=== PATIENT | female | born 1950 | race Caucasian/White ===

== ENCOUNTER → 2016-04-13 | Outpatient (CLI) | payer OTHER ==
[~2016-04-13] MED LIST: ASPI-232 PO; CRAN1TAB4 PO; GLC500 PO; GLIM2TAB2 PO; LISI40TA PO; LISI5TAB3 PO; METF-384 PO; MULT1TAB79 PO; OMEG10007 PO; SIMV20TA2 PO
[2016-04-13 12:54] LABS: ALT/SGPT 33 U/L (12-78); BLOOD UREA NITROGEN 21 mg/dl (7-18); BUN/CREATININE RATIO 36.9 (10-20); CALCIUM 9.9 mg/dl (8.5-10.1); CARBON DIOXIDE 24 mmol/L (21-32); CHLORIDE 105 mmol/L (98-107); CHOLESTEROL 146 mg/dl (0-200); CREATININE 0.58 mg/dl (0.60-1.20); GLUCOSE 189 mg/dl (70-99); POTASSIUM 4.7 mmol/L (3.5-5.1); SODIUM 140 mmol/L (136-145); TRIGLYCERIDES 227 mg/dl (0-150); VERY LOW DENSITY LIPOPROT CALC 45 mg/dl
[2016-04-13 12:57] LABS: ALB/GLOB RATIO 0.8 (0.9-2); ALKALINE PHOSPHATASE 75 U/L (45-117); AST/SGOT 27 U/L (15-37); CHOLESTEROL/HDL RATIO 5.2; HDL CHOLESTEROL 28 mg/dl; LDL CHOLESTEROL CALCULATED 73 mg/dl
[2016-04-13 13:13] LABS: ESTIMATED AVERAGE GLUCOSE 174 mg/dl; HA1C FLAG Normal (Normal)
== END | disposition home or self-care (01) ==
LOC: C.LABPVFM 10:47
PROVIDERS: ATTEND Family Medicine
DX: E78.5 Hyperlipidemia, unspecified (principal); I10 Essential (primary) hypertension; E11.49 Type 2 diabetes mellitus with other diabetic neurological complication; R21 Rash and other nonspecific skin eruption

== ENCOUNTER → 2016-08-22 | Outpatient (CLI) | payer OTHER ==
--- NOTE | 2016-08-28 10:06 | MAMMOGRAPHY REPORT ---
UNILATERAL RIGHT DIGITAL DIAGNOSTIC MAMMOGRAM TOMOSYNTHESIS WITH CAD AND TARGETED RIGHT ULTRASOUND: CLINICAL HISTORY: Follow-up diagnostic evaluation of the right breast for a benign appearing circumsc ribed 4 mm mass in the medial, posterior aspect of the breast, a loose grouping of 4 microcalcificati ons in the lateral breast, and a asymmetry in the superior breast on the MLO view. TECHNIQUE: Right breast tomosynthesis in addition to standard 2D mammography was performed. Current neto billy was also evaluated with a Computer Aided Detection (CAD) system. COMPARISON: Comparison is made to exams dated: 02/22/2016 mammogram, 02/22/2016 ultrasound, 6 ultrasound, 11/22/2015 mammogram, 11/16/2014 mammogram, and 10/29/2014 mammogram - [facility]. BREAST COMPOSITION: There are scattered areas of fibroglandular density in the right breast. FINDINGS: The exam is slightly suboptimal in terms of visualization of posterior tissue and position ing due to being wheelchair-bound. There are 4 loosely grouped smooth microcalcifications in the yariel roximate 9:00 middle one third of the right breast, that are unchanged dating back to at least 2015 and slightly coarsened comparing to 10/29/2014. There are benign rim calcifications anteriorly in the right breast. There is a rounded circumscribed 4 mm mass in the medial, far posterior right b reast on the CC view. This is not clearly seen on the MLO views. This circumscribed mass is stable in size dating back to 11/22/2015. No associated architectural distortion or microcalcification. An asymmetry is again seen in the superior middle one third of the right breast on the MLO view, that d oes not definitely persist as a mass on the corresponding tomosynthesis images. Nevertheless, furthe r evaluation with ultrasound was performed. Targeted ultrasound was performed throughout the medial right breast and also the superior right darci st. In the 11:00 axis, 8 cm from the nipple, an anechoic benign simple cyst is again identified, chris suring 3.1 x 1.4 x 4.1 mm. This has decreased in size compared to the prior ultrasound at which time it measured 7.7 x 2.7 x 5.1 mm. The interval decrease in size confers benignity. No discrete solid or cystic masses seen throughout the medial right breast. Tortuous ectatic blood vessels are seen, concordant with the mammographic appearance of prominent vasculature. IMPRESSION: ACR-BI-RADS CATEGORY 3: PROBABLY BENIGN, TARGETED ULTRASOUND ACR-BI-RADS CATEGORY 3: PRO BABLY BENIGN 1. A 4.3 mm circumscribed round mass in the medial, far posterior right breast, only seen on the CC view is unchanged in size dating back to 11/22/2015, therefore likely benign. However, no sonographi c correlate was identified to confirm a benign cyst. Therefore, another close follow-up is recommend ed in 4-5 months. 2. Persistent asymmetry in the superior right breast on the MLO view, with no definite persistent ma ss on the tomosynthesis images, and no suspicious sonographic correlate. A benign cyst is again seen in the 11:00 right breast on ultrasound, which may be contributing to the asymmetry. Overall, no kerr spicious solid mass is seen on ultrasound. 3. A loose grouping of 4 smooth microcalcifications in the upper outer middle one third of the right breast is unchanged in number and appearance dating back to October 2015, and unchanged in number gulshan ing back to 2014. Another follow-up diagnostic mammogram is recommended to ensure longer stability. 4. At the time of follow-up in the right breast, annual left mammography will be due. These results and recommendations were discussed with the patient at the time of the exam. She tenta tively schedule the follow-up appointment prior to leaving our department. Approximately 10% of breast cancers are not detected with mammography. A negative mammographic report should not delay biopsy if a clinically suggestive mass is present. Talia Crabtree M.D. ay/:08/22/2016 14:36:53 Attending Technologist: Jolie Hsu RT(R)(M), [facility] [address] [facility] Dog Raiser: Philly Dodd RT(R)(M), [facility] [address] letter sent: Follow Up Recommended 3 BI-RADS Code: ACR-BI-RADS Category 3: Probably Benign Ultrasound BI-RADS: ACR-BI-RADS Category 3: Pr obably Benign
== END | disposition home or self-care (01) ==
LOC: C.MAMM 13:32
PROVIDERS: ATTEND Family Medicine
DX: N64.89 Other specified disorders of breast (principal); R92.0 Mammographic microcalcification found on diagnostic imaging of breast; N63 Unspecified lump in breast

== ENCOUNTER → 2016-10-31 | Outpatient (CLI) | payer OTHER ==
[2016-10-31 17:48] LABS: ALT/SGPT 36 U/L (12-78); AST/SGOT 36 U/L (15-37); BLOOD UREA NITROGEN 21 mg/dl (7-18); BUN/CREATININE RATIO 32.6 (10-20); CALCIUM 9.9 mg/dl (8.5-10.1); CARBON DIOXIDE 26 mmol/L (21-32); CHLORIDE 103 mmol/L (98-107); CHOLESTEROL 136 mg/dl (0-200); CREATININE 0.65 mg/dl (0.60-1.20); GLUCOSE 247 mg/dl (70-99); POTASSIUM 4.6 mmol/L (3.5-5.1); SODIUM 137 mmol/L (136-145); TRIGLYCERIDES 221 mg/dl (0-150); VERY LOW DENSITY LIPOPROT CALC 44 mg/dl
[2016-10-31 17:51] LABS: ALB/GLOB RATIO 0.6 (0.9-2); ALKALINE PHOSPHATASE 83 U/L (45-117); CHOLESTEROL/HDL RATIO 4.7; HDL CHOLESTEROL 29 mg/dl; LDL CHOLESTEROL CALCULATED 63 mg/dl
[2016-11-01 07:54] LABS: ESTIMATED AVERAGE GLUCOSE 232 mg/dl; HA1C FLAG Normal (Normal)
== END | disposition home or self-care (01) ==
LOC: C.LABPVFM 12:43
PROVIDERS: ATTEND Family Medicine
DX: Z11.59 Encounter for screening for other viral diseases (principal); E78.5 Hyperlipidemia, unspecified; I10 Essential (primary) hypertension; R77.1 Abnormality of globulin; E11.49 Type 2 diabetes mellitus with other diabetic neurological complication

== ENCOUNTER 2016-11-01 17:25 | Emergency (ER) | payer OTHER ==
[~2016-11-01] VITALS: Ht 162.6 cm; Wt 100.0 kg
[~2016-11-01 17:25] MED LIST changes: -LISI40TA PO; -METF-384 PO
[2016-11-01 17:30] VITALS: TEMP 36.5; Ht 162.6 cm; Wt 100.0 kg
[2016-11-01] MEDS ORDERED: LISI40TA PO (17:48)
[2016-11-01] MEDS ORDERED: METF-384 PO (17:48)
--- NOTE | 2016-11-01 18:09 | DIAGNOSTIC IMAGING REPORT ---
RIGHT ANKLE MIN 3 VIEWS ROUTINE HISTORY: 66 years-old Female acute right-sided ankle injury status post trauma. COMPARISON: None available TECHNIQUE: 3 views of the right ankle FINDINGS: There is a comminuted fracture of the distal tibial metaphysis with fracture lines extending into the distal tibiofibular syndesmosis. A true lateral view was not obtained which limits evaluation of the fracture. There is only minimal displacement of approximately one cortex width medially of the distal fracture fragment. No significant angulation. Additionally, there is an acute oblique fracture of the distal fibular metaphysis with minimal apex lateral angulation of 8 degrees. No significant displacement. There is extensive soft tissue swelling about the ankle. Note is made of an peroneum. Bones are moderately demineralized. There is moderate degenerative change of the first MTP joint. There is spurring of the calcaneus. IMPRESSION: 1. Acute comminuted fracture of the distal tibial metaphysis extends into the distal tibiofibular syndesmosis. Evaluation is limited without a true lateral radiograph. 2. Acute mildly angulated oblique fracture of the distal fibular metaphysis. The above report was generated using voice recognition software. It may contain grammatical, syntax or spelling errors. Electronically signed by: Gene Davis M.D. 11/01/2016 6:08 PM Dictated Date/Time: 11/01/2016 6:05 PM
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
[2016-11-01 18:45] VITALS: BP 131/83; PULSE 77; O2SAT 97
== END 2016-11-01 18:51 | disposition home or self-care (01) ==
LOC: C.EDB 17:27 → C.EDD 18:51
DX: S82.301A Unspecified fracture of lower end of right tibia, initial encounter for closed fracture (principal); S82.891A Other fracture of right lower leg, initial encounter for closed fracture; S90.811A Abrasion, right foot, initial encounter; G35 Multiple sclerosis; Z99.3 Dependence on wheelchair; W22.8XXA Striking against or struck by other objects, initial encounter; Y92.008 Other place in unspecified non-institutional (private) residence as the place of occurrence of the external cause; Y93.H2 Activity, gardening and landscaping; E11.9 Type 2 diabetes mellitus without complications; I10 Essential (primary) hypertension; E66.9 Obesity, unspecified; M81.0 Age-related osteoporosis without current pathological fracture; Z79.4 Long term (current) use of insulin; Z79.899 Other long term (current) drug therapy

== ENCOUNTER → 2016-11-02 | Outpatient (CLI) | payer OTHER ==
[~2016-11-02] MED LIST changes: -CRAN1TAB4 PO; -GLC500 PO; +LISI40TA PO; -LISI5TAB3 PO; +METF-384 PO; -OMEG10007 PO
[2016-11-02 18:29] LABS: RATIO 220.7 mcg/mg (0-30.0)
== END | disposition home or self-care (01) ==
LOC: C.LABPVFM 10:49
PROVIDERS: ATTEND Family Medicine
DX: E78.5 Hyperlipidemia, unspecified (principal); I10 Essential (primary) hypertension; R77.1 Abnormality of globulin; E11.49 Type 2 diabetes mellitus with other diabetic neurological complication

== ENCOUNTER → 2016-12-19 | Outpatient (CLI) | payer OTHER ==
--- NOTE | 2016-12-19 14:42 | MAMMOGRAPHY REPORT ---
BILATERAL DIGITAL DIAGNOSTIC MAMMOGRAM TOMOSYNTHESIS WITH CAD AND TARGETED RIGHT ULTRASOUND: 7 CLINICAL HISTORY: 66-year-old woman presents for annual bilateral mammography and also to follow-up g rouped microcalcifications in the lateral right breast, and a small, 4.6 mm mass in the medial railroad firer ior right breast. TECHNIQUE: Bilateral CC and MLO 2-D and tomosynthesis images were obtained. The images are suboptima l given the patient is wheelchair-bound and there is significant posterior tissue excluded on the MLO views given those limitations. Current study was also evaluated with a Computer Aided Detection (CA D) system. COMPARISON: Comparison is made to exams dated: 08/22/2016 ultrasound, 08/22/2016 mammogram, 02/22/2016 mammogram, 02/22/2016 ultrasound, 11/22/2015 ultrasound, and 11/22/2015 mammogram - [facility]. BREAST COMPOSITION: There are scattered areas of fibroglandular density in both breasts. FINDINGS: Within the limitations of the exam, there is a stable lobulated mass with associated coars e calcification measuring 17 mm, in the upper outer anterior left breast, that is unchanged in size a nd appearance dating back to at least 08/08/2011. There is a second stable lobulated and circumscrib ed 5 mm mass in the anterior retroareolar left breast, and a stable asymmetry in the medial posterior left breast on the CC view. All of these findings are stable for at least 5 years and considered be nign. There are a few benign-appearing calcifications in the left breast, without evidence of new kerr spicious mass, asymmetry, focal area distortion or suspicious macrocalcification. There is a partially circumscribed 4.6 mm mass in the medial posterior right breast on the CC view th at is identified in the superior breast base on the MLO view. Further evaluation with ultrasound was performed, although this mass does not appear significantly changed in size dating back to 6. A grouping of approximately 4 microcalcifications in the 9:00 middle one third of the right breas t has coarsened comparing to the 10/29/2014 mammograms, suggesting benignity. Spot magnification vie ws were unable to be obtained given limitations of the patient in her wheelchair. Targeted ultrasound was performed in the upper inner quadrant and medial right breast to assess for t he 4.6 mm mammographic mass. In the 1:00 axis, 11-12 cm from the nipple, a small hypoechoic mass is identified, measuring 3.0 x 3.3 x 4.5 mm. This correlates well in size, shape and location as the ma mmographic mass and is indeterminate given the interval development and solid nature. Definitive lito racterization with an ultrasound-guided core needle biopsy is recommended. IMPRESSION: ACR BI-RADS CATEGORY 4: SUSPICIOUS, TARGETED ULTRASOUND ACR BI-RADS CATEGORY 4: SUSPICIO US 1. Ultrasound guided core biopsy is recommended for an indeterminate 4.5 mm solid mass in the 1:00 r ight breast, 11 cm from the nipple, which is thought to correlate with the mammographic mass that was new on the 2016 mammograms, but had not been previously located with ultrasound. 2. The 4 microcalcifications in the 9:00 right breast have coarsened since the 2015 mammograms, sugg esting benignity. 3. Stable mammographic appearance of the left breast including stable benign-appearing masses and as ymmetries. No definite mammographic evidence of malignancy. Advise follow-up in 1 year. These results and recommendations were discussed with the patient at the time of the exam. She tenta tively scheduled the right breast biopsy prior to leaving our department. Approximately 10% of breast cancers are not detected with mammography. A negative mammographic report should not delay biopsy if a clinically suggestive mass is present. Talia Crabtree M.D. ay/:12/19/2016 12:37:18 Singing Teacher: Philly Acosta, [facility] letter sent: Abnormal 4/5 BI-RADS Code: ACR BI-RADS Category 4: Suspicious Ultrasound BI-RADS: ACR BI-RADS Category 4: Suspici ous
== END | disposition home or self-care (01) ==
LOC: C.MAMM 10:30
PROVIDERS: ATTEND Family Medicine
DX: N63 Unspecified lump in breast (principal); R92.0 Mammographic microcalcification found on diagnostic imaging of breast

== ENCOUNTER → 2016-12-25 | Outpatient (CLI) | payer OTHER ==
--- NOTE | 2016-12-25 11:49 | Discharge Instructions ---
Discharge Instructions Procedure Procedure Date: Dec 25, 2016. Reason for visit: Right Mass. Discharge Discharge Date: Dec 25, 2016. Discharge Diagnosis: post right breast ultrasound guided core biopsy Instructions Activity Recommendations: Additional Limitations (see below) Return to School/Work: no limitations Recommended Home Diet: No Limitations Provider Instructions: ACTIVITY RECOMMENDATIONS: * No lifting, pushing, pulling or exercising the affected side for three days. RETURN TO SCHOOL/WORK: * You may return to work/school after the procedure, but do not perform any strenuous activities for 24 to 48 hours. MEDICATIONS: * Tylenol (two 325 mg) every four to six hours if needed for mild pain (if not allergic to Tylenol). DIET: * Resume previous diet. SPECIAL CARE INSTRUCTIONS: * Keep biopsy site dry for 24 hours. May shower after 24 hours, but do not soak (bathe) incision. * May remove Tegaderm (plastic patch) tomorrow AFTER showering. * Leave the steri-strips on for one week. Allow the steri-strips to fall off by themselves. If not off after one week, you may remove them. You may place a Bandaid crosswise over the strips, if desired. * Apply ice 10 minutes on and 10 minutes off as needed. * Wear a bra at bedtime to sleep more comfortably for 2-3 days. * Your referring physician should have the results after approximately 5 to 7 business days. * Call for unusual bleeding, fever, drainage, etc or if you have any questions call [phone] during normal business hours or after hours call Dr Crabtree, . FOLLOW UP VISIT: Follow-up with Referring Physician as scheduled. Allergies Coded Allergies: No Known Allergies (Verified , 03/19/15) Aldo Constantino Recommendations: Call your doctor if: * Temperature above 101 degrees * Pain not relieved by pain medicine ordered * There is increased drainage or redness from any incision * You have any unanswered questions or concerns. Your Doctors Instructions noted above were prepared by provider Talia Crabtree. Patient Signature Section: Patient Instructions Signature Page Judie Calderon Patient (or Guardian) Signature/Date: I have read and understand the instructions given to me by my caregivers. Caregiver/RN/Doctor Signature/Date: The above-named patient and/or guardian has received patient instructions on this date. + Original Patient Signature Page (only) stays with chart. Please make copy for patient.
--- NOTE | 2016-12-25 12:34 | MAMMOGRAPHY REPORT ---
ULTRASOUND GUIDED BIOPSY RIGHT BREAST: 12/25/2016 CLINICAL HISTORY: Indeterminate 3 x 4 mm round hypoechoic solid-appearing mass in the 1:[address] Patient presents for ultrasound-guided core biopsy. COMPARISON: Comparison is made to exams dated: 12/19/2016 mammogram, 12/19/2016 ultrasound, 08/22/2016 ultrasound, 08/22/2016 mammogram, 02/22/2016 mammogram, and 11/22/2015 mammogram - [facility]. PATIENT CONSENT: The procedure, risks and benefits were discussed with the patient and informed conse nt was obtained both verbally and in writing. Specific risks to this procedure include: bleeding, in fection, puncture of adjacent structure, nontarget biopsy, sampling error, pain, metal allergy and me dication reaction. PROCEDURE DESCRIPTION: A time out was performed and the right breast was agreed as the site of biopsy . The skin was prepped and draped in the usual sterile fashion. The 3 x 4 mm round hypoechoic solid m ass in the 1:00 right breast was chosen as the target for biopsy. Subcutaneous and intraparenchymal 1 % buffered lidocaine, without epinephrine, was administered as local anesthesia. A skin incision was made. Through the incision, 4 samples were taken with a 14 gauge Achieve biopsy device. A ribbon sha ped metallic marker was placed at the biopsy site. Hemostasis was achieved after manual compression. The patient tolerated the procedure well and there was no immediate complication. The samples were s ent to the pathology department in an appropriately labeled container. A post procedure right CC 2-D and tomosynthesis image was obtained. A new ribbon-shaped metallic bio psy marker clip is located within the mammographic mass in question, confirming mammographicsonograp hic correlation. No significant post biopsy hematoma. IMPRESSION: ULTRASOUND GUIDED BIOPSY Status post ultrasound-guided core biopsy of an indeterminate solid appearing mass in the 1:00 crystal slicer ior right breast, with biopsy marker placed at the site. The patient will receive notification of the biopsy results from her referring physician. Talia Crabtree M.D. ay/:12/25/2016 12:04:57 Breakdown Worker: Elissa LUGO(Pete)(Sarah), [facility]
--- NOTE | 2016-12-25 12:36 | MAMMOGRAPHY REPORT ---
UNILATERAL RIGHT DIGITAL DIAGNOSTIC MAMMOGRAM TOMOSYNTHESIS WITH CAD: 12/25/2016 CLINICAL HISTORY: Status post ultrasound guided core biopsy of an indeterminate solid appearing mass in the 1:00 right breast. Please refer to the report from right breast ultrasound guided core biopsy performed at the same time for full detail. IMPRESSION: POST PROCEDURE IMAGING FOR MARKER PLACEMENT Please refer to the report from right breast ultrasound guided core biopsy performed at the same time for full detail. Approximately 10% of breast cancers are not detected with mammography. A negative mammographic report should not delay biopsy if a clinically suggestive mass is present. Talia Crabtree M.D. ay/:12/25/2016 11:50:44 Asbestos Pipe Supervisor: Elissa CHAPARRO)(M), [facility] BI-RADS Code: Post Procedure Imaging For Marker Placement
== END | disposition home or self-care (01) ==
LOC: C.MAMM 10:55
PROVIDERS: ATTEND Family Medicine
DX: D24.1 Benign neoplasm of right breast (principal)

== ENCOUNTER → 2017-02-01 | Outpatient (CLI) | payer OTHER ==
[2017-02-01 17:43] LABS: BLOOD UREA NITROGEN 20 mg/dl (7-18); BUN/CREATININE RATIO 37.4 (10-20); CALCIUM 10.8 mg/dl (8.5-10.1); CARBON DIOXIDE 28 mmol/L (21-32); CHLORIDE 104 mmol/L (98-107); CREATININE 0.54 mg/dl (0.60-1.20); GLUCOSE 187 mg/dl (70-99); POTASSIUM 4.5 mmol/L (3.5-5.1); SODIUM 137 mmol/L (136-145)
[2017-02-02 05:44] LABS: ESTIMATED AVERAGE GLUCOSE 163 mg/dl; HA1C FLAG Normal (Normal)
== END | disposition home or self-care (01) ==
LOC: C.LABPVFM 14:07
PROVIDERS: ATTEND Family Medicine
DX: E11.49 Type 2 diabetes mellitus with other diabetic neurological complication (principal)

== ENCOUNTER → 2017-02-06 | Outpatient (CLI) | payer OTHER ==
[2017-02-06 17:42] LABS: CREATININE RANDOM URINE 20.3 mg/dl
[2017-02-06 17:54] LABS: RATIO 193.6 mcg/mg (0-30.0)
== END | disposition home or self-care (01) ==
LOC: C.LABPVFM 13:12
PROVIDERS: ATTEND Family Medicine
DX: E11.21 Type 2 diabetes mellitus with diabetic nephropathy (principal)

== ENCOUNTER → 2017-06-04 | Outpatient (CLI) | payer OTHER ==
[2017-06-04 12:39] LABS: HEMOGLOBIN A1C 9.1 % (4.5-5.6)
[2017-06-04 13:06] LABS: ALBUMIN 3.3 gm/dl (3.4-5.0); ALT/SGPT 31 U/L (12-78); BLOOD UREA NITROGEN 23 mg/dl (7-18); CALCIUM 10.4 mg/dl (8.5-10.1); CARBON DIOXIDE 26 mmol/L (21-32); CHOLESTEROL 128 mg/dl (0-200); CREATININE 0.58 mg/dl (0.60-1.20); GLUCOSE 185 mg/dl (70-99); POTASSIUM 4.8 mmol/L (3.5-5.1); SODIUM 136 mmol/L (136-145)
[2017-06-04 13:09] LABS: ALKALINE PHOSPHATASE 79 U/L (45-117); AST/SGOT 22 U/L (15-37); LDL CHOLESTEROL CALCULATED 58 mg/dl; TOTAL PROTEIN 8.2 gm/dl (6.4-8.2)
== END | disposition home or self-care (01) ==
LOC: C.LABPVFM 11:00
PROVIDERS: ATTEND Family Medicine
DX: Z00.00 Encounter for general adult medical examination without abnormal findings (principal); E78.5 Hyperlipidemia, unspecified; I10 Essential (primary) hypertension; E11.49 Type 2 diabetes mellitus with other diabetic neurological complication

== ENCOUNTER → 2017-06-06 | Outpatient (CLI) | payer OTHER ==
[2017-06-06 18:12] LABS: CREATININE RANDOM URINE 26.3 mg/dl
== END | disposition home or self-care (01) ==
LOC: C.LABPVFM 18:19
PROVIDERS: ATTEND Family Medicine
DX: Z00.00 Encounter for general adult medical examination without abnormal findings (principal); E78.5 Hyperlipidemia, unspecified; I10 Essential (primary) hypertension; E11.49 Type 2 diabetes mellitus with other diabetic neurological complication

== ENCOUNTER → 2017-10-04 | Outpatient (CLI) | payer OTHER ==
--- NOTE | 2017-11-09 08:31 | CODING QUERY MEDICAL NECESSITY ---
SUPPORTING DIAGNOSIS NEEDED A supporting diagnosis is required for the test/procedure performed on this patient in order for us to be reimbursed by the patient's insurance. Please provide a supporting diagnosis for the following test/procedure listed below next to the test name along with your signature. *If there is no additional diagnosis for this patient that would support the following test/procedure please document that below next to the test/procedure. Test(s)/Procedure(s) that require a supporting diagnosis: DOS: 10/04/17 * REFERENCE QUEST TEST DIAGNOSIS: Provider Signature: Date: Thank you Joslyn [place] [employer] Once completed, please kindly fax back to [phone] For questions please call [phone]
== END | disposition home or self-care (01) ==
LOC: C.LABPVFM 13:30
PROVIDERS: ATTEND Family Medicine
DX: N76.0 Acute vaginitis (principal)

== ENCOUNTER 2018-07-08 22:59 | Inpatient (IN) ==
[2018-07-08] MEDS ORDERED: LISINOPRIL 40 MG TAB PO STA (23:31)
[2018-07-08] MEDS ORDERED: NITROGLYCERIN SL 0.4 MG/TAB TAB SL PRN (23:31)
[2018-07-09 00:21] LABS: Basophils # (auto) 0.03 K/uL (0-0.2); Basophils % (auto) 0.4 %; Eosinophils # (auto) 0.16 K/uL (0-0.5); Eosinophils % (auto) 1.9 %; Hematocrit (blood only) 37.3 % (37-47); Hemoglobin 11.7 g/dL (12.0-16.0); Immature Granulocytes # (auto) 0.04 K/uL (0.00-0.02); Immature Granulocytes % (auto) 0.5 %; Lymphocytes # (auto) 2.45 K/uL (1.2-3.4); Lymphocytes % (auto) 29.1 %; Mean Corpuscular Hgb Conc 31.4 g/dL (32-36); Mean Corpuscular Volume 80.4 fL (80-100); Mean Platelet Volume 11.9 fL (7.4-10.4); Monocytes # (auto) 0.51 K/uL (0.11-0.59); Monocytes % (auto) 6.1 %; Neutrophils # (auto) 5.23 K/uL (1.4-6.5); Platelet Count 201 K/uL (130-400); RDW Coefficient of Variation 15.3 % (11.5-14.5); RDW Standard Deviation 44.7 fL (36.4-46.3); Red Blood Count 4.64 M/uL (4.2-5.4); White Blood Count 8.42 K/uL (4.8-10.8)
[2018-07-09 00:42] LABS: Albumin Level 3.7 gm/dl (3.4-5.0); BUN Creatinine Ratio 29.5 (10-20); Calcium 10.4 mg/dl (8.5-10.1); Creatinine Clr Calc Pharmacy 80.5 ml/min; Est GFR (African American) 89.8; Est GFR (Non-African American) 77.5; Potassium 4.1 mmol/L (3.5-5.1)
[2018-07-09 00:53] LABS: Albumin Globulin Ratio 0.7 (0.9-2); Bilirubin,Total 0.3 mg/dl (0.2-1); Globulin 5.6 gm/dl (2.5-4.0); Total Protein 9.3 gm/dl (6.4-8.2); Troponin I 0.046 ng/ml (0-0.045)
[2018-07-09 03:18] LABS: Appearance Urine Clear (Clear); Bacteria Urine Automated 1+ (Negative); Bilirubin Urine Negative (Negative); Blood Urine Negative (Negative); Cast Urine Automated 0 /lpf (0-5); Color Urine Yellow; Epithelial Cell Urine Auto 0-5 /lpf (0-5); Glucose Urine UA Negative (Negative); Ketones Urine Trace (Negative); Leukocyte Esterase Urine 2+ (Negative); Nitrite Urine Negative (Negative); Protein Urine 1+ (Negative); RBC Urine Automated 0-4 /hpf (0-4); Specific Gravity Urine 1.015 (1.000-1.030); Urobilinogen Urine Negative (Negative); WBC Urine Automated >30 /hpf (0-5)
--- NOTE | 2018-07-09 03:54 | History & Physical Report ---
Date of Service July 09, 2018 Assessment & Plan (1) Substernal chest pain: Chest pain rule out, elevated troponin The patient has a number of risk factors, but her presentation was atypical. The pain was relieved by nitro. EKG showed normal sinus rhythm, but the patient had a left bundle branch block The troponin was 0.046, will continue to trend Keep the patient n.p.o. EKG with chest pain, nitro for chest pain Continue aspirin UTI, uncomplicated We will start the patient on a course of Bactrim Muscular dystrophy Wheelchair bound, pain may be MSK in etiology Ordered PT/OT Diabetes Continue home medications; metformin, Januvia, glimepiride Most recent A1c was 7.2 Hyperlipidemia Continue simvastatin CODE STATUS Full, without intubation FEN N.p.o. DVT prophylaxis Lovenox (2) Neck pain: (3) UTI (urinary tract infection): (4) Hyperlipidemia: (5) HTN (hypertension): (6) Type 2 diabetes mellitus: History of Present Illness Primary Care Provider: Renee Schmitt MD 68-year-old female with a history of type II diabetes, hypertension and muscular dystrophy presents with neck and chest pain since the morning of 07/08/2018. The patient states that the pain began shortly after she woke up which initially began in her neck. She thought that she had pulled a muscle in her neck. Shortly after though, she began to feel shooting pains into her left shoulder blade and a dull pain in her chest. The patient is wheelchair bound and denies worsening of the pain with any movements. She said that the pain was constant throughout the entire day and then in the evening she decided that she should go to the hospital. In route to the hospital the patient was given a nitro tablet which relieved the pain. Associated symptoms include shortness of breath. Patient denies acute swelling in her legs or syncope. She denies smoking, but reports a family history significant for cardiovascular disease, including a MS in her father. Allergies Allergy/AdvReac Type Severity Reaction Status Date / Time No Known Allergies Allergy Unknown Verified 07/08/18 23:59 Home Medications Home Medications Medication Instructions Recorded Confirmed Type Januvia 50 mg PO DAILY 07/08/18 07/08/18 History Ocuvite Eye Health 2 tab PO DAILY 07/08/18 07/08/18 History Women's Daily Formula 1 tab PO DAILY 07/08/18 07/08/18 History aspirin 81 mg PO DAILY 07/08/18 07/08/18 History calcium carbonate [Calcium 500] 500 mg PO Q OTHER DAY 07/08/18 07/08/18 History cholecalciferol (vitamin D3) 1,000 unit PO DAILY 07/08/18 07/08/18 History [Vitamin D3] cranberry 900 mg PO DAILY 07/08/18 07/08/18 History glimepiride 4 mg PO BID 07/08/18 07/08/18 History metformin 1,000 mg PO BID 07/08/18 07/08/18 History atorvastatin 40 mg PO QAM 30 Days #30 tab 07/11/18 Rx carvedilol 6.25 mg PO BID 30 Days #60 tab 07/11/18 Rx sacubitril-valsartan [Entresto] 1 tab PO BID 30 Days #60 tab 07/11/18 Rx Past Med/Surg History Medical History Femur fracture, right (Resolved) Pneumonia (Resolved) Productive cough (Resolved) Right otitis media (Resolved) Hypertension Muscular dystrophy Uterine cancer Family History Other Family history non-contributory Social History Preferred Language: Estonian Communication Ability: Effective 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 Beliefs That Will Affect Care: None marital status: Current Living Situation: Spouse Feels Safe at Home: Yes Safety Concerns: Feels Safe At This Time Smoking Status: Never smoker Hx Alcohol Use: No Hx Substance Use: No Review of Systems Review of Systems: All systems reviewed & are unremarkable except as noted in HPI & below Physical Exam Vital Signs (Past 24 Hours): Last Vital Signs Temp 36.6 C 07/08/18 23:11 Pulse 95 H 07/09/18 02:29 Resp 18 07/09/18 02:29 BP 124/86 07/09/18 02:29 Pulse Ox 96 07/09/18 02:29 Constitutional: WD/WN, vitals as above Eyes: PERRL, conjunctivae normal, anicteric sclerae ENMT: external ear and nose normal, oropharynx normal Neck: trachea midline, no thyromegaly Respiratory: normal respiratory effort, lungs clear to auscultation Cardiovascular: Rate/Rhythm: regular rate and regular rhythm Heart Sounds: + murmur (2 out of 6 systolic murmur) Gastrointestinal (Abdomen): normal bowel sounds, soft, nontender, no hepatosplenomegaly Musculoskeletal: Head/Neck/Chest: normocephalic, head atraumatic and neck supple Skin: no rashes, warm and dry Neurologic: PERRL, EOMI, accommodation nl, no face palsy, no dysarthria Psychiatric: A+Ox3, euthymic affect Results & Data Laboratory Results Laboratory Last Values WBC 8.42 K/uL (4.8-10.8) 07/09/18 00:00 RBC 4.64 M/uL (4.2-5.4) 07/09/18 00:00 Hgb 11.7 g/dL (12.0-16.0) L 07/09/18 00:00 Hct 37.3 % (37-47) 07/09/18 00:00 MCV 80.4 fL (80-100) 07/09/18 00:00 MCH 25.2 pg (25-34) 07/09/18 00:00 MCHC 31.4 g/dL (32-36) L 07/09/18 00:00 RDW Std Deviation 44.7 fL (36.4-46.3) 07/09/18 00:00 RDW Coeff of Arely 15.3 % (11.5-14.5) H 07/09/18 00:00 Plt Count 201 K/uL (130-400) 07/09/18 00:00 MPV 11.9 fL (7.4-10.4) H 07/09/18 00:00 Immature Gran % (Auto) 0.5 % 07/09/18 00:00 Neut % (Auto) 62.0 % 07/09/18 00:00 Lymph % (Auto) 29.1 % 07/09/18 00:00 Daniels % (Auto) 6.1 % 07/09/18 00:00 Eos % (Auto) 1.9 % 07/09/18 00:00 Baso % (Auto) 0.4 % 07/09/18 00:00 Immature Gran # (Auto) 0.04 K/uL (0.00-0.02) H 07/09/18 00:00 Neut # (Auto) 5.23 K/uL (1.4-6.5) 07/09/18 00:00 Lymph # (Auto) 2.45 K/uL (1.2-3.4) 07/09/18 00:00 Daniels # (Auto) 0.51 K/uL (0.11-0.59) 07/09/18 00:00 Eos # (Auto) 0.16 K/uL (0-0.5) 07/09/18 00:00 Baso # (Auto) 0.03 K/uL (0-0.2) 07/09/18 00:00 Sodium 138 mmol/L (136-145) 07/09/18 00:00 Potassium 4.1 mmol/L (3.5-5.1) 07/09/18 00:00 Chloride 104 mmol/L (98-107) 07/09/18 00:00 Carbon Dioxide 25 mmol/L (21-32) 07/09/18 00:00 Anion Gap 9.0 (3-11) 07/09/18 00:00 BUN 23 mg/dl (7-18) H 07/09/18 00:00 Creatinine 0.79 mg/dl (0.6-1.2) 07/09/18 00:00 Est Cr Clr Drug Dosing 80.5 ml/min 07/09/18 00:00 Est GFR ( Amer) 89.8 07/09/18 00:00 Est GFR (Non-Af Amer) 77.5 07/09/18 00:00 BUN/Creatinine Ratio 29.5 (10-20) H 07/09/18 00:00 Glucose 132 mg/dl (70-99) H 07/09/18 00:00 Calcium 10.4 mg/dl (8.5-10.1) H 07/09/18 00:00 Total Bilirubin 0.3 mg/dl (0.2-1) 07/09/18 00:00 AST 30 U/L (15-37) 07/09/18 00:00 ALT 38 U/L (12-78) 07/09/18 00:00 Alkaline Phosphatase 89 U/L (45-117) 07/09/18 00:00 Troponin I 0.046 ng/ml (0-0.045) H* 07/09/18 00:00 Total Protein 9.3 gm/dl (6.4-8.2) H 07/09/18 00:00 Albumin 3.7 gm/dl (3.4-5.0) 07/09/18 00:00 Globulin 5.6 gm/dl (2.5-4.0) H 07/09/18 00:00 Albumin/Globulin Ratio 0.7 (0.9-2) L 07/09/18 00:00 Lipase 609 U/L (73-393) H 07/09/18 00:00 Urine Color Yellow 07/09/18 01:35 Urine Appearance Clear (Clear) 07/09/18 01:35 Urine pH 5.0 (4.5-7.5) 07/09/18 01:35 Ur Specific [place] 1.015 (1.000-1.030) 07/09/18 01:35 Urine Protein 1+ (Negative) H 07/09/18 01:35 Urine Glucose (UA) Negative (Negative) 07/09/18 01:35 Urine Ketones Trace (Negative) H 07/09/18 01:35 Urine Blood Negative (Negative) 07/09/18 01:35 Urine Nitrite Negative (Negative) 07/09/18 01:35 Urine Bilirubin Negative (Negative) 07/09/18 01:35 Urine Urobilinogen Negative (Negative) 07/09/18 01:35 Ur Leukocyte Esterase 2+ (Negative) H 07/09/18 01:35 Urine WBC (Auto) >30 /hpf (0-5) H 07/09/18 01:35 Urine RBC (Auto) 0-4 /hpf (0-4) 07/09/18 01:35 U Hyaline Cast (Auto) 0 /lpf (0-5) 07/09/18 01:35 U Epithel Cells (Auto) 0-5 /lpf (0-5) 07/09/18 01:35 Urine Bacteria (Auto) 1+ (Negative) H 07/09/18 01:35 Supervising Physician Co-Signing Physician Notes Attending addendum: I have physically seen this patient, have supervised the medical residents activities, and agree with the H&P unless as otherwise noted. Assessment and Plan: Substernal chest pain/left bundle branch block/mildly elevated troponin 0 0.046- The patient will be admitted to telemetry for serial cardiac enzymes, serial EKG's, cardiac rhythm monitoring and a 2-D echocardiogram with Dopplers. Physical demands are not high with muscular dystrophy. Continue aspirin 81 mg daily chewable, carvedilol 6.25 mg p.o. twice daily and Entresto 1 p.o. twice daily Diabetes mellitus- Hold oral medications metformin, Januvia and, glimepiride Place on Accu-Cheks before meals and at bedtime with NovoLog coverage per scale. Check a hemoglobin A1c. Hyperlipidemia- Continue atorvastatin 40 mg daily. Check a fasting lipid panel. Remainder of orders and notations as noted.
--- NOTE | 2018-07-09 05:03 | Emergency Department Note ---
Entered by Kimberly Bueno acting as a scribe for History of Present Illness General Chief complaint: Neck Injury/Pain Stated complaint: NECK/BACK PAIN, HEADACHE Source: patient Mode of arrival: ambulatory Limitations: physical limitation (muscular dystrophy) History of Present Illness Onset (ago): hour(s) (this morning ) Location: neck Radiation: other (pain radiates across her shoulders) Pain Consistency: + other (worsening) Maximum Pain Intensity: 8 Quality: + other (pain) Associated symptoms: + chest pain, + cough and + other ("fluttering in her chest," tiredness); no fever/chills Treatments prior to arrival: other (Aspirin) The patient is a 68 year old female who presents to the Emergency Room with complaints of worsening neck pain that began this morning. She reports that the pain is constant, stating that the pain feels slightly better now. She notes that the pain radiates across her shoulders. The patient complains of SOB that began at 2130 this evening. She complains of intermittent chest pain that began on her way to the ER. The patient reports that she feels a "fluttering" in her chest. She complains of a cough. The patient notes that she feels tired. She den ies any fever. The patient states that she takes Lisinopril daily, reporting that she did not take it tonight. 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 The patient complains of a history of hypertension, muscular dystrophy, and uterine cancer. Home Medications Home Medications Medication Instructions Recorded Confirmed Type aspirin 81 mg PO DAILY 07/08/18 07/08/18 History calcium carbonate [Calcium 500] 500 mg PO Q OTHER DAY 07/08/18 07/08/18 History cholecalciferol (vitamin D3) 1,000 unit PO DAILY 07/08/18 07/08/18 History [Vitamin D3] cranberry 900 mg PO DAILY 07/08/18 07/08/18 History glimepiride 4 mg PO BID 07/08/18 07/08/18 History lisinopril 40 mg PO DAILY 07/08/18 07/08/18 History metformin 1,000 mg PO BID 07/08/18 07/08/18 History gq-gy-[id number] carb-vit K 1 tab PO DAILY 07/08/18 07/08/18 History [Women's Daily Formula] simvastatin 20 mg PO QPM 07/08/18 07/08/18 History sitagliptin [Januvia] 50 mg PO DAILY 07/08/18 07/08/18 History vit C-E-zinc mxh-jlvedn-ihpiqq 2 tab PO DAILY 07/08/18 07/08/18 History [[facility]] Allergies Allergy/AdvReac Type Severity Reaction Status Date / Time No Known Allergies Allergy Unknown Verified 07/08/18 23:59 Past Med/Surg History Medical History Femur fracture, right (Resolved) Pneumonia (Resolved) Productive cough (Resolved) Right otitis media (Resolved) Hypertension Muscular dystrophy Uterine cancer Family History Other Family history non-contributory Social History Preferred Language: Czech Communication Ability: Effective Bursar Required: No Beliefs That Will Affect Care: None Current Living Situation: Spouse Feels Safe at Home: Yes Safety Concerns: Feels Safe At This Time Smoking Status: Never smoker Hx Alcohol Use: No Hx Substance Use: No Review of Systems See HPI for pertinent positives & negatives. and A total of 10 systems reviewed and were otherwise negative Physical Exam Vital Signs Vital Signs - 24 hr 07/09/18 08:00 07/09/18 11:32 07/09/18 14:52 Temperature 36.6 C 36.6 C Temperature Source Oral Oral Pulse Rate 92 H Pulse Rate [Right Finger] 93 H 94 H Pulse Rhythm [Right Finger] Pulse Strength [Right Finger] Respiratory Rate 18 20 Respiratory Effort / Characteristics Respiratory Depth Respiratory Pattern Blood Pressure [Left Arm] 140/93 131/85 Blood Pressure [Right Arm] Blood Pressure Mean [Left Arm] 108 100 Blood Pressure Mean [Right Arm] Blood Pressure Position [Left Arm] Lying Lying Blood Pressure Position [Right Arm] Pulse Oximetry 97 95 Oxygen Delivery Method Room Air Room Air 07/09/18 16:00 07/09/18 19:45 07/09/18 23:30 Temperature 36.5 C 36.9 C Temperature Source Oral Oral Pulse Rate 97 H Pulse Rate [Right Finger] 98 H 96 H Pulse Rhythm [Right Finger] Pulse Strength [Right Finger] Respiratory Rate 20 18 Respiratory Effort / Characteristics Respiratory Depth Respiratory Pattern Blood Pressure [Left Arm] 127/84 Blood Pressure [Right Arm] 110/74 Blood Pressure Mean [Left Arm] 98 Blood Pressure Mean [Right Arm] 86 Blood Pressure Position [Left Arm] Blood Pressure Position [Right Arm] Lying Pulse Oximetry 94 94 Oxygen Delivery Method Room Air 07/10/18 01:26 07/10/18 04:57 07/10/18 07:04 Temperature 36.5 C 36.7 C Temperature Source Oral Oral Pulse Rate 89 Pulse Rate [Right Finger] 85 72 Pulse Rhythm [Right Finger] Regular Pulse Strength [Right Finger] Normal Respiratory Rate 20 18 Respiratory Effort / Characteristics Non-Labored Respiratory Depth Normal Respiratory Pattern Regular Blood Pressure [Left Arm] Blood Pressure [Right Arm] 106/70 111/72 Blood Pressure Mean [Left Arm] Blood Pressure Mean [Right Arm] 82 85 Blood Pressure Position [Left Arm] Blood Pressure Position [Right Arm] Lying Lying Pulse Oximetry 95 96 Oxygen Delivery Method Room Air Room Air 07/10/18 07:12 07/10/18 07:24 Temperature 36.4 C L Temperature Source Oral Pulse Rate 82 Pulse Rate [Right Finger] 94 H Pulse Rhythm [Right Finger] Pulse Strength [Right Finger] Respiratory Rate 20 Respiratory Effort / Characteristics Respiratory Depth Respiratory Pattern Blood Pressure [Left Arm] 165/98 H Blood Pressure [Right Arm] Blood Pressure Mean [Left Arm] 120 Blood Pressure Mean [Right Arm] Blood Pressure Position [Left Arm] Blood Pressure Position [Right Arm] Pulse Oximetry 92 Oxygen Delivery Method Room Air Vital signs reviewed. General: Chronically ill-appearing female, debilitated, obese, in no significant distress. HEENT: No scleral icterus, PERRLA, neck supple. Atraumatic. Cardiovascular: Regular rate and rhythm, no extra sounds. Pulmonary: Clear to auscultation bilaterally, normal work of breathing. Abdomen: Soft, nontender, nondistended, positive bowel sounds. Musculoskeletal: Atraumatic, no peripheral edema. Atrophy of the extremities. Neurologic: Awake, alert and answering questions appropriately. Generalized weakness, with limited ability to move the extremities. Skin: Warm, dry, no rash Course 2329: Past medical records reviewed. The patient was evaluated in room B09, and a complete history and physical examination were performed. 0015: The patient states that her pain went from a 6/10 to a 5/10 in severity. 0132: I spoke to Dr. Naidu, [facility] hospitalist, about the patient's case. He will evaluate the patient further. Consultations Consultation #1: I spoke to Dr. Naidu, [facility] hospitalist, about the patient's case. He will evaluate the patient further. Time: 01:32 Administered Medications Aspirin (Ecotrin Ectab) 81 mg PO DAILY LYNNE Stop: 08/08/18 08:59 Last Admin: 07/10/18 07:20 Dose: 81 mg Documented by: [id number] Admin: 07/09/18 08:11 Dose: 81 mg Documented by: [id number] Enoxaparin Sodium (Lovenox) 40 mg SQ Q24H LYNNE Stop: 08/08/18 07:59 Last Admin: 07/09/18 10:54 Dose: 40 mg Documented by: [id number] Glimepiride (Amaryl) 4 mg PO BID LYNNE Stop: 08/08/18 08:59 Last Admin: 07/09/18 20:46 Dose: 4 mg Documented by: [id number] Admin: 07/09/18 08:11 Dose: 4 mg Documented by: [id number] Insulin Aspart (Novolog Flexpen) 0 units SC ACHS LYNNE Stop: 08/08/18 07:29 Last Admin: 07/09/18 21:21 Dose: Not Given Documented by: [id number] Cosigned by: [id number] Admin: 07/09/18 17:17 Dose: Not Given Documented by: [id number] Cosigned by: [id number] Admin: 07/09/18 11:56 Dose: Not Given Documented by: [id number] Cosigned by: [id number] Admin: 07/09/18 08:12 Dose: Not Given Documented by: [id number] Cosigned by: [id number] Lisinopril (Zestril) 40 mg PO DAILY LYNNE Stop: 08/08/18 08:59 Last Admin: 07/09/18 08:11 Dose: 40 mg Documented by: [id number] Metformin HCl (Glucophage) 1,000 mg PO BIDM LYNNE Stop: 08/08/18 07:59 Last Admin: 07/09/18 17:12 Dose: 1,000 mg Documented by: [id number] Admin: 07/09/18 08:11 Dose: 1,000 mg Documented by: [id number] Simvastatin (Zocor) 20 mg PO QPM LYNNE Stop: 08/08/18 20:59 Last Admin: 07/09/18 21:19 Dose: 20 mg Documented by: [id number] Sitagliptin Phosphate (Januvia) 50 mg PO DAILY LYNNE Stop: 08/08/18 08:59 Last Admin: 07/09/18 08:11 Dose: 50 mg Documented by: [id number] Trimethoprim/Sulfamethoxazole (Septra Ds 800/160mg Tab) 1 tab PO Q12 LYNNE Stop: 07/14/18 08:59 Last Admin: 07/09/18 20:46 Dose: 1 tab Documented by: [id number] Admin: 07/09/18 08:11 Dose: 1 tab Documented by: [id number] Discontinued Medications Lisinopril (Zestril) 40 mg PO NOW STA Stop: 07/08/18 23:32 Last Admin: 07/09/18 00:10 Dose: 40 mg Documented by: [id number] Nitroglycerin (Nitrostat) 0.4 mg SL UD PRN PRN Reason: Chest Pain Stop: 08/07/18 23:30 Last Admin: 07/08/18 23:55 Dose: 0.4 mg Documented by: [id number] Perflutren Lipid Microsphere (Definity) 2 ml IV ONCE ONE Stop: 07/09/18 14:30 Last Admin: 07/09/18 10:35 Dose: 2 ml Documented by: [id number] Medical Decision Making Differential Diagnosis The differential diagnosis includes: Acute coronary syndrome, pulmonary embolus, aortic dissection, musculoskeletal pain, pneumonia, pleural effusion, pneumothorax, GERD, peptic ulcer disease, cholecystitis, and gastritis. Medical Records Attestation: I reviewed the patient's medical records. Home Medications Current Medication List: was personally reviewed by me Laboratory Data Attestation: I reviewed the patient's lab results. Result diagrams: 07/10/18 06:16 07/10/18 06:16 Lab Results 07/09/18 07/09/18 07/09/18 Range/Units 00:00 00:00 01:35 WBC 8.42 (4.8-10.8) K/uL RBC 4.64 (4.2-5.4) M/uL Hgb 11.7 L (12.0-16.0) g/dL Hct 37.3 (37-47) % MCV 80.4 (80-100) fL MCH 25.2 (25-34) pg MCHC 31.4 L (32-36) g/dL RDW Std Deviation 44.7 (36.4-46.3) fL RDW Coeff of Arely 15.3 H (11.5-14.5) % Plt Count 201 (130-400) K/uL MPV 11.9 H (7.4-10.4) fL Immature Gran % (Auto) 0.5 % Neut % (Auto) 62.0 % Lymph % (Auto) 29.1 % Mccormick % (Auto) 6.1 % Eos % (Auto) 1.9 % Baso % (Auto) 0.4 % Immature Gran # (Auto) 0.04 H (0.00-0.02) K/uL Neut # (Auto) 5.23 (1.4-6.5) K/uL Lymph # (Auto) 2.45 (1.2-3.4) K/uL Mccormick # (Auto) 0.51 (0.11-0.59) K/uL Eos # (Auto) 0.16 (0-0.5) K/uL Baso # (Auto) 0.03 (0-0.2) K/uL PT (9.0-12.0) Seconds INR (0.9-1.1) Sodium 138 (136-145) mmol/L Potassium 4.1 (3.5-5.1) mmol/L Chloride 104 (98-107) mmol/L Carbon Dioxide 25 (21-32) mmol/L Anion Gap 9.0 (3-11) BUN 23 H (7-18) mg/dl Creatinine 0.79 (0.6-1.2) mg/dl Est Cr Clr Drug Dosing 80.5 ml/min Est GFR ( Amer) 89.8 Est GFR (Non-Af Amer) 77.5 BUN/Creatinine Ratio 29.5 H (10-20) Glucose 132 H (70-99) mg/dl POC Glucose (70-99) Calcium 10.4 H (8.5-10.1) mg/dl Total Bilirubin 0.3 (0.2-1) mg/dl AST 30 (15-37) U/L ALT 38 (12-78) U/L Alkaline Phosphatase 89 (45-117) U/L Troponin I 0.046 H* (0-0.045) ng/ml Total Protein 9.3 H (6.4-8.2) gm/dl Albumin 3.7 (3.4-5.0) gm/dl Globulin 5.6 H (2.5-4.0) gm/dl Albumin/Globulin Ratio 0.7 L (0.9-2) Lipase 609 H (73-393) U/L Urine Color Yellow Urine Appearance Clear (Clear) Urine pH 5.0 (4.5-7.5) Ur Specific Brumley 1.015 (1.000-1.030) Urine Protein 1+ H (Negative) Urine Glucose (UA) Negative (Negative) Urine Ketones Trace H (Negative) Urine Blood Negative (Negative) Urine Nitrite Negative (Negative) Urine Bilirubin Negative (Negative) Urine Urobilinogen Negative (Negative) Ur Leukocyte Esterase 2+ H (Negative) Urine WBC (Auto) >30 H (0-5) /hpf Urine RBC (Auto) 0-4 (0-4) /hpf U Hyaline Cast (Auto) 0 (0-5) /lpf U Epithel Cells (Auto) 0-5 (0-5) /lpf Urine Bacteria (Auto) 1+ H (Negative) 07/09/18 07/09/18 07/09/18 Range/Units 07:00 07:00 07:40 WBC (4.8-10.8) K/uL RBC (4.2-5.4) M/uL Hgb (12.0-16.0) g/dL Hct (37-47) % MCV (80-100) fL MCH (25-34) pg MCHC (32-36) g/dL RDW Std Deviation (36.4-46.3) fL RDW Coeff of Arely (11.5-14.5) % Plt Count (130-400) K/uL MPV (7.4-10.4) fL Immature Gran % (Auto) % Neut % (Auto) % Lymph % (Auto) % Mccormick % (Auto) % Eos % (Auto) % Baso % (Auto) % Immature Gran # (Auto) (0.00-0.02) K/uL Neut # (Auto) (1.4-6.5) K/uL Lymph # (Auto) (1.2-3.4) K/uL Mccormick # (Auto) (0.11-0.59) K/uL Eos # (Auto) (0-0.5) K/uL Baso # (Auto) (0-0.2) K/uL PT 10.7 (9.0-12.0) Seconds INR 1.0 (0.9-1.1) Sodium (136-145) mmol/L Potassium (3.5-5.1) mmol/L Chloride (98-107) mmol/L Carbon Dioxide (21-32) mmol/L Anion Gap (3-11) BUN (7-18) mg/dl Creatinine (0.6-1.2) mg/dl Est Cr Clr Drug Dosing ml/min Est GFR ( Amer) Est GFR (Non-Af Amer) BUN/Creatinine Ratio (10-20) Glucose (70-99) mg/dl POC Glucose 163 H (70-99) Calcium (8.5-10.1) mg/dl Total Bilirubin (0.2-1) mg/dl AST (15-37) U/L ALT (12-78) U/L Alkaline Phosphatase (45-117) U/L Troponin I 0.546 H* (0-0.045) ng/ml Total Protein (6.4-8.2) gm/dl Albumin (3.4-5.0) gm/dl Globulin (2.5-4.0) gm/dl Albumin/Globulin Ratio (0.9-2) Lipase (73-393) U/L Urine Color Urine Appearance (Clear) Urine pH (4.5-7.5) Ur Specific Brumley (1.000-1.030) Urine Protein (Negative) Urine Glucose (UA) (Negative) Urine Ketones (Negative) Urine Blood (Negative) Urine Nitrite (Negative) Urine Bilirubin (Negative) Urine Urobilinogen (Negative) Ur Leukocyte Esterase (Negative) Urine WBC (Auto) (0-5) /hpf Urine RBC (Auto) (0-4) /hpf U Hyaline Cast (Auto) (0-5) /lpf U Epithel Cells (Auto) (0-5) /lpf Urine Bacteria (Auto) (Negative) 07/09/18 07/09/18 07/09/18 Range/Units 11:38 11:54 16:32 WBC (4.8-10.8) K/uL RBC (4.2-5.4) M/uL Hgb (12.0-16.0) g/dL Hct (37-47) % MCV (80-100) fL MCH (25-34) pg MCHC (32-36) g/dL RDW Std Deviation (36.4-46.3) fL RDW Coeff of Arely (11.5-14.5) % Plt Count (130-400) K/uL MPV (7.4-10.4) fL Immature Gran % (Auto) % Neut % (Auto) % Lymph % (Auto) % Mccormick % (Auto) % Eos % (Auto) % Baso % (Auto) % Immature Gran # (Auto) (0.00-0.02) K/uL Neut # (Auto) (1.4-6.5) K/uL Lymph # (Auto) (1.2-3.4) K/uL Mccormick # (Auto) (0.11-0.59) K/uL Eos # (Auto) (0-0.5) K/uL Baso # (Auto) (0-0.2) K/uL PT (9.0-12.0) Seconds INR (0.9-1.1) Sodium (136-145) mmol/L Potassium (3.5-5.1) mmol/L Chloride (98-107) mmol/L Carbon Dioxide (21-32) mmol/L Anion Gap (3-11) BUN (7-18) mg/dl Creatinine (0.6-1.2) mg/dl Est Cr Clr Drug Dosing ml/min Est GFR ( Amer) Est GFR (Non-Af Amer) BUN/Creatinine Ratio (10-20) Glucose (70-99) mg/dl POC Glucose 172 H 127 H (70-99) Calcium (8.5-10.1) mg/dl Total Bilirubin (0.2-1) mg/dl AST (15-37) U/L ALT (12-78) U/L Alkaline Phosphatase (45-117) U/L Troponin I 0.401 H* (0-0.045) ng/ml Total Protein (6.4-8.2) gm/dl Albumin (3.4-5.0) gm/dl Globulin (2.5-4.0) gm/dl Albumin/Globulin Ratio (0.9-2) Lipase (73-393) U/L Urine Color Urine Appearance (Clear) Urine pH (4.5-7.5) Ur Specific Brumley (1.000-1.030) Urine Protein (Negative) Urine Glucose (UA) (Negative) Urine Ketones (Negative) Urine Blood (Negative) Urine Nitrite (Negative) Urine Bilirubin (Negative) Urine Urobilinogen (Negative) Ur Leukocyte Esterase (Negative) Urine WBC (Auto) (0-5) /hpf Urine RBC (Auto) (0-4) /hpf U Hyaline Cast (Auto) (0-5) /lpf U Epithel Cells (Auto) (0-5) /lpf Urine Bacteria (Auto) (Negative) 07/09/18 07/10/18 07/10/18 Range/Units 20:04 06:16 06:16 WBC 8.00 (4.8-10.8) K/uL RBC 4.53 (4.2-5.4) M/uL Hgb 11.5 L (12.0-16.0) g/dL Hct 36.3 L (37-47) % MCV 80.1 (80-100) fL MCH 25.4 (25-34) pg MCHC 31.7 L (32-36) g/dL RDW Std Deviation 45.6 (36.4-46.3) fL RDW Coeff of Arely 15.6 H (11.5-14.5) % Plt Count 213 (130-400) K/uL MPV 11.7 H (7.4-10.4) fL Immature Gran % (Auto) 0.4 % Neut % (Auto) 63.2 % Lymph % (Auto) 27.1 % Mccormick % (Auto) 7.4 % Eos % (Auto) 1.4 % Baso % (Auto) 0.5 % Immature Gran # (Auto) 0.03 H (0.00-0.02) K/uL Neut # (Auto) 5.06 (1.4-6.5) K/uL Lymph # (Auto) 2.17 (1.2-3.4) K/uL Mccormick # (Auto) 0.59 (0.11-0.59) K/uL Eos # (Auto) 0.11 (0-0.5) K/uL Baso # (Auto) 0.04 (0-0.2) K/uL PT (9.0-12.0) Seconds INR (0.9-1.1) Sodium 140 (136-145) mmol/L Potassium 4.8 D (3.5-5.1) mmol/L Chloride 109 H (98-107) mmol/L Carbon Dioxide 24 (21-32) mmol/L Anion Gap 7.0 (3-11) BUN 26 H (7-18) mg/dl Creatinine 0.87 (0.6-1.2) mg/dl Est Cr Clr Drug Dosing 72.0 ml/min Est GFR ( Amer) 79.9 Est GFR (Non-Af Amer) 68.9 BUN/Creatinine Ratio 29.7 H (10-20) Glucose 158 H (70-99) mg/dl POC Glucose 120 H (70-99) Calcium 9.9 (8.5-10.1) mg/dl Total Bilirubin (0.2-1) mg/dl AST (15-37) U/L ALT (12-78) U/L Alkaline Phosphatase (45-117) U/L Troponin I (0-0.045) ng/ml Total Protein (6.4-8.2) gm/dl Albumin (3.4-5.0) gm/dl Globulin (2.5-4.0) gm/dl Albumin/Globulin Ratio (0.9-2) Lipase (73-393) U/L Urine Color Urine Appearance (Clear) Urine pH (4.5-7.5) Ur Specific Brumley (1.000-1.030) Urine Protein (Negative) Urine Glucose (UA) (Negative) Urine Ketones (Negative) Urine Blood (Negative) Urine Nitrite (Negative) Urine Bilirubin (Negative) Urine Urobilinogen (Negative) Ur Leukocyte Esterase (Negative) Urine WBC (Auto) (0-5) /hpf Urine RBC (Auto) (0-4) /hpf U Hyaline Cast (Auto) (0-5) /lpf U Epithel Cells (Auto) (0-5) /lpf Urine Bacteria (Auto) (Negative) Imaging Data Attestation: I personally reviewed and interpreted this imaging study as follows: My Impression: XR CHEST 1V: Widened mediastinum but unchanged from previous. Prominent interstitial markin gs. Positioning vs. congestive change. ECG Data Attestation: I personally reviewed and interpreted this ECG as follows: Indication: chest pain Rate (beats per minute): 94 Rhythm: normal sinus Findings: + other (T-wave flattening in the lateral leads) and + LBBB; no acute ischemic change and no ectopy Comparison ECG Date: from (03/31/2006) Change: the following changes noted (QRS is slightly prolonged as compared to previous EKG, LBBB is similar) Blood Pressure Blood Pressure Findings: Elevated blood pressure Blood Pressure Disposition: further management by hospitalist MDM Narrative This patient was evaluated and appeared to be in no significant distress. IV access was obtained and laboratory work was drawn. Patient was placed on a monitoring manager and found to be ureterolithiasis with lobe. Patient was given aspirin prior to arrival. EKG confirms a sinus rhythm with T wave flattening. Patient does have a left bundle branch block seems to be progressive from previous years ago. Chest x-ray was obtained and reveals a widened mediastinum, likely somewhat technique and position related however no significant change from previous. Patient does have a slightly elevated troponin at 0.046. Given the patient's multiple comorbidities and chest discomfort, she will be evaluated by the hospitalist service for further management. Patient and family are happy with this plan and agree. Impression & Plan Substernal chest pain Discharge Plan Visit Data *Final* Discharge Date/Time: 07/09/18 05:18 Chief Complaint: Neck Injury/Pain Stated Complaint: NECK/BACK PAIN, HEADACHE ED Provider: Kim Guidry Discharge Problem: Substernal chest pain Patient Disposition: Admitted As Inpatient Discharge Instructions Interventions: ED Discharge Assessment Last Done: 07/09/18 05:18 The scribe's documentation has been prepared under my direction and personally reviewed by me in its entirety. I confirm that the note above accurately reflects all work, treatment, procedures, and medical decision making performed by me.
[2018-07-09] MEDS ORDERED: POLYETHYLENE (MIRALAX) 17 GM PACK PO PRN (06:06)
[2018-07-09] MEDS ORDERED: NITROGLYCERIN SL 0.4 MG/TAB TAB SL PRN (06:06)
[2018-07-09] MEDS ORDERED: ACETAMINOPHEN 325 MG TAB PO PRN (06:06)
[2018-07-09] MEDS ORDERED: GLUCAGON FOR INJ 1 MG VIAL IM PRN (06:45)
[2018-07-09] MEDS ORDERED: GLUCOSE 40% GEL 15 GM TUBE PO PRN (06:45)
[2018-07-09] MEDS ORDERED: CARBOHYDRATES FOR HYPOGLYCEMIA PO PRN (06:45)
[2018-07-09] MEDS ORDERED: DEXTROSE 50% 50 ML SYRINGE IV PRN (06:45)
[2018-07-09] MEDS ORDERED: GLUCOSE 10 TABS/TUBE PO PRN (06:45)
--- NOTE | 2018-07-09 07:11 | XRay Report ---
XR chest 1V portable CLINICAL HISTORY: Chest Pain dyspnea COMPARISON STUDY: No previous studies for comparison. FINDINGS: Cardiomegaly. Prominent pulmonary vasculature. Diaphragms are smooth. IMPRESSION: Cardiomegaly with components of congestive failure. The above report was generated using voice recognition software. It may contain grammatical, syntax or spelling errors. Electronically signed by: Vern Andujar M.D. 07/09/2018 7:09 AM
[2018-07-09 07:25] LABS: Prothrombin Time 10.7 Seconds (9.0-12.0)
[2018-07-09] MEDS: SITAGLIPTIN PHOSPHATE 25 MG TAB PO SCH (08:11)
[2018-07-09] MEDS: LISINOPRIL 40 MG TAB PO SCH (08:11)
[2018-07-09] MEDS: ASPIRIN 81 MG ECTAB PO SCH (08:11)
[2018-07-09] MEDS: SULFAMETHOXAZOLE/TRIMETHOPRIM DS 800/160MG TAB PO SCH ×2 (08:11→20:46)
[2018-07-09] MEDS: METFORMIN HCL 500 MG TAB PO SCH ×2 (08:11→17:12)
[2018-07-09] MEDS: GLIMEPIRIDE 2 MG TAB PO SCH ×2 (08:11→20:46)
[2018-07-09] MEDS: INSULIN ASPART 100 UNITS/ML 3 ML PEN SC SCH ×4 (08:12→21:21)
[2018-07-09] MEDS ORDERED: METFORMIN HCL 500 MG TAB PO SCH (09:00)
[2018-07-09] MEDS ORDERED: GLIMEPIRIDE 2 MG TAB PO SCH (09:00)
[2018-07-09] MEDS ORDERED: SITAGLIPTIN PHOSPHATE 25 MG TAB PO SCH (09:00)
[2018-07-09] MEDS: ENOXAPARIN INJ 40 MG/0.4 ML SYR SQ SCH (10:54)
--- NOTE | 2018-07-09 11:06 | Cardiology Consultation ---
Date of Consultation July 09, 2018 Assessment & Plan (1) Substernal chest pain: Her discomfort is quite atypical and that it was neck and shoulder pain primarily, however in association with positive cardiac enzymes and an abnormal echocardiogram we need to exclude coronary artery disease. Her third troponin was slightly reduced so it does not appear to be ongoing damage and the overall levels were quite low, too low to explain her current ejection fraction. We should however perform cardiac catheterization and I have tentatively scheduled her for tomorrow morning. (2) Cardiomyopathy: Her left ventricular dysfunction appears to be out of proportion to her small enzyme leak. Since she has a left bundle branch block pattern I cannot determine whether she has a prior myocardial infarction. She may have an ischemic cardiomyopathy which we can identify catheterization, she could also have a nonischemic cardiomyopathy with wall motion abnormalities. This could even be due to her left bundle branch block. Once we have the results of the catheterization we can better determine how to proceed. (3) LBBB (left bundle branch block): She has a left bundle branch block pattern on electrocardiography but the duration is unknown. It occurred sometime in the last 12 years but we cannot narrow it down closer than that at this time. It could be secondary to underlying ischemic heart disease or may be primary conduction system disease. If her left ventricular function remains low on medical therapy (which will take some months to find out) then biventricular pacing may be an option to help restore synchrony and left ventricular function. History of Present Illness Reason for Consultation: Chest and shoulder discomfort, elevated troponin Attending Physician: Juan A Ulloa, History of Present Illness This is a very pleasant 68-year-old woman who has a history of diabetes, hypertension and muscular dystrophy for which she has minimal activity. She presented with left-sided neck pain which woke her up yesterday morning, the pain was in her left neck and she thought at first that she pulled a muscle, however began to progress to her left shoulder. It remained present throughout the evening and she therefore came into the emergency room. In the emergency room she received nitroglycerin which apparently helped with the discomfort (although she says she still has residual discomfort). Her initial troponin was slightly elevated at 0.046. The next measurement at 7 AM this morning had risen slightly to 0.546. Her electrocardiogram shows a left bundle branch block pattern, the last electrocardiogram that we have on record was 2006 and she did not have a left bundle branch block pattern at that time. The time of my evaluation this morning she was complaining of slight residual left shoulder discomfort, no chest discomfort, no shortness of breath and no palpitations. She really cannot perform much physical activity due to her muscular dystrophy therefore exertional symptoms cannot be evaluated. She does have a very strong family history of coronary artery disease. Allergies Allergy/AdvReac Type Severity Reaction Status Date / Time No Known Allergies Allergy Unknown Verified 07/08/18 23:59 Home Medications Home Medications Medication Instructions Recorded Confirmed Type aspirin 81 mg PO DAILY 07/08/18 07/08/18 History calcium carbonate [Calcium 500] 500 mg PO Q OTHER DAY 07/08/18 07/08/18 History cholecalciferol (vitamin D3) 1,000 unit PO DAILY 07/08/18 07/08/18 History [Vitamin D3] cranberry 900 mg PO DAILY 07/08/18 07/08/18 History glimepiride 4 mg PO BID 07/08/18 07/08/18 History lisinopril 40 mg PO DAILY 07/08/18 07/08/18 History metformin 1,000 mg PO BID 07/08/18 07/08/[address]-ak-sglo-FA-Ca carb-vit K 1 tab PO DAILY 07/08/18 07/08/18 History [Women's Daily Formula] simvastatin 20 mg PO QPM 07/08/18 07/08/18 History sitagliptin [Januvia] 50 mg PO DAILY 07/08/18 07/08/18 History vit C-E-zinc nhd-ojqnqo-xwgkvy 2 tab PO DAILY 07/08/18 07/08/18 History [[facility]] Patient History Medical History Femur fracture, right (Resolved) Pneumonia (Resolved) Productive cough (Resolved) Right otitis media (Resolved) Hypertension Muscular dystrophy Uterine cancer Family History Other Family history non-contributory Social History Preferred Language: Zambian Communication Ability: Effective Door To Door Selling Agent Required: No Beliefs That Will Affect Care: None Current Living Situation: Spouse Feels Safe at Home: Yes Safety Concerns: Feels Safe At This Time Smoking Status: Never smoker Hx Alcohol Use: No Hx Substance Use: No Review of Systems Negative for lightheadedness, dizziness, palpitations, presyncope or syncope. No exertional symptoms but she has minimal exertional ability, no dyspnea on exertion or exertional chest pain. Rest neck and shoulder discomfort as described. No orthopnea or PND or peripheral edema. No GI complaints, no bleeding. No neurologic complaints such as TIA or stroke symptoms. Other systems negative. Physical Exam Vital Signs (Past 24 Hours): Last Vital Signs Temp 36.5 C 07/09/18 07:19 Pulse 92 H 07/09/18 08:00 Resp 18 07/09/18 07:19 BP 111/75 07/09/18 07:19 Pulse Ox 96 07/09/18 07:19 Physical Exam: Constitutional: Alert, cooperative and in no distress. She is overweight HEENT: Unremarkable Neck: No jugular venous distention, carotid pulses are normal and equal bilaterally without bruits. Pulmonary: Clear to auscultation bilaterally. Cardiac: Regular rhythm with no murmur, gallop or rub. Abdomen: Soft, nontender with normal bowel sounds. Extremities: No edema. Distal pulses intact. Neurologic: No focal findings. Gait is steady. Skin: No rash, ecchymoses or petechiae. Results & Data Diagnostic Findings Her presenting electrocardiogram shows sinus rhythm at 94 bpm with a left bundle branch block pattern. This is new sometime in the last 12 years when her last electrocardiogram I have for comparison was done. Telemetry: Sinus rhythm and sinus tachycardia. Echocardiography: Her echocardiogram which was reviewed shortly after being done shows significant left ventricular dysfunction with wall motion abnormalities especially in the anterior wall and apex.
[2018-07-09] MEDS ORDERED: PERFLUTREN LIPID MICROSPHERE (DEFINITY) IV ONE (14:29)
--- NOTE | 2018-07-09 17:52 | Family Medicine Progress Note ---
Date of Service July 09, 2018 Assessment & Plan (1) Substernal chest pain: Ms. Calderon is a 68 year old with PMhx significant for muscular dystrophy, HTN, Diabetes and HLD who presented with neck pain radiating to her back and was found to have increased troponins and a LBBB. Pain was relieved with Nitro. Chest pain rule out, elevated troponin -Suspecting an atypical NC -Cardiac cath in AM. NPO after midnight. -Trops jumped from 0.046 to 0.546 -Continue Nitro prn for pain and aspirin -Cards consulted, appreciate recs. UTI, uncomplicated Completing Day 1 of Bactrim Rx. Muscular dystrophy Wheelchair bound PT/OT Diabetes Continue home medications; metformin, Januvia, glimepiride Most recent A1c was 7.2 Hyperlipidemia Continue simvastatin CODE STATUS:Full w/o intubation FEN: DVT prophylaxis: SQ Lovenox (2) Neck pain: (3) UTI (urinary tract infection): (4) Hyperlipidemia: (5) HTN (hypertension): (6) Type 2 diabetes mellitus: Supervising Physician Co-Signing Physician Notes I personally examined the patient and verified all parker points of history and exam, discussed case, and agree with decision making with Dr Calle. Feeling better now. For heart cath tomorrow. No current questions. HPI and review of systems otherwise as above. Vitals noted, in general she is awake and alert no distress. HEENT normal cephalic atraumatic mucous members are moist. Breathing is unlabored no acce ssory muscle use. Cardiac enzymes noted. Cardiology input noted and appreciated. Unstable/atypical anginafor heart cath tomorrow Cardiomyopathyfor heart cath tomorrow Otherwise as above Subjective Pt states neck pain progressively getting better. No associated N/V, diaphoresis, SOB. Denies headache, diarrhea, constipation. Review of Systems All systems reviewed & are unremarkable except as noted in HPI & below Physical Exam Vital Signs (Past 24 Hours): Last Vital Signs Temp 36.6 C 07/09/18 14:52 Pulse 94 H 07/09/18 14:52 Resp 20 07/09/18 14:52 BP 131/85 07/09/18 14:52 Pulse Ox 95 07/09/18 14:52 General: Alert, oriented. Laying with head of bed elevated. HEENT: NC/AT, PERRLA, EOMI, oropharynx moist. Neck: NONtender to palpation on both sides. No lymphadenopathy. Chest: Nontender to palpation. CV: RRR, Normal s1, s2. No murmurs appreciated Resp: Breath sounds clear bilaterally but decreased on the back, no increased effort of breathing. Abdomen: Protuberant, nontender No guarding. No organomegaly appreciated. Extremities: No edema in lower extremities. Results & Data Laboratory Results Laboratory Results - last 24 hr 07/09/18 07/09/18 07/09/18 00:00 00:00 01:35 WBC 8.42 RBC 4.64 Hgb 11.7 L Hct 37.3 MCV 80.4 MCH 25.2 MCHC 31.4 L RDW Std Deviation 44.7 RDW Coeff of Arely 15.3 H Plt Count 201 MPV 11.9 H Immature Gran % (Auto) 0.5 Neut % (Auto) 62.0 Lymph % (Auto) 29.1 Cottle % (Auto) 6.1 Eos % (Auto) 1.9 Baso % (Auto) 0.4 Immature Gran # (Auto) 0.04 H Neut # (Auto) 5.23 Lymph # (Auto) 2.45 Cottle # (Auto) 0.51 Eos # (Auto) 0.16 Baso # (Auto) 0.03 PT INR Sodium 138 Potassium 4.1 Chloride 104 Carbon Dioxide 25 Anion Gap 9.0 BUN 23 H Creatinine 0.79 Est Cr Clr Drug Dosing 80.5 Est GFR ( Amer) 89.8 Est GFR (Non-Af Amer) 77.5 BUN/Creatinine Ratio 29.5 H Glucose 132 H POC Glucose Calcium 10.4 H Total Bilirubin 0.3 AST 30 ALT 38 Alkaline Phosphatase 89 Troponin I 0.046 H* Total Protein 9.3 H Albumin 3.7 Globulin 5.6 H Albumin/Globulin Ratio 0.7 L Lipase 609 H Urine Color Yellow Urine Appearance Clear Urine pH 5.0 Ur Specific [place] 1.015 Urine Protein 1+ H Urine Glucose (UA) Negative Urine Ketones Trace H Urine Blood Negative Urine Nitrite Negative Urine Bilirubin Negative Urine Urobilinogen Negative Ur Leukocyte Esterase 2+ H Urine WBC (Auto) >30 H Urine RBC (Auto) 0-4 U Hyaline Cast (Auto) 0 U Epithel Cells (Auto) 0-5 Urine Bacteria (Auto) 1+ H 07/09/18 07/09/18 07/09/18 07:00 07:00 07:40 WBC RBC Hgb Hct MCV MCH MCHC RDW Std Deviation RDW Coeff of Arely Plt Count MPV Immature Gran % (Auto) Neut % (Auto) Lymph % (Auto) Cottle % (Auto) Eos % (Auto) Baso % (Auto) Immature Gran # (Auto) Neut # (Auto) Lymph # (Auto) Cottle # (Auto) Eos # (Auto) Baso # (Auto) PT 10.7 INR 1.0 Sodium Potassium Chloride Carbon Dioxide Anion Gap BUN Creatinine Est Cr Clr Drug Dosing Est GFR ( Amer) Est GFR (Non-Af Amer) BUN/Creatinine Ratio Glucose POC Glucose 163 H Calcium Total Bilirubin AST ALT Alkaline Phosphatase Troponin I 0.546 H* Total Protein Albumin Globulin Albumin/Globulin Ratio Lipase Urine Color Urine Appearance Urine pH Ur Specific [place] Urine Protein Urine Glucose (UA) Urine Ketones Urine Blood Urine Nitrite Urine Bilirubin Urine Urobilinogen Ur Leukocyte Esterase Urine WBC (Auto) Urine RBC (Auto) U Hyaline Cast (Auto) U Epithel Cells (Auto) Urine Bacteria (Auto) 07/09/18 07/09/18 07/09/18 11:38 11:54 16:32 WBC RBC Hgb Hct MCV MCH MCHC RDW Std Deviation RDW Coeff of Arely Plt Count MPV Immature Gran % (Auto) Neut % (Auto) Lymph % (Auto) Cottle % (Auto) Eos % (Auto) Baso % (Auto) Immature Gran # (Auto) Neut # (Auto) Lymph # (Auto) Cottle # (Auto) Eos # (Auto) Baso # (Auto) PT INR Sodium Potassium Chloride Carbon Dioxide Anion Gap BUN Creatinine Est Cr Clr Drug Dosing Est GFR ( Amer) Est GFR (Non-Af Amer) BUN/Creatinine Ratio Glucose POC Glucose 172 H 127 H Calcium Total Bilirubin AST ALT Alkaline Phosphatase Troponin I 0.401 H* Total Protein Albumin Globulin Albumin/Globulin Ratio Lipase Urine Color Urine Appearance Urine pH Ur Specific [place] Urine Protein Urine Glucose (UA) Urine Ketones Urine Blood Urine Nitrite Urine Bilirubin Urine Urobilinogen Ur Leukocyte Esterase Urine WBC (Auto) Urine RBC (Auto) U Hyaline Cast (Auto) U Epithel Cells (Auto) Urine Bacteria (Auto) Medications Administered Home Medications aspirin 81 mg PO DAILY 07/08/18 [History Confirmed 07/08/18] calcium carbonate [Calcium 500] 500 mg PO Q OTHER DAY 07/08/18 [History Confirmed 07/08/18] cholecalciferol (vitamin D3) [Vitamin D3] 1,000 unit PO DAILY 07/08/18 [History Confirmed 07/08/18] cranberry 900 mg PO DAILY 07/08/18 [History Confirmed 07/08/18] glimepiride 4 mg PO BID 07/08/18 [History Confirmed 07/08/18] lisinopril 40 mg PO DAILY 07/08/18 [History Confirmed 07/08/18] metformin 1,000 mg PO BID 07/08/18 [History Confirmed 07/08/18] oh-zr-ilvl-FA-Ca carb-vit K [Women's Daily Formula] 1 tab PO DAILY 07/08/18 [History Confirmed 07/08/18] simvastatin 20 mg PO QPM 07/08/18 [History Confirmed 07/08/18] sitagliptin [Januvia] 50 mg PO DAILY 07/08/18 [History Confirmed 07/08/18] vit C-E-zinc keu-ybruzu-ytlnxi [[facility]] 2 tab PO DAILY 07/08/18 [History Confirmed 07/08/18] Active Medications Acetaminophen (Tylenol) 650 mg PO Q4H PRN PRN Reason: Pain or Fever Stop: 08/08/18 06:05 Aspirin (Ecotrin Ectab) 81 mg PO DAILY [facility] Stop: 08/08/18 08:59 Last Admin: 07/09/18 08:11 Dose: 81 mg Documented by: Dextrose (Dextrose 50%) 25 - 50 ml IV UD PRN; Protocol PRN Reason: Hypoglycemia Protocol Stop: 08/08/18 06:44 Enoxaparin Sodium (Lovenox) 40 mg SQ Q24H [facility] Stop: 08/08/18 07:59 Last Admin: 07/09/18 10:54 Dose: 40 mg Documented by: Glimepiride (Amaryl) 4 mg PO BID [facility] Stop: 08/08/18 08:59 Last Admin: 07/09/18 08:11 Dose: 4 mg Documented by: Glucagon (Glucagen) 1 mg IM UD PRN; Protocol PRN Reason: Hypoglycemia Protocol Stop: 08/08/18 06:44 Glucose (Glucose 40%) 15 - 30 gm PO UD PRN; Protocol PRN Reason: Hypoglycemia Protocol Stop: 08/08/18 06:44 Glucose (Dex4 Glucose) 4 - 8 tabs PO UD PRN; Protocol PRN Reason: Hypoglycemia Protocol Stop: 08/08/18 06:44 Insulin Aspart (Novolog Flexpen) 0 units SC ACHS [facility] Stop: 08/08/18 07:29 Last Admin: 07/09/18 17:17 Dose: Not Given Documented by: Lisinopril (Zestril) 40 mg PO DAILY [facility] Stop: 08/08/18 08:59 Last Admin: 07/09/18 08:11 Dose: 40 mg Documented by: Metformin HCl (Glucophage) 1,000 mg PO BIDM [facility] Stop: 08/08/18 07:59 Last Admin: 07/09/18 17:12 Dose: 1,000 mg Documented by: Miscellaneous (Carbohydrates For Hypoglycemia) 15 - 30 gm PO UD PRN PRN Reason: Hypoglycemia Treatment Stop: 08/08/18 06:44 Nitroglycerin (Nitrostat) 0.4 mg SL UD PRN PRN Reason: Chest Pain Stop: 08/08/18 06:05 Polyethylene Glycol (Miralax Powder Packet) 17 gm PO DAILY PRN PRN Reason: Constipation Stop: 08/08/18 06:05 Simvastatin (Zocor) 20 mg PO QPM [facility] Stop: 08/08/18 20:59 Sitagliptin Phosphate (Januvia) 50 mg PO DAILY [facility] Stop: 08/08/18 08:59 Last Admin: 07/09/18 08:11 Dose: 50 mg Documented by: Trimethoprim/Sulfamethoxazole (Septra Ds 800/160mg Tab) 1 tab PO Q12 [facility] Stop: 07/14/18 08:59 Last Admin: 07/09/18 08:11 Dose: 1 tab Documented by:
[2018-07-09] MEDS ORDERED: SIMVASTATIN 20 MG TAB PO SCH (21:00)
[2018-07-10 06:47] LABS: Basophils # (auto) 0.04 K/uL (0-0.2); Basophils % (auto) 0.5 %; Eosinophils # (auto) 0.11 K/uL (0-0.5); Eosinophils % (auto) 1.4 %; Hematocrit (blood only) 36.3 % (37-47); Hemoglobin 11.5 g/dL (12.0-16.0); Immature Granulocytes # (auto) 0.03 K/uL (0.00-0.02); Immature Granulocytes % (auto) 0.4 %; Lymphocytes # (auto) 2.17 K/uL (1.2-3.4); Lymphocytes % (auto) 27.1 %; Mean Corpuscular Hgb Conc 31.7 g/dL (32-36); Mean Corpuscular Volume 80.1 fL (80-100); Mean Platelet Volume 11.7 fL (7.4-10.4); Monocytes # (auto) 0.59 K/uL (0.11-0.59); Monocytes % (auto) 7.4 %; Neutrophils # (auto) 5.06 K/uL (1.4-6.5); Neutrophils % (auto) 63.2 %; Platelet Count 213 K/uL (130-400); RDW Coefficient of Variation 15.6 % (11.5-14.5); RDW Standard Deviation 45.6 fL (36.4-46.3); Red Blood Count 4.53 M/uL (4.2-5.4)
[2018-07-10] MEDS ORDERED: MIDAZOLAM HCL 1 MG/ML 2ML VIAL ONE (07:04)
[2018-07-10] MEDS ORDERED: fentaNYL citrate 100 MCG/2 ML VIAL ONE (07:04)
[2018-07-10] MEDS ORDERED: NiCARDipine HCL INJ 2.5 MG/ML 10 ML AMP ONE (07:04)
[2018-07-10] MEDS ORDERED: HEPARIN (PORCINE) 1000 UNIT/ML 10 ML (CATH LAB USE ONLY) ONE (07:04)
[2018-07-10] MEDS ORDERED: NITROGLYCERIN/D5W 100MCG/ML 20ML SYR ONE (07:05)
[2018-07-10 07:14] LABS: BUN Creatinine Ratio 29.7 (10-20); Calcium 9.9 mg/dl (8.5-10.1); Est GFR (African American) 79.9; Est GFR (Non-African American) 68.9; Potassium 4.8 mmol/L (3.5-5.1)
[2018-07-10] MEDS: ASPIRIN 81 MG ECTAB PO SCH (07:20)
--- NOTE | 2018-07-10 07:47 | Pre Anesthesia Assessment ---
Date of Service July 10, 2018 Pre Sedation Assessment Vital Signs Temp Pulse Pulse Resp BP BP Pulse Ox 07/10/18 07:24 82 07/10/18 07:12 36.4 C L 94 H 20 165/98 H 92 07/10/18 07:04 36.7 C 72 18 111/72 96 07/10/18 04:57 36.5 C 85 20 106/70 95 07/10/18 01:26 89 07/09/18 23:30 36.9 C 96 H 18 110/74 94 07/09/18 19:45 36.5 C 98 H 20 127/84 94 07/09/18 16:00 97 H 07/09/18 14:52 36.6 C 94 H 20 131/85 95 07/09/18 11:32 36.6 C 93 H 18 140/93 97 07/09/18 08:00 92 H Cardiovascular RRR, no murmur, no edema Respiratory normal respiratory effort, lungs clear to auscultation Pre-Sedation Airway Assessment Smoking Status: Never smoker Hx Sleep Apnea: No Hx Difficult Intubation: No Short, Thick Neck: No Thyromental Distance: > or= 3.5 Finger Breadths Oral Cavity: + WNL Mallampati Class: III Procedure Planning Contraindications for Sedation: none Current Medications Reviewed: Yes Notes The planned sedation has been discussed with the patient. Informed Consent was obtained. I have identified the patient, determined the appropriateness of sedation and have assessed the patient immediately prior to the procedure. All medicine(s) and interventions are by my order.
--- NOTE | 2018-07-10 08:10 | Cardiology Progress Note ---
Date of Service July 10, 2018 Assessment & Plan (1) Cardiomyopathy: 2. Mild troponin elevation 3. Left bundle branch block 4. Atypical chest discomfort 5. Type 2 diabetes 6. UTI Patient presented with atypical chest symptoms and found to have mildly elevated troponin, new cardiomyopathy with regional wall motion abnormalities. We discussed cardiac catheterization including risk, benefits and she is willing to proceed. Plan to perform via right radial artery. Further recommendations pending findings Subjective Feeling well. No chest/neck pain overnight. Breathing stable. No other new complaints. Review of Systems All systems reviewed & are unremarkable except as noted in HPI & below Physical Exam Vital Signs (Past 24 Hours): Last Vital Signs Temp 36.4 C L 07/10/18 07:12 Pulse 82 07/10/18 07:24 Resp 20 07/10/18 07:12 BP 165/98 H 07/10/18 07:12 Pulse Ox 92 07/10/18 07:12 Physical Exam: General: Comfortable, no acute distress, obese Eyes: Sclerae anicteric, extraocular movements intact HENT: Oropharynx clear mucous membranes moist Lungs: Clear to auscultation bilaterally, no rhonchi or wheezes Cardiac: Regular rate and rhythm, no murmurs Vascular: 2+ radial on the right Abdomen: Soft, nontender, nondistended, positive bowel sounds. Extremities: Well perfused, no peripheral edema Skin: No rashes or lesions. Neuro: Nonfocal Psych: Alert orient x3, normal affect and mood
--- NOTE | 2018-07-10 08:12 | Post Anesthesia Assessment ---
Date of Service July 10, 2018 Post Sedation Assessment Vital Signs Temp Pulse Pulse Resp BP BP Pulse Ox 07/10/18 07:24 82 07/10/18 07:12 36.4 C L 94 H 20 165/98 H 92 07/10/18 07:04 36.7 C 72 18 111/72 96 07/10/18 04:57 36.5 C 85 20 106/70 95 07/10/18 01:26 89 07/09/18 23:30 36.9 C 96 H 18 110/74 94 07/09/18 19:45 36.5 C 98 H 20 127/84 94 07/09/18 16:00 97 H 07/09/18 14:52 36.6 C 94 H 20 131/85 95 07/09/18 11:32 36.6 C 93 H 18 140/93 97 Recovery Score Activity: Moves 4 extremities Respiration: Deep Breath/Cough Circulation: +/-20% PreAnes Value Consciousness: Fully Awake Oxygen Saturation: O2 needed for >90% Discharge Sedation Level of Care: Fast Track Phase II Post Sedation Plan On clinical assessment, the patient appears to have tolerated the sedation without complications. Patient is recovering as anticipated. Patient will continue to be monitored by nursing and may be discharged when sedation discharge criteria are met per below protocol. Upon Completions of procedure and additional 15 minutes continue every 5 minute vital signs and the P.A.R. score; then discharge to a Phase I or Fast Track to Phase II per the following guidelines: * Discharge Patient to appropriate Phase II area if PAR is 8 or greater or return to pre- procedure baseline. The post - procedure orders will be as directed. * If PAR score is less than 8 or not return to pre-procedure baseline then patient will follow Phase I monitoring till PAR is reached for Phase II. The Phase I may be done in procedure room or may call to secure a Phase I area. * If naloxone or flumazenil are used for reversal, hold in Phase I for continued monitoring from when last reversal dose was given for a minimum of 60 minutes or longer pending the nurse and/or physician discretion of patient condition before discharge to Phase II. Please call the Sedation Physician to re-evaluate and complete post-note for discharge to Phase II area. Do NOT discharge from procedure sedation or Phase 1 until post- sedation evaluation note is complete by procedure /sedation MD Sedation Discharge Instructions to be given to the patient at discharge to home.
--- NOTE | 2018-07-10 08:20 | Cardiac Catheterization ---
Cardiac Cath Procedure Full Procedure Date July 10, 2018 Pre-Procedure Diagnosis Pre-Procedure Diagnosis: Non STEMI AUC Score AUC Score: 7 Post-Procedure Diagnosis Post-Procedure Diagnosis: Mild CAD and Normal Intracardiac Pressures Procedure(s) Performed Procedure(s) Performed: Coronary Angiography, Left Heart Cath and Ultrasound Guided Vascular Access Wall Taper Helper Kwesi Plasencia MD Ophthalmic Photographer(s) Alonzo Estimated Blood Loss Estimated Blood Loss: 5 Medication(s) Medication(s): Fentanyl, Heparin, Nicardipine and Versed Summary of Findings Indication: New cardiomyopathy, non-STEMI Access: 6 Fr right radial artery under ultrasound guidance Catheters: [place] Findings: LM -luminal irregularities LAD -moderate caliber vessel, 30% proximal disease at takeoff of first septal/diagonal, distal luminal irregularities. Very small second diagonal with 50-60% ostial stenosis Circumflex -large caliber vessel, 20% mid segment disease, 30% proximal in large OM 2 RCA -dominant, moderate caliber, approximately and mid segment luminal irregularities, right PDA/PLB without significant disease LVEDP -12 Arterial Closure: TR band Summary: 1. Mild nonobstructive coronary artery disease -30% proximal LAD, 50-60% ostial very small first diagonal -30% proximal large OM 2 2. 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
[2018-07-10] MEDS ORDERED: SODIUM CHLORIDE 0.9% 1000ML 1,000 ML IV SCH (08:30)
[2018-07-10] MEDS: INSULIN ASPART 100 UNITS/ML 3 ML PEN SC SCH ×4 (09:01→21:13)
[2018-07-10] MEDS: ENOXAPARIN INJ 40 MG/0.4 ML SYR SQ SCH (09:02)
[2018-07-10] MEDS: GLIMEPIRIDE 2 MG TAB PO SCH ×2 (09:03→20:19)
[2018-07-10] MEDS: LISINOPRIL 40 MG TAB PO SCH (09:03)
[2018-07-10] MEDS: SITAGLIPTIN PHOSPHATE 25 MG TAB PO SCH (09:04)
[2018-07-10] MEDS: SULFAMETHOXAZOLE/TRIMETHOPRIM DS 800/160MG TAB PO SCH ×2 (09:04→20:19)
--- NOTE | 2018-07-10 09:06 | Family Medicine Progress Note ---
Date of Service July 10, 2018 Assessment & Plan (1) Substernal chest pain: Ms. Calderon is a 68 year old with PMhx significant for muscular dystrophy, HTN, Diabetes and HLD who presented with neck pain radiating to her back and was found to have increased troponins and a LBBB. Pain was relieved with Nitro. S/P cardiac cath 07/10/18. Chest pain rule out, elevated troponin -Cardiac cath 07/10- showed mild CAD -Stenosis 30% proximal LAD, 30% proximal large OM2 -Normal intracardiac filling pressure. -Recommendations: "Guideline directed medical therapy for nonischemic cardiomyopathy. Continued ASCVD risk factor modification" -Pt already on ELENA, started low dose metoprolol tartrate 12.5mg and switched statin to Atorvastatin 80mg daily. -Trops jumped from 0.046 to 0.546. Downtrended to 0.401 -Continue Nitro prn for pain -Cards consulted, appreciate recs. UTI, uncomplicated Completing Day 2 of Bactrim Rx. Muscular dystrophy Wheelchair bound PT/OT resumption brandt since procedure today. Diabetes Continue home medications; metformin, Januvia, glimepiride Most recent A1c was 7.2 Hyperlipidemia Switched from simvastatin to high intensity Atorvastatin 80mg. CODE STATUS:Full w/o intubation FEN: Heart healthy (after procedure) DVT prophylaxis: SQ Lovenox (2) Neck pain: (3) UTI (urinary tract infection): (4) Hyperlipidemia: (5) HTN (hypertension): (6) Type 2 diabetes mellitus: Supervising Physician Co-Signing Physician Notes I personally examined the patient and verified all parker points of history and exam, discussed case, and agree with decision making with Dr Calle. Feeling okay. Pleased about cath result. Discussed next steps. Cardiology input appreciated as well. Vitals noted, in general she is awake and alert pleasant no distress. HEENT normocephalic atraumatic mucous members moist. Breathing is unlabored no accessory muscle use. Skin shows no rashes no pallor or icterus. Dilated cardiomyopathy/systolic dysfunctionidiopathic. Appreciate cardiology input in regards to workup for possible causes. Coreg is been initiated, given her EF being fairly low we will give a trial of changing from her lisinopril to Entresto while she is still here in the hospital to see if she can tolerate it. Depending on further progress and tolerability of meds, possibly home tomorrow, with close and ongoing outpatient follow-up. Subjective Review of Systems All systems reviewed & are unremarkable except as noted in HPI & below Pt seen before cardiac cath and states that her neck pain was not present this morning. Also denied chest pain, SOB, palpitations, N/V, diarrhea, constipation. Will be undergoing cardiac cath this AM. Physical Exam Vital Signs (Past 24 Hours): Last Vital Signs Temp 36.7 C 07/10/18 08:35 Pulse 79 07/10/18 08:50 Resp 16 07/10/18 08:50 BP 108/68 07/10/18 08:50 Pulse Ox 93 07/10/18 08:50 General: Alert, oriented. Laying with head of bed elevated. HEENT: NC/AT Neck: NONtender to palpation on both sides. Chest: Nontender to palpation. CV: RRR, Normal s1, s2. No murmurs appreciated Resp: Breath sounds clear bilaterally on front, no increased effort of breathing. Abdomen: Protuberant, tender in LLQ. No guarding. Extremities: No edema in lower extremities. Results & Data Laboratory Results Laboratory Results - last 24 hr 07/09/18 07/09/18 07/10/18 16:32 20:04 06:16 WBC 8.00 RBC 4.53 Hgb 11.5 L Hct 36.3 L MCV 80.1 MCH 25.4 MCHC 31.7 L RDW Std Deviation 45.6 RDW Coeff of Arely 15.6 H Plt Count 213 MPV 11.7 H Immature Gran % (Auto) 0.4 Neut % (Auto) 63.2 Lymph % (Auto) 27.1 [place] % (Auto) 7.4 Eos % (Auto) 1.4 Baso % (Auto) 0.5 Immature Gran # (Auto) 0.03 H Neut # (Auto) 5.06 Lymph # (Auto) 2.17 [place] # (Auto) 0.59 Eos # (Auto) 0.11 Baso # (Auto) 0.04 Sodium Potassium Chloride Carbon Dioxide Anion Gap BUN Creatinine Est Cr Clr Drug Dosing Est GFR ( Amer) Est GFR (Non-Af Amer) BUN/Creatinine Ratio Glucose POC Glucose 127 H 120 H Calcium Iron TIBC Ferritin 07/10/18 07/10/18 07/10/18 06:16 11:19 11:30 WBC RBC Hgb Hct MCV MCH MCHC RDW Std Deviation RDW Coeff of Arely Plt Count MPV Immature Gran % (Auto) Neut % (Auto) Lymph % (Auto) [place] % (Auto) Eos % (Auto) Baso % (Auto) Immature Gran # (Auto) Neut # (Auto) Lymph # (Auto) [place] # (Auto) Eos # (Auto) Baso # (Auto) Sodium 140 Potassium 4.8 D Chloride 109 H Carbon Dioxide 24 Anion Gap 7.0 BUN 26 H Creatinine 0.87 Est Cr Clr Drug Dosing 72.0 Est GFR ( Amer) 79.9 Est GFR (Non-Af Amer) 68.9 BUN/Creatinine Ratio 29.7 H Glucose 158 H POC Glucose 128 H Calcium 9.9 Iron 49 TIBC 327 Ferritin 28.3 Medications Administered Home Medications aspirin 81 mg PO DAILY 07/08/18 [History Confirmed 07/08/18] calcium carbonate [Calcium 500] 500 mg PO Q OTHER DAY 07/08/18 [History Confirmed 07/08/18] cholecalciferol (vitamin D3) [Vitamin D3] 1,000 unit PO DAILY 07/08/18 [History Confirmed 07/08/18] cranberry 900 mg PO DAILY 07/08/18 [History Confirmed 07/08/18] glimepiride 4 mg PO BID 07/08/18 [History Confirmed 07/08/18] lisinopril 40 mg PO DAILY 07/08/18 [History Confirmed 07/08/18] metformin 1,000 mg PO BID 07/08/18 [History Confirmed 07/08/18] mq-br-ubea-FA-Ca carb-vit K [Women's Daily Formula] 1 tab PO DAILY 07/08/18 [History Confirmed 07/08/18] simvastatin 20 mg PO QPM 07/08/18 [History Confirmed 07/08/18] sitagliptin [Januvia] 50 mg PO DAILY 07/08/18 [History Confirmed 07/08/18] vit C-E-zinc ist-kdndbl-bksmut [[facility]] 2 tab PO DAILY 07/08/18 [History Confirmed 07/08/18] Active Medications Acetaminophen (Tylenol) 650 mg PO Q4H PRN PRN Reason: Pain or Fever Stop: 08/08/18 06:05 Aspirin (Ecotrin Ectab) 81 mg PO DAILY [facility] Stop: 08/08/18 08:59 Last Admin: 07/10/18 07:20 Dose: 81 mg Documented by: Atorvastatin Calcium (Lipitor) 80 mg PO QAM [facility] Stop: 08/09/18 10:59 Carvedilol (Coreg) 3.125 mg PO BID [facility] Stop: 08/09/18 11:29 Dextrose (Dextrose 50%) 25 - 50 ml IV UD PRN; Protocol PRN Reason: Hypoglycemia Protocol Stop: 08/08/18 06:44 Enoxaparin Sodium (Lovenox) 40 mg SQ Q24H [facility] Stop: 08/08/18 07:59 Last Admin: 07/10/18 09:02 Dose: 40 mg Documented by: Glimepiride (Amaryl) 4 mg PO BID [facility] Stop: 08/08/18 08:59 Last Admin: 07/10/18 09:03 Dose: 4 mg Documented by: Glucagon (Glucagen) 1 mg IM UD PRN; Protocol PRN Reason: Hypoglycemia Protocol Stop: 08/08/18 06:44 Glucose (Glucose 40%) 15 - 30 gm PO UD PRN; Protocol PRN Reason: Hypoglycemia Protocol Stop: 08/08/18 06:44 Glucose (Dex4 Glucose) 4 - 8 tabs PO UD PRN; Protocol PRN Reason: Hypoglycemia Protocol Stop: 08/08/18 06:44 Insulin Aspart (Novolog Flexpen) 0 units SC ACHS [facility] Stop: 08/08/18 07:29 Last Admin: 07/10/18 09:01 Dose: Not Given Documented by: Lisinopril (Zestril) 40 mg PO DAILY [facility] Stop: 08/08/18 08:59 Last Admin: 07/10/18 09:03 Dose: 40 mg Documented by: Metformin HCl (Glucophage) 1,000 mg PO BIDM [facility] Stop: 08/08/18 07:59 Last Admin: 07/09/18 17:12 Dose: 1,000 mg Documented by: Miscellaneous (Carbohydrates For Hypoglycemia) 15 - 30 gm PO UD PRN PRN Reason: Hypoglycemia Treatment Stop: 08/08/18 06:44 Nitroglycerin (Nitrostat) 0.4 mg SL UD PRN PRN Reason: Chest Pain Stop: 08/08/18 06:05 Polyethylene Glycol (Miralax Powder Packet) 17 gm PO DAILY PRN PRN Reason: Constipation Stop: 08/08/18 06:05 Sitagliptin Phosphate (Januvia) 50 mg PO DAILY [facility] Stop: 08/08/18 08:59 Last Admin: 07/10/18 09:04 Dose: 50 mg Documented by: Trimethoprim/Sulfamethoxazole (Septra Ds 800/160mg Tab) 1 tab PO Q12 [facility] Stop: 07/14/18 08:59 Last Admin: 07/10/18 09:04 Dose: 1 tab Documented by:
--- NOTE | 2018-07-10 10:02 | Cardiology Progress Note ---
Date of Service July 10, 2018 Assessment & Plan (1) Substernal chest pain: Her discomfort was quite atypical in that it was neck and shoulder pain primarily, however in association with positive cardiac enzymes and an abnormal echocardiogram we needed to exclude coronary artery disease. Based on her catheterization is unlikely her symptoms are due to coronary artery disease. It is conceivable it was spasm, but that was not observed during the catheterization and her pain has continued although to a lesser extent. I cannot really explain the small enzyme leak. (2) Cardiomyopathy: She has a nonischemic cardiomyopathy, at this point it is unexplained. Possibilities include that is due to left bundle branch block, there are also some other things we should investigate. I will order urine and blood for protein electrophoresis, as well as an ELENA level and iron studies. If these are negative we may assume that it is due to the left bundle branch block. (3) LBBB (left bundle branch block): She has a left bundle branch block pattern on electrocardiography but the duration is unknown. It occurred sometime in the last 12 years but we cannot narrow it down closer than that at this time. It could be secondary to underlying heart disease or may be primary conduction system disease. If her left ventricular function remains low on medical therapy (which will take some months to find out) then biventricular pacing may be an option to help restore synchrony and left ventricular function. Although it seems unlikely I am going to order a Lyme screen to exclude that as a cause of the left bundle. Subjective She is feeling well today post cath. She still has a little residual left shoulder discomfort, but it is not significant. It also seemed to be a little bit positional. Physical Exam Vital Signs (Past 24 Hours): Last Vital Signs Temp 36.7 C 07/10/18 08:35 Pulse 80 07/10/18 09:35 Resp 16 07/10/18 09:35 BP 99/66 L 07/10/18 09:35 Pulse Ox 94 07/10/18 09:35 Physical Exam: Constitutional: Alert, cooperative and in no distress. Pulmonary: Clear to auscultation bilaterally. Cardiac: Regular rhythm with no murmur, gallop or rub. Abdomen: Soft, nontender with normal bowel sounds. Extremities: No edema. Skin: No rash, ecchymoses or petechiae. Results & Data Diagnostic Findings Telemetry: Sinus rhythm, no significant arrhythmia
[2018-07-10] MEDS ORDERED: METOPROLOL TARTRATE 25 MG TAB PO SCH (11:00)
[2018-07-10] MEDS ORDERED: ATORVASTATIN 40 MG TAB PO SCH (11:00)
[2018-07-10 11:59] LABS: Ferritin 28.3 ng/ml (8-388)
[2018-07-10] MEDS: CARVEDILOL 3.125 MG TAB PO SCH ×2 (13:10→20:19)
[2018-07-10 15:26] LABS: Lyme Ab IgG w/WB Rflx Negative (Negative)
[2018-07-10 15:27] LABS: Lyme Ab IgM w/WB Rflx Negative (Negative)
[2018-07-10] MEDS: METFORMIN HCL 500 MG TAB PO SCH (19:07)
[2018-07-11 06:52] LABS: Basophils # (auto) 0.04 K/uL (0-0.2); Basophils % (auto) 0.5 %; Eosinophils # (auto) 0.18 K/uL (0-0.5); Eosinophils % (auto) 2.1 %; Hematocrit (blood only) 35.9 % (37-47); Hemoglobin 11.1 g/dL (12.0-16.0); Immature Granulocytes # (auto) 0.04 K/uL (0.00-0.02); Immature Granulocytes % (auto) 0.5 %; Lymphocytes # (auto) 2.26 K/uL (1.2-3.4); Lymphocytes % (auto) 26.5 %; Mean Corpuscular Hgb Conc 30.9 g/dL (32-36); Mean Corpuscular Volume 81.4 fL (80-100); Mean Platelet Volume 11.2 fL (7.4-10.4); Monocytes # (auto) 0.61 K/uL (0.11-0.59); Monocytes % (auto) 7.2 %; Neutrophils # (auto) 5.39 K/uL (1.4-6.5); Neutrophils % (auto) 63.2 %; Platelet Count 196 K/uL (130-400); RDW Coefficient of Variation 15.8 % (11.5-14.5); Red Blood Count 4.41 M/uL (4.2-5.4); White Blood Count 8.52 K/uL (4.8-10.8)
[2018-07-11 07:24] LABS: BUN Creatinine Ratio 34.3 (10-20); Calcium 9.3 mg/dl (8.5-10.1); Creatinine Clr Calc Pharmacy 60.5 ml/min; Est GFR (African American) 63.6; Est GFR (Non-African American) 54.9; Potassium 4.5 mmol/L (3.5-5.1)
[2018-07-11] MEDS: GLIMEPIRIDE 2 MG TAB PO SCH (07:52)
[2018-07-11] MEDS: ASPIRIN 81 MG ECTAB PO SCH (07:52)
[2018-07-11] MEDS: SULFAMETHOXAZOLE/TRIMETHOPRIM DS 800/160MG TAB PO SCH (07:52)
[2018-07-11] MEDS: ENOXAPARIN INJ 40 MG/0.4 ML SYR SQ SCH (07:53)
[2018-07-11] MEDS: CARVEDILOL 3.125 MG TAB PO SCH (07:55)
[2018-07-11] MEDS: SITAGLIPTIN PHOSPHATE 25 MG TAB PO SCH (07:56)
[2018-07-11] MEDS: INSULIN ASPART 100 UNITS/ML 3 ML PEN SC SCH ×2 (07:58→11:52)
[2018-07-11] MEDS ORDERED: ATORVASTATIN 40 MG TAB PO SCH (09:00)
--- NOTE | 2018-07-11 10:56 | Discharge Summary ---
Date of Service July 11, 2018 Admission HPI Per Admitting Provider 68-year-old female with a history of type II diabetes, hypertension and muscular dystrophy presents with neck and chest pain since the morning of 07/08/2018. The patient states that the pain began shortly after she woke up which initially began in her neck. She thought that she had pulled a muscle in her neck. Shortly after though, she began to feel shooting pains into her left shoulder blade and a dull pain in her chest. The patient is wheelchair bound and denies worsening of the pain with any movements. She said that the pain was constant throughout the entire day and then in the evening she decided that she should go to the hospital. In route to the hospital the patient was given a nitro tablet which relieved the pain. Associated symptoms include shortness of breath. Patient denies acute swelling in her legs or syncope. She denies smoking, but reports a family history significant for cardiovascular disease, including a AR in her father. Admission Exam Per Admitting Provider Constitutional: WD/WN, vitals as above Eyes: PERRL, conjunctivae normal, anicteric sclerae ENMT: external ear and nose normal, oropharynx normal Neck: trachea midline, no thyromegaly Respiratory: normal respiratory effort, lungs clear to auscultation Cardiovascular: Rate/Rhythm: regular rate and regular rhythm Heart Sounds: + murmur (2 out of 6 systolic murmur) Gastrointestinal (Abdomen): normal bowel sounds, soft, nontender, no hepatosplenomegaly Musculoskeletal: Head/Neck/Chest: normocephalic, head atraumatic and neck supple Skin: no rashes, warm and dry Neurologic: PERRL, EOMI, accommodation nl, no face palsy, no dysarthria Psychiatric: A+Ox3, euthymic affect Principal Diagnosis Mild Coronary Artery Disease Non-ischemic cardiomyopathy Discharge Exam General: Alert, oriented. Laying with head of bed elevated. HEENT: NC/AT Neck: Nontender to palpation on both sides. Chest: Nontender to palpation. CV: RRR, Normal s1, s2. Resp: Breath sounds clear bilaterally on front, no increased effort of breathing. Abdomen: Protuberant, nontender. No guarding. Extremities: No edema in lower extremities. Discharge Data Allergies Allergy/AdvReac Type Severity Reaction Status Date / Time No Known Allergies Allergy Unknown Verified 07/08/18 23:59 Consultations 07/09/18 01:24 ED Decision to Admit Stat 07/09/18 06:06 Consult Case Management - Discharge Planning Routine 07/09/18 08:04 Consult Cardiology Routine Procedures Performed Operation Date: 07/10/18 07:40 Actual Procedures p Cath, Left with Cors and Vent - Shukri Plasencia MD s Cineradiography w/Routine Exam - Shukri Plasencia MD Ordered Studies 07/10/18 06:51 CL Cath Imgs for PACS use only Routine Hospital Course (1) Substernal chest pain: Ms. Calderon is a 68 year old with PMHx significant for muscular dystrophy, HTN, Diabetes and HLD who presented with neck pain radiating to her back and was found to have mild coronary artery disease after cardiac catheterization on 07/10/18 and a nonischemic cardiomyopathy. She was admitted overnight on July 08 into July 09 and discharged on July 11 2018. Nonischemic cardiomyopathy -Cardiac cath 07/10- showed mild CAD -Stenosis 30% proximal LAD, 30% proximal large OM2 -Normal intracardiac filling pressure. -Recommendations: "Guideline directed medical therapy for nonischemic cardiomyopathy. Continued ASCVD risk factor modification" -Pt started on Entresto daily, Carvedilol 6.25mg BID and switched from Simvastatin to Atorvastatin 40mg. -Follwed by cardiology while hospitalized. Pt will followup for titration of above meds as needed upon discharge. -Trops jumped from 0.046 to 0.546. Downtrended to 0.401 -Of note, EKG shows LBBB which could be a potential cause of the nonischemic cardiomyopathy. -Lyme titers NEG so not potential cause of LBBB. -Additional workup of the nonischemic cardiomyopathy include pending protein electrophoresis and ELENA levels and normal iron levels. Mild CAD -Pt started on Atorvastatin 40mg. -Continue to monitor need for increase in dosage. UTI, uncomplicated Completed 3 days of Bactrim Rx. Muscular dystrophy Wheelchair bound Not much PT/OT as pt had cardiac procedure -Followup with PCP strongly recommended. Diabetes Continue home medications; metformin, Januvia, glimepiride Most recent A1c was 7.2 Hyperlipidemia Switched from simvastatin to Atorvastatin 40mg. 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 Schmitt on SundayJuly 17 at 10:00 am. *If you need to change this appointment, call the office at [phone].) Diet: Heart Healthy Addtl Provider Instructions: Mild Coronary Artery Disease -You were diagnosed with mild coronary artery disease after the cardiac catheterization procedure you underwent yesterday showed some blockage in your heart vessels. -However, we don't believe this was enough to cause the symptoms that you presented with. -To help with preventing your coronary artery disease from progressing, we are switching your statin to Atorvastatin 40mg from the simvastatin. -Please take the Atorvastatin as directed, 1 pill everyday. -Please STOP taking your home Simvastatin. -Please followup with your primary care provider and mobile crane operator within the next week after discharge. Nonischemic Cardiomyopathy -Your EKG shows a left bundle branch block or a blockage in your heart function. This could be a possible cause of your cardiomyopathy. -However, your mobile crane operator is working you up for additional causes and will contact you with the results. -To help with this, we have started you on 2 new medications: Entresto and Carvedilol. Please take as directed. -The drug Entresto is a combination drug that includes a drug like the Lisinopril you were previously on. Therefore, since you will be on the Entresto, we advise STOPPING your Lisinopril. -Please STOP taking your home medication Lisinopril. -Please followup with your primary care provider and mobile crane operator within the next week after discharge. Urinary Tract Infection -You were treated with a 3 day course of the antibiotic Bactrim while hospitalized. -You COMPLETED treatment while hospitalized. -Please followup with your primary care provider should you develop renewed symptoms of burning or pain while urinating or blood in your urine. Prescriptions: New atorvastatin 40 mg Tablet 40 mg PO QAM 30 Days Qty: 30 RF: 0 Entresto 24-26 mg Tablet 1 tab PO BID 30 Days Qty: 60 RF: 0 carvedilol 6.25 mg tablet 6.25 mg PO BID 30 Days Qty: 60 RF: 0 Continued aspirin 81 mg Tablet,Delayed Release (Dr/Ec) 81 mg PO DAILY RF: 0 calcium carbonate [Calcium 500] 500 mg calcium (1,250 mg) Tablet 500 mg PO Q OTHER DAY RF: 0 metformin 1,000 mg tablet 1,000 mg PO BID RF: 0 glimepiride 4 mg tablet 4 mg PO BID RF: 0 cholecalciferol (vitamin D3) [Vitamin D3] 1,000 unit Tablet 1,000 unit PO DAILY RF: 0 Januvia 50 mg tablet 50 mg PO DAILY RF: 0 cranberry 450 mg Tablet 900 mg PO DAILY RF: 0 Women's Daily Formula 18 mg iron-400 mcg-500 mg Tablet 1 tab PO DAILY RF: 0 Ocuvite [facility] Health 50 mg-15 unit- 4.5 mg-2.5 mg Tablet,Chewable 2 tab PO DAILY RF: 0 Discontinued simvastatin 20 mg tablet 20 mg PO QPM RF: 0 lisinopril 40 mg tablet 40 mg PO DAILY RF: 0 Stand-Alone Forms: [facility]/Other Patient Handouts: CAD, Bundle Branch Block Left Discharge Orders: Discharge Order (Routine); Ordered 07/11/18 Ordered By: Marilynn Calle Admission Data Admit Date/Time: 07/09/18 19:05 Attending Provider: Juan A Ulloa Admit Provider: Norman Rodriguez Primary Care Provider: Renee Schmitt Other Providers: Flo Naidu ; Steve Valerio Service: Telemetry Medical Other Interventions: Discharge Summary Assessment (RN) Last Done: 07/11/18 10:57 DC Date/Time DO NOT enter until pt leaves facility: 07/11/18 13:24 Supervising Physician Co-Signing Physician Notes I personally examined the patient and verified all parker points of history and exam, discussed case, and agree with decision making with Dr Calle. Feeling okay. d/w cardiology. tolerating meds well, would like to go home. explained med management and f/u plans she expresses understanding Vitals noted, in general she is awake and alert pleasant no distress. HEENT normocephalic atraumatic mucous members moist. Breathing is unlabored no accessory muscle use. Skin shows no rashes no pallor or icterus. Dilated cardiomyopathy/systolic dysfunctionidiopathic. Appreciate cardiology input in regards to workup for possible causes. coreg and entresto - continue to follow BMP and titrate meds as tolerated as outpt. close outpt f/u nonobstructive CAD - med management for secondary risk reduction (beta cong as above, but main change is switching simvastatin to atorvastatin for plaque stabilization), already on asa stable for discharge, close PCP and cardiology f/u
[2018-07-11] MEDS ORDERED: SULFAMETHOXAZOLE/TRIMETHOPRIM DS 800/160MG TAB PO ONE (11:45)
--- NOTE | 2018-07-11 11:51 | Cardiology Progress Note ---
Date of Service July 11, 2018 Assessment & Plan (1) Substernal chest pain: Her discomfort was quite atypical in that it was neck and shoulder pain primarily, however in association with positive cardiac enzymes and an abnormal echocardiogram we needed to exclude coronary artery disease. Based on her catheterization is unlikely her symptoms are due to coronary artery disease. It is conceivable it was spasm, but that was not observed during the catheterization and her pain has continued although to a lesser extent. I cannot really explain the small enzyme leak. (2) Cardiomyopathy: She has a nonischemic cardiomyopathy, at this point it is unexplained. Possibilities include that is due to left bundle branch block, there are also some other things we should investigate. I have ordered blood for protein electrophoresis, as well as an ELENA level., These are pending. Iron studies are negative. If these are negative we may assume that it is due to the left bundle branch block or idiopathic. I would like to have her on a higher dose of beta-blockade, I will give her an additional dose of carvedilol 3.125 mg this morning and if her blood pressure is good I would recommend discharging her on 6.25 mg twice a day along with the Entresto. We can titrate those medications as an outpatient. (3) LBBB (left bundle branch block): She has a left bundle branch block pattern on electrocardiography but the duration is unknown. It occurred sometime in the last 12 years but we cannot narrow it down closer than that at this time. It could be secondary to underlying heart disease or may be primary conduction system disease. If her left ventricular function remains low on medical therapy (which will take some months to find out) then biventricular pacing may be an option to help restore synchrony and left ventricular function. Her Lyme screen was negative. Subjective She is feeling well today, no further neck or shoulder discomfort. No shortness of breath. Physical Exam Physical Exam: Constitutional: Alert, cooperative and in no distress. HEENT: Unremarkable Neck: No jugular venous distention, carotid pulses are normal and equal bilaterally without bruits. Pulmonary: Clear to auscultation bilaterally. Cardiac: Regular rhythm with no murmur, gallop or rub. Abdomen: Soft, nontender with normal bowel sounds. Extremities: No edema. Distal pulses intact. Neurologic: No focal findings. Gait is steady. Skin: No rash, ecchymoses or petechiae. Results & Data Vital Signs (Past 12 Hours) Vital Signs Temp Pulse Resp BP BP Pulse Ox 07/11/18 10:57 36.8 C 74 20 102/62 111/72 94 07/11/18 07:13 36.8 C 74 20 102/62 94 07/11/18 04:35 36.6 C 73 16 112/72 93 07/11/18 00:01 36.7 C 71 18 112/80 95 Diagnostic Findings Telemetry: Sinus rhythm, no significant abnormality
[2018-07-11] MEDS ORDERED: CARVEDILOL 3.125 MG TAB PO ONE (12:15)
[2018-07-11] MEDS ORDERED: SACUBITRIL-VALSARTAN 24-26 MG TAB PO SCH (21:00)
[2018-07-12 17:27] LABS: Albumin 3.2 G/DL (3.8-4.8); Alpha 1 Globulin 0.2 G/DL (0.2-0.3); Alpha 2 Globulin 0.9 G/DL (0.5-0.9); Beta-1-Globulin 0.5 G/DL (0.4-0.6); Beta-2-Globulin 0.6 G/DL (0.2-0.5); Gamma Globulin 1.4 G/DL (0.8-1.7); Monoclonal Protein Band 1 DNR G/DL (NOT DETECTED); Monoclonal Protein Band 2 DNR G/DL (NOT DETECTED); Monoclonal Protein Band 3 DNR G/DL (NOT DETECTED); Total Protein 6.8 G/DL (6.2-8.3)
== END 2018-07-11 13:24 | disposition home or self-care (01) | DRG 287 ==
LOC: 2N 22:59 → ED 22:59 → SUATTDRO 07-09 03:30 → 2N 07-09 05:18 → 2S 07-10 08:26

== ENCOUNTER 2021-12-01 13:46 | Inpatient (IN) ==
[2021-12-01] MEDS ORDERED: ACETAMINOPHEN 500 MG TAB PO STA (14:06)
[2021-12-01] MEDS ORDERED: LIDOCAINE/EPINEPH/TETRACAINE 1 EA SYR EXT STA (14:06)
[2021-12-01] MEDS ORDERED: DIPHTHERIA/TETANUS/PERTUSSIS 0.5 ML SYR/VIAL IM ONE (14:14)
--- NOTE | 2021-12-01 14:14 | Emergency Department Note ---
Impression & Plan Head injury, Contusion of forehead, Laceration of scalp, Closed right hip fracture, Contusion of knee, right ED Provider Note NAME: JACLYN JOHNSON AGE: 71 SEX: F : 1950 ARRIVES VIA: Ambulance INFORMANT: Patient, ED PROVIDER(S): Raolu Gipson DO CHIEF COMPLAINT: Head injury HPI: The patient is a 71-year-old female who presented to the emergency department for an evaluation of a head injury. The patient was riding in her motorized wheelchair. She does have a history of muscular dystrophy. She states her chair malfunctioned and she fell forward striking her head and her right knee. She was unable to ambulate after the injury mostly because of her muscular dystrophy and required ambulance transport to the emergency department. She was placed in a cervical collar. She is unsure of her last tetanus shot. She does complain of a headache as well as right knee pain. She denies having any chest pain or difficulty breathing. She denies having any back pain or pelvic pain. She states the pain is moderate and especially worsens with her right knee when it is palpated. ROS: See above HPI for pertinent positives & negatives. A total of 10 systems reviewed and were otherwise negative. PAST MEDICAL HISTORY: See Below PAST SURGICAL HISTORY: See Below FAMILY HISTORY: See Below SOCIAL HISTORY: See Below HOME MEDICATIONS: See Below ALLERGIES: See Below VITALS: See Below PHYSICAL EXAMINATION: GENERAL: Patient is awake alert in no acute distress patient is resting comfortably and showing no signs of anxiety EYES: The conjunctivae are clear. The pupils are round and reactive. EARS, NOSE, MOUTH AND THROAT: The nose is without any evidence of any deformity. Mucous membranes are moist. There was forehead swelling and a small laceration. No active bleeding was noted. There is a hematoma noted on the right side of the forehead. NECK: The neck is nontender and supple. RESPIRATORY: Normal respiratory effort is noted there is no evidence of wheezing rhonchi or rales CARDIOVASCULAR: Regular rate and rhythm noted there no murmurs rubs or gallops normal S1 normal S2. GASTROINTESTINAL: The abdomen is soft. Abdomen is nontender. MUSCULOSKELETAL/EXTREMITIES: There is no evidence of gross deformity full range of motion is noted in the hips and shoulders. There is an abrasion on the right knee. There is swelling over the kneecap. SKIN: Pedal edema bilaterally. Skin is warm and dry. Trace pedal edema was noted bilaterally. NEUROLOGIC: Patient is awake alert and oriented x3. 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 MEDICAL DECISION MAKING: The patient is a 71-year-old female who presented to the emergency department for an evaluation of head injury. The patient has a history of muscular dystrophy. She normally has to get around in a motorized wheelchair. She had a malfunction of her chair and fell forward striking her head. She did present with right knee pain. She appeared to have good range of motion in the right h ip without pain but radiographic studies did show a fracture. She had laboratory and radiographic studies obtained. Nilda injury ppeared to be the head injury as well as the right hip and the right knee contusion. I discussed the patient's laboratory and radiographic studies with her. She was treated with pain medication in the emergency department. I also [facility] have agreed to evaluate the patient in the emergency department for further management and disposition. Triage Nursing notes reviewed. Prior medical records reviewed Vital Signs: reviewed and remarkable for elevated blood pressure. Differential diagnosis: Fracture, dislocation, contusion, intra-abdominal, pneumothorax, intrathoracic, intracranial, neurologic, compartment syndrome, rhabdomyolysis, as well as other pathologies. ER treatment provided: See below Diagnostics interpreted by me: ECG: EKG was obtained in the emergency department. My interpretation is sinus bradycardia at 50 bpm. There were no PVCs. Left bundle branch block pattern was noted. This was compared to a tracing from February 10, 2021. The left bundle branch block is still present on the previous EKG however the QRS complex is slightly widened compared to the previous. Cardiac Monitoring: An order was placed for continuous cardiac monitoring. The monitor shows a rate of 74 bpm with sinus rhythm. Laboratory studies: As stated above and show below. Imaging studies: See below Consultation(s): Ladi this case with Dr. Caballero who [facility] He is agreed to evaluate the patient in the emergency department. ED COURSE: Procedures: Location: Right forehead Total length: 1 cm Complexity: Low Verbal consent was obtained after the risks and benefits were explained, including but not limited to bleeding, scarring, infection, pain, and bone/joint/nerve damage. At this time, the risks of the procedure are less than the risks of NOT performing the procedure. A time out was taken and the correct patient and site identified. The skin was prepped with betadine. The target area was anesthetized with 5ml of let gel. Copious irrigation was performed using n ormal saline. The skin was re-prepped with normal saline and a sterile field set. The wound was explored for foreign bodies and none found. Examination revealed no injury to deep structures such as tendons, bone, or significant blood vessels. Debridement was not performed. The wound edges were approximated using Dermabond. Hemostasis and excellent approximation was achieved. Antibacterial ointment and a sterile dressing applied. Detailed wound care instructions and signs and symptoms of infection reviewed with the family. No complications and the patient tolerated the procedure well. Past Med/Surg History Medical History Cardiomyopathy Congestive heart failure HTN (hypertension) Hyperlipidemia LBBB (left bundle branch block) Muscular dystrophy Type 2 diabetes mellitus Urinary retention Uterine cancer Surgical History History of total abdominal hysterectomy Family History Sister Cancer Myocardial infarction Muscular dystrophy Father Colorectal cancer Myocardial infarction Brother Colorectal cancer Myocardial infarction Muscular dystrophy Other Family history non-contributory Denies family history of Ovarian cancer Prostate cancer Breast cancer Social History Smoking Status: Unknown if ever smoked Second Hand Exposure: Yes; Hx Alcohol Use: No Hx Substance Use: No Preferred Language: Cymro Communication Ability: Effective Reimbursement Analyst Required: No Beliefs That Will Affect Care: None marital status: Current Living Situation: Spouse current occupational status: disabled How many Children do You have: 5 Feels Safe at Home: Yes Childhood Exposure to Second-Hand Smoke: Yes caffeine: Yes Dental Care, Regularly: No Physical Activity Frequency: Daily Seatbelt Use: always Sunscreen Use: Yes Assistive Devices: Mechanical Lift Allergies Allergies Allergy/AdvReac Type Severity Reaction Status Date / Time No Known Allergies Allergy Unknown Verified 07/21/21 10:43 Home Meds Home Medications Medication Instructions Recorded Confirmed aspirin 81 mg tablet,delayed 81 mg PO DAILY 07/08/18 07/21/21 release vit C 50 mg-E 15 unit-zinc cit 4.5 2 tab PO DAILY 07/08/18 07/21/21 mg-lutein 2.5 mg-zeaxan chew tablet ([employer] [facility]) ettokuitbidh-Uu-wcgw-minerals 27 1 tab PO DAILY 10/07/18 07/21/21 mg-0.4 mg tablet (Women's Daily Formula) omega-3 fatty acids 1,000 mg 1,000 mg PO DAILY 10/07/18 07/21/21 capsule (Fish Oil Concentrate) cranberry 400 mg capsule 400 mg PO BID 12/12/19 07/21/21 Previous Rx's Medication Instructions Recorded Wheelchair (Powered) (Power #1 ea 09/19/19 Wheelchair) miscellaneous medical supply 1 ea miscellaneous DAILY DX: 05/31/21 G71.00, I50.9 #1 ea glimepiride 4 mg tablet 4 mg PO DAILY #90 tabs 07/08/21 sitagliptin 50 mg tablet (Januvia) 50 mg PO DAILY #30 tabs 07/08/21 sacubitril 49 mg-valsartan 51 mg 1 tab PO BID #180 tabs 07/11/21 tablet (Entresto) underpads #90 ea 07/11/21 doxycycline monohydrate 100 mg 100 mg PO BID #2 caps 07/21/21 capsule atorvastatin 40 mg tablet 40 mg PO HS #90 tabs 07/28/21 metformin 1,000 mg tablet See Rx Instructions .Route 07/28/21 .COMPLEX #180 tabs blood sugar diagnostic (OneTouch #100 ea 08/08/21 Ultra Test strips) lancets (OneTouch UltraSoft #100 ea 08/08/21 Lancets) carvedilol 12.5 mg tablet See Rx Instructions .Route 09/16/21 .COMPLEX #180 tabs Results & Data (ED) Vital Signs Vital Signs - 24 hr 12/01/21 14:04 Temperature 36.9 C Temperature Source Oral Pulse Rate 74 Pulse Rhythm Regular Respiratory Rate 14 Respiratory Effort / Characteristics Non-Labored Respiratory Depth Normal Respiratory Pattern Regular Blood Pressure 162/100 H Blood Pressure Mean 120 Pulse Oximetry 93 Oxygen Delivery Method Room Air Sepsis Recent Fever Within 48 Hours No Sepsis New/Unexplained Change in Mental Status N/A Sepsis Action Taken by Nursing No Action Required Home Medications Current Medication List: was personally reviewed by me Laboratory Data Result diagrams: 12/01/21 16:10 12/01/21 16:10 Lab Results 12/01/21 12/01/21 Range/Units 16:10 16:10 WBC 11.24 H (4.8-10.8) K/ul RBC 4.39 (3.93-5.22) M/uL Hgb 10.7 L (12.0-16.0) g/dl Hct 35.8 (34.1-44.9) % MCV 81.5 (80.0-100.0) fL MCH 24.4 L (25.0-34.0) pg MCHC 29.9 L (32.0-36.0) g/dL RDW Std Deviation 48.9 H (36.4-46.3) fL RDW Coeff of Arely 16.5 H (11.5-14.5) % Plt Count 170 (130-400) K/uL MPV 11.3 (9.4-12.3) fL Immature Gran % (Auto) 1.1 % Neut % (Auto) 87.3 % Lymph % (Auto) 6.8 % [place] % (Auto) 4.0 % Eos % (Auto) 0.5 % Baso % (Auto) 0.3 % Neut # (Auto) 9.82 H (1.4-6.5) K/uL Lymph # (Auto) 0.76 L (1.2-3.4) K/uL [place] # (Auto) 0.45 (0.24-0.82) K/uL Eos # (Auto) 0.06 (0-0.50) K/uL Baso # (Auto) 0.03 (0-0.2) K/uL Immature Gran # (Auto) 0.12 H (0.00-0.02) K/uL Sodium 138 (136-145) mmol/L Potassium 4.2 (3.5-5.1) mmol/L Chloride 105 (98-107) mmol/L Carbon Dioxide 23 (21-32) mmol/L Anion Gap 10 (3-11) BUN 18 (6-23) mg/dl Creatinine 0.41 L (0.6-1.2) mg/dl Est Cr Clr Drug Dosing Not Reportable Est GFR ( Amer) 121.3 ml/min Est GFR (Non-Af Amer) 104.7 ml/min BUN/Creatinine Ratio 43.9 H (10-20) Glucose 203 H (70-99(Fasting)) mg/dl Calcium 9.6 (8.5-10.1) mg/dl Total Bilirubin 0.4 (0.2-1.0) mg/dl AST 20 (13-39) U/L ALT 24 (7-52) U/L Alkaline Phosphatase 68 (34-104) U/L Troponin I High Sens 7.7 (0-14) pg/ml Total Protein 7.6 (6.0-8.3) gm/dl Albumin 3.9 (3.4-5.0) gm/dl Globulin 3.7 (2.5-4.0) gm/dl Albumin/Globulin Ratio 1.1 (0.9-2) Lipase 53 (11-82) U/L Administered Medications Discontinued Medications Acetaminophen (Acetaminophen 500 Mg Tab) 1,000 mg PO NOW STA Stop: 12/01/21 14:07 Last Admin: 12/01/21 15:16 Dose: Not Given Documented By: DOROTEO Diphtheria/Pertussis/Tetanus Vacc (Diphtheria/Tetanus/Pertussis 0.5 Ml Syr/Vial) 0.5 ml IM .ONCE ONE Stop: 12/01/21 14:15 Last Admin: 12/01/21 14:50 Dose: 0.5 ml Documented By: DOROTEO Lidocaine (Lidocaine/Epineph/Tetracaine 1 Ea Syr) 1 each EXT NOW STA Stop: 12/01/21 14:07 Last Admin: 12/01/21 14:50 Dose: 1 each Documented By: DOROTEO Morphine Sulfate (Morphine Sulfate 4 Mg/Ml 1 Ml Carp\Vial) 4 mg IM ONE ONE Stop: 12/01/21 15:01 Last Admin: 12/01/21 15:14 Dose: 4 mg Documented By: DOROTEO Morphine Sulfate (Morphine Sulfate 4 Mg/Ml 1 Ml Carp\Vial) 4 mg IV NOW STA Stop: 12/01/21 15:40 Last Admin: 12/01/21 16:30 Dose: 4 mg Documented By: DOROTEO Ondansetron HCl (Ondansetron Inj 2 Mg/Ml 2 Ml Vial) 4 mg IV NOW STA Stop: 12/01/21 15:40 Last Admin: 12/01/21 16:31 Dose: 4 mg Documented By: DOROTEO Imaging Data Radiologist's Impression: Cervical Spine CT 12/01/21 14:06 CT SCAN OF THE CERVICAL SPINE CLINICAL HISTORY: Trauma. Fall. COMPARISON STUDY: No priors. TECHNIQUE: CT scan of the cervical spine is performed from the skull base to the upper thoracic spine. Images are reviewed in the axial, sagittal, and coronal planes. IV contrast was not administered for this examination. A dose lowering technique was utilized adhering to the principles of ALARA. CT DOSE: 1177.40 mGy.cm FINDINGS: Skeletal structures: The skeletal structures are osteopenic. There is no evidence of fracture or subluxation involving the cervical spine. Vertebral body height and alignment are maintained. There is straightening of the cervical lordosis. Large anterior osteophytes are seen throughout. The odontoid process and lateral masses are intact. The atlantoaxial articulation is preserved note is productive degenerative change. The spinous processes appear intact. There is mild to moderate multilevel cervical spondylosis. Uncovertebral and facet arthropathy contribute to neural foraminal narrowing at several levels. Intervertebral discs: There is mild disc space narrowing at C7-T1. The cervical disc spaces appear maintained. Central canal: Grossly patent. Soft tissues: The prevertebral and paraspinous soft tissues are within normal limits. There is atherosclerotic calcification of the carotid bulbs. Calvarium: The visualized calvarium at the skull base appears intact. Brain parenchyma: Partially visualized brain parenchyma at the skull base is within normal limits. Sinuses and mastoids: There is mucosal thickening in the left sphenoid sinus. The mastoid air cells are well pneumatized. Lung apices: Clear as visualized. IMPRESSION: 1. There is no evidence of fracture or subluxation involving the cervical spine. 2. Osteopenia and spondylotic change as above. ACT 112: Negative or not required by law. Electronically signed by: Leonardo Marks M.D. 12/01/2021 3:58 PM Chest X-Ray 12/01/21 14:06 XR chest 1V portable CLINICAL HISTORY: fall TECHNIQUE: Single frontal radiograph of the chest was obtained. Comparison: Comparison is made to chest radiograph 02/10/2021 FINDINGS: No lines and tubes are seen. Cardiomegaly is noted. The lungs are clear. No evidence of pleural effusion or pneumothorax. IMPRESSION: No acute chest disease. ACT 112: Negative or not required by law. Electronically signed by: Rohan Ellis M.D. 12/01/2021 3:[address] 12/01/21 14:06 CT head/brain wo con CLINICAL HISTORY: 71 years-old Female with fall. Acute head trauma status post fall TECHNIQUE: Multiple axial CT images of the head were obtained without contrast. A dose lowering technique was utilized adhering to the principles of ALARA. COMPARISON: CT cervical spine of same day FINDINGS: No acute intracranial hemorrhage, midline shift, intracranial mass, hydrocephalus, territorial ischemia or abnormal extra-axial collection. Mild involutional changes. Mild nonspecific white matter hypodensities. The calvarium is intact. Hyperostosis frontalis interna. Large right frontal temporal scalp hematoma measures approximately 15 x 1.3 cm. Associated laceration without opaque foreign body. The paranasal sinuses, mastoid air cells, and middle ear cavities are clear. IMPRESSION: 1. No acute intracranial abnormality or calvarial fracture. 2. Large right frontal temporal scalp hematoma with laceration. ACT 112: Negative or not required by law. The above report was generated using voice recognition software. It may contain grammatical, syntax or spelling errors. Electronically signed by: Cristhian Davis M.D. 12/01/2021 3:59 PM Knee X-Ray 12/01/21 14:06 RIGHT KNEE 2 VIEWS CLINICAL HISTORY: Fall. FINDINGS: AP and lateral views of the right knee are compared to study dated 02/27/2010. The examination is degraded by suboptimal positioning. The skeletal structures are osteopenic. No acute fracture is clearly identified. There is chronic posttraumatic deformity of the distal femur with a buttress plate in place along the lateral cortex. Numerous cortical lag screws transfix the buttr ess plate. The hardware appears intact. There is chronic posttraumatic deformity of the proximal tibia. There is mild tricompartmental degenerative joint space narrowing. There are marginal osteophytes. No significant joint effusion is identified. There is prepatellar soft tissue swelling. IMPRESSION: 1. Soft tissue swelling with no acute fracture clearly identified. 2. Osteopenia with chronic posttraumatic deformity and postoperative changes as above. Electronically signed by: Leonardo Marks M.D. 12/01/2021 2:51 PM Pelvis X-Ray 12/01/21 14:06 XR pelvis 1-2V routine CLINICAL HISTORY: fall TECHNIQUE: A single frontal view of the pelvis was obtained. Comparison: Comparison is made to CT abdomen pelvis 06/29/2021 FINDINGS: There is an intertrochanteric fracture of the right hip with mild apex lateral angulation. No pelvic ring fractures are seen. Degenerative changes are seen in the bilateral hip joints and lumbar spine. No soft tissue abnormality is seen. IMPRESSION: Intertrochanteric fracture of the right hip. ACT 112: Negative or not required by law. Electronically signed by: Rohan Ellis M.D. 12/01/2021 2:48 PM Discharge Plan Visit Data Chief Complaint: Laceration/Cut (Suture/Dermabond) Stated Complaint: FALL, LAC TO HEAD, HEADACHE ED Provider: Raoul Gipson Discharge Problem: Head injury, Contusion of forehead, Laceration of scalp, Closed right hip fracture, Contusion of knee, right Forms Stand Alone Forms: [facility] [employer] Prescriptions Prescriptions: No Action (DME) Power Wheelchair Device See Rx Instructions .ROUTE .MEDSUPPLY Qty: 1 0RF Rx Instructions: As directed miscellaneous medical supply [facility] [place] 1 ea miscellaneous DAILY Qty: 1 0RF Rx Instructions: 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 DX: G71.00, I50.9 glimepiride 4 mg tablet 4 mg PO DAILY Qty: 90 3RF Januvia 50 mg tablet 50 mg PO DAILY Qty: 30 11RF (DME) underpads Pad See Rx Instructions .ROUTE .MEDSUPPLY Qty: 90 5RF Rx Instructions: Disposable Underpads, Pt. uses 3 per day, Dx: G72.9; R32 Entresto 49-51 mg tablet 1 tab PO BID Qty: 180 3RF atorvastatin 40 mg tablet 40 mg PO HS Qty: 90 3RF metformin 1,000 mg tablet See Rx Instructions .ROUTE .COMPLEX Qty: 180 3RF Dose Instruction: TAKE 1 TABLET BY MOUTH 2 TIMES DAILY. Rx Instructions: TAKE 1 TABLET BY MOUTH 2 TIMES DAILY. (DME) OneTouch Ultra Test Strip See Rx Instructions .Route Qty: 100 5RF Rx Instructions: TEST BSG DAILY; DX CODE- E11.9 (DME) lancets [OneTouch UltraSoft Lancets] [facility] [place] See Rx Instructions .Route Qty: 100 5RF Rx Instructions: TEST BSG DAILY; DX CODE- E11.9 carvedilol 12.5 mg tablet See Rx Instructions .ROUTE .COMPLEX Qty: 180 3RF Dose Instruction: TAKE 1 TABLET BY MOUTH TWICE DAILY. MUST ADMINISTER WITH A MEAL/FOOD. Rx Instructions: TAKE 1 TABLET BY MOUTH TWICE DAILY. MUST ADMINISTER WITH A MEAL/FOOD. omega-3 fatty acids [Fish Oil Concentrate] 1,000 mg capsule 1,000 mg PO DAILY Women's Daily Formula 27-0.4 mg tablet 1 tab PO DAILY cranberry 400 mg capsule 400 mg PO BID doxycycline monohydrate 100 mg capsule 100 mg PO BID Qty: 2 0RF aspirin 81 mg Tablet,Delayed Release (Dr/Ec) 81 mg PO DAILY [employer] 50 mg-15 unit- 4.5 mg-2.5 mg Tablet,Chewable 2 tab PO DAILY Referrals Referrals: Rochelle Robles CRNP [Primary Care Provider] - : Head injury Qualifiers: Encounter type: initial encounter Qualified Code(s): S09.90XA - Unspecified injury of head, initial encounter Contusion of forehead Qualifiers: Encounter type: initial encounter Qualified Code(s): S00.83XA - Contusion of other part of head, initial encounter Laceration of scalp Qualifiers: Encounter type: initial encounter Qualified Code(s): S01.01XA - Laceration without foreign body of scalp, initial encounter Closed right hip fracture Qualifiers: Encounter type: initial encounter Qualified Code(s): S72.001A - Fracture of unspecified part of neck of right femur, initial encounter for closed fracture Contusion of knee, right Qualifiers: Encounter type: initial encounter Qualified Code(s): S80.01XA - Contusion of right knee, initial encounter
--- NOTE | 2021-12-01 14:49 | XRay Report ---
XR pelvis 1-2V routine CLINICAL HISTORY: fall TECHNIQUE: A single frontal view of the pelvis was obtained. Comparison: Comparison is made to CT abdomen pelvis 06/29/2021 FINDINGS: There is an intertrochanteric fracture of the right hip with mild apex lateral angulation. No pelvic ring fractures are seen. Degenerative changes are seen in the bilateral hip joints and lumbar spine. No soft tissue abnormality is seen. IMPRESSION: Intertrochanteric fracture of the right hip. ACT 112: Negative or not required by law. Electronically signed by: Rohan Ellis M.D. 12/01/2021 2:48 PM
--- NOTE | 2021-12-01 14:52 | XRay Report ---
RIGHT KNEE 2 VIEWS CLINICAL HISTORY: Fall. FINDINGS: AP and lateral views of the right knee are compared to study dated 02/27/2010. The examinati on is degraded by suboptimal positioning. The skeletal structures are osteopenic. No acute fracture i s clearly identified. There is chronic posttraumatic deformity of the distal femur with a buttress pl ate in place along the lateral cortex. Numerous cortical lag screws transfix the buttress plate. The hardware appears intact. There is chronic posttraumatic deformity of the proximal tibia. There is mil d tricompartmental degenerative joint space narrowing. There are marginal osteophytes. No significant joint effusion is identified. There is prepatellar soft tissue swelling. IMPRESSION: 1. Soft tissue swelling with no acute fracture clearly identified. 2. Osteopenia with chronic posttraumatic deformity and postoperative changes as above. Electronically signed by: Leonardo Marks M.D. 12/01/2021 2:51 PM
[2021-12-01] MEDS ORDERED: MoRPHine SULFATE 4 MG/ML 1 ML CARP\\VIAL IM ONE (15:00)
--- NOTE | 2021-12-01 15:13 | XRay Report ---
XR chest 1V portable CLINICAL HISTORY: fall TECHNIQUE: Single frontal radiograph of the chest was obtained. Comparison: Comparison is made to chest radiograph 02/10/2021 FINDINGS: No lines and tubes are seen. Cardiomegaly is noted. The lungs are clear. No evidence of pleural effus ion or pneumothorax. IMPRESSION: No acute chest disease. ACT 112: Negative or not required by law. Electronically signed by: Rohan Ellis M.D. 12/01/2021 3:12 PM
[2021-12-01] MEDS ORDERED: MoRPHine SULFATE 4 MG/ML 1 ML CARP\\VIAL IV STA (15:39)
[2021-12-01] MEDS ORDERED: ONDANSETRON INJ 2 MG/ML 2 ML VIAL IV STA (15:39)
--- NOTE | 2021-12-01 15:59 | CT Scan Report ---
CT SCAN OF THE CERVICAL SPINE CLINICAL HISTORY: Trauma. Fall. COMPARISON STUDY: No priors. TECHNIQUE: CT scan of the cervical spine is performed from the skull base to the upper thoracic spine . Images are reviewed in the axial, sagittal, and coronal planes. IV contrast was not administered fo r this examination. A dose lowering technique was utilized adhering to the principles of ALARA. CT DOSE: 1177.40 mGy.cm FINDINGS: Skeletal structures: The skeletal structures are osteopenic. There is no evidence of fracture or subl uxation involving the cervical spine. Vertebral body height and alignment are maintained. There is st raightening of the cervical lordosis. Large anterior osteophytes are seen throughout. The odontoid pr ocess and lateral masses are intact. The atlantoaxial articulation is preserved note is productive de generative change. The spinous processes appear intact. There is mild to moderate multilevel cervical spondylosis. Uncovertebral and facet arthropathy contribute to neural foraminal narrowing at several levels. Intervertebral discs: There is mild disc space narrowing at C7-T1. The cervical disc spaces appear ma intained. Central canal: Grossly patent. Soft tissues: The prevertebral and paraspinous soft tissues are within normal limits. There is athero sclerotic calcification of the carotid bulbs. Calvarium: The visualized calvarium at the skull base appears intact. Brain parenchyma: Partially visualized brain parenchyma at the skull base is within normal limits. Sinuses and mastoids: There is mucosal thickening in the left sphenoid sinus. The mastoid air cells a re well pneumatized. Lung apices: Clear as visualized. IMPRESSION: 1. There is no evidence of fracture or subluxation involving the cervical spine. 2. Osteopenia and spondylotic change as above. ACT 112: Negative or not required by law. Electronically signed by: Leonardo Marks M.D. 12/01/2021 3:58 PM
--- NOTE | 2021-12-01 16:00 | CT Scan Report ---
CT head/brain wo con CLINICAL HISTORY: 71 years-old Female with fall. Acute head trauma status post fall TECHNIQUE: Multiple axial CT images of the head were obtained without contrast. A dose lowering tech nique was utilized adhering to the principles of ALARA. COMPARISON: CT cervical spine of same day FINDINGS: No acute intracranial hemorrhage, midline shift, intracranial mass, hydrocephalus, territorial ischem ia or abnormal extra-axial collection. Mild involutional changes. Mild nonspecific white matter hypod ensities. The calvarium is intact. Hyperostosis frontalis interna. Large right frontal temporal scalp hematoma measures approximately 15 x 1.3 cm. Associated laceration without opaque foreign body. The paranasal sinuses, mastoid air cells, and middle ear cavities are clear. IMPRESSION: 1. No acute intracranial abnormality or calvarial fracture. 2. Large right frontal temporal scalp hematoma with laceration. ACT 112: Negative or not required by law. The above report was generated using voice recognition software. It may contain grammatical, syntax o r spelling errors. Electronically signed by: Cristhian Davis M.D. 12/01/2021 3:59 PM
[2021-12-01 16:25] LABS: Basophils # (auto) 0.03 K/uL (0-0.2); Basophils % (auto) 0.3 %; Eosinophils # (auto) 0.06 K/uL (0-0.50); Eosinophils % (auto) 0.5 %; Hematocrit (blood only) 35.8 % (34.1-44.9); Hemoglobin 10.7 g/dl (12.0-16.0); Immature Granulocytes # (auto) 0.12 K/uL (0.00-0.02); Immature Granulocytes % (auto) 1.1 %; Lymphocytes # (auto) 0.76 K/uL (1.2-3.4); Lymphocytes % (auto) 6.8 %; Mean Corpuscular Hemoglobin 24.4 pg (25.0-34.0); Mean Corpuscular Hgb Conc 29.9 g/dL (32.0-36.0); Mean Corpuscular Volume 81.5 fL (80.0-100.0); Mean Platelet Volume 11.3 fL (9.4-12.3); Monocytes # (auto) 0.45 K/uL (0.24-0.82); Neutrophils # (auto) 9.82 K/uL (1.4-6.5); Neutrophils % (auto) 87.3 %; Platelet Count 170 K/uL (130-400); RDW Coefficient of Variation 16.5 % (11.5-14.5); RDW Standard Deviation 48.9 fL (36.4-46.3); Red Blood Count 4.39 M/uL (3.93-5.22); White Blood Count 11.24 K/ul (4.8-10.8)
[2021-12-01 16:52] LABS: Alanine Aminotransferase 24 U/L (7-52); Albumin Globulin Ratio 1.1 (0.9-2); Albumin Level 3.9 gm/dl (3.4-5.0); Alkaline Phosphatase 68 U/L (34-104); Anion Gap 10 (3-11); Aspartate Aminotransferase 20 U/L (13-39); BUN Creatinine Ratio 43.9 (10-20); Bilirubin,Total 0.4 mg/dl (0.2-1.0); Blood Urea Nitrogen 18 mg/dl (6-23); Calcium 9.6 mg/dl (8.5-10.1); Carbon Dioxide 23 mmol/L (21-32); Chloride 105 mmol/L (98-107); Est GFR (African American) 121.3 ml/min; Est GFR (Non-African American) 104.7 ml/min; Globulin 3.7 gm/dl (2.5-4.0); Glucose 203 mg/dl (70-99(Fasting)); Lipase 53 U/L (11-82); Potassium 4.2 mmol/L (3.5-5.1); Sodium 138 mmol/L (136-145); Total Protein 7.6 gm/dl (6.0-8.3)
[2021-12-01 16:53] LABS: Troponin I High Sensitivity 7.7 pg/ml (0-14)
--- NOTE | 2021-12-01 17:10 | History & Physical Report ---
Date of Service December 01, 2021 Assessment & Plan (1) Closed right hip fracture: Plan: Pelvic x-ray showed "intertrochanteric fracture of the right hip with mild apex lateral angulation." - Pain control wtih standing Tylenol and morphine PRN. She is presently comfortable. - Orthopedics consulted - NPO @ midnight (2) Muscular dystrophy: Plan: Per PCP note from 07/20/2020: "She is home bound, requires assistance with all ADLs, Brianna lift issues to get her in and out of bed and into the electric wheelchair.Her daughter is the aide that helps her." - Note made in orders that she requires assistance with feeding, rolling, toileting, etc. (3) Cardiomyopathy: Plan: Idiopathic. Has had recovered EF: 60-65%, Grade I diastolic dysfunction. - Continue home beta-cong - Hold Entresto in preparation for possible surgery (4) Type 2 diabetes mellitus: Plan: A1c was 6.7% in 2020. - Hold oral meds - Sliding scale insulin (5) HTN (hypertension): Plan: BP in the ER is 160/100. - Continue home beta-cong - Hold Entresto for now (6) Hyperlipidemia: Plan: - Continue statin (7) DVT prophylaxis: Plan: SCDs - Hold heparin for possible surgery FULL CODE in discussion with patient and family History of Present Illness Primary Care Provider: ZAKIYA Rubio 71yo F w/ hx of muscular dystrophy who presents after a mechanical fall. She reports that her computerized wheelchair malfunctioned and threw her forward onto the street. She reports that she hit her head, but did not loss consciousness. She had pain in the right hip. At baseline, cannot help with eating, toileting, or rolling in bed. X-ray in the ER showed intertrochanteric fracture of the right hip with mild apex lateral angulation. Allergies Allergy/AdvReac Type Severity Reaction Status Date / Time No Known Allergies Allergy Unknown Verified 07/21/21 10:43 Home Medications Medication Instructions Recorded Confirmed Type aspirin 81 mg tablet,delayed 81 mg PO DAILY 07/08/18 07/21/21 History release vit C 50 mg-E 15 unit-zinc cit 4.5 2 tab PO DAILY 07/08/18 07/21/21 History mg-lutein 2.5 mg-zeaxan chew tablet (O[facility]) ecbyoelkjsyz-Zv-cqsz-minerals 27 1 tab PO DAILY 10/07/18 07/21/21 History mg-0.4 mg tablet (Women's Daily Formula) omega-3 fatty acids 1,000 mg 1,000 mg PO DAILY 10/07/18 07/21/21 History capsule (Fish Oil Concentrate) Wheelchair (Powered) (Power #1 ea 09/19/19 07/21/21 Rx Wheelchair) cranberry 400 mg capsule 400 mg PO BID 12/12/19 07/21/21 History miscellaneous medical supply 1 ea miscellaneous DAILY DX: 05/31/21 07/21/21 Rx G71.00, I50.9 #1 ea glimepiride 4 mg tablet 4 mg PO DAILY #90 tabs 07/08/21 07/21/21 Rx sitagliptin 50 mg tablet (Januvia) 50 mg PO DAILY #30 tabs 07/08/21 07/21/21 Rx sacubitril 49 mg-valsartan 51 mg 1 tab PO BID #180 tabs 07/11/21 07/21/21 Rx tablet (Entresto) underpads #90 ea 07/11/21 07/21/21 Rx doxycycline monohydrate 100 mg 100 mg PO BID #2 caps 07/21/21 07/21/21 Rx capsule atorvastatin 40 mg tablet 40 mg PO HS #90 tabs 07/28/21 Rx metformin 1,000 mg tablet See Rx Instructions .Route 07/28/21 Rx .COMPLEX #180 tabs blood sugar diagnostic (OneTouch #100 ea 08/08/21 Rx Ultra Test strips) lancets (OneTouch UltraSoft #100 ea 08/08/21 Rx Lancets) carvedilol 12.5 mg tablet See Rx Instructions .Route 09/16/21 Rx .COMPLEX #180 tabs Past Med/Surg History Medical History Cardiomyopathy Congestive heart failure HTN (hypertension) Hyperlipidemia LBBB (left bundle branch block) Muscular dystrophy Type 2 diabetes mellitus Urinary retention Uterine cancer Surgical History History of total abdominal hysterectomy Family History Sister Cancer Myocardial infarction Muscular dystrophy Father Colorectal cancer Myocardial infarction Brother Colorectal cancer Myocardial infarction Muscular dystrophy Other Family history non-contributory Denies family history of Ovarian cancer Prostate cancer Breast cancer Social History Smoking Status: Unknown if ever smoked Second Hand Exposure: Yes; Hx Alcohol Use: No Hx Substance Use: No Preferred Language: Norwegian Communication Ability: Effective Dramatic Director Required: No Beliefs That Will Affect Care: None marital status: Current Living Situation: Spouse current occupational status: disabled How many Children do You have: 5 Feels Safe at Home: Yes Childhood Exposure to Second-Hand Smoke: Yes caffeine: Yes Dental Care, Regularly: No Physical Activity Frequency: Daily Seatbelt Use: always Sunscreen Use: Yes Assistive Devices: Mechanical Lift Review of Systems Review of Systems: All systems reviewed & are unremarkable except as noted in HPI & below Physical Exam Constitutional: + obese and healthy appearing Eyes: EOM intact bilaterally; no conjunctival abnormality ENMT: external ear and nose normal, oropharynx normal Neck: trachea midline, no thyromegaly normal visual inspection Respiratory: normal respiratory effort, lungs clear to auscultation no respiratory distress Cardiovascular: RRR, no murmur, no edema Gastrointestinal (Abdomen): Inspection/Auscultation: abdomen normal to inspection; abdomen not distended Skin: no rashes, warm and dry Neurologic: moves all extremities and awake Psychiatric: Orientation: alert, oriented to person and cooperative Results & Data Results & Data ([facility]) Vital Signs (Past 12 Hours) Vital Signs Temp Pulse Resp BP Pulse Ox O2 Del Method 12/01/21 14:04 36.9 C 74 14 162/100 H 93 Room Air Code Status & VTE Plan VTE Prophylaxis Plan VTE Prophylaxis will be ordered: Yes PG Care Time/CCT Total # of Minutes Spent Total Time Spent with Patient: Total time spent is greater than 50% in coordination of care (as documented) at patient's floor/unit and/or counseling patient: Coding Level of Care Code 69436 Initial Inpt Care Lvl 3 Diagnoses Closed right hip fracture S72.001A Encounter type: initial encounter Muscular dystrophy G71.00 Cardiomyopathy I42.0 Cardiomyopathy type: dilated Type 2 diabetes mellitus E11.9 Diabetes mellitus complication status: without complication Diabetes mellitus terminal worker insulin use: without terminal worker use HTN (hypertension) I10 Hypertension type: essential hypertension Hyperlipidemia E78.2 Hyperlipidemia type: mixed hyperlipidemia DVT prophylaxis Z29.9 (1) Type 2 diabetes mellitus Diabetes mellitus complication status: without complication Diabetes mellitus alf insulin use: without alf use Qualified Code(s): E11.9 - Type 2 diabetes mellitus without complications (2) Hyperlipidemia Hyperlipidemia type: mixed hyperlipidemia Qualified Code(s): E78.2 - Mixed hyperlipidemia (3) HTN (hypertension) Hypertension type: essential hypertension Qualified Code(s): I10 - Essential (primary) hypertension (4) Cardiomyopathy Cardiomyopathy type: dilated Qualified Code(s): I42.0 - Dilated cardiomyopathy (5) Closed right hip fracture Encounter type: initial encounter Qualified Code(s): S72.001A - Fracture of unspecified part of neck of right femur, initial encounter for closed fracture
[2021-12-01] MEDS ORDERED: GLUCOSE 40% GEL 15 GM TUBE PO PRN (21:15)
[2021-12-01] MEDS ORDERED: ONDANSETRON INJ 2 MG/ML 2 ML VIAL IV PRN (21:15)
[2021-12-01] MEDS ORDERED: DEXTROSE 50% 50 ML SYRINGE IV PRN (21:15)
[2021-12-01] MEDS ORDERED: GLUCAGON FOR INJ 1 MG VIAL SQ PRN (21:15)
[2021-12-01] MEDS ORDERED: GLUCOSE 10 TAB/TUBE PO PRN (21:15)
[2021-12-01] MEDS ORDERED: CARBOHYDRATES FOR HYPOGLYCEMIA PO PRN (21:15)
[2021-12-01] MEDS: ATORVASTATIN 40 MG TAB PO SCH (22:38)
[2021-12-01] MEDS: carvediloL 12.5 MG TAB PO SCH (22:38)
[2021-12-01] MEDS: ACETAMINOPHEN 500 MG TAB PO SCH (22:38)
[2021-12-01] MEDS: MoRPHine SULFATE 2 MG/ML CARP IV PRN (22:41)
[2021-12-01] MEDS: INSULIN ASPART PER UNIT SC SCH (22:42)
[2021-12-02] MEDS: MoRPHine SULFATE 2 MG/ML CARP IV PRN ×3 (06:00→15:40)
[2021-12-02 06:28] LABS: Hematocrit (blood only) 30.9 % (34.1-44.9); Hemoglobin 9.6 g/dl (12.0-16.0); Mean Corpuscular Hemoglobin 25.1 pg (25.0-34.0); Mean Corpuscular Hgb Conc 31.1 g/dL (32.0-36.0); Mean Corpuscular Volume 80.7 fL (80.0-100.0); Mean Platelet Volume 11.5 fL (9.4-12.3); Platelet Count 184 K/uL (130-400); RDW Coefficient of Variation 16.6 % (11.5-14.5); Red Blood Count 3.83 M/uL (3.93-5.22); White Blood Count 7.65 K/ul (4.8-10.8)
[2021-12-02 07:06] LABS: BUN Creatinine Ratio 44.7 (10-20); Calcium 8.8 mg/dl (8.5-10.1); Creatinine Clr Calc Pharmacy 132.9 ml/min; Est GFR (Non-African American) 100.1 ml/min; Magnesium 1.3 mg/dl (1.7-2.4); Potassium 4.5 mmol/L (3.5-5.1)
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
[2021-12-02 08:11] LABS: Estimated Average Glucose 131 mg/dl; Hemoglobin A1C 6.2 % (4.5-5.6)
[2021-12-02 08:38] LABS: Ferritin 18.2 ng/ml (8-388)
[2021-12-02] MEDS: MAGNESIUM SULFATE / D5W 1 GM/100 ML BAG IV SCH ×4 (08:59→15:40)
[2021-12-02] MEDS: INSULIN ASPART PER UNIT SC SCH ×4 (09:08→20:26)
[2021-12-02] MEDS: carvediloL 12.5 MG TAB PO SCH ×2 (09:09→20:29)
[2021-12-02] MEDS: ACETAMINOPHEN 500 MG TAB PO SCH ×3 (09:09→20:25)
--- NOTE | 2021-12-02 09:35 | Electrocardiogram Report ---
Test Reason : Blood Pressure : / mmHG Vent. Rate : 058 BPM Atrial Rate : 058 BPM P-R Int : 148 ms QRS Dur : 144 ms QT Int : 456 ms P-R-T Axes : 074 -18 103 degrees QTc Int : 447 ms Poor data quality, interpretation may be adversely affected Sinus bradycardia Left bundle branch block Abnormal ECG When compared with ECG of 10-FEB-2021 12:11, Left bundle branch block is now Present Confirmed by Steve Valerio ([id number]) on 12/02/2021 9:34:50 AM Referred By: REFERRED SELF Confirmed By:Steve Valerio
--- NOTE | 2021-12-02 09:50 | XRay Report ---
SINGLE VIEW CHEST CLINICAL HISTORY: Hypoxia. FINDINGS: An AP, portable, semierect chest radiograph is compared to study dated 12/01/2021. The examin ation is degraded by portable technique, apical lordotic positioning, and patient rotation. The hear t is enlarged. The pulmonary vasculature is noncongested. There is elevation of the right hemidiaphra gm with bibasilar atelectasis. The lungs and pleural spaces are otherwise clear. No pneumothorax is s een. The skeletal structures are osteopenic. The bony thorax is grossly intact. IMPRESSION: Cardiomegaly with no active disease in the chest. ACT 112: Negative or not required by law. Electronically signed by: Leonardo Marks M.D. 12/02/2021 9:48 AM
[2021-12-02] MEDS ORDERED: IRON SUCROSE 200 MG in 0.9 % SODIUM CHLORIDE 100 ML IV ONE (11:00)
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
--- NOTE | 2021-12-02 12:57 | CT Scan Report ---
CT SCAN OF THE ABDOMEN AND PELVIS WITHOUT IV CONTRAST; CT SCAN OF THE RIGHT HIP WITHOUT IV CONTRAST CLINICAL HISTORY: Generalized abdominal pain. Hematoma. Hip fracture. COMPARISON STUDY: Abdominal CT dated 07/19/2021. Pelvic radiograph dated 12/01/2021. TECHNIQUE: CT scan of the abdomen and pelvis is performed from the lung bases to the proximal femora. Additionally, CT scan of the right hip is performed from the bony pelvis to the femoral shaft. Image s for both examinations are reviewed in the axial, sagittal, and coronal planes. IV contrast was not administered for this examination. A dose lowering technique was utilized adhering to the principles of ALARA. The examinations are degraded by motion artifact, as well as by streak artifact from the ar ms which could not be elevated above the abdomen or pelvis. CT DOSE: 1799.73 mGy.cm FINDINGS: Lung bases: The heart is normal in size and without pericardial effusion. The coronary arteries are d ensely calcified. There are trace pleural effusions with bibasilar scarring/atelectasis. There is a t iny hiatal hernia. Liver: The unenhanced liver is throughout morphology and heterogeneous in attenuation. There is nodul arity of the hepatic surface contour. There is no intrahepatic biliary ductal dilatation. Gallbladder: There are numerous calcified gallstones without CT evidence of acute cholecystitis. Spleen: Normal in size and attenuation. Pancreas: The unenhanced pancreas is moderately atrophic and grossly unremarkable. 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 The left adrenal gland is nor mal in appearance. Kidneys: There is a horseshoe kidney, with a fibrous connection below the inferior mesenteric artery. The unenhanced renal moieties are atrophic and without hydronephrosis. There are at least 4 nonobstr ucting left renal calculi measuring up to 6 mm. No right renal calculi are identified and no ureteral stone is seen.. There is no evidence of contour deforming renal mass lesion. Regular scarring is see n in the upper pole on the right. Abdominal vasculature: The abdominal aorta is normal in course and caliber noting advanced atheroscle rotic calcification. Bowel: There are scattered colonic diverticula without CT evidence of acute diverticulitis. Mild/mode rate fecal retention is noted throughout the colon. There is no bowel obstruction. The appendix is w ell-visualized and normal. Peritoneum: There is no intraperitoneal free air or abdominal ascites. There is a large hernia in the right lower abdominal wall which contains protuberant bowel. Lymphadenopathy: None. Pelvic viscera: The bladder is decompressed and a Gallegos catheter and not well assessed. The uterus is surgically absent. A 2.9 cm soft tissue lesion in the left adnexa on image #348 is unchanged from . There is a fat-containing hernia in the right groin. There is marked atrophy of the pelvic a nd thigh musculature. Skeletal structures: The skeletal structures are osteopenic. The lumbosacral spine, bony pelvis, and left proximal femur appear intact. See below for discussion of the right proximal femur. There is mod erate lumbosacral spondylosis. No lytic or blastic lesions are seen. RIGHT HIP: There is an angulated a mildly displaced intertrochanteric fracture of the right proximal femur. The right hip remains within the acetabulum. There is no evidence of avascular necrosis of the right femoral head. There is no significant joint effusion. There is marked atrophy of the surroundi ng muscular tear. Hemorrhage is present on the fracture site. No hematoma is seen. IMPRESSION: 1. No acute infectious or inflammatory findings are identified in the abdomen or pelvis. 2. Trace pleural effusions. 3. Cirrhotic liver morphology. 4. Cholelithiasis without CT evidence of acute cholecystitis 5. Horseshoe kidney and left-sided nephrolithiasis. 6. There is an angulated and mildly displaced intertrochanteric fracture of the right proximal femur. 7. There is hemorrhage around the fracture site with no significant hematoma identified. 8. There is marked fatty atrophy of the pelvic and thigh musculature. 9. An indeterminant 2.8 cm soft tissue lesion in the left adnexa is unchanged, possibly representing an abnormal left ovary versus a pathologic lymph node. 10. Additional findings as above. ACT 112: Negative or not required by law. Electronically signed by: Leonardo Marks M.D. 12/02/2021 12:55 PM
--- NOTE | 2021-12-02 13:10 | XRay Report ---
XR femur RT 2V routine CLINICAL HISTORY: Fracture hip /h/o distal femur orif TECHNIQUE: 2 radiographic views of the right femur were obtained. Comparison: Comparison is made to femur radiograph 12/01/2021 FINDINGS: Limited evaluation of intratrochanteric fracture of the right proximal femur due to overlying soft ti ssue. Redemonstration of plate and screw fixation hardware along the lateral cortex of the femur. No pericardial hardware lucency or hardware fracture is seen. Chronic posttraumatic changes are seen. Th e visualized portion degenerative changes are noted in the knee joint. Of the hip and knee joints are unremarkable. The soft tissues are unremarkable. IMPRESSION: Please see CT hip performed same day for findings of fracture. Old healed fracture with surgical fixa tion hardware is noted in the distal femur. ACT 112: Negative or not required by law. Electronically signed by: Rohan Ellis M.D. 12/02/2021 1:08 PM
[2021-12-02 13:49] LABS: Appearance Urine Turbid (Clear); Bacteria Urine Automated 2+ (Negative); Bilirubin Urine Negative (Negative); Blood Urine 2+ (Negative); Color Urine Dark Yellow; Glucose Urine UA Negative (Negative); Ketones Urine Trace (Negative); Leukocyte Esterase Urine 3+ (Negative); Nitrite Urine Negative (Negative); Protein Urine 1+ (Negative); Specific Gravity Urine 1.024 (1.000-1.030); Urobilinogen Urine Negative (Negative); WBC Urine Automated >30 /hpf (0-5)
[2021-12-02 14:15] LABS: RBC Urine Automated 0-4 /hpf (0-4)
[2021-12-02 14:16] LABS: Cast Urine Automated 0 /lpf (0-5)
[2021-12-02 15:24] LABS: Prothrombin Time 10.9 Seconds (9.0-12.0)
[2021-12-02] MEDS: cefTRIAXone SODIUM 2,000 MG in DEXTROSE 5% 50 ML IV SCH (15:55)
[2021-12-02] MEDS: ATORVASTATIN 40 MG TAB PO SCH (20:25)
[2021-12-02] MEDS: VALSARTAN/SACUBITRIL 51/49 MG TAB PO SCH (20:25)
[2021-12-03] MEDS: MoRPHine SULFATE 2 MG/ML CARP IV PRN ×3 (02:32→21:24)
[2021-12-03 06:42] LABS: Hematocrit (blood only) 30.3 % (34.1-44.9); Hemoglobin 9.3 g/dl (12.0-16.0); Mean Corpuscular Hemoglobin 24.3 pg (25.0-34.0); Mean Corpuscular Hgb Conc 30.7 g/dL (32.0-36.0); Mean Corpuscular Volume 79.3 fL (80.0-100.0); Mean Platelet Volume 11.4 fL (9.4-12.3); Platelet Count 175 K/uL (130-400); RDW Coefficient of Variation 16.7 % (11.5-14.5); RDW Standard Deviation 47.6 fL (36.4-46.3); Red Blood Count 3.82 M/uL (3.93-5.22); White Blood Count 7.45 K/ul (4.8-10.8)
[2021-12-03] MEDS ORDERED: MIDAZOLAM HCL 1 MG/ML 2ML VIAL ONE (06:55)
[2021-12-03] MEDS ORDERED: fentaNYL citrate 100 MCG/2 ML VIAL ONE (06:55)
[2021-12-03] MEDS ORDERED: PROPOFOL IV EMULSION 10 MG/ML 20 ML VIAL IV ONE ×3 (06:55→08:58)
--- NOTE | 2021-12-03 07:04 | Anesthesiology Consultation ---
Date of Service December 03, 2021 Assessment & Plan Chart Review Chart Review: Acceptable Risk for Surgery and Patient NOT seen in Pre Admission Testing Consults Requested none ASA ASA4 Proposed Anesthesia Anesthesia Type: MAC Spinal History Surgery Operation Date: 12/03/21 07:30 Proposed Procedures p Right Troch Nail - Kwesi Dugan MD Height/Weight Height: 5 ft 6 in Weight: 99.4 kg Allergies Allergy/AdvReac Type Severity Reaction Status Date / Time No Known Allergies Allergy Unknown Verified 12/01/21 18:39 Medications Home Medications Medication Instructions Recorded Confirmed Last Taken aspirin 81 mg tablet,delayed 81 mg PO DAILY 07/08/18 12/01/21 02/09/21 release vit C 50 mg-E 15 unit-zinc cit 4.5 2 tab PO DAILY 07/08/18 12/01/21 02/09/21 mg-lutein 2.5 mg-zeaxan chew tablet (Corgenix) yxyllgklxruq-Xo-cjft-minerals 27 1 tab PO DAILY 10/07/18 12/01/21 02/09/21 mg-0.4 mg tablet (Women's Daily Formula) Wheelchair (Powered) (Power #1 ea 09/19/19 12/01/21 Unknown Wheelchair) cranberry 400 mg capsule 400 mg PO BID 12/12/19 12/01/21 02/09/21 glimepiride 4 mg tablet 4 mg PO DAILY #90 tabs 07/08/21 12/01/21 Unknown sitagliptin 50 mg tablet (Januvia) 50 mg PO DAILY #30 tabs 07/08/21 12/01/21 Unknown sacubitril 49 mg-valsartan 51 mg 1 tab PO BID #180 tabs 07/11/21 12/01/21 Unknown tablet (Entresto) underpads #90 ea 07/11/21 12/01/21 Unknown atorvastatin 40 mg tablet 40 mg PO HS #90 tabs 07/28/21 12/01/21 Unknown blood sugar diagnostic (OneTouch #100 ea 08/08/21 12/01/21 Unknown Ultra Test strips) lancets (OneTouch UltraSoft #100 ea 08/08/21 12/01/21 Unknown Lancets) carvedilol 12.5 mg tablet 12.5 mg PO BID 12/01/21 12/01/21 Unknown metformin 1,000 mg tablet 1,000 mg PO BIDM 12/01/21 12/01/21 Unknown omega-3 fatty acids 1,000 mg 1,000 mg PO DAILY 12/01/21 12/01/21 Unknown capsule Active Medications Generic Name Dose Route Start Last Admin Trade Name Freq PRN Reason Stop Dose Admin Acetaminophen 1,000 mg 12/01/21 21:15 12/02/21 20:25 Acetaminophen 500 Mg Tab PO 12/31/21 21:14 1,000 mg TID LYNNE Administration Atorvastatin Calcium 40 mg 12/01/21 21:30 12/02/21 20:25 Atorvastatin 40 Mg Tab PO 12/31/21 21:29 40 mg HS LYNNE Administration Carvedilol 12.5 mg 12/01/21 21:30 12/02/21 20:29 Carvedilol 12.5 Mg Tab PO 12/31/21 21:29 Not Given BID LYNNE Ceftriaxone Sodium 2,000 mg/ 70 mls @ 100 mls/hr 12/02/21 14:30 12/02/21 17:06 Dextrose IV 12/07/21 14:29 Infused Q24H ON LICENSE OF [facility] Infusion Protocol Insulin Aspart 0 units 12/01/21 21:15 12/02/21 20:26 Insulin Aspart Per Unit SC 12/31/21 21:14 Not Given ACHS LYNNE Morphine Sulfate 2 mg 12/01/21 21:15 12/03/21 02:32 Morphine Sulfate 2 Mg/Ml Carp IV 12/15/21 21:14 2 mg Q4H PRN Administration Pain Sacubitril/Valsartan 1 tab 12/02/21 21:00 12/02/21 20:25 Valsartan/Sacubitril 51/49 Mg Tab PO 01/01/22 20:59 1 tab BID LYNNE Administration Past Medical History Medical History Cardiomyopathy Congestive heart failure HTN (hypertension) Hyperlipidemia LBBB (left bundle branch block) Muscular dystrophy Type 2 diabetes mellitus Urinary retention Uterine cancer Exercise / Class Metabolic Activity III < 4 Walking/Shop/Light housework Past Family History Family History Sister Cancer Myocardial infarction Muscular dystrophy Father Colorectal cancer Myocardial infarction Brother Colorectal cancer Myocardial infarction Muscular dystrophy Other Family history non-contributory Denies family history of Ovarian cancer Prostate cancer Breast cancer Past Surgical History Surgical History History of total abdominal hysterectomy Past Anesthesia History No Hx of Anesthesia Complications and No Family Hx of Anesthesia Complications History of PONV No Hx of PONV and No Hx of Motion Sickness Social History Smoking Status: Never smoker Do You Dip or Chew Tobacco: No Hx Alcohol Use: No Hx Substance Use: No Physical Exam Vital Signs Last Vital Signs Temp 36.9 C 12/03/21 03:25 Pulse 56 L 12/03/21 03:25 Resp 18 12/03/21 03:25 BP 121/73 12/03/21 03:25 Pulse Ox 90 12/03/21 03:25 O2 Del Method 12/03/21 03:25 O2 Flow Rate 2 12/02/21 12:07 Testing Laboratory Results 12/03/21 06:12 PT 10.9 Seconds (9.0-12.0) 12/02/21 14:57 INR 1.0 (0.9-1.1) 12/02/21 14:57 Hemoglobin A1c 6.2 % (4.5-5.6) H 12/02/21 05:38 Urine Color Dark Yellow 12/02/21 Unknown Urine Appearance Turbid (Clear) A 12/02/21 Unknown Urine pH 5.0 (4.5-7.5) 12/02/21 Unknown Ur Specific [place] 1.024 (1.000-1.030) 12/02/21 Unknown Urine Protein 1+ (Negative) H 12/02/21 Unknown Urine Glucose (UA) Negative (Negative) 12/02/21 Unknown Urine Ketones Trace (Negative) H 12/02/21 Unknown Urine Nitrite Negative (Negative) 12/02/21 Unknown Ur Leukocyte Esterase 3+ (Negative) H 12/02/21 Unknown Urine WBC (Auto) >30 /hpf (0-5) H 12/02/21 Unknown Urine RBC (Auto) 0-4 /hpf (0-4) 12/02/21 Unknown U Hyaline Cast (Auto) 0 /lpf (0-5) 12/02/21 Unknown U Epithel Cells (Auto) 10-20 /lpf (0-5) H 12/02/21 Unknown Urine Bacteria (Auto) 2+ (Negative) H 12/02/21 Unknown 12/02/21 20:25 POC Glucose 141 H Electrocardiogram Date: 12/01/21 Findings: + LBBB and + SB @ (@ 58) Chest X-Ray Date: 12/02/21 Findings: + NAD and + cardiomegaly Echocardiogram Date: 06/02/21 EF: 60% LV Function: normal RWMA: + none Other Findings: + LVH (mild) and + diastolic dysfunction (Grade 1) Valvular Disease: + no significant valvular disease and + pertinent finding (mild TR) Cardiac Catheterization Date: 07/10/18 Findings: + RCA (Luminal Irregularities), + LMA (Luminal irregularities), + LCX (20% mid;OM2-30% prox.) and + pertinent finding (LAD-30% prox; D2-50-60% ostial) Intervention: + none
[2021-12-03] MEDS ORDERED: BUPIVACAINE 0.5 % 5 MG/1 ML PF 10ML VIAL ONE (07:22)
[2021-12-03 07:24] LABS: Calcium 8.7 mg/dl (8.5-10.1); Creatinine Clr Calc Pharmacy 155.7 ml/min; Est GFR (African American) 122.3 ml/min; Est GFR (Non-African American) 105.5 ml/min; Magnesium 2.1 mg/dl (1.7-2.4); Potassium 4.1 mmol/L (3.5-5.1)
[2021-12-03] MEDS ORDERED: ONDANSETRON INJ 2 MG/ML 2 ML VIAL IV PRN (07:54)
[2021-12-03] MEDS ORDERED: ePHEDrine sulfate 50 MG/ML AMP IV PRN (07:54)
[2021-12-03] MEDS ORDERED: PROMETHAZINE HCL 12.5 MG in SODIUM CHLORIDE 0.9% 50 ML IV PRN (07:54)
[2021-12-03] MEDS ORDERED: LABETALOL HCL IV 5 MG/ML 20ML IV PRN (07:54)
[2021-12-03] MEDS ORDERED: NALOXONE HCL 0.4 MG/1 ML VIAL/CARP IV PRN (07:54)
[2021-12-03] MEDS ORDERED: fentaNYL citrate 100 MCG/2 ML VIAL IV PRN (07:54)
[2021-12-03] MEDS ORDERED: ATROPINE SULFATE 0.1 MG/ML 10ML SYR IV PRN (07:54)
[2021-12-03] MEDS ORDERED: FLUMAZENIL 0.1 MG/1 ML 10 ML VIAL IV PRN (07:54)
[2021-12-03] MEDS ORDERED: HYDROmorphone INJ 1 MG/ML SYRINGE IV PRN (07:54)
[2021-12-03] MEDS: INSULIN ASPART PER UNIT SC SCH ×4 (07:59→21:30)
[2021-12-03] MEDS: ACETAMINOPHEN 500 MG TAB PO SCH ×3 (07:59→21:31)
[2021-12-03] MEDS: carvediloL 12.5 MG TAB PO SCH ×2 (08:00→21:26)
[2021-12-03] MEDS: VALSARTAN/SACUBITRIL 51/49 MG TAB PO SCH ×2 (08:00→21:26)
--- NOTE | 2021-12-03 08:03 | History & Physical Bridge Note ---
Date of Service December 03, 2021 History & Physical Bridge Note I have examined the patient, reviewed the History & Physical and in the interval since the performance of the History & Physical I have noted the following changes of clinical significance: no changes noted I saw Elvia in the preoperative holding area with her family. We discussed risk benefits reasonable outcomes and expectations. We will plan for: Right intertrochanteric hip nail
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
[2021-12-03] MEDS ORDERED: ceFAZolin 330 MG/ML 1 GM VIAL ONE ×2 (08:35)
[2021-12-03] MEDS ORDERED: ceFAZolin 2000MG 2,000 MG/15 ML SYR IV ONE (08:42)
[2021-12-03] MEDS ORDERED: ePHEDrine sulfate 50 MG/ML AMP ONE (09:00)
[2021-12-03] MEDS ORDERED: PHENYLEPHRINE HCL 10 MG/ML VIAL ONE (09:00)
[2021-12-03] MEDS ORDERED: BUPIVACAINE 0.25% 30 ML VIAL ONE (10:16)
--- NOTE | 2021-12-03 10:18 | Post Operative Brief Note ---
Immediate Post Op Note v1 Date of Surgery December 03, 2021 Pre & Post Diagnosis Operation Date: 12/03/21 07:30 Pre-Op Diagnosis: Intertrochanteric fracture of the right hip Post-Op Diagnosis: Intertrochanteric fracture of the right hip I identified the patient and participated in the time-out.: Yes Procedure Operation Date: 12/03/21 07:30 Actual Procedures p Right Troch Nail(Right) - Kwesi Dugan MD Surgeon Kwesi Dugan MD Manager [facility] stewart Estimated Blood Loss 75 Findings Consistent with Post-Op Diagnosis displaced fracture
[2021-12-03] MEDS ORDERED: BUPIVACAINE 0.25% 30 ML VIAL INFIL ONE ×2 (10:19→10:25)
--- NOTE | 2021-12-03 10:29 | Fluoroscopy Report ---
FL hip RT 2-3V CLINICAL HISTORY: RIGHT TROCHNAIL COMPARISON STUDY: Right femur radiographs and CT of the right hip December 02, 2021. FLUOROSCOPY TIME: 3 minutes and 44 seconds. FLUOROSCOPIC IMAGES: 6 FINDINGS: Fluoroscopy was provided during internal fixation of the intertrochanteric fracture of the right femur with trochanteric nail. Fracture alignment has significantly improved and appears near an atomic. There are no unexpected radiopaque foreign bodies. Previous distal right femoral internal fix ation is noted. IMPRESSION: Fluoroscopy provided during internal fixation of the intertrochanteric fracture of the r ight femur with trochanteric nail. ACT 112: Negative or not required by law. Electronically signed by: Fabrizio Wilson M.D. 12/03/2021 10:27 AM
[2021-12-03] MEDS: SODIUM CHLORIDE 0.9% 1000ML 1,000 ML IV SCH (12:15)
--- NOTE | 2021-12-03 12:39 | Anesthesiology Progress Note ---
Date of Service December 03, 2021 Anesthesia Post Procedure Vital Signs Vital Signs: Temp Pulse Pulse Pulse Pulse Resp BP 12/03/21 12:21 36.6 C 81 19 110/73 12/03/21 12:00 36.5 C 79 19 107/71 12/03/21 11:42 36.3 C L 80 19 116/75 12/03/21 11:05 78 18 109/69 12/03/21 10:55 74 16 117/63 12/03/21 10:45 77 19 104/65 12/03/21 11:25 74 18 116/68 12/03/21 11:15 36.1 C L 76 19 110/67 12/03/21 10:36 36.1 C L 81 18 103/65 12/03/21 07:20 12/03/21 07:53 75 12/03/21 06:30 36.6 C 72 18 119/71 12/03/21 03:25 36.9 C 56 L 18 121/73 12/02/21 22:59 52 L 12/02/21 22:59 36.5 C 51 L 16 107/69 12/02/21 20:00 12/02/21 19:14 36.6 C 54 L 18 108/68 12/02/21 15:52 36.5 C 62 20 113/73 12/02/21 15:07 55 L 12/02/21 12:55 Pulse Ox O2 Del Method O2 Flow Rate 12/03/21 12:21 93 Nasal Cannula 2 12/03/21 12:00 96 Nasal Cannula 2 12/03/21 11:42 91 Nasal Cannula 2 12/03/21 11:05 98 Oxymask 2 12/03/21 10:55 99 Oxymask 4 12/03/21 10:45 99 Oxymask 6 12/03/21 11:25 97 Nasal Cannula 2 12/03/21 11:15 93 Nasal Cannula 2 12/03/21 10:36 94 Oxymask 8 12/03/21 07:20 Room Air 12/03/21 07:53 12/03/21 06:30 90 Room Air 12/03/21 03:25 90 Room Air 12/02/21 22:59 12/02/21 22:59 90 Room Air 12/02/21 20:00 Room Air 12/02/21 19:14 91 Room Air 12/02/21 15:52 90 Room Air 12/02/21 15:07 12/02/21 12:55 Room Air Pain Intensity Right Hip: Pain Intensity: 8 Transfer of Care Handoff Completed per policy Notes Mental Status: alert / awake / arousable Patient Amnestic to Procedure: Yes Nausea / Vomiting: adequately controlled Pain: adequately controlled Airway Patency, RR, SpO2: stable & adequate BP & HR: stable & adequate Hydration State: stable & adequate Neuraxial Anesthesia: was administered and sensory block is resolving Anesthetic Complications: no major complications apparent
[2021-12-03] MEDS: cefTRIAXone SODIUM 2,000 MG in DEXTROSE 5% 50 ML IV SCH (13:48)
--- NOTE | 2021-12-03 13:58 | XRay Report ---
XR hip RT min 2V CLINICAL HISTORY: Post-Operative implant position COMPARISON: Right femur radiographs December 02, 2021. FINDINGS: Interval postoperative findings consistent with internal fixation of the intertrochanteric fracture of the right femur with trochanteric nail is noted. Hardware is intact. Fracture alignment has improved. There are no unexpected radiopaque foreign bodies. Previous distal right femoral lab intern al fixation is incidentally noted. IMPRESSION: Postoperative radiographs demonstrating internal fixation of the intertrochanteric fractu re of the right femur with trochanteric nail. ACT 112: Negative or not required by law. Electronically signed by: Fabrizio Wilson M.D. 12/03/2021 1:56 PM
[2021-12-03] MEDS: oxyCODONE HCL IR 5 MG TAB (IMMEDIATE RELEASE) PO PRN ×2 (14:58→19:28)
[2021-12-03] MEDS: ATORVASTATIN 40 MG TAB PO SCH (21:26)
[2021-12-04] MEDS: SODIUM CHLORIDE 0.9% 1000ML 1,000 ML IV SCH (00:08)
[2021-12-04] MEDS: MoRPHine SULFATE 2 MG/ML CARP IV PRN ×2 (02:45→11:10)
[2021-12-04 07:04] LABS: Basophils # (auto) 0.03 K/uL (0-0.2); Basophils % (auto) 0.5 %; Eosinophils # (auto) 0.23 K/uL (0-0.50); Eosinophils % (auto) 3.7 %; Hematocrit (blood only) 25.1 % (34.1-44.9); Hemoglobin 7.4 g/dl (12.0-16.0); Immature Granulocytes # (auto) 0.06 K/uL (0.00-0.02); Lymphocytes # (auto) 0.95 K/uL (1.2-3.4); Lymphocytes % (auto) 15.1 %; Mean Corpuscular Hemoglobin 24.4 pg (25.0-34.0); Mean Corpuscular Hgb Conc 29.5 g/dL (32.0-36.0); Mean Corpuscular Volume 82.8 fL (80.0-100.0); Monocytes # (auto) 0.59 K/uL (0.24-0.82); Monocytes % (auto) 9.4 %; Neutrophils # (auto) 4.44 K/uL (1.4-6.5); Neutrophils % (auto) 70.3 %; Platelet Count 160 K/uL (130-400); RDW Coefficient of Variation 16.8 % (11.5-14.5); RDW Standard Deviation 50.7 fL (36.4-46.3); Red Blood Count 3.03 M/uL (3.93-5.22)
[2021-12-04 07:28] LABS: BUN Creatinine Ratio 46.7 (10-20); Calcium 7.8 mg/dl (8.5-10.1); Creatinine Clr Calc Pharmacy 142.4 ml/min; Est GFR (African American) 117.7 ml/min; Est GFR (Non-African American) 101.5 ml/min; Potassium 4.6 mmol/L (3.5-5.1)
[2021-12-04 07:32] LABS: RBC Morphology Unremarkable
[2021-12-04] MEDS ORDERED: SODIUM CHLORIDE 0.9% 250 ML IV PRN (08:07)
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
[2021-12-04] MEDS: ACETAMINOPHEN 500 MG TAB PO SCH ×3 (08:35→20:53)
[2021-12-04] MEDS: INSULIN ASPART PER UNIT SC SCH ×4 (08:36→21:09)
[2021-12-04] MEDS: carvediloL 12.5 MG TAB PO SCH ×2 (08:38→20:54)
[2021-12-04] MEDS: VALSARTAN/SACUBITRIL 51/49 MG TAB PO SCH ×2 (08:38→20:58)
--- NOTE | 2021-12-04 11:14 | Progress Notes ---
SUBJECTIVE: The patient is seen at the bedside today. She notes appropriate amount of pain. OBJECTIVE: Right lower extremity exam, dressings clean and dry. Thigh is soft. No evidence of hemat mihaela. Calves are soft. She can wiggle her toes slightly and is at baseline in terms of her neurovasc ular status. ASSESSMENT: Postoperative day 1 trochanteric hip nail. PLAN: Allow her to transfer to [facility]. Today, if she is comfortable, she will be okay to resume prophylactic anticoagulant at this point in time. Continue SCDs. We will continue to follow. Job ID: [id number]
[2021-12-04] MEDS: cefTRIAXone SODIUM 2,000 MG in DEXTROSE 5% 50 ML IV SCH (13:38)
[2021-12-04] MEDS: oxyCODONE HCL IR 5 MG TAB (IMMEDIATE RELEASE) PO PRN ×2 (15:34→20:56)
[2021-12-04] MEDS: ATORVASTATIN 40 MG TAB PO SCH (20:55)
[2021-12-05] MEDS: MoRPHine SULFATE 2 MG/ML CARP IV PRN (05:21)
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
[2021-12-05] MEDS: oxyCODONE HCL IR 5 MG TAB (IMMEDIATE RELEASE) PO PRN ×3 (08:01→19:00)
[2021-12-05] MEDS: INSULIN ASPART PER UNIT SC SCH ×4 (09:14→20:40)
[2021-12-05] MEDS: ACETAMINOPHEN 500 MG TAB PO SCH ×3 (09:28→20:41)
[2021-12-05] MEDS: VALSARTAN/SACUBITRIL 51/49 MG TAB PO SCH ×2 (09:28→20:42)
[2021-12-05] MEDS: carvediloL 12.5 MG TAB PO SCH ×2 (09:28→20:42)
[2021-12-05] MEDS ORDERED: OXYMETAZOLINE 0.05% 30 ML BTL ONE (11:35)
[2021-12-05 12:16] LABS: Hematocrit (blood only) 26.3 % (34.1-44.9); Hemoglobin 8.1 g/dl (12.0-16.0); Mean Corpuscular Hemoglobin 25.2 pg (25.0-34.0); Mean Corpuscular Hgb Conc 30.8 g/dL (32.0-36.0); Mean Corpuscular Volume 81.7 fL (80.0-100.0); Mean Platelet Volume 11.6 fL (9.4-12.3); Platelet Count 151 K/uL (130-400); RDW Coefficient of Variation 16.9 % (11.5-14.5); RDW Standard Deviation 49.7 fL (36.4-46.3); Red Blood Count 3.22 M/uL (3.93-5.22); White Blood Count 6.92 K/ul (4.8-10.8)
[2021-12-05 12:27] LABS: Partial Thromboplastin Ratio 1.2; Partial Thromboplastin Time 32.2 Seconds (21.0-31.0); Prothrombin Time 11.1 Seconds (9.0-12.0)
[2021-12-05] MEDS: POLYETHYLENE (MIRALAX) 17 GM PACK PO SCH ×3 (13:15→23:40)
[2021-12-05] MEDS: cefTRIAXone SODIUM 2,000 MG in DEXTROSE 5% 50 ML IV SCH (15:27)
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
--- NOTE | 2021-12-05 16:48 | Orthopedic Progress Note ---
Date of Service December 05, 2021 Assessment & Plan (1) Closed right hip fracture: Plan: POD 2 s/p TFN TTWB. Ok to use Brianna lift. DVT Prophylaxis - Begin Enoxaparin today if ok with Med service. Pain managment as written. DC planning - Pt hoping to go home. Addendum: CT scan/femur film reviewed. Plan for Right TFN Admission and Anticipated Discharge Date Admission Date: December 01, 2021 Subjective POD 2 Pt sitting up in bed awake, alert. States that her hip feels good today. Pain controlled. No complaints. Physical Exam Physical Exam: Dressings C/D/I. Calves soft, NT. NV intact. Toes mobile. Results & Data ([facility]) Vital Signs (Past 12 Hours) Vital Signs Temp Pulse Resp BP Pulse Ox O2 Del Method O2 Flow Rate 12/05/21 16:03 36.5 C 67 18 84/52 L 90 Room Air 12/05/21 11:50 Room Air 12/05/21 07:48 36.7 C 76 18 128/68 98 Nasal Cannula 2 (1) Closed right hip fracture Encounter type: initial encounter Qualified Code(s): S72.001A - Fracture of unspecified part of neck of right femur, initial encounter for closed fracture
[2021-12-05] MEDS: ATORVASTATIN 40 MG TAB PO SCH (20:42)
[2021-12-06] MEDS: oxyCODONE HCL IR 5 MG TAB (IMMEDIATE RELEASE) PO PRN ×2 (02:59→18:19)
[2021-12-06] MEDS: MoRPHine SULFATE 2 MG/ML CARP IV PRN ×2 (03:47→11:59)
[2021-12-06] MEDS: POLYETHYLENE (MIRALAX) 17 GM PACK PO SCH ×3 (06:14→18:18)
[2021-12-06 07:08] LABS: Basophils # (auto) 0.04 K/uL (0-0.2); Basophils % (auto) 0.6 %; Eosinophils # (auto) 0.16 K/uL (0-0.50); Eosinophils % (auto) 2.6 %; Hematocrit (blood only) 25.7 % (34.1-44.9); Hemoglobin 7.8 g/dl (12.0-16.0); Immature Granulocytes # (auto) 0.06 K/uL (0.00-0.02); Lymphocytes # (auto) 1.14 K/uL (1.2-3.4); Lymphocytes % (auto) 18.2 %; Mean Corpuscular Hemoglobin 25.2 pg (25.0-34.0); Mean Corpuscular Hgb Conc 30.4 g/dL (32.0-36.0); Mean Corpuscular Volume 83.2 fL (80.0-100.0); Mean Platelet Volume 11.1 fL (9.4-12.3); Monocytes # (auto) 0.59 K/uL (0.24-0.82); Monocytes % (auto) 9.4 %; Neutrophils # (auto) 4.28 K/uL (1.4-6.5); Neutrophils % (auto) 68.2 %; Platelet Count 144 K/uL (130-400); RDW Coefficient of Variation 17.2 % (11.5-14.5); Red Blood Count 3.09 M/uL (3.93-5.22); White Blood Count 6.27 K/ul (4.8-10.8)
[2021-12-06 07:39] LABS: Anisocytosis Present; Ovalocytes 1+; Polychromasia 1+
[2021-12-06] MEDS: INSULIN ASPART PER UNIT SC SCH ×4 (09:30→21:15)
[2021-12-06] MEDS: ACETAMINOPHEN 500 MG TAB PO SCH ×3 (09:31→21:13)
[2021-12-06] MEDS: VALSARTAN/SACUBITRIL 51/49 MG TAB PO SCH ×2 (09:31→21:14)
[2021-12-06] MEDS: carvediloL 12.5 MG TAB PO SCH ×2 (09:31→21:15)
--- NOTE | 2021-12-06 10:05 | Communication Note ---
Date of Service: December 06, 2021 Discharge instructions placed in DC section. TTWB RLE. Reed lift ok for transfers. Begin Lovenox when ok with Medicine Service.
[2021-12-06] MEDS: ENOXAPARIN INJ 40 MG/0.4 ML SYR SQ SCH (11:16)
--- NOTE | 2021-12-06 11:43 | Fluoroscopy Report ---
FL video swallow CLINICAL HISTORY: r/o aspiration TECHNIQUE: Video fluoroscopy of the pharyngeal region was performed as barium mixtures of varying con sistencies were administered to the patient by the speech pathologist. A formal esophagram was not pe rformed. COMPARISON: None. FINDINGS: Total fluoroscopy time: 1.5 minutes. The patient swallowed the different barium consistencies without difficulty. There was no laryngeal v estibular penetration or julianne tracheal aspiration. Pooling of barium was noted in the bilateral piri form sinuses and valleculae. IMPRESSION: No evidence of aspiration. Please see the speech pathology report for further details. ACT 112: Negative or not required by law. Electronically signed by: Rohan Ellis M.D. 12/06/2021 11:41 AM
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
[2021-12-06 13:11] LABS: CMV IgG Antibody >10.00 U/mL; CMV IgM Antibody <30.00 AU/mL
[2021-12-06] MEDS: cefTRIAXone SODIUM 2,000 MG in DEXTROSE 5% 50 ML IV SCH (14:09)
[2021-12-06] MEDS: ATORVASTATIN 40 MG TAB PO SCH (21:14)
[2021-12-07] MEDS: POLYETHYLENE (MIRALAX) 17 GM PACK PO SCH ×3 (00:13→13:17)
[2021-12-07] MEDS: oxyCODONE HCL IR 5 MG TAB (IMMEDIATE RELEASE) PO PRN ×3 (00:16→14:04)
[2021-12-07 08:15] LABS: Basophils # (auto) 0.04 K/uL (0-0.2); Basophils % (auto) 0.6 %; Eosinophils # (auto) 0.14 K/uL (0-0.50); Hemoglobin 8.4 g/dl (12.0-16.0); Immature Granulocytes # (auto) 0.09 K/uL (0.00-0.02); Immature Granulocytes % (auto) 1.3 %; Lymphocytes # (auto) 0.95 K/uL (1.2-3.4); Lymphocytes % (auto) 13.2 %; Mean Corpuscular Hemoglobin 25.2 pg (25.0-34.0); Mean Corpuscular Hgb Conc 31.1 g/dL (32.0-36.0); Mean Corpuscular Volume 81.1 fL (80.0-100.0); Mean Platelet Volume 11.1 fL (9.4-12.3); Monocytes # (auto) 0.63 K/uL (0.24-0.82); Monocytes % (auto) 8.8 %; Neutrophils # (auto) 5.32 K/uL (1.4-6.5); Neutrophils % (auto) 74.1 %; Platelet Count 169 K/uL (130-400); RDW Coefficient of Variation 17.7 % (11.5-14.5); RDW Standard Deviation 50.2 fL (36.4-46.3); Red Blood Count 3.33 M/uL (3.93-5.22); White Blood Count 7.17 K/ul (4.8-10.8)
[2021-12-07] MEDS: carvediloL 12.5 MG TAB PO SCH (09:56)
[2021-12-07] MEDS: INSULIN ASPART PER UNIT SC SCH ×2 (09:57→13:12)
[2021-12-07] MEDS: VALSARTAN/SACUBITRIL 51/49 MG TAB PO SCH (09:58)
[2021-12-07] MEDS: ENOXAPARIN INJ 40 MG/0.4 ML SYR SQ SCH (09:59)
[2021-12-07] MEDS: ACETAMINOPHEN 500 MG TAB PO SCH ×2 (10:02→14:58)
--- NOTE | 2021-12-07 12:08 | Discharge Summary ---
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 You are to ambulate with a walker or crutches for approximately 6 weeks. B. You are TOE TOUCH WEIGHT BEARING on your operative lower extremity for at least 6 weeks. YOU MAY USE A BRIANNA LIFT FOR TRANSFERS C. Wear low heeled shoes with non-slip soles D. Be sure that your floors are free of things that could trip you throw rugs, electrical cords, and small objects. Avoid wet and waxed floors, especially with crutches/walker/cane. E. Try to walk several times a day with rest periods between. F. You may shower 48 hours after surgery and get the incision area wet, but DO NOT soak or submerge incision area in water. (No baths, swimming pools, hot tubs) G. DAILY DRESSING CHANGES. KEEP THE WOUND COVERED UNTIL SEEN BACK IN THE OFFICE FOR YOUR FIRST POSTOPERATIVE VISIT. You CAN shower with this on. If incision is leaking through the dressing, please call the office . H. Do NOT apply soap or any ointment/lotions directly over incision. I. You may use ice as needed to operative site. SPECIAL CARE INSTRUCTIONS: VERY IMPORTANT TO READ AND REVIEW A. You may be at risk for phlebitis or blood clots. a. Wear surgical stockings (MADDIE hose) for 2 weeks after surgery to improve circulation and reduce swelling. b. Take LOVENOX 40mg injection daily for 4 weeks or as directed. This is your blood thinner. B. There are a few signs you need to watch for after you are home. Call [facility] at [phone] if you experience any of the following: a. If you have a temperature of 101 degrees or higher. b. Sudden increase in pain in your hip not relieved by rest or pain medication. c. Any fluid or drainage from the incision; redness of the incision. d. Shortness of breath or chest pain. C. Call your physician if: a. Temperature is greater than 101 degrees (F). b. Pain is not relieved by prescribed pain medications. c. Increase drainage or redness from incision. d. Unanswered questions or concerns. D. Pain Medication: a. You will be prescribed pain medication upon discharge that should last till your first post-operative appointment. b. If you experience nausea and/or skin rash, discontinue this medication and contact our office for an alternative medic ation. c. Caution- narcotic pain medication can cause constipation. FOLLOW UP VISIT: Please call [facility] at [phone] to schedule a follow up appointment 10-14 days from the date of your surgery date. Pending Studies at Discharge: No Stand-Alone Forms: [facility], Smoking Cessation Medications and DC Order Prescriptions: New oxycodone 5 mg Tablet 5 - 10 mg PO Q4H PRN (Reason: pain) Qty: 30 0RF enoxaparin [Lovenox] 40 mg/0.4 mL Syringe 40 mg subcut QAM Qty: 4 2RF Continued (DME) Power Wheelchair Device See Rx Instructions .ROUTE .MEDSUPPLY Qty: 1 0RF Rx Instructions: As directed glimepiride 4 mg tablet 4 mg PO DAILY Qty: 90 3RF Januvia 50 mg tablet 50 mg PO DAILY Qty: 30 11RF (DME) underpads Pad See Rx Instructions .ROUTE .MEDSUPPLY Qty: 90 5RF Rx Instructions: Disposable Underpads, Pt. uses 3 per day, Dx: G72.9; R32 Entresto 49-51 mg tablet 1 tab PO BID Qty: 180 3RF atorvastatin 40 mg tablet 40 mg PO HS Qty: 90 3RF (DME) OneTouch Ultra Test Strip See Rx Instructions .Route Qty: 100 5RF Rx Instructions: TEST BSG DAILY; DX CODE- E11.9 (DME) lancets [OneTouch UltraSoft Lancets] Misc See Rx Instructions .Route Qty: 100 5RF Rx Instructions: TEST BSG DAILY; DX CODE- E11.9 Women's Daily Formula 27-0.4 mg tablet 1 tab PO DAILY cranberry 400 mg capsule 400 mg PO BID aspirin 81 mg Tablet,Delayed Release (Dr/Ec) 81 mg PO DAILY Ocuvite Eye Health 50 mg-15 unit- 4.5 mg-2.5 mg Tablet,Chewable 2 tab PO DAILY carvedilol 12.5 mg tablet 12.5 mg PO BID Rx Instructions: TAKE 1 TABLET BY MOUTH TWICE DAILY. MUST ADMINISTER WITH A MEAL/FOOD. metformin 1,000 mg tablet 1,000 mg PO BIDM Rx Instructions: TAKE 1 TABLET BY MOUTH 2 TIMES DAILY. omega-3 fatty acids 1,000 mg Capsule 1,000 mg PO DAILY Discharge Orders: Discharge Order (Routine); Ordered 12/07/21 Ordered By: Nathalia Samaniego Admission Data Admit Date/Time: 12/01/21 17:01 Attending Provider: Jorje Cardoso Admit Provider: Davin Caballero Primary Care Provider: Rochelle Robles Other Providers: Davin Caballero ; David Elaine ; Juan A Gupta Coding Level of Care Code D/C DAY MANAGEMENT >30 MINS Diagnoses Closed right hip fracture S72.001A Encounter type: initial encounter Postoperative anemia due to acute blood loss D62 Fall W19.XXXA Muscular dystrophy G71.00 Cardiomyopathy I42.0 Cardiomyopathy type: dilated Type 2 diabetes mellitus E11.9 Diabetes mellitus ferry terminal agent insulin use: without ferry terminal agent use Diabetes mellitus complication status: without complication HTN (hypertension) I10 Hypertension type: essential hypertension Hyperlipidemia E78.2 Hyperlipidemia type: mixed hyperlipidemia Hypomagnesemia E83.42 Swallowing difficulty R13.10 Epistaxis R04.0
== END 2021-12-07 15:47 | disposition home or self-care (01) | DRG 481 ==
LOC: ED 13:46 → SUATTDRO 17:01 → EDINP 17:01 → 2N 23:01 → 3E 12-05 03:18

== ENCOUNTER 2023-09-15 04:04 | Inpatient (IN) ==
[2023-09-15 04:52] LABS: Albumin Globulin Ratio 1.1 (0.9-2); Albumin Level 3.9 gm/dl (3.4-5.0); BUN Creatinine Ratio 31.3 (10-20); Bilirubin,Total 0.3 mg/dl (0.2-1.0); Calcium 8.6 mg/dl (8.6-10.3); Est GFR (African American) 113.6 ml/min; Globulin 3.6 gm/dl (2.5-4.0); Potassium 4.5 mmol/L (3.5-5.1); Total Protein 7.5 gm/dl (6.0-8.3)
[2023-09-15 05:06] LABS: Basophils # (auto) 0.03 K/uL (0.00-0.20); Basophils % (auto) 0.4 %; Eosinophils # (auto) 0.13 K/uL (0.00-0.50); Eosinophils % (auto) 1.8 %; Hematocrit (blood only) 31.6 % (37.0-47.0); Hemoglobin 9.9 g/dl (12.0-16.0); Immature Granulocytes # (auto) 0.06 K/uL (0.01-0.20); Immature Granulocytes % (auto) 0.8 %; Lymphocytes # (auto) 1.24 K/uL (1.20-3.40); Lymphocytes % (auto) 17.4 %; Mean Corpuscular Hemoglobin 24.5 pg (25.0-34.0); Mean Corpuscular Hgb Conc 31.3 g/dL (32.0-36.0); Mean Corpuscular Volume 78.2 fL (80.0-100.0); Monocytes # (auto) 0.49 K/uL (0.11-0.59); Monocytes % (auto) 6.9 %; Neutrophils # (auto) 5.18 K/uL (1.40-6.50); Neutrophils % (auto) 72.7 %; Platelet Count 213 K/uL (130-400); RDW Coefficient of Variation 16.2 % (11.5-14.5); RDW Standard Deviation 46.4 fL (36.4-46.3); Red Blood Count 4.04 M/uL (4.20-5.40); White Blood Count 7.13 K/ul (4.8-10.8)
[2023-09-15] MEDS: ONDANSETRON INJ 2 MG/ML 2 ML VIAL ONE (05:17)
--- NOTE | 2023-09-15 05:26 | Emergency Department Note ---
Impression & Plan Hyponatremia, Acute abdominal pain in left flank, Weakness Admit to the [facility] ED Provider Note NAME: JACLYN JOHNSON AGE: 73 SEX: Female INFORMANT: Patient ED PROVIDER(S): Cindy Bautista DO CHIEF COMPLAINT: Left flank pain and weakness PLAN: Disposition: admitted to the [facility] MEDICAL DECISION MAKING: this is a 73-year-old female patient who presents to the emergency department with increased generalized weakness and sudden onset of left flank pain with associated nausea 3 hours ago. Patient is currently being treated with Bactrim for urinary tract infection as well as skin infection. Cultures from 1 week ago revealed Staph aureus of the skin and E. coli in the urine. Patient does have an indwelling Gallegos catheter. Care/management discussed with: I discussed the case with the patient, her , the family and consumer sciences professor and the [facility] Triage Nursing notes: reviewed and agree With them. Vital Signs: reviewed and remarkable for hypertension and bradycardia Prior/ Outside/ External records reviewed: urine culture and skin wound culture from 09/05 Differential Diagnosis: pyelonephritis, ureteral colic, obstructive uropathy, hypoglycemia, sepsis Diagnostics, independently interpreted by me: Cardiac Monitoring: sinus bradycardia at a rate of 54 Imaging studies: CT scan of the abdomen/pelvis: As per stat rad (initial read made mention of a vas deferens and this female patient-the family and consumer sciences professor may contact with stat rad to make an addendum to the report.) HPI: 73 year old Female arrives for evaluation of increased generalized weakness and sudden onset of left flank pain approximately 3 hours ago. Patient suffers from muscular dystrophy. She describes increased generalized weakness over the past week with decreased appetite which she thinks is a result of her medications. She then suddenly developed significant left flank pain. Patient does have a history of kidney stones. PAST MEDICAL HISTORY: See Below, PAST SURGICAL HISTORY: See Below, SOCIAL HISTORY: See Below, HOME MEDICATIONS: See list ALLERGIES: None VITALS: See Below PHYSICAL EXAMINATION: HEENT: Head - normocephalic and atraumatic. Pupils are equal, round, and reactive to light. Extraocular eye muscles are intact, and sclera are anicteric. Nose - moist nasal mucosa without discharge. Mouth -extremely dry buccal mucosa. Oropharynx is nonerythematous and there is no tonsillar exudate or edema noted. Neck: Supple; no JVD or cervical lymphadenopathy. There is no thyromegaly. Heart: Bradycardic rate and regular rhythm. There is a normal S1 and S2 with no murmurs, clicks, or gallops appreciated. Lungs: Clear to auscultation bilaterally with no wheezes, rales, or rhonchi. Abdomen: Soft, moderate tenderness to palpation in the left lower quadrant of the abdomen and over the left CVA, nondistended, with good bowel sounds. There are no palpable pulsatile masses or hepatosplenomegaly. There is no guarding, rigidity, or rebound noted. Extremities: No evidence of cyanosis, clubbing, or edema. There are easily palpable peripheral pulses. Skin: warm and dry with good turgor and there were areas of skin breakdown noted over the left side of her neck and left wrist which is the area of rash that has been biopsied. Emergency department treatment: weasand trimmer, IV normal saline bolus, IV Dilaudid Emergency department course: The patient was evaluated in room C-9. A complete history and physical was performed. An order was placed for continuous cardiac monitoring. The patient was in a sinus bradycardia at a rate of 54. IV lock was initiated and labs were drawn as above. Patient had a CT scan of the abdomen/pelvis. She was given a dose of IV Dilaudid for the pain and the abdomen. She was bolused with IV normal saline solution for significant hyponatremia. I discussed the case with the [facility] Hospitalist. Past Med/Surg History Problem List (Updated 09/15/23 @ 15:57 by Cinyd Bautista DO) Weakness (Acute) Acute abdominal pain in left flank (Acute) Urinary tract infection LUQ pain Hyponatremia (Acute) Nausea Urinary symptom or sign Open wound MRSA (methicillin resistant Staphylococcus aureus) infection Nasal sinus congestion Chronic kidney disease (CKD) Hypoxia Gallegos catheter in place Hyperlipidemia HTN (hypertension) Type 2 diabetes mellitus Cardiomyopathy LBBB (left bundle branch block) Urinary retention Muscular dystrophy (Acute) Tick bite Urinary incontinence On statin therapy Medical History Congestive heart failure Uterine cancer Surgical History History of hip surgery H/O right knee surgery History of total abdominal hysterectomy Family History Sister Cancer Myocardial infarction Muscular dystrophy Father Colorectal cancer Myocardial infarction Brother Colorectal cancer Myocardial infarction Muscular dystrophy Other Family history non-contributory Denies family history of Ovarian cancer Prostate cancer Breast cancer Social History Smoking Status: Never smoker Second Hand Exposure: No; Do You Dip or Chew Tobacco: No; Hx Alcohol Use: No Hx Substance Use: No Preferred Language: Sinhala Communication Ability: Effective Visual Impairment: Limited Hearing Ability: Normal 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: No Beliefs That Will Affect Care: None marital status: Current Living Situation: Spouse current occupational status: disabled How many Children do You have: 5 Other Information That Helps Us Care for You: No Feels Safe at Home: Yes Safety Concerns: Feels Safe At This Time Childhood Exposure to Second-Hand Smoke: Yes Diet: regular caffeine: Yes during the past year weight has: remained stable Dental Care, Regularly: No Physical Activity Frequency: Daily Seatbelt Use: always Sunscreen Use: Yes Assistive Devices: Wheelchair Assistive Devices Comment: Brianna anderson Allergies Allergies Allergy/AdvReac Type Severity Reaction Status Date / Time No Known Allergies Allergy Unknown Verified 09/06/23 12:45 Home Meds Home Medications Medication Instructions Recorded Confirmed aspirin 81 mg tablet,delayed 81 mg PO DAILY 07/08/18 09/15/23 release vit C 50 mg-E 15 unit-zinc cit 4.5 2 tab PO DAILY 07/08/18 09/15/23 mg-lutein 2.5 mg-zeaxan chew tablet ([employer] Eye Health) heezcypusbev-Gn-rlmp-minerals 27 1 tab PO DAILY 10/07/18 09/15/23 mg-0.4 mg tablet (Women's Daily Formula) cranberry 400 mg capsule 400 mg PO BID 12/12/19 09/15/23 omega-3 fatty acids 1,000 mg 1,000 mg PO DAILY 12/01/21 09/15/23 capsule biotin 2,500 mcg capsule 2,500 mcg PO DAILY 11/21/22 09/15/23 ascorbic acid (vitamin C) 1 tab PO DAILY 08/17/23 09/15/23 zinc acetate 1 cap PO DAILY 08/17/23 09/15/23 Miscellaneous 09/15/23 Miscellaneous 09/15/23 09/15/23 Previous Rx's Medication Instructions Recorded power wheel chair repair #1 ea 12/13/21 APPM circulating mattress #1 ea 12/15/21 blood sugar diagnostic (OneTouch #100 ea 10/03/22 Ultra Test strips) lancets #100 ea 10/03/22 linagliptin 5 mg tablet (Tradjenta) 5 mg PO DAILY #30 tabs 10/23/22 clotrimazole 1 % topical cream 1 applic topical BID 4 weeks #45 04/30/23 grams Wheelchair (Powered) (Power #1 ea 07/04/23 Wheelchair) sacubitril 49 mg-valsartan 51 mg 1 tab PO BID #180 tabs 07/05/23 tablet (Entresto) atorvastatin 40 mg tablet 40 mg PO HS #90 tabs 07/17/23 metformin 1,000 mg tablet 1,000 mg PO BID #180 tabs 07/17/23 disposable gloves #50 ea 07/26/23 underpads #90 ea 07/26/23 nystatin 100,000 unit/gram topical 1 applic topical BID #30 grams 08/02/23 cream carvedilol 12.5 mg tablet 12.5 mg PO BID #180 tabs 08/17/23 mupirocin 2 % topical ointment 1 applic topical BID #22 grams 09/06/23 sulfamethoxazole 800 1 tab PO BID #20 tabs 09/07/23 mg-trimethoprim 160 mg tablet (Bactrim DS) Results & Data (ED) Vital Signs Vital Signs - 24 hr 09/15/23 04:09 09/15/23 04:10 09/15/23 04:13 Temperature 36.6 C 36.6 C Temperature Source Oral Oral Pulse Rate 53 L 54 L Pulse Rate [Right Finger] 55 L Pulse Rate from SpO2 Sensor Pulse Rhythm Regular Respiratory Rate 20 16 Respiratory Effort / Characteristics Non-Labored Spontaneous Respiratory Depth Normal Blood Pressure 147/83 H Blood Pressure [Left Arm] 147/83 H Blood Pressure Mean 104 Blood Pressure Mean [Left Arm] 104 Pulse Oximetry 95 99 Oxygen Delivery Method Room Air Room Air Sepsis Recent Fever Within 48 Hours No Sepsis New/Unexplained Change in Mental Status N/A Sepsis Action Taken by Nursing No Action Required 09/15/23 04:21 09/15/23 04:30 09/15/23 04:31 Temperature Temperature Source Pulse Rate 53 L 55 L 54 L Pulse Rate [Right Finger] Pulse Rate from SpO2 Sensor 54 L 54 L Pulse Rhythm Respiratory Rate 16 21 19 Respiratory Effort / Characteristics Respiratory Depth Blood Pressure Blood Pressure [Left Arm] Blood Pressure Mean Blood Pressure Mean [Left Arm] Pulse Oximetry 97 96 97 Oxygen Delivery Method Room Air Sepsis Recent Fever Within 48 Hours Sepsis New/Unexplained Change in Mental Status Sepsis Action Taken by Nursing 09/15/23 04:31 09/15/23 04:45 09/15/23 04:48 Temperature Temperature Source Pulse Rate 56 L 55 L Pulse Rate [Right Finger] Pulse Rate from SpO2 Sensor 55 L 55 L Pulse Rhythm Respiratory Rate 18 18 Respiratory Effort / Characteristics Respiratory Depth Blood Pressure 146/71 H Blood Pressure [Left Arm] Blood Pressure Mean 115 Blood Pressure Mean [Left Arm] Pulse Oximetry 96 96 Oxygen Delivery Method Sepsis Recent Fever Within 48 Hours Sepsis New/Unexplained Change in Mental Status Sepsis Action Taken by Nursing 09/15/23 05:04 09/15/23 05:09 09/15/23 05:12 Temperature Temperature Source Pulse Rate 56 L 51 L Pulse Rate [Right Finger] Pulse Rate from SpO2 Sensor 54 L 54 L Pulse Rhythm Respiratory Rate 16 19 Respiratory Effort / Characteristics Respiratory Depth Blood Pressure 147/76 H Blood Pressure [Left Arm] Blood Pressure Mean 107 Blood Pressure Mean [Left Arm] Pulse Oximetry 95 97 Oxygen Delivery Method Sepsis Recent Fever Within 48 Hours Sepsis New/Unexplained Change in Mental Status Sepsis Action Taken by Nursing 09/15/23 05:24 09/15/23 05:30 09/15/23 05:42 Temperature Temperature Source Pulse Rate 53 L 56 L 63 Pulse Rate [Right Finger] Pulse Rate from SpO2 Sensor 53 L 55 L 66 Pulse Rhythm Respiratory Rate 18 18 21 Respiratory Effort / Characteristics Respiratory Depth Blood Pressure Blood Pressure [Left Arm] Blood Pressure Mean Blood Pressure Mean [Left Arm] Pulse Oximetry 97 97 97 Oxygen Delivery Method Sepsis Recent Fever Within 48 Hours Sepsis New/Unexplained Change in Mental Status Sepsis Action Taken by Nursing 09/15/23 06:09 09/15/23 06:12 Temperature Temperature Source Pulse Rate 56 L 58 L Pulse Rate [Right Finger] Pulse Rate from SpO2 Sensor 55 L 60 Pulse Rhythm Respiratory Rate 19 24 Respiratory Effort / Characteristics Respiratory Depth Blood Pressure Blood Pressure [Left Arm] Blood Pressure Mean Blood Pressure Mean [Left Arm] Pulse Oximetry 97 97 Oxygen Delivery Method Sepsis Recent Fever Within 48 Hours Sepsis New/Unexplained Change in Mental Status Sepsis Action Taken by Nursing Laboratory Data 09/15/23 04:15 09/15/23 14:48 Lab Results 09/15/23 09/15/23 Range/Units 04:15 05:24 WBC 7.13 (4.8-10.8) K/ul RBC 4.04 L (4.20-5.40) M/uL Hgb 9.9 L (12.0-16.0) g/dl Hct 31.6 L (37.0-47.0) % MCV 78.2 L (80.0-100.0) fL MCH 24.5 L (25.0-34.0) pg MCHC 31.3 L (32.0-36.0) g/dL RDW Std Deviation 46.4 H (36.4-46.3) fL RDW Coeff of Arely 16.2 H (11.5-14.5) % Plt Count 213 (130-400) K/uL MPV 11.0 (9.4-12.4) fL Immature Gran % (Auto) 0.8 % Neut % (Auto) 72.7 % Lymph % (Auto) 17.4 % [place] % (Auto) 6.9 % Eos % (Auto) 1.8 % Baso % (Auto) 0.4 % Neut # (Auto) 5.18 (1.40-6.50) K/uL Lymph # (Auto) 1.24 (1.20-3.40) K/uL [place] # (Auto) 0.49 (0.11-0.59) K/uL Eos # (Auto) 0.13 (0.00-0.50) K/uL Baso # (Auto) 0.03 (0.00-0.20) K/uL Immature Gran # (Auto) 0.06 (0.01-0.20) K/uL Sodium 121 L (136-145) mmol/L Potassium 4.5 (3.5-5.1) mmol/L Chloride 90 L (98-107) mmol/L Carbon Dioxide 23 (21-32) mmol/L Anion Gap 8 (3-11) BUN 15 (6-23) mg/dl Creatinine 0.48 L (0.6-1.2) mg/dl Est Cr Clr Drug Dosing 126.0 ml/min Est GFR ( Amer) 113.6 ml/min Est GFR (Non-Af Amer) 98.0 ml/min BUN/Creatinine Ratio 31.3 H (10-20) Glucose 124 H (70-99(Fasting)) mg/dl Calcium 8.6 (8.6-10.3) mg/dl Total Bilirubin 0.3 (0.2-1.0) mg/dl AST 17 (13-39) U/L ALT 17 (7-52) U/L Alkaline Phosphatase 68 (34-104) U/L Total Protein 7.5 (6.0-8.3) gm/dl Albumin 3.9 (3.4-5.0) gm/dl Globulin 3.6 (2.5-4.0) gm/dl Albumin/Globulin Ratio 1.1 (0.9-2) Urine Color Yellow Urine Appearance Clear (Clear) Urine pH 7.0 (4.5-7.5) Ur Specific [place] 1.009 (1.000-1.030) Urine Protein 1+ H (Negative) Urine Glucose (UA) Negative (Negative) Urine Ketones Negative (Negative) Urine Blood Negative (Negative) Urine Nitrite Negative (Negative) Urine Bilirubin Negative (Negative) Urine Urobilinogen Negative (Negative) Ur Leukocyte Esterase Trace H (Negative) Urine WBC (Auto) 0-5 (0-5) /hpf Urine RBC (Auto) 0-2 (0-2) /hpf U Hyaline Cast (Auto) 0-2 (0-2) /lpf U Epithel Cells (Auto) 0-2 (0-2) /hpf Urine Bacteria (Auto) 1+ H (None Seen) Urine Yeast Present A (None Prsent) Administered Medications Acetaminophen (Acetaminophen 325 Mg Tab) 650 mg PO Q4H PRN PRN Reason: Pain or Fever Stop: 10/15/23 08:12 Last Admin: 09/15/23 10:05 Dose: 650 mg Documented By: KT Aspirin (Aspirin 81 Mg Ectab) 81 mg PO DAILY [facility] Stop: 10/15/23 08:59 Last Admin: 09/15/23 10:06 Dose: 81 mg Documented By: KT Carvedilol (Carvedilol 12.5 Mg Tab) 12.5 mg PO BID [facility] Stop: 10/15/23 08:59 Last Admin: 09/15/23 09:12 Dose: 12.5 mg Documented By: KARLA Clotrimazole (Clotrimazole 1% Cr 15 Gm Tube) 1 appln TOP BID [facility] Stop: 10/15/23 08:59 Last Admin: 09/15/23 09:12 Dose: 1 appln Documented By: KARLA Enoxaparin Sodium (Enoxaparin Inj 40 Mg/0.4 Ml Syr) 40 mg SQ Q24H LYNNE Stop: 10/15/23 08:59 Last Admin: 09/15/23 10:06 Dose: 40 mg Documented By: KARLA Sodium Chloride (Nss) 1,000 mls @ 200 mls/hr IV .Q5H [facility] Stop: 10/15/23 08:12 Last Admin: 09/15/23 13:46 Dose: 200 mls/hr Documented By: Infusion: 09/15/23 13:46 Dose: Infused Documented By: Admin: 09/15/23 09:13 Dose: 200 mls/hr Documented By: KARLA Insulin Aspart (Insulin Aspart Per Unit Charge) 0 units SC ACHS [facility] Stop: 10/15/23 08:12 Last Admin: 09/15/23 13:41 Dose: Not Given Documented By: Admin: 09/15/23 09:43 Dose: Not Given Documented By: KARLA Co-signed By: ROSAURA Mupirocin (Mupirocin 2% Oint 22 Gm Tube) 1 appln TOP BID [facility] Stop: 10/15/23 08:59 Last Admin: 09/15/23 10:06 Dose: 1 appln Documented By: KARLA Nystatin (Nystatin Cr 15 Gm Tube) 1 appln EXT BID [facility] Stop: 10/15/23 08:59 Last Admin: 09/15/23 09:12 Dose: 1 appln Documented By: KARLA Sacubitril/Valsartan (Valsartan/Sacubitril 51/49 Mg Tab) 1 tab PO BID [facility] Stop: 10/15/23 08:59 Last Admin: 09/15/23 09:12 Dose: 1 tab Documented By: KARLA Discontinued Medications Hydromorphone HCl (Hydromorphone Inj 0.5 Mg/0.5 Ml Syr) 0.[address] [facility] Stop: 09/15/23 05:55 Last Admin: 09/15/23 06:10 Dose: 0.5 mg Documented By: PRESTON Sodium Chloride (Nss) 500 mls @ 999 mls/hr IV .Q31M ONE Stop: 09/15/23 05:48 Last Infusion: 09/15/23 06:07 Dose: Infused Documented By: Admin: 09/15/23 05:30 Dose: 999 mls/hr Documented By: PRESTON Sodium Chloride (Nss) 500 mls @ 999 mls/hr IV .Q31M ONE Stop: 09/15/23 08:43 Last Infusion: 09/15/23 12:03 Dose: Infused Documented By: Admin: 09/15/23 09:13 Dose: 999 mls/hr Documented By: KARLA Vancomycin HCl 2,000 mg/ (Sodium Chloride) 540 mls @ 200 mls/hr IV 0900 ONE Stop: 09/15/23 11:41 Last Infusion: 09/15/23 12:17 Dose: Infused Documented By: Admin: 09/15/23 09:13 Dose: 200 mls/hr Documented By: KARLA Ondansetron HCl (Ondansetron Inj 2 Mg/Ml 2 Ml Vial) Confirm Administered Dose 4 mg .ROUTE .STK-MED ONE Stop: 09/15/23 04:18 Last Admin: 09/15/23 05:17 Dose: Not Given Documented By: PRESTON Imaging Data Radiologist's Impression: Abdomen/Pelvis CT 09/15/23 04:31 Exam(s): CT ABDOMEN + PELVIS Without Contrast EXAM: CT Abdomen and Pelvis Without Intravenous Contrast CLINICAL HISTORY: Reason for exam: eval left sided stone. TECHNIQUE: Axial computed tomography images of the abdomen and pelvis without intravenous contrast. CTDI is 28.14 mGy and DLP is 1352.6 mGy-cm. Automated exposure control was utilized for the study. A dose lowering technique was utilized adhering to the principles of ALARA. COMPARISON: No relevant prior studies available. FINDINGS: Limitations: The study slightly limited due to motion artifact. Lung bases: Unremarkable. No mass. No consolidation. ABDOMEN: Liver: Unremarkable. Gallbladder and bile ducts: The gallbladder is packed with gallstones. No ductal dilation. Pancreas: Unremarkable. No ductal dilation. Spleen: Unremarkable. No splenomegaly. Adrenals: Unremarkable. No mass. 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 No hydronephrosis. Stomach and bowel: Unremarkable. No obstruction. No mucosal thickening. PELVIS: Appendix: No findings to suggest acute appendicitis. Bladder: Unremarkable. No stones. Reproductive: There is some calcifications to the vas deferens. ABDOMEN and PELVIS: Intraperitoneal space: Unremarkable. No free air. No significant fluid collection. Bones/joints: There are degenerative changes to the osseous structures. Postsurgical changes to the right hip. No acute fracture. No dislocation. Soft tissues: Unremarkable. Vasculature: Unremarkable. No abdominal aortic aneurysm. Lymph nodes: Irregular masslike area demonstrated left external iliac lymph node chain 3.2 cm in maximal transverse dimension. Other findings: A ovoid 0.9 cm hyperdense structure medial aspect of right sided moiety. IMPRESSION: Gallbladder packed with gallstones, enlarged presumed lymph node left iliac chain. Anatomical variation as described with intrarenal calculi and additional presumed complex/hemorrhagic cyst right side limited in assessment on this noncontrast study. Calcification of the vas deferens which can be seen with diabetes. Electronically signed by: Otoniel Hubbard MD 09/15/23 05:53 AM Discharge Plan Visit Data Chief Complaint: Abdominal Pain Stated Complaint: AB PAIN ED Provider: Cindy Bautista Discharge Problem: Hyponatremia, Acute abdominal pain in left flank, Weakness Patient Disposition: Admitted As Inpatient Discharge Instructions Interventions: ED Discharge Assessment Last Done: 09/15/23 07:49
[2023-09-15] MEDS: SODIUM CHLORIDE 0.9% 500 ML IV ONE ×2 (05:30→09:13)
--- NOTE | 2023-09-15 05:54 | CT Scan Report ---
Exam(s): CT ABDOMEN + PELVIS Without Contrast EXAM: CT Abdomen and Pelvis Without Intravenous Contrast CLINICAL HISTORY: Reason for exam: eval left sided stone. TECHNIQUE: Axial computed tomography images of the abdomen and pelvis without intravenous contrast. CTDI is 28.14 mGy and DLP is 1352.6 mGy-cm. Automated exposure control was utilized for the study. A dose lowering technique was utilized adhering to the principles of ALARA. COMPARISON: No relevant prior studies available. FINDINGS: Limitations: The study slightly limited due to motion artifact. Lung bases: Unremarkable. No mass. No consolidation. ABDOMEN: Liver: Unremarkable. Gallbladder and bile ducts: The gallbladder is packed with gallstones. No ductal dilation. Pancreas: Unremarkable. No ductal dilation. Spleen: Unremarkable. No splenomegaly. Adrenals: Unremarkable. No mass. 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 No hydronephrosis. Stomach and bowel: Unremarkable. No obstruction. No mucosal thickening. PELVIS: Appendix: No findings to suggest acute appendicitis. Bladder: Unremarkable. No stones. Reproductive: There is some calcifications to the vas deferens. ABDOMEN and PELVIS: Intraperitoneal space: Unremarkable. No free air. No significant fluid collection. Bones/joints: There are degenerative changes to the osseous structures. Postsurgical changes to the right hip. No acute fracture. No dislocation. Soft tissues: Unremarkable. Vasculature: Unremarkable. No abdominal aortic aneurysm. Lymph nodes: Irregular masslike area demonstrated left external iliac lymph node chain 3.2 cm in maximal transverse dimension. Other findings: A ovoid 0.9 cm hyperdense structure medial aspect of right sided moiety. IMPRESSION: Gallbladder packed with gallstones, enlarged presumed lymph node left iliac chain. Anatomical variation as described with intrarenal calculi and additional presumed complex/hemorrhagic cyst right side limited in assessment on this noncontrast study. Calcification of the vas deferens which can be seen with diabetes. Electronically signed by: Otoniel Hubbard MD 09/15/23 05:53 AM
--- NOTE | 2023-09-15 05:55 | History & Physical Report ---
"Date of Service September 15, 2023 Assessment & Plan (1) Hyponatremia: (2) LUQ pain: (3) Nausea: (4) Urinary tract infection: (5) Open wound: (6) Chronic kidney disease (CKD): (7) Hyperlipidemia: (8) HTN (hypertension): (9) Type 2 diabetes mellitus: (10) Urinary retention: (11) Muscular dystrophy: (12) Da Silva catheter in place: Jacinta Dimas is a 73F w/ PMH of muscular dystrophy, chronic indwelling Da Silva, CKD, HLD, HTN, T2DM, LBBB, and cardiomyopathy who presented for LUQ abdominal pain and weakness. Abdominal Pain | UTI | MSSA Skin Lesions - Diagnosed 09/05 at PCP by urinalysis/urine culture Urine culture showing MSSA - No leukocytosis, hemodynamically stable - Now with acute LUQ and suprapubic abdominal pain - CTAP w/o definitive source, no characterization of LUQ protrusion Chronic kidney stones noted Chronic renal cyst/horseshoe kidney noted - Still endorsing suprapubic discomfort and new LUQ Pain Tylenol ordered PRN - Patient receiving Bactrim as outpatient, transitioned to Vancomycin inpatient MRSA nares ordered - Continue to follow labs, repeat urine culture pending CTAP indicating calcifications in the vas deferens, contact STAT rad, clarified that calcifications are in vaginal cuff and are insignificant. Hyponatremia (121) | Malnutrition - Likely acute, no hx of Hyponatremia - No known hyponatremia provoking medications - Patient with 9 days w/o eating due to nausea from UTI antibiotics - Clinically dry on examination - Received 500 cc NSS in ED, additional 500 cc bolus ordered on admission followed by 200 cc/hr x 1 bag - STAT BMP ordered, followed by Q4h checks Chronic Chronic Conditions - Muscular Dystrophy: no medications, follow for resolution of acute weakness, may benefit from PT/OT - HTN: continue antihypertensives - T2DM: SSI and BSG checks ACHS - HLD: continue statin - Urinary incontinence: continue Da Silva, recommend replacement pending urine culture Code: Full Diet: NPO IVF: 1L Bolus followed by 200 cc/hr Dispo: PCU/tele d/t profound hyponatremia History of Present Illness Primary Care Provider: ZAKIYA Rubio Judie is a 73F w/ PMH of muscular dystrophy, chronic indwelling Da Silva, CKD, HLD, HTN, T2DM, LBBB, and cardiomyopathy who presented for LUQ abdominal pain and weakness. Patient notes that she has been feeling very 'run down' over the last 2-3 days, but today was the worst. She went to bed tonight and was awakened by LUQ pain that she had never experienced before. No radiation of the pain. She states that 'It feels like there's a creature in my abdomen'. She describes the pain as 8/10. Patient follows with urology and has a horseshoe kidney, she is known to have multiple renal stones. She describes her abdominal pain as waxing and waning. Patient was diagnosed with a UTI/MSSA skin rash on 09/05 and was started on Bactrim. Patient notes that for the last 9 days she has been nauseas and has been unable to eat. Patient has a chronic da silva catheter and notes no changes in urine color or odor. She states that it is not due to be changed until next we ek. She endorses mild suprapubic discomfort. Patient additionally endorses chills over the last week, but no fevers or diaphoresis. Patient is unable to lift her arms and legs at baseline, but notes that she has been acutely weaker over the last 2-3 days. She does not follow with any physicians for her muscular dystrophy and is not currently receiving any medical treatments. Allergies Allergy/AdvReac Type Severity Reaction Status Date / Time No Known Allergies Allergy Unknown Verified 09/06/23 12:45 Home Medications Medication Instructions Recorded Confirmed Type aspirin 81 mg tablet,delayed 81 mg PO DAILY 07/08/18 09/15/23 History release vit C 50 mg-E 15 unit-zinc cit 4.5 2 tab PO DAILY 07/08/18 09/15/23 History mg-lutein 2.5 mg-zeaxan chew tablet (Fundation) riulksgnsirl-Zp-bizo-minerals 27 1 tab PO DAILY 10/07/18 09/15/23 History mg-0.4 mg tablet (Women's Daily Formula) cranberry 400 mg capsule 400 mg PO BID 12/12/19 09/15/23 History omega-3 fatty acids 1,000 mg 1,000 mg PO DAILY 12/01/21 09/15/23 History capsule power wheel chair repair #1 ea 12/13/21 09/06/23 Rx APPM circulating mattress #1 ea 12/15/21 09/06/23 Rx blood sugar diagnostic (OneTouch #100 ea 10/03/22 09/06/23 Rx Ultra Test strips) lancets #100 ea 10/03/22 09/06/23 Rx linagliptin 5 mg tablet (Tradjenta) 5 mg PO DAILY #30 tabs 10/23/22 09/15/23 Rx biotin 2,500 mcg capsule 2,500 mcg PO DAILY 11/21/22 09/15/23 History clotrimazole 1 % topical cream 1 applic topical BID 4 weeks #45 04/30/23 09/15/23 Rx grams Wheelchair (Powered) (Power #1 ea 07/04/23 09/06/23 Rx Wheelchair) sacubitril 49 mg-valsartan 51 mg 1 tab PO BID #180 tabs 07/05/23 09/15/23 Rx tablet (Entresto) atorvastatin 40 mg tablet 40 mg PO HS #90 tabs 07/17/23 09/15/23 Rx metformin 1,000 mg tablet 1,000 mg PO BID #180 tabs 07/17/23 09/15/23 Rx disposable gloves #50 ea 07/26/23 09/06/23 Rx underpads #90 ea 07/26/23 09/06/23 Rx nystatin 100,000 unit/gram topical 1 applic topical BID #30 grams 08/02/23 0 09/15/23 Rx cream ascorbic acid (vitamin C) 1 tab PO DAILY 08/17/23 09/15/23 History carvedilol 12.5 mg tablet 12.5 mg PO BID #180 tabs 08/17/23 09/15/23 Rx zinc acetate 1 cap PO DAILY 08/17/23 09/15/23 History mupirocin 2 % topical ointment 1 applic topical BID #22 grams 09/06/23 09/15/23 Rx sulfamethoxazole 800 1 tab PO BID #20 tabs 09/07/23 09/15/23 Rx mg-trimethoprim 160 mg tablet (Bactrim DS) Miscellaneous 09/15/23 History Miscellaneous 09/15/23 09/15/23 History Past Med/Surg History Problem List (Updated 09/15/23 @ 15:57 by Cindy Bautista DO) Weakness (Acute) Acute abdominal pain in left flank (Acute) Urinary tract infection LUQ pain Hyponatremia (Acute) Nausea Urinary symptom or sign Open wound MRSA (methicillin resistant Staphylococcus aureus) infection Nasal sinus congestion Chronic kidney disease (CKD) Hypoxia Da Silva catheter in place Hyperlipidemia HTN (hypertension) Type 2 diabetes mellitus Cardiomyopathy LBBB (left bundle branch block) Urinary retention Muscular dystrophy (Acute) Tick bite Urinary incontinence On statin therapy Medical History Congestive heart failure Uterine cancer Surgical History History of hip surgery H/O right knee surgery History of total abdominal hysterectomy Family History Sister Cancer Myocardial infarction Muscular dystrophy Father Colorectal cancer Myocardial infarction Brother Colorectal cancer Myocardial infarction Muscular dystrophy Other Family history non-contributory Denies family history of Ovarian cancer Prostate cancer Breast cancer Social History Smoking Status: Never smoker Second Hand Exposure: No; Do You Dip or Chew Tobacco: No; Hx Alcohol Use: No Hx Substance Use: No Preferred Language: Pashto Communication Ability: Effective Visual Impairment: Limited Hearing Ability: Normal 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: No Beliefs That Will Affect Care: None marital status: Current Living Situation: Spouse current occupational status: disabled How many Children do You have: 5 Feels Safe at Home: Yes Childhood Exposure to Second-Hand Smoke: Yes Diet: regular caffeine: Yes during the past year weight has: remained stable Dental Care, Regularly: No Physical Activity Frequency: Daily Seatbelt Use: always Sunscreen Use: Yes Assistive Devices: Wheelchair Physical Exam Physical Exam: Gen: NAD, alert, interactive HEENT: Supple, no LAD, no thyromegaly, no JVD, dry mucous membranes - Open wound on left lower neck/clavicle , no purulence, but notable erythema Resp:Non-labored, no wheezing/rhonchi/rales, CTAB CV:RRR, normal S1/S2, no M/R/G Abd: Firm, distended, TTP of LUQ, normoactive bowels - Acutely, tender protrusion in LUQ, ove rlying venous dilation, Extr: 2+ dp bilaterally, no edema Skin: No rashes lesions or erythema Results & Data Results & Data Vital Signs (Past 12 Hours) Vital Signs Temp Pulse Pulse Resp BP BP Pulse Ox 09/15/23 04:31 54 L 19 97 09/15/23 04:13 54 L 09/15/23 04:10 36.6 C 53 L 16 147/83 H 99 09/15/23 04:09 36.6 C 55 L 20 147/83 H 95 O2 Del Method 09/15/23 04:31 Room Air 09/15/23 04:13 09/15/23 04:10 Room Air 09/15/23 04:09 Room Air Supervising Physician Co-Signing Physician Notes Attending addendum: I have physically seen and supervised the medical residents activities, and agree with the H&P unless as otherwise noted. Assessment and Plan: Hyponatremia- Sodium 121 on admission Ordered serum osmolality and urine osmolality Status post NSS 500 mL the fluid bolus from the ED Give additional NSS 500 mL bolus, and then 200 mL/h x 1 L BMP every 4 hours May be secondary to decreased oral intake associated with UTI and/or Bactrim use to treat UTI MSSA UTI/skin lesions- Completed 9 days of Bactrim, which will now be held Vancomycin IV per pharmacokinetic monitoring Abdominal pain/suprapubic discomfort- CT without acute problems Chronic kidney stones noted, with renal cyst and horseshoe kidney IV fluids, IV antibiotics, and follow clinical examination Diabetes mellitus hold linagliptin and metformin Placed on Accu-Cheks with NovoLog SSI Other orders medications as noted Resident Activity Tracking Resident Involvement: Resident Care Provided Care Provided: Adult Hospital Medicine (6) Chronic kidney disease (CKD) Chronic kidney disease stage: unspecified stage Qualified Code(s): N18.9 - Chronic kidney disease, unspecified (7) Hyperlipidemia Hyperlipidemia type: mixed hyperlipidemia Qualified Code(s): E78.2 - Mixed hyperlipidemia (8) HTN (hypertension) Hypertension type: essential hypertension Qualified Code(s): I10 - Essential (primary) hypertension (9) Type 2 diabetes mellitus Diabetes mellitus complication status: without complication Diabetes mellitus superintendent marine oil terminal insulin use: without superintendent marine oil terminal use Qualified Code(s): E11.9 - Type 2 diabetes mellitus without complications"
[2023-09-15 06:00] LABS: Appearance Urine Clear (Clear); Bacteria Urine Automated 1+ (None Seen); Bilirubin Urine Negative (Negative); Blood Urine Negative (Negative); Cast Urine Automated 0-2 /lpf (0-2); Color Urine Yellow; Epithelial Cell Urine Auto 0-2 /hpf (0-2); Glucose Urine UA Negative (Negative); Ketones Urine Negative (Negative); Leukocyte Esterase Urine Trace (Negative); Nitrite Urine Negative (Negative); Protein Urine 1+ (Negative); RBC Urine Automated 0-2 /hpf (0-2); Specific Gravity Urine 1.009 (1.000-1.030); Urobilinogen Urine Negative (Negative); WBC Urine Automated 0-5 /hpf (0-5)
[2023-09-15] MEDS: HYDROmorphone INJ 0.5 MG/0.5 ML SYR IV STA (06:10)
[2023-09-15 07:12] LABS: BUN Creatinine Ratio 36.6 (10-20); Calcium 8.2 mg/dl (8.6-10.3); Creatinine Clr Calc Pharmacy 147.5 ml/min; Est GFR (African American) 119.6 ml/min; Est GFR (Non-African American) 103.2 ml/min; Potassium 4.8 mmol/L (3.5-5.1)
[2023-09-15] MEDS ORDERED: ONDANSETRON INJ 2 MG/ML 2 ML VIAL IV PRN (08:13)
[2023-09-15] MEDS ORDERED: GLUCOSE 40% GEL 15 GM TUBE PO PRN (08:13)
[2023-09-15] MEDS ORDERED: CARBOHYDRATES FOR HYPOGLYCEMIA PO PRN (08:13)
[2023-09-15] MEDS ORDERED: DEXTROSE 50% 50 ML SYRINGE IV PRN (08:13)
[2023-09-15] MEDS ORDERED: GLUCOSE 10 TAB/TUBE PO PRN (08:13)
[2023-09-15] MEDS ORDERED: VANCOMYCIN CONSULT ACTIVE PRN (08:13)
[2023-09-15] MEDS ORDERED: GLUCAGON FOR INJ 1 MG VIAL SQ PRN (08:13)
[2023-09-15] MEDS: NYSTATIN CR 15 GM TUBE EXT SCH (09:12)
[2023-09-15] MEDS: carvediloL 12.5 MG TAB PO SCH (09:12)
[2023-09-15] MEDS: CLOTRIMAZOLE 1% CR 15 GM TUBE TOP SCH (09:12)
[2023-09-15] MEDS: VALSARTAN/SACUBITRIL 51/49 MG TAB PO SCH (09:12)
[2023-09-15] MEDS: SODIUM CHLORIDE 0.9% 1,000 ML IV SCH (09:13)
[2023-09-15] MEDS: VANCOMYCIN HCL 2,000 MG in SODIUM CHLORIDE 0.9% 500 ML IV ONE (09:13)
[2023-09-15] MEDS: INSULIN ASPART PER UNIT CHARGE SC SCH (09:43)
[2023-09-15] MEDS: ACETAMINOPHEN 325 MG TAB PO PRN (10:05)
[2023-09-15] MEDS: MUPIROCIN 2% OINT 22 GM TUBE TOP SCH (10:06)
[2023-09-15] MEDS: ASPIRIN 81 MG ECTAB PO SCH (10:06)
[2023-09-15] MEDS: ENOXAPARIN INJ 40 MG/0.4 ML SYR SQ SCH (10:06)
[2023-09-15 10:31] LABS: BUN Creatinine Ratio 38.5 (10-20); Creatinine Clr Calc Pharmacy 155.1 ml/min; Est GFR (African American) 121.6 ml/min; Est GFR (Non-African American) 104.9 ml/min; Potassium 4.8 mmol/L (3.5-5.1)
--- NOTE | 2023-09-15 12:20 | Pharmacy Report ---
Pharmacy PK ABX Note - Date of Service September 15, 2023 - Assessment and Plan Assessment 73 year old F receiving Vancomycin for treatment of skin and soft tissue infection. * Day #1 of antimicrobial therapy. * Afebrile. No white count. Renal fxn stable. * Urine culture pending. MRSA nasal swab negative. * Recent MSSA UTI and skin lesions. On Bactrim as outpatient. Plan Vancomycin * Loading dose: 2000 mg IV x 1 * Maintenance dose: 1500 mg IV every 12 hours * Regimen is predicted to achieve target AUC/SONALI of 400-600 mg/L.hr * Trough level ordered for: 09/17/23 Pharmacy will continue to follow and will adjust dose/frequency as necessary. Thank you. Pharmacy has transitioned to AUC monitoring for vancomycin. AUC/SONALI is the preferred PK/PD target and is associated with decreased risk of nephrotoxicity compared to traditional trough targets.
--- NOTE | 2023-09-15 14:29 | Hospitalist Progress Note ---
"Date of Service September 15, 2023 Assessment & Plan (1) LUQ pain: Plan: Abdominal Pain | UTI | MSSA Skin Lesions - Diagnosed 09/05 at PCP by urinalysis/urine culture Urine culture showing MSSA, receiving Bactrim as outpatient, transitioned to Vancomycin inpatient - Now with acute LUQ and suprapubic abdominal pain, has a history of horseshoe kidney - CTAP w/o definitive source, no characterization of LUQ protrusion Chronic kidney stones noted Chronic renal cyst/horseshoe kidney noted MRSA nares ordered (2) Hyponatremia: Plan: Hyponatremia (121) | Malnutrition - Patient with 9 days w/o eating due to nausea from UTI antibiotics - Clinically dry on examination - Received 500 cc NSS in ED, additional 500 cc bolus ordered on admission followed by 200 cc/hr x 1 bag -fluid restriction (3) Type 2 diabetes mellitus: Plan: basal bolus insulin with glucose monitoring (4) Muscular dystrophy: Plan Chronic Chronic Conditions - Muscular Dystrophy: no medications, follow for resolution of acute weakness, may benefit from PT/OT - HTN: continue antihypertensives - HLD: continue statin - Urinary incontinence: continue Gallegos, recommend replacement pending urine culture Code: Full Admission and Anticipated Discharge Date Admission Date: September 15, 2023 Subjective this pt complains left sided abdominal pain, mid abdomen, not CVA does not radiate to back does have history of uti and horseshoe kidneys Physical Exam Physical Exam: awake and alert, pain is 5/10 cardiac is regular lungs are clear Results & Data Results & Data Vital Signs (Past 12 Hours) Vital Signs Temp Pulse Pulse Resp BP BP Pulse Ox 09/15/23 11:14 99.0 F 55 L 18 112/70 97 09/15/23 08:14 62 09/15/23 07:27 67 14 95 09/15/23 07:15 51 L 16 95 09/15/23 07:00 54 L 17 96 09/15/23 07:00 110/62 09/15/23 06:33 52 L 14 96 09/15/23 06:24 53 L 20 93 09/15/23 06:12 58 L 24 97 09/15/23 06:09 56 L 19 97 09/15/23 05:42 63 21 97 09/15/23 05:30 56 L 18 97 09/15/23 05:24 53 L 18 97 09/15/23 05:12 51 L 19 97 09/15/23 05:09 56 L 16 95 09/15/23 05:04 147/76 H 09/15/23 04:48 55 L 18 96 09/15/23 04:45 56 L 18 96 09/15/23 04:31 146/71 H 09/15/23 04:31 54 L 19 97 09/15/23 04:30 55 L 21 96 09/15/23 04:21 53 L 16 97 09/15/23 04:13 54 L 09/15/23 04:10 97.9 F 53 L 16 147/83 H 99 09/15/23 04:09 97.9 F 55 L 20 147/83 H 95 O2 Del Method 09/15/23 11:14 Room Air 09/15/23 08:14 09/15/23 07:27 09/15/23 07:15 09/15/23 07:00 09/15/23 07:00 09/15/23 06:33 09/15/23 06:24 09/15/23 06:12 09/15/23 06:09 09/15/23 05:42 09/15/23 05:30 09/15/23 05:24 09/15/23 05:12 09/15/23 05:09 09/15/23 05:04 09/15/23 04:48 09/15/23 04:45 09/15/23 04:31 09/15/23 04:31 Room Air 09/15/23 04:30 09/15/23 04:21 09/15/23 04:13 09/15/23 04:10 Room Air 09/15/23 04:09 Room Air Laboratory Results review cbc review prp PG Care Time/CCT Total # of Minutes Spent Total Time Spent with Patient: Total time spent is greater than 50% in coordination of care (as documented) at patient's floor/unit and/or counseling patient: Coding Level of Care Code None Diagnoses LUQ pain R10.12 Hyponatremia E87.1 Type 2 diabetes mellitus without complication, without long-term current use of insulin E11.9 Diabetes mellitus extermination inspector insulin use: without extermination inspector use Diabetes mellitus complication status: without complication Muscular dystrophy G71.00 (3) Type 2 diabetes mellitus Diabetes mellitus extermination inspector insulin use: without long-term use Diabetes mellitus complication status: without complication Qualified Code(s): E11.9 - Type 2 diabetes mellitus without complications"
[2023-09-15 15:17] LABS: BUN Creatinine Ratio 37.5 (10-20); Calcium 7.6 mg/dl (8.6-10.3); Creatinine Clr Calc Pharmacy 150.6 ml/min; Est GFR (African American) 120.6 ml/min; Est GFR (Non-African American) 104.1 ml/min; Potassium 4.8 mmol/L (3.5-5.1)
[2023-09-15] MEDS ORDERED: MoRPHine SULFATE 4 MG/ML 1 ML CARP\\VIAL IV PRN (17:31)
[2023-09-15] MEDS ORDERED: MoRPHine SULFATE 2 MG/ML CARP IV PRN (17:31)
[2023-09-15] MEDS: VANCOMYCIN HCL 1,500 MG in SODIUM CHLORIDE 0.9% 500 ML IV SCH (18:38)
--- NOTE | 2023-09-15 19:21 | Billing Data ---
Date of Service September 15, 2023 Coding Level of Care Code 57443 INT INP/OBS CARE
[2023-09-15 19:45] LABS: BUN Creatinine Ratio 36.8 (10-20); Calcium 7.5 mg/dl (8.6-10.3); Creatinine Clr Calc Pharmacy 158.6 ml/min; Est GFR (African American) 122.7 ml/min; Est GFR (Non-African American) 105.8 ml/min; Potassium 4.5 mmol/L (3.5-5.1)
[2023-09-15] MEDS: ATORVASTATIN 40 MG TAB PO SCH (20:12)
[2023-09-15] MEDS: ACETAMINOPHEN 500 MG TAB PO PRN (20:30)
[2023-09-15 23:24] LABS: BUN Creatinine Ratio 40.5 (10-20); Calcium 7.4 mg/dl (8.6-10.3); Creatinine Clr Calc Pharmacy 162.9 ml/min; Est GFR (African American) 123.7 ml/min; Est GFR (Non-African American) 106.8 ml/min; Potassium 4.4 mmol/L (3.5-5.1)
[2023-09-16] MEDS ORDERED: STAT IV/IM STA (07:53)
--- NOTE | 2023-09-16 07:58 | Hospitalist Progress Note ---
"Date of Service September 16, 2023 Assessment & Plan (1) LUQ pain: Plan: Abdominal Pain | UTI | MSSA Skin Lesions - Diagnosed 09/05 at PCP by urinalysis/urine culture outpt Urine culture showing MSSA, receiving Bactrim as outpatient, transitioned to Vancomycin inpatient, current shows multiple organisms- >recollected - Now with acute LUQ and suprapubic abdominal pain, has a history of horseshoe kidney, pain presists ? prodrome of shingles - CTAP w/o definitive source, no characterization of LUQ protrusion Chronic kidney stones noted Chronic renal cyst/horseshoe kidney noted MRSA nares ordered (2) Hyponatremia: Plan: Hyponatremia (121) | Malnutrition , siadh, did overrespond to 3% saline, loosen fluid restriction - Patient with 9 days w/o eating due to nausea from UTI antibiotics - Pt is eating and drinking better - (3) Type 2 diabetes mellitus: Plan: basal bolus insulin with glucose monitoring (4) Muscular dystrophy: Plan Chronic Chronic Conditions - Muscular Dystrophy: no medications, follow for resolution of acute weakness, may benefit from PT/OT - HTN: continue antihypertensives - HLD: continue statin - Urinary incontinence: continue Gallegos, recommend replacement pending urine culture Code: Full Admission and Anticipated Discharge Date Admission Date: September 15, 2023 Subjective this pt contineus to complain of left sided abdominal pain, mid abdomen, this is not with visable rask, not CVA does not radiate to back, and not in lower quadrant no associated issures on CT a/p on admission does have history of uti and horseshoe kidney Physical Exam Physical Exam: awake and in mild distress skin without rash cardiac is regular lungs diminshed at base daniela on left abd with reproducible pain, no guarding, no rebound Results & Data Results & Data Vital Signs (Past 12 Hours) Vital Signs Temp Pulse Pulse Resp BP Pulse Ox O2 Del Method 09/16/23 03:50 97.9 F 55 L 18 117/70 95 Room Air 09/15/23 22:13 98.1 F 54 L 16 107/65 95 Room Air 09/15/23 21:57 54 L 09/15/23 20:15 Room Air Laboratory Results review chemistry and repeat chemistry PG Care Time/CCT Total # of Minutes Spent Total Time Spent with Patient: Total time spent is greater than 50% in coordination of care (as documented) at patient's floor/unit and/or counseling patient: Coding Level of Care Code 78685 SUB INP/OBS CARE MIN Diagnoses LUQ pain R10.12 Hyponatremia E87.1 Type 2 diabetes mellitus without complication, without long-term current use of insulin E11.9 Diabetes mellitus complication status: without complication Diabetes mellitus map mounter insulin use: without map mounter use Muscular dystrophy G71.00 (3) Type 2 diabetes mellitus Diabetes mellitus complication status: without complication Diabetes mellitus map mounter insulin use: without retirement use Qualified Code(s): E11.9 - Type 2 diabetes mellitus without complications"
[2023-09-16] MEDS: SODIUM CHLORIDE 3 % 100 ML IV ONE (09:08)
[2023-09-16 13:17] LABS: BUN Creatinine Ratio 31.9 (10-20); Calcium 7.3 mg/dl (8.6-10.3); Creatinine Clr Calc Pharmacy 128.5 ml/min; Est GFR (African American) 114.4 ml/min; Est GFR (Non-African American) 98.7 ml/min; Potassium 4.2 mmol/L (3.5-5.1)
[2023-09-17] MEDS: traMADol HCL 50 MG TABLET PO PRN (01:05)
[2023-09-17] MEDS: VANCOMYCIN LEVEL ONE (06:00)
[2023-09-17 06:25] LABS: Creatinine Clr Calc Pharmacy 155.9 ml/min; Est GFR (African American) 120.6 ml/min; Est GFR (Non-African American) 104.1 ml/min
[2023-09-17 07:10] LABS: Estimated Average Glucose 140 mg/dl; Hemoglobin A1C 6.5 % (4.5-5.6)
[2023-09-17] MEDS: VALSARTAN/SACUBITRIL 51/49 MG TAB PO SCH (11:32)
--- NOTE | 2023-09-17 11:49 | Hospitalist Progress Note ---
Date of Service September 17, 2023 Assessment & Plan (1) LUQ pain: Plan: Now resolved. Continue current medical management. (2) Hyponatremia: Plan: Associated with hypoosmolarity. Improved with fluid restriction. Serial labs (3) Type 2 diabetes mellitus: Plan: ADA diet. Sliding scale coverage. (4) Muscular dystrophy: Plan: Stable. She states she takes Entresto for cardioprotective effect. Supportive care. (5) Morbid obesity: Plan: BMI greater than 40. Significant weight loss recommended (6) Open wound: Plan: Base of left neck. Recent culture reveals MSSA. Vancomycin switched to oral Keflex. Apparently she was taking Bactrim as an outpatient and this may have caused her poor oral intake (7) HTN (hypertension): Plan: Stable. Continue current medical management Plan Hopeful discharge to home tomorrow, September 17 Admission and Anticipated Discharge Date Admission Date: September 15, 2023 Subjective Alert and oriented. No distress. is at the bedside. Her cardiac echo reveals normal ejection fraction. I asked why she was on the Entresto and she says it is for cardiac protection from the muscular dystrophy. Culture from the left lower neck wound obtained on September 05 reveals MSSA. Vancomycin has been discontinued and she is now on oral Keflex. She is not ambulatory and anxious to go home. Hopefully tomorrow, September 17. Sodium has improved to 130. Left upper quadrant pain has resolved Review of Systems 2 Review of Systems: Constitutional-no fever or chills. Nonambulatory at baseline. Morbidly obese ENT-no blurred vision, no double vision, no epistaxis, no sore throat Respiratory-no cough, no wheezing, no shortness of breath Cardiac-no palpitations, no chest pain, no syncope GI-no nausea, vomiting, diarrhea, melena, hematochezia -no urinary retention, no urinary incontinence, no dysuria, no hematuria Musculoskeletal-no joint pain, no muscle tenderness Skin-no bruising, no rashes, no pruritus. Superficial open lesion at the base of the neck on the left side is covered with a bandage Neuro-generalized weakness. No paresthesia Psych-no depression, no anxiety Physical Exam 2 Physical Exam: General-alert and oriented x3, no fever, no chills. Morbidly obese HEENT-head atraumatic and normocephalic, pupils equal and reactive to light, extraocular muscles intact Neck-no lymphadenopathy or thyromegaly, trachea midline Chest-clear to auscultation. No rales, wheezing or rhonchi Cardiac-regular rate and rhythm, normal S1 and S2 Abdomen-normal bowel sounds, no hepatosplenomegaly Extremities-chronic appearing bilateral lower extremity edema below the knees. Neuro-cranial nerves II through XII intact, motor and sensory function within normal limits, nonambulatory at baseline due to morbid obesity and weakness. No focal deficits Psych-normal affect, normal mood Results & Data Results & Data Vital Signs (Past 12 Hours) Vital Signs Temp Pulse Resp BP BP Pulse Ox O2 Del Method 09/17/23 11:23 36.6 C 63 16 106/54 L 95 Room Air 09/17/23 07:21 36.6 C 65 16 122/64 95 Room Air 09/17/23 02:59 36.7 C 62 18 112/68 97 Room Air Laboratory Results 09/15/23 04:15 09/17/23 05:30 PG Care Time/CCT Total # of Minutes Spent Total Time Spent with Patient: Total time spent is greater than 50% in coordination of care (as documented) at patient's floor/unit and/or counseling patient: Coding Level of Care Code 41595 SUB INP/OBS CARE 3/50MIN Diagnoses LUQ pain R10.12 Hyponatremia E87.1 Type 2 diabetes mellitus without complication, without long-term current use of insulin E11.9 Diabetes mellitus long wall mining machine helper insulin use: without long wall mining machine helper use Diabetes mellitus complication status: without complication Muscular dystrophy G71.00 Morbid obesity E66.01 Open wound T14.8XXA Essential hypertension I10 Hypertension type: essential hypertension (3) Type 2 diabetes mellitus Diabetes mellitus nursing home insulin use: without long wall mining machine helper use Diabetes mellitus complication status: without complication Qualified Code(s): E11.9 - Type 2 diabetes mellitus without complications (7) HTN (hypertension) Hypertension type: essential hypertension Qualified Code(s): I10 - Essential (primary) hypertension
[2023-09-17] MEDS: cephALEXin 500 MG CAP PO SCH (12:02)
[2023-09-17] MEDS: POLYETHYLENE (MIRALAX) 17 GM PACK PO PRN (12:38)
[2023-09-18] MEDS ORDERED: VANCOMYCIN HCL 1,000 MG in SODIUM CHLORIDE 0.9% 250 ML IV SCH
[2023-09-18 08:16] LABS: BUN Creatinine Ratio 28.6 (10-20); Calcium 8.4 mg/dl (8.6-10.3); Creatinine Clr Calc Pharmacy 148.7 ml/min; Est GFR (African American) 118.7 ml/min; Est GFR (Non-African American) 102.4 ml/min; Potassium 4.8 mmol/L (3.5-5.1)
--- NOTE | 2023-09-18 12:02 | Discharge Summary ---
Date of Service September 18, 2023 Admission HPI Per Admitting Provider Judie is a 73F w/ PMH of muscular dystrophy, chronic indwelling Da Silva, CKD, HLD, HTN, T2DM, LBBB, and cardiomyopathy who presented for LUQ abdominal pain and weakness. Patient notes that she has been feeling very 'run down' over the last 2-3 days, but today was the worst. She went to bed tonight and was awakened by LUQ pain that she had never experienced before. No radiation of the pain. She states that 'It feels like there's a creature in my abdomen'. She describes the pain as 8/10. Patient follows with urology and has a horseshoe kidney, she is known to have multiple renal stones. She describes her abdominal pain as waxing and waning. Patient was diagnosed with a UTI/MSSA skin rash on 09/05 and was started on Bactrim. Patient notes that for the last 9 days she has been nauseas and has been unable to eat. Patient has a chronic da silva catheter and notes no changes in urine color or odor. She states that it is not due to be changed until next week. She endorses mild suprapubic discomfort. Patient additionally endorses chills over the last week, but no fevers or diaphoresis. Patient is unable to lift her arms and legs at baseline, but notes that she has been acutely weaker over the last 2-3 days. She does not follow with any physicians for her muscular dystrophy and is not currently receiving any medical treatments. Principal Diagnosis SIADH with hyponatremia, left upper quadrant pain Discharge Exam General-alert and oriented x3, no fever, no chills. Morbidly obese HEENT-head atraumatic and normocephalic, pupils equal and reactive to light, extraocular muscles intact Neck-no lymphadenopathy or thyromegaly, trachea midline Chest-clear to auscultation. No rales, wheezing or rhonchi Cardiac-regular rate and rhythm, normal S1 and S2 Abdomen-normal bowel sounds, no hepatosplenomegaly Extremities-chronic appearing bilateral lower extremity edema below the knees. Skinsmall superficial open wound at the anterior base of the left neck Neuro-cranial nerves II through XII intact, motor and sensory function within normal limits, nonambulatory at baseline due to morbid obesity and weakness. No focal deficits Psych-normal affect, normal mood Discharge Data Allergies Allergy/AdvReac Type Severity Reaction Status Date / Time No Known Allergies Allergy Unknown Verified 09/06/23 12:45 Consultations 09/15/23 05:25 ED Decision to Admit Stat Ordered Studies 09/15/23 04:31 CT abd pelvis wo con Stat Hospital Course (1) LUQ pain: Now resolved. Continue current medical management while hospitalized. (2) Hyponatremia: Associated with hypoosmolarity. Resolved with fluid restriction. Serial labs (3) Type 2 diabetes mellitus: ADA diet. Sliding scale coverage. (4) Muscular dystrophy: Stable. She states she takes Entresto for cardioprotective effect. Supportive care. (5) Morbid obesity: BMI greater than 40. Significant weight loss recommended (6) Open wound: Base of left neck. Recent culture reveals MSSA. Vancomycin switched to oral Keflex on September 16. Apparently she was taking Bactrim as an outpatient and this may have caused her poor oral intake. Will continue oral Keflex for 1 more week (7) HTN (hypertension): Stable. Continue current medical management Plan Home today, September 17 Total Time Total Time Spent Total Time Spent (In Minutes): 45 minutes Discharge Plan Discharge Items Patient Disposition: Home - Home Health Services Reason For Visit: HYPONATREMIA, LUQ PAIN Discharge Diagnosis: SIADH with hyponatremia, left upper quadrant pain Activity: Resume your previous activity Non-emergency contact: Primary Care Provider Call non-emergency contact if: you have any medication questions and your symptoms worsen Follow-up/Referrals: Rochelle Robles CRNP [Primary Care Provider] - Diet: Carb Consistent or DM2 Addtl Attending Provider Instructions: Take cephalexin antibiotic for 1 more week Pending Studies at Discharge: No Stand-Alone Forms: My ABS, Smoking Cessation Medications and DC Order Prescriptions: New cephalexin 500 mg Capsule 500 mg PO QID Qty: 28 0RF Continued (DME) APPM circulating mattress See Rx Instructions .Route .MEDSUPPLY Qty: 1 0RF Rx Instructions: As directed (DME) lancets Misc See Rx Instructions .Route Qty: 100 5RF Rx Instructions: TEST BSG DAILY; DX CODE- E11.9 (DME) OneTouch Ultra Test Strip See Rx Instructions .Route Qty: 100 5RF Rx Instructions: TEST BSG DAILY; DX CODE- E11.9 Tradjenta 5 mg tablet 5 mg PO DAILY Qty: 30 11RF (DME) Power Wheelchair Device See Rx Instructions .ROUTE .MEDSUPPLY Qty: 1 0RF Rx Instructions: PLEASE MAKE NEEDED REPAIRS TO WHEELCHAIR Entresto 49-51 mg tablet 1 tab PO BID Qty: 180 3RF metformin 1,000 mg tablet 1,000 mg PO BID Qty: 180 3RF Rx Instructions: TAKE 1 TABLET BY MOUTH 2 TIMES DAILY. atorvastatin 40 mg tablet 40 mg PO HS Qty: 90 3RF (DME) underpads Pad See Rx Instructions .ROUTE .MEDSUPPLY Qty: 90 5RF Rx Instructions: Disposable Underpads, Pt. uses 3 per day, Dx: G72.9; R32 (DME) disposable gloves Package See Rx Instructions .Route Qty: 50 5RF Rx Instructions: As directed-SIZE LARGE sulfamethoxazole-trimethoprim [Bactrim DS] 800-160 mg tablet 1 tab PO BID Qty: 20 0RF Women's Daily Formula 27-0.4 mg tablet 1 tab PO DAILY ascorbic acid (vitamin C) 1 tab PO DAILY zinc acetate 1 cap PO DAILY carvedilol 12.5 mg tablet 12.5 mg PO BID Qty: 180 3RF Rx Instructions: TAKE 1 TABLET BY MOUTH TWICE DAILY. MUST ADMINISTER WITH A MEAL/FOOD. nystatin 100,000 unit/gram cream 1 applic topical BID Qty: 30 0RF Rx Instructions: Apply topically to groin folds cranberry 400 mg capsule 400 mg PO BID biotin 2,500 mcg capsule 2,500 mcg PO DAILY (DME) power wheel chair repair See Rx Instructions .Route .MEDSUPPLY Qty: 1 0RF Rx Instructions: As directed mupirocin 2 % ointment 1 applic topical BID Qty: 22 0RF Rx Instructions: apply till clear clotrimazole 1 % cream 1 applic topical BID 28 Days Qty: 45 1RF aspirin 81 mg Tablet,Delayed Release (Dr/Ec) 81 mg PO DAILY Ocuvite Eye Health 50 mg-15 unit- 4.5 mg-2.5 mg Tablet,Chewable 2 tab PO DAILY omega-3 fatty acids 1,000 mg Capsule 1,000 mg PO DAILY (DME) Miscellaneous Rx Instructions: Cushion for Power wheelchair DX:G71.00 (DME) Miscellaneous Rx Instructions: Power wheelchair repairs DX:G71.00 Discharge Orders: Discharge Order (Routine); Ordered 09/18/23 Ordered By: Ángel Vivas/Other Patient Handouts: Managing Type 2 Diabetes Admission Data Admit Date/Time: 09/15/23 06:24 Attending Provider: Ángel Timmons Admit Provider: Ludwig Wilson Primary Care Provider: Rochelle Robles Other Providers: Flo Naidu Coding Level of Care Code 36252 INP/OBS DISCH >30 MIN Diagnoses LUQ pain R10.12 Hyponatremia E87.1 Type 2 diabetes mellitus without complication, without long-term current use of insulin E11.9 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
== END 2023-09-18 15:58 | disposition home health service (06) | DRG 644 ==
LOC: SUATTDRO → ED 04:04 → SUATTDRO 06:24 → EDINP 06:24 → 2S 07:49

== ENCOUNTER 2023-12-03 17:48 | Inpatient (IN) ==
[2023-12-03 18:46] LABS: Basophils # (auto) 0.02 K/uL (0.00-0.20); Basophils % (auto) 0.3 %; Eosinophils # (auto) 0.19 K/uL (0.00-0.50); Eosinophils % (auto) 2.7 %; Hematocrit (blood only) 33.4 % (37.0-47.0); Immature Granulocytes # (auto) 0.04 K/uL (0.01-0.20); Immature Granulocytes % (auto) 0.6 %; Lymphocytes # (auto) 1.14 K/uL (1.20-3.40); Lymphocytes % (auto) 16.5 %; Mean Corpuscular Hemoglobin 24.6 pg (25.0-34.0); Mean Corpuscular Hgb Conc 29.9 g/dL (32.0-36.0); Mean Corpuscular Volume 82.3 fL (80.0-100.0); Mean Platelet Volume 10.9 fL (9.4-12.4); Monocytes # (auto) 0.46 K/uL (0.11-0.59); Monocytes % (auto) 6.7 %; Neutrophils # (auto) 5.06 K/uL (1.40-6.50); Neutrophils % (auto) 73.2 %; Platelet Count 204 K/uL (130-400); RDW Coefficient of Variation 17.1 % (11.5-14.5); RDW Standard Deviation 50.9 fL (36.4-46.3); Red Blood Count 4.06 M/uL (4.20-5.40); White Blood Count 6.91 K/ul (4.8-10.8)
--- NOTE | 2023-12-03 18:55 | Emergency Department Note ---
Impression & Plan Chronic wound, Muscular dystrophy, Wound infection ED Provider Note NAME: JACLYN JOHNSON AGE: 73 SEX: F : 1950 ARRIVES VIA: Walk-In INFORMANT: Patient ED PROVIDER(S): Enrique Madrid MD CHIEF COMPLAINT: Wound infection, referred. PLAN: Disposition: Admit MEDICAL DECISION MAKING: The patient is a pleasant 73-year-old woman with a past medical history of muscular dystrophy, wheelchair dependent, history of MRSA infection, hypertension, hyperlipidemia who presents to the emergency department via walk- in, accompanied by family referred by her primary care office for additional evaluation for ongoing wound infection/cellulitis of her left shoulder/clavicle where a wound culture from 11/20/2023 grew Pseudomonas fluorescens/putida which was resistant to Bactrim and otherwise sensitive to cefepime, gentamicin, tobramycin and Zosyn. Patient reports that she has had the left clavicle wound since June and has had different courses of antibiotics which have not resulted in improvement. She has had additional sites come and go on her chest and bilateral upper extremities but currently has small bullae on the dorsum of her left hand. She denies tenderness to palpation in these areas. She denies any fevers, nausea, vomiting or diarrhea. She was seen in this emergency department on 11/26 and given her exam was not suggestive of cellulitis/infection plan was for outpatient follow-up with dermatology. Ciprofloxacin was prescribed out of caution. However, due to outpatient concern from her recent wound culture which appears sensitive to any IV antibiotics the patient was referred to the emergency department for admission. On evaluation the patient is no distress, afebrile with blood pressure 160s/80s and vital signs otherwise stable. Her exam demonstrates an approximate 3 cm x 7 cm ovoid lesion overlying the medial aspect of the left clavicle at the base of the neck. There is a single 1 cm bullae that appears hemorrhagic. The base of the wound has light erythema but suggestive of granulation tissue without overt drainage, surrounding erythema, induration or underlying fluctuance. Patient does have a hemorrhagic subcentimeter bullae on the dorsum of the left hand where there is evidence of prior bullae that have healed. She has a approximate 2 cm healing lesion on the right chest without underlying fluctuance and no surrounding erythema or induration. WBC and platelets within normal limits. H/H similar to prior. Chemistry without metabolic acidosis. Magnesium 1.2 and electrolytes otherwise unremarkable. LFTs unremarkable. Given the patient's recent wound culture with persistence of lesions with concern for wound infection patient referred to hospital service for further management. IV Zosyn ordered for empiric treatment. However symptoms may be more related to her underlying muscular dystrophy such as possible epidermolysis bullosa simplex. Case was d/w ALIYA Burnette hospitalist who will evaluate the patient for admission. This patient was managed with the assistance of resident, Dr. Jessica. I discussed the case with the resident, examined the patient, and confirm the findings and plan as documented in this note. Triage Nursing notes reviewed and agree them. Prior/external medical records reviewed Vital Signs: reviewed Differential diagnosis: Cellulitis, abscess, MRSA infection, DVT, necrotizing fasciitis, dermatitis, drug eruption, allergic reaction, as well as other pathologies. ER treatment provided: See below. Diagnostics interpreted by me: Cardiac Monitoring: An order for continuous cardiac monitoring was placed and demonstrated normal sinus rhythm, 62 bpm, no ectopy. Laboratory studies: See below Imaging studies: See below Consultation(s): Case was d/w LEOBARDO Burnette hospitalist who will evaluate the patient for admission. HPI: The patient is a pleasant 73-year-old woman with a past medical history of muscular dystrophy, wheelchair dependent, history of MRSA infection, hypertension, hyperlipidemia who presents to the emergency department via walk- in, accompanied by family referred by her primary care office for additional evaluation for ongoing wound infection/cellulitis of her left shoulder/clavicle where a wound culture from 11/20/2023 grew Pseudomonas fluorescens/putida which was resistant to Bactrim and otherwise sensitive to cefepime, gentamicin, tobramycin and Zosyn. Patient reports that she has had the left clavicle wound since June and has had different courses of antibiotics which have not resulted in improvement. She has had additional sites come and go on her chest and bilateral upper extremities but currently has small bullae on the dorsum of her left hand. She denies tenderness to palpation in these areas. She denies any fevers, nausea, vomiting or diarrhea. She was seen in this emergency department on 11/26 and given her exam was not suggestive of cellulitis/infection plan was for outpatient follow-up with dermatology. Ciprofloxacin was prescribed out of caution. However, due to outpatient concern from her recent wound culture which appears sensitive to any IV antibiotics the patient was referred to the emergency department for admission. ROS: See above HPI for pertinent positives & negatives. A total of 10 systems reviewed and were otherwise negative. VITALS:See Below PHYSICAL EXAMINATION: GENERAL: Awake, alert, well-appearing, in no distress BMI 34.7. HENT: Normocephalic, atraumatic. Oropharynx unremarkable. EYES: Normal conjunctiva. Sclera non-icteric. NECK: Supple. No nuchal rigidity. FROM. No JVD. RESPIRATORY: Clear to auscultation. CARDIAC: Regular rate, normal rhythm. Extremities warm and well perfused. Pulses equal. ABDOMEN: Soft, non-distended. No tenderness to palpation. No rebound or guarding. No masses. MUSCULOSKELETAL: Chest examination reveals no tenderness. The back is symmetrical on inspection without obvious abnormality. There is no CVA tenderness to palpation. No joint edema. LOWER EXTREMITIES: Calves are equal size bilaterally and non-tender. No edema. No discoloration. NEURO: Baseline paresis for patient's muscular dystrophy. SKIN: No jaundice noted. Approximate 3 cm x 7 cm ovoid lesion overlying the medial aspect of the left clavicle at the base of the neck. There is a single 1 cm bullae that appears hemorrhagic. The base of the wound has light erythema but suggestive of granulation tissue without overt drainage, surrounding erythema, induration or underlying fluctuance. Patient does have a hemorrhagic subcentimeter bullae on the dorsum of the left hand where there is evidence of prior bullae that have healed. She has a approximate 2 cm healing lesion on the right chest without underlying fluctuance and no surrounding erythema or induration. Enrique Madrid MD Past Med/Surg History Problem List Wound infection (Acute) Chronic wound (Acute) Skin disease, bullous Cellulitis Pseudomonas infection (Acute) Rash (Acute) Non-healing skin lesion History of MRSA infection Muscular dystrophy (Acute) HTN (hypertension) Hyperlipidemia Chronic kidney disease (CKD) Type 2 diabetes mellitus Intertrigo Wheelchair dependent Does not walk Lymph node enlargement Weakness (Acute) LUQ pain Hyponatremia (Acute) Urinary symptom or sign Open wound MRSA (methicillin resistant Staphylococcus aureus) infection Nasal sinus congestion Hypoxia Cardiomyopathy LBBB (left bundle branch block) Urinary incontinence On statin therapy Medical History Limb-girdle muscular dystrophy Morbid obesity Congestive heart failure Uterine cancer Surgical History History of hip surgery H/O right knee surgery History of total abdominal hysterectomy Family History Sister Cancer Myocardial infarction Muscular dystrophy Father Colorectal cancer Myocardial infarction Brother Colorectal cancer Myocardial infarction Muscular dystrophy Other Family history non-contributory Denies family history of Ovarian cancer Prostate cancer Breast cancer Social History Smoking Status: Never smoker Second Hand Exposure: No; Do You Dip or Chew Tobacco: No; Hx Alcohol Use: No Hx Substance Use: No Preferred Language: Sri Lankan Communication Ability: Effective Visual Impairment: Limited Hearing Ability: Normal Consulting Psychologist Required: No Beliefs That Will Affect Care: None marital status: Current Living Situation: Spouse current occupational status: disabled How many Children do You have: 5 Other Information That Helps Us Care for You: No Feels Safe at Home: Yes Safety Concerns: Feels Safe At This Time Childhood Exposure to Second-Hand Smoke: Yes Diet: regular caffeine: Yes during the past year weight has: remained stable Dental Care, Regularly: No Physical Activity Frequency: Daily Seatbelt Use: always Sunscreen Use: Yes Assistive Devices: Mechanical Lift and Wheelchair Assistive Devices Comment: uses Brianna lift, motorized WC, extension grabber at home Allergies Allergies Allergy/AdvReac Type Severity Reaction Status Date / Time No Known Allergies Allergy Unknown Verified 11/20/23 13:22 Home Meds Home Medications Medication Instructions Recorded Confirmed aspirin 81 mg tablet,delayed 81 mg PO DAILY 07/08/18 12/03/23 release vit C 50 mg-E 15 unit-zinc cit 4.5 2 tab PO DAILY 07/08/18 12/03/23 mg-lutein 2.5 mg-zeaxan chew tablet ([facility]) bnkgztihxheh-Lo-rayn-minerals 27 1 tab PO DAILY 10/07/18 12/03/23 mg-0.4 mg tablet (Women's Daily Formula) cranberry 400 mg capsule 400 mg PO BID 12/12/19 12/03/23 omega-3 fatty acids 1,000 mg 1,000 mg PO DAILY 12/01/21 12/03/23 capsule biotin 2,500 mcg capsule 2,500 mcg PO DAILY 11/21/22 12/03/23 ascorbic acid (vitamin C) 1 tab PO DAILY 08/17/23 12/03/23 zinc acetate 1 cap PO DAILY 08/17/23 12/03/23 Miscellaneous 09/15/23 11/20/23 Miscellaneous 09/15/23 11/20/23 Previous Rx's Medication Instructions Recorded power wheel chair repair #1 ea 12/13/21 APPM circulating mattress #1 ea 12/15/21 blood sugar diagnostic (OneTouch #100 ea 10/03/22 Ultra Test strips) lancets #100 ea 10/03/22 sacubitril 49 mg-valsartan 51 mg 1 tab PO BID #180 tabs 07/05/23 tablet (Entresto) atorvastatin 40 mg tablet 40 mg PO HS #90 tabs 07/17/23 metformin 1,000 mg tablet 1,000 mg PO BID #180 tabs 07/17/23 disposable gloves #50 ea 07/26/23 underpads #90 ea 07/26/23 nystatin 100,000 unit/gram topical 1 applic topical BID #30 grams 08/02/23 cream carvedilol 12.5 mg tablet 12.5 mg PO BID #180 tabs 08/17/23 Wheelchair (Powered) (Power #1 ea 09/25/23 Wheelchair) ondansetron 4 mg disintegrating 4 mg PO Q8H PRN nausea and 09/25/23 tablet vomiting #20 tabs repalcement wheels for powered #1 ea 09/25/23 wheelchair nystatin 100,000 unit/gram topical 1 applic topical BID PRN fungal 10/08/23 powder rash #60 grams linagliptin 5 mg tablet (Tradjenta) 5 mg PO DAILY #30 tabs 10/29/23 amoxicillin 500 mg-potassium 1 tab PO TID #42 tabs 11/29/23 clavulanate 125 mg tablet (Augmentin) Results & Data (ED) Vital Signs Vital Signs - 24 hr 12/03/23 17:55 12/03/23 19:50 Temperature 36.5 C Temperature Source Temporal Artery Scan Pulse Rate 62 Pulse Rate [Finger] 59 L Pulse Rhythm [Finger] Regular Respiratory Rate 18 18 Respiratory Effort / Characteristics Non-Labored Respiratory Depth Normal Blood Pressure 162/83 H Blood Pressure [Right Arm] 147/95 H Blood Pressure Mean 109 Blood Pressure Mean [Right Arm] 112 Pulse Oximetry 98 98 Oxygen Delivery Method Room Air Room Air Sepsis Recent Fever Within 48 Hours No Sepsis New/Unexplained Change in Mental Status No Sepsis Action Taken by Nursing No Action Required Laboratory Data Attestation: I reviewed the patient's lab results. 12/03/23 18:27 12/03/23 18:27 Lab Results 12/03/23 Range/Units 18:27 WBC 6.91 (4.8-10.8) K/ul RBC 4.06 L (4.20-5.40) M/uL Hgb 10.0 L (12.0-16.0) g/dl Hct 33.4 L (37.0-47.0) % MCV 82.3 (80.0-100.0) fL MCH 24.6 L (25.0-34.0) pg MCHC 29.9 L (32.0-36.0) g/dL RDW Std Deviation 50.9 H (36.4-46.3) fL RDW Coeff of Arely 17.1 H (11.5-14.5) % Plt Count 204 (130-400) K/uL MPV 10.9 (9.4-12.4) fL Immature Gran % (Auto) 0.6 % Neut % (Auto) 73.2 % Lymph % (Auto) 16.5 % Buchanan % (Auto) 6.7 % Eos % (Auto) 2.7 % Baso % (Auto) 0.3 % Neut # (Auto) 5.06 (1.40-6.50) K/uL Lymph # (Auto) 1.14 L (1.20-3.40) K/uL Buchanan # (Auto) 0.46 (0.11-0.59) K/uL Eos # (Auto) 0.19 (0.00-0.50) K/uL Baso # (Auto) 0.02 (0.00-0.20) K/uL Immature Gran # (Auto) 0.04 (0.01-0.20) K/uL Sodium 136 (136-145) mmol/L Potassium 5.0 (3.5-5.1) mmol/L Chloride 103 (98-107) mmol/L Carbon Dioxide 27 (21-32) mmol/L Anion Gap 6 (3-11) BUN 15 (6-23) mg/dl Creatinine 0.45 L (0.6-1.2) mg/dl Est Cr Clr Drug Dosing Not Reportable Est GFR ( Amer) 116.0 ml/min Est GFR (Non-Af Amer) 100.1 ml/min BUN/Creatinine Ratio 33.3 H (10-20) Glucose 110 H (70-99(Fasting)) mg/dl Calcium 10.2 (8.6-10.3) mg/dl Phosphorus 3.0 (2.5-4.9) mg/dl Magnesium 1.2 L (1.7-2.4) mg/dl Total Bilirubin 0.3 (0.2-1.0) mg/dl AST 13 (13-39) U/L ALT 12 (7-52) U/L Alkaline Phosphatase 64 (34-104) U/L Total Protein 7.7 (6.0-8.3) gm/dl Albumin 3.9 (3.4-5.0) gm/dl Globulin 3.8 (2.5-4.0) gm/dl Albumin/Globulin Ratio 1.0 (0.9-2) Procalcitonin < 0.02 (0-0.5) ng/ml Administered Medications Atorvastatin Calcium (Atorvastatin 40 Mg Tab) 40 mg PO HS LYNNE Stop: 01/02/24 22:44 Last Admin: 12/03/23 23:46 Dose: 40 mg Documented By: TRAV Carvedilol (Carvedilol 12.5 Mg Tab) 12.5 mg PO BID LYNNE Stop: 01/02/24 22:44 Last Admin: 12/03/23 23:46 Dose: 12.5 mg Documented By: TRAV Magnesium Sulfate/Dextrose (Magnesium Sulfate / D5w) 1 gm in 100 mls @ 50 mls/hr IV Q2H LYNNE Stop: 12/04/23 02:59 Last Admin: 12/04/23 00:39 Dose: 50 mls/hr Documented By: Infusion: 12/04/23 00:39 Dose: Infused Documented By: Admin: 12/03/23 23:45 Dose: 50 mls/hr Documented By: TRAV Piperacillin Sod/Tazobactam Sod (Zosyn) 4.5 gm in 100 mls @ 25 mls/hr IV Q8H LYNNE Stop: 12/11/23 00:00 Last Admin: 12/03/23 23:45 Dose: 25 mls/hr Documented By: TRAV Insulin Aspart (Insulin Aspart Per Unit Charge) 0 units SC ACHS LYNNE Stop: 01/02/24 22:21 Last Admin: 12/03/23 23:26 Dose: Not Given Documented By: TRAV Co-signed By: ZEESHAN Metformin HCl (Metformin Hcl 500 Mg Tab) 1,000 mg PO BIDM LYNNE Stop: 01/02/24 22:44 Last Admin: 12/03/23 23:46 Dose: 1,000 mg Documented By: TRAV Sacubitril/Valsartan (Valsartan/Sacubitril 51/49 Mg Tab) 1 tab PO BID LYNNE Stop: 01/02/24 22:44 Last Admin: 12/03/23 23:46 Dose: 1 tab Documented By: TRAV Discontinued Medications Piperacillin Sod/Tazobactam Sod (Zosyn) 4.5 gm in 100 mls @ 200 mls/hr IV NOW ONE Stop: 12/03/23 19:31 Last Infusion: 12/03/23 20:29 Dose: Infused Documented By: Admin: 12/03/23 19:44 Dose: 200 mls/hr Documented By: SIMONE Magnesium Sulfate/Dextrose (Magnesium Sulfate / D5w) 1 gm in 100 mls @ 100 mls/hr IV NOW STA Stop: 12/03/23 21:43 Last Infusion: 12/03/23 22:55 Dose: Infused Documented By: Admin: 12/03/23 21:08 Dose: 100 mls/hr Documented By: SIMONE Discharge Plan Visit Data Chief Complaint: Rash Stated Complaint: RASH ON CHEST/ARMS/HANDS, DOC REF ED Provider: Enrique Madrid ED Midlevel Provider: Eagle Leonardo Discharge Problem: Chronic wound, Muscular dystrophy, Wound infection Patient Disposition: Admitted As Inpatient Discharge Instructions Interventions: ED Discharge Assessment Last Done: 12/03/23 21:20
[2023-12-03 19:01] LABS: Alanine Aminotransferase 12 U/L (7-52); Albumin Level 3.9 gm/dl (3.4-5.0); Alkaline Phosphatase 64 U/L (34-104); Anion Gap 6 (3-11); Aspartate Aminotransferase 13 U/L (13-39); BUN Creatinine Ratio 33.3 (10-20); Bilirubin,Total 0.3 mg/dl (0.2-1.0); Blood Urea Nitrogen 15 mg/dl (6-23); Calcium 10.2 mg/dl (8.6-10.3); Carbon Dioxide 27 mmol/L (21-32); Chloride 103 mmol/L (98-107); Est GFR (Non-African American) 100.1 ml/min; Globulin 3.8 gm/dl (2.5-4.0); Glucose 110 mg/dl (70-99(Fasting)); Sodium 136 mmol/L (136-145); Total Protein 7.7 gm/dl (6.0-8.3)
[2023-12-03 19:29] LABS: Magnesium 1.2 mg/dl (1.7-2.4)
[2023-12-03] MEDS: PIPERACILLIN/TAZOBACTAM 4.5 GM/100 ML BAG IV ONE (19:44)
--- NOTE | 2023-12-03 19:57 | History & Physical Report ---
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 although this tends to start in infancy Will consult dermatology - although not in house may be able to diagnose based on pictures vs quick follow up Avoid mupirocin Avoid friction on easily blistering areas (3) Type 2 diabetes mellitus: Plan: HbA1C 6.5 in August , repeat with AM labs Metformin 1000mg PO BID continue Linagliptin not on formulary therefore held Add Novolog for correction only: -Goal BSG Range: Low 110 mg/dL, High 140 mg/dL --Correction Factor: 45mg/dL/unit No carb ratio --BSGs ACHS if eating, q6h if npo (4) Cardiomyopathy: Plan: Continue carvedilol and Entresto, currently appears euvolemic (5) Limb-girdle muscular dystrophy: (6) Pseudomonas infection: Plan VTE Prophylaxis - Lovenox 40mg SQ daily Diet - regular Disposition - admit to med/surg Admission and Anticipated Discharge Date Admission Date: December 03, 2023 History of Present Illness Chief Complaint: Skin lesion Primary Care Provider: ZAKIYA Rubio Judie Calderon is a 73 year old female who presents to the ER from her PCP office due to a skin lesion. She reports on and off worsening of her skin in multiple areas including right chest, left neck right cheek, left hand since June. Prior to this she has never had skin problems like this. The lesions start off as bulla/blisters and open up. Her main current problem area is her left neck which she reports has been this bad before. She was sent in by PCP due to surface wound swab growing pseudom fluoresc/putida although she does not think there was any pus or open lesion that was swabbed on November 19. She is current on Augmentin for this and has been on many different antibiotics however she reports being unclear whether the erythema of the lesion improves with these antibiotics as she is normally on them for a UTI rather than this rash/lesion. She has noticed mupirocin cream makes it worse and has discontinued use of this. She feels this area has looked this bad previously. No fever or chills. Allergies Allergy/AdvReac Type Severity Reaction Status Date / Time No Known Allergies Allergy Unknown Verified 11/20/23 13:22 Home Medications Medication Instructions Recorded Confirmed Type aspirin 81 mg tablet,delayed 81 mg PO DAILY 07/08/18 12/03/23 History release vit C 50 mg-E 15 unit-zinc cit 4.5 2 tab PO DAILY 07/08/18 12/03/23 History mg-lutein 2.5 mg-zeaxan chew tablet (Hands-On Mobile) uxcgtocjndxs-Cv-fegc-minerals 27 1 tab PO DAILY 10/07/18 12/03/23 History mg-0.4 mg tablet (Women's Daily Formula) cranberry 400 mg capsule 400 mg PO BID 12/12/19 12/03/23 History omega-3 fatty acids 1,000 mg 1,000 mg PO DAILY 12/01/21 12/03/23 History capsule power wheel chair repair #1 ea 12/13/21 11/20/23 Rx APPM circulating mattress #1 ea 12/15/21 11/20/23 Rx blood sugar diagnostic (OneTouch #100 ea 10/03/22 11/20/23 Rx Ultra Test strips) lancets #100 ea 10/03/22 11/20/23 Rx biotin 2,500 mcg capsule 2,500 mcg PO DAILY 11/21/22 12/03/23 History sacubitril 49 mg-valsartan 51 mg 1 tab PO BID #180 tabs 07/05/23 12/03/23 Rx tablet (Entresto) atorvastatin 40 mg tablet 40 mg PO HS #90 tabs 07/17/23 12/03/23 Rx metformin 1,000 mg tablet 1,000 mg PO BID #180 tabs 07/17/23 12/03/23 Rx disposable gloves #50 ea 07/26/23 11/20/23 Rx underpads #90 ea 07/26/23 11/20/23 Rx nystatin 100,000 unit/gram topical 1 applic topical BID #30 grams 08/02/23 12/03/23 Rx cream ascorbic acid (vitamin C) 1 tab PO DAILY 08/17/23 12/03/23 History carvedilol 12.5 mg tablet 12.5 mg PO BID #180 tabs 08/17/23 12/03/23 Rx zinc acetate 1 cap PO DAILY 08/17/23 12/03/23 History Miscellaneous 09/15/23 11/20/23 History Miscellaneous 09/15/23 11/20/23 History Wheelchair (Powered) (Power #1 ea 09/25/23 11/20/23 Rx Wheelchair) ondansetron 4 mg disintegrating 4 mg PO Q8H PRN nausea and 09/25/23 12/03/23 Rx tablet vomiting #20 tabs repalcement wheels for powered #1 ea 09/25/23 11/20/23 Rx wheelchair nystatin 100,000 unit/gram topical 1 applic topical BID PRN fungal 10/08/23 12/03/23 Rx powder rash #60 grams linagliptin 5 mg tablet (Tradjenta) 5 mg PO DAILY #30 tabs 10/29/23 12/03/23 Rx amoxicillin 500 mg-potassium 1 tab PO TID #42 tabs 11/29/23 12/03/23 Rx clavulanate 125 mg tablet (Augmentin) Past Med/Surg History Problem List (Updated 12/04/23 @ 06:44 by Alex Kat MD) Wound infection (Acute) Chronic wound (Acute) Skin disease, bullous Cellulitis Pseudomonas infection (Acute) Rash (Acute) Non-healing skin lesion History of MRSA infection Muscular dystrophy (Acute) HTN (hypertension) Hyperlipidemia Chronic kidney disease (CKD) Type 2 diabetes mellitus Intertrigo Wheelchair dependent Does not walk Lymph node enlargement Weakness (Acute) LUQ pain Hyponatremia (Acute) Urinary symptom or sign Open wound MRSA (methicillin resistant Staphylococcus aureus) infection Nasal sinus congestion Hypoxia Cardiomyopathy LBBB (left bundle branch block) Urinary incontinence On statin therapy Medical History Limb-girdle muscular dystrophy Morbid obesity Congestive heart failure Uterine cancer Surgical History History of hip surgery H/O right knee surgery History of total abdominal hysterectomy Family History Sister Cancer Myocardial infarction Muscular dystrophy Father Colorectal cancer Myocardial infarction Brother Colorectal cancer Myocardial infarction Muscular dystrophy Other Family history non-contributory Denies family history of Ovarian cancer Prostate cancer Breast cancer Social History Smoking Status: Never smoker Second Hand Exposure: No; Do You Dip or Chew Tobacco: No; Hx Alcohol Use: No Hx Substance Use: No Preferred Language: Serbian Communication Ability: Effective Visual Impairment: Limited Hearing Ability: Normal Collaborative Physician Required: No Beliefs That Will Affect Care: None marital status: Current Living Situation: Spouse current occupational status: disabled How many Children do You have: 5 Other Information That Helps Us Care for You: No Feels Safe at Home: Yes Safety Concerns: Feels Safe At This Time Childhood Exposure to Second-Hand Smoke: Yes Diet: regular caffeine: Yes during the past year weight has: remained stable Dental Care, Regularly: No Physical Activity Frequency: Daily Seatbelt Use: always Sunscreen Use: Yes Assistive Devices: Mechanical Lift and Wheelchair Assistive Devices Comment: uses Brianna lift, motorized WC, extension grabber at home Review of Systems 2 Review of Systems: All systems reviewed & are unremarkable except as noted in HPI & below uvula itching Physical Exam 2 Constitutional: WD/WN, vitals as above Respiratory: normal respiratory effort, lungs clear to auscultation Cardiovascular: Rate/Rhythm: regular rate and regular rhythm Heart Sounds: no murmur Extremities: normal capillary refill and + pedal edema; no calf tenderness Gastrointestinal (Abdomen): normal bowel sounds, soft, nontender, no hepatosplenomegaly Musculoskeletal: chronic contractures of b/l lower extremities, able to move toes but no hip/knee flex Skin: Neurologic: awake; + does not move all extremities (unable to move legs (toes only of lower limbs) and not confused Psychiatric: A+Ox3, euthymic affect Results & Data Results & Data Vital Signs (Past 12 Hours) Vital Signs Temp Pulse Resp BP Pulse Ox O2 Del Method 12/03/23 17:55 36.5 C 62 18 162/83 H 98 Room Air Laboratory Results Abnormal lab results 12/03/23 12/03/23 Range/Units 18:27 23:03 RBC 4.06 L (4.20-5.40) M/uL Hgb 10.0 L (12.0-16.0) g/dl Hct 33.4 L (37.0-47.0) % MCH 24.6 L (25.0-34.0) pg MCHC 29.9 L (32.0-36.0) g/dL RDW Std Deviation 50.9 H (36.4-46.3) fL RDW Coeff of Arely 17.1 H (11.5-14.5) % Lymph # (Auto) 1.14 L (1.20-3.40) K/uL Creatinine 0.45 L (0.6-1.2) mg/dl BUN/Creatinine Ratio 33.3 H (10-20) Glucose 110 H (70-99(Fasting)) mg/dl POC Glucose 118 H (70-99) mg/dl Magnesium 1.2 L (1.7-2.4) mg/dl Diagnostic Findings None Medications Administered ER Medications Given: Zosyn 4.5 g IV Code Status & VTE Plan Code Status Full VTE Prophylaxis Plan VTE Prophylaxis will be ordered: Yes PG Care Time/CCT Total # of Minutes Spent Total Time Spent with Patient: Total time spent is greater than 50% in coordination of care (as documented) at patient's floor/unit and/or counseling patient: Coding Level of Care Code 94715 INT INP/OBS CARE 3MIN Diagnoses Cellulitis of neck L03.221 Site of cellulitis: neck Skin disease, bullous L13.9 Type 2 diabetes mellitus without complication, without long-term current use of insulin E11.9 Diabetes mellitus complication status: without complication Diabetes mellitus continuous churn buttermaker insulin use: without continuous churn buttermaker use Dilated cardiomyopathy I42.0 Cardiomyopathy type: dilated 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
[2023-12-03] MEDS: MAGNESIUM SULFATE / D5W 1 GM/100 ML BAG IV STA (21:08)
[2023-12-03] MEDS ORDERED: GLUCOSE 40% GEL 15 GM TUBE PO PRN (22:22)
[2023-12-03] MEDS ORDERED: CARBOHYDRATES FOR HYPOGLYCEMIA PO PRN (22:22)
[2023-12-03] MEDS ORDERED: GLUCAGON FOR INJ 1 MG VIAL SQ PRN (22:22)
[2023-12-03] MEDS ORDERED: DEXTROSE 50% 50 ML SYRINGE IV PRN (22:22)
[2023-12-03] MEDS ORDERED: GLUCOSE 10 TAB/TUBE PO PRN (22:22)
[2023-12-03] MEDS: INSULIN ASPART PER UNIT CHARGE SC SCH (23:26)
[2023-12-03] MEDS: PIPERACILLIN/TAZOBACTAM 4.5 GM/100 ML BAG IV SCH (23:45)
[2023-12-03] MEDS: MAGNESIUM SULFATE / D5W 1 GM/100 ML BAG IV SCH (23:45)
[2023-12-03] MEDS: carvediloL 12.5 MG TAB PO SCH (23:46)
[2023-12-03] MEDS: ATORVASTATIN 40 MG TAB PO SCH (23:46)
[2023-12-03] MEDS: VALSARTAN/SACUBITRIL 51/49 MG TAB PO SCH (23:46)
[2023-12-03] MEDS: metFORMIN HCL 500 MG TAB PO SCH (23:46)
--- OUTSIDE RECORDS SUMMARY | 2023-12-04 02:15 | External Medical Summary | Summary of Care ---
Author Name Unknown Organization [facility] Address [address] [place] [address] Phone [phone] Care Team Providers Care Supply Clerk Name Role Phone Renee Schmitt MD Primary Care Provider [phone] Reason for Referral * Evaluate & Treat - Unlimited Visits (Within 3 days (urgent)) - Authorized Specialty Diagnoses / Procedures Referred By Melissa rocha Referred To Contact Infectious Diseases / Infectious Disease Diagnoses Other bacterial infections of unspecified site Disorder of the skin and subcutaneous tissue, unspecified Rochelle Robles CRNP [address] [place] [address] Referral ID Status Reason Start Date Expiration Date Visits Requested Visits Authorized [id number] Authorized Specialty Services Required 11/29/2023 999 999 Question Answer Referral Priority Within 3 days (urgent) Where should this appointment be scheduled? [facility] What condition is the patient being seen for? All Other Conditions Comments See fax Encounter Details Date Type Department Care Team (Late st Contact Info) Description 11/29/2023 Orders Only [facility] [facility] [address] [place] [address] Ext *DO NOT REMOVE THIS DEPARTMENT* [place] [id number] Request, External Referral Other bacterial infections of unspecified site*; Disorder of the skin and subcutaneous tissue, unspecified Allergies No known active allergiesdocumented as of this encounter (statuses as of 11/29/2023) Medications Medication Sig Dispensed Refills Start Date End Date Status METFORMIN HCL 1000 MG PO TABS twice a day Active SIMVASTATIN 20 MG PO TABS 1 tab at bedtime Active ONE-A-DAY WOMENS FORMULA PO TABS 1 tab daily Active CRANBERRY 400 MG PO TABS 800 mg daily Active FISH OIL 1200 MG PO CAPS 1 tab daily Active ONETOUCH ULTRA BLUE STRP 05/04/2016 Active ONETOUCH ULTRASOFT LANCETS MISC 05/03/2016 Active Lisinopril 40 MG Tablet 05/03/2016 A ctive documented as of this encounter (statuses as of 11/29/2023) Active Problems Problem Noted Date Diagnosed Date Advance directive discussed with patient 018 Overview: Pt given advance directive book Anemia 10/10/2012 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, managed as type 2 Endometrial cancer Cancer Staging:Clinical stage from 10/23/2012:FIGO Stage IB(T1b, N0, M0) - Signed by Brian Lezama MD on 08/21/2019 HTN (hypertension) Hyperlipidemia Wheelchair bound documented as of this encounter (statuses as of 11/29/2023) Social History Tobacco Use Types Packs/Day Years Used Date Smoking Tobacco: Never Smokeless Tobacco: Never Alcohol Use Standard Drinks/Week Comments No 0 (1 standard drink = 0.6 oz pur e alcohol) PHQ-2 Answer Date Recorded PHQ Adult Total Score 0 04/16/2023 Hunger Vital Sign Answer Date Recorded Within the past 12 months, y ou worried that your food would run out before you got the money to buy more. Never true 04/16/19 24 Within the past 12 months, t he food you bought just didn't last and you didn't have money to get more. Never true 04/16/2023 Childcare Answer Date Recorded Do you feel overwhelmed with taking care of a child, family member or friend? No 04/16/2023 Does your family need help f inding childcare? (Household - for ages 0-17 years) Not on file 04/16/2023 Clothing Answer Date Recorded Have you been unable to get clothing when it was really needed? No 04/16/2023 Is your family able to get c lothes or diapers when needed? (Household - for ages 0-17 years) Not on file 04/16/2023 Personal Safety Answer Date Recorded Do you feel unsafe or have concerns for your saf ety? No 04/16/2023 Do you have concerns for you r family's safety? (Household - for ages 0-17 years) Not on file 04/16/2023 Utilities Answer Date Recorded Do you have trouble paying y our heating, water, or electric bill? No 04/16/2023 Is your family able to pay t he heat, water, or electric bill? (Household - for ages 0-17 years) Not on file 04/16/2023 Does your family have access to good internet? (Household - for ages 0-17 years) Not on file 04/16/2023 Employment Status Answer Date Recorded Are you unemployed or without regular income? No 04/16/2023 Does the household have a karmanos cancer centerr source of income? (Household - for ages 0-17 years) Not on file 04/16/2023 Social Connections Answer Date Recorded How often do you feel lonely or isolated from th ose around you? Never 04/16/2023 Financial Resource Strain Answer Date R ecorded Do you have any trouble payi ng for your medications, or do you think you might in the future? No 04/16/2023 Does your family have troubl e paying for medicine? (Household - for ages 0-17 years) Not on file 04/16/2023 Transportation Needs Answer Date Record ed READ ONLY Do you have troubl e getting a ride to medical visits or work? Never True 04/16/2023 Does your family have a hard time getting a ride to doctors visits? (Household - for ages 0-17 years) Not on file 04/16/2023 Has lack of transportation k ept you from medical appointments, meetings, work, or from getting things needed for daily living? Check all that apply. (Adult - for ages 18 years and over) Not on file 04/16/2023 Do you (or your family) have trouble finding or paying for a ride (transportation)? (Household - for ages 0-17 years) Not on file 04/16/2023 Housing Stability Answer Date Recorded Do you currently live in a s helter or have no steady place to sleep at night? No 04/16/2023 READ ONLY Do you think you a re at risk of becoming homeless? No 04/16/2023 Does your family worry about paying for your home or becoming homeless? (Household - for ages 0-17 years) Not on file 0 04/16/2023 Are you homeless or worried that you might be in the future? (Adult - for ages 18 years and over) Not on file Are you (or your family) caryn eless or worried that you might be in the future? (Household - for ages 0-17 years) Not on file Food Insecurity Answer Date Recorded Do you need food for this week? No 04/16/2023 Are you able to get enough f ood for your family? (Household - for ages 0-17 years) Not on file 04/16/2023 Does your family need food t his week? (Household - for ages 0-17 years) Not on file 04/16/2023 Do you always have enough fo od for your family? (Household - for ages 0-17 years) Not on file 04/16/2023 Sex and Gender Information Value Date Recorded Sex Assigned at Not on file Gender Identity Not on file Sexual Orientation Not on file documented as of this encounter Plan of Treatment Upcoming Encounters Date Type Department Care Team (Late st Contact Info) Description 07/17/2024 2:00 PM EDT Home Visit Care at Home [address] [place] [address] Kasie Matute PA-C [address] [place] [address] Scheduled Referrals Name Type Priority Associated Diagnoses Orde r Schedule INFECTIOUS DISEASE REFERRAL OP Referral Within 3 days (urgent) Other bacterial infections of unspecified site Disorder of the skin and subcutaneous tissue, unspecified Ordered: 11/29/2023 Health Maintenance Due Date Last Done Comments DXA Scan 1951 Lipid Panel 1951 HbA1c 1957 Albumin/Creatinine Ratio 1969 Diabetic Foot Exam 1969 Hepatitis C Screening 1969 DTap/Tdap Vaccines (1 - Tdap) 1970 Mammogram 1991 Cologuard 1996 Colonoscopy 1996 Colorectal Cancer Screening 1996 Fecal Occult Blood Test 1996 Sigmoidoscopy 1996 Zoster Vaccines (2 of 3) 11/30/2011 10/05/2011 GFR 10/26/2013 10/26/2012, 04/2012, 10/24/2012, Additional history exists COVID-19 Vaccine (2022- season) 2023 05/21/2023, 05/23/2022, 06/17/2021, Additional history exists Influenza Vaccine (FLU shot) (#1) 2023 12/12/2019, 02/17/2019 Depression Screening 04/16/2024 04/16/2023 Diabetic Eye Exam 10/17/2024 10/18/2023, , 10/18/2023, Additional history exists Pneumococcal Vaccine: 65+ Years Completed 02/17/2019, 02/06/2017, 01/30/2009 HPV (Gardasil) Vaccine Aged Out No lo nger eligible based on patient's age to complete this topic Hepatitis B Vaccine Aged Out No longe r eligible based on patient's age to complete this topic MENINGOCOCCAL (MENACTRA/MENVEO) Aged Out No longer eligible based on patient's age to complete this topic documented as of this encounter Medical Devices Not on filedocumented as of this encounter Visit Diagnoses Diagnosis Other bacterial infections of unspecified site- Primary Disorder of the skin and subcutaneous tissue, unspecified documented in this encounter Advance Directives * Full Code (Latest Code Status on File) Date Activated Date Inactivated Comments 10/23/2012 10:03 AM 10/28/2012 2:16 PM This order r eflects the patients wishes and were consensually agreed upon. Care Teams Supply Clerk Relationship Specialty Start Date End Date Renee Schmitt MD [address] [facility] [place] [id number] PCP - General Family Medicine 11/07/17 documented as of this encounter
[2023-12-04] MEDS: diphenhydrAMINE Capsule 25 MG CAP PO ONE (03:42)
[2023-12-04 06:35] LABS: Basophils # (auto) 0.04 K/uL (0.00-0.20); Basophils % (auto) 0.7 %; Eosinophils # (auto) 0.18 K/uL (0.00-0.50); Hematocrit (blood only) 28.3 % (37.0-47.0); Hemoglobin 8.7 g/dl (12.0-16.0); Immature Granulocytes # (auto) 0.02 K/uL (0.01-0.20); Immature Granulocytes % (auto) 0.3 %; Lymphocytes # (auto) 1.37 K/uL (1.20-3.40); Lymphocytes % (auto) 22.5 %; Mean Corpuscular Hemoglobin 24.9 pg (25.0-34.0); Mean Corpuscular Hgb Conc 30.7 g/dL (32.0-36.0); Mean Corpuscular Volume 80.9 fL (80.0-100.0); Mean Platelet Volume 11.2 fL (9.4-12.4); Monocytes # (auto) 0.49 K/uL (0.11-0.59); Neutrophils % (auto) 65.5 %; Platelet Count 182 K/uL (130-400); RDW Standard Deviation 49.9 fL (36.4-46.3)
[2023-12-04 06:50] LABS: BUN Creatinine Ratio 34.9 (10-20); Creatinine Clr Calc Pharmacy 134.6 ml/min; Est GFR (African American) 117.8 ml/min; Est GFR (Non-African American) 101.6 ml/min; Magnesium 1.8 mg/dl (1.7-2.4); Potassium 4.3 mmol/L (3.5-5.1)
[2023-12-04] MEDS: ASPIRIN 81 MG ECTAB PO SCH (09:08)
[2023-12-04 09:47] LABS: Estimated Average Glucose 128 mg/dl; Hemoglobin A1C 6.1 % (4.5-5.6)
[2023-12-04] MEDS: ENOXAPARIN INJ 40 MG/0.4 ML SYR SQ SCH (12:25)
--- NOTE | 2023-12-04 21:56 | Hospitalist Progress Note ---
Date of Service December 04, 2023 Assessment & Plan (1) Cellulitis: Plan: Patient sent in by PCP for concern of cellulitis - Unclear if she has acute infection on admission, but given recent positive surface culture showing pseudom fluoresc/putida she was admitted - Continue IV Zosyn and reassess for improvement. 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 Will send images via [place] to dermatology for possible diagnosis/treatment plan/quick follow-up. - Avoid mupirocin - Avoid friction on easily blistering areas (3) Type 2 diabetes mellitus: Plan: HgbA1c 6.1% this admission - Metformin 1000mg PO BID continue - Linagliptin not on formulary therefore held - Add Novolog for correction only: - Goal BSG Range: Low 110 mg/dL, High 140 mg/dL - Correction Factor: 45mg/dL/unit - No carb ratio - BSGs ACHS if eating, q6h if NPO (4) Cardiomyopathy: Plan: Continue carvedilol and Entresto, currently appears euvolemic (5) Limb-girdle muscular dystrophy: Plan Updated and daughter at bedside Consulted wound care nurse VTE Prophylaxis - Lovenox 40mg SQ daily CODE STATUS: Full code Admission and Anticipated Discharge Date Admission Date: December 03, 2023 Supervising Physician Co-Signing Physician Notes Attending Attestation - Chart reviewed, care plan d/w [place] Verdugo. I agree w/ the parker components of her documentation. Suspect bullous disease - may need punch bx for diagnostic purposes. Ms Verdugo attempting to secure dermatological consultation while admitted to help with diagnosis and Rx. Consider empiric steroids. Alex Hunter MD Subjective Patient seen and evaluated at bedside with and daughter present. Patient reports that since June 2023, she has gone through cycles of blisters forming, her skin "falling off," scabbing over, resolving, then eventually returning. She reports that she has never been treated with steroids previous ly, she notes that she is usually given a course of antibiotics which seems to resolve her outbreaks. She does not believe that she has new blister formation while on antibiotics previously. She notes that prior to June of this year, she has never had any dermatological problems. She notes that the wound on her left-sided neck is somewhat tender, her outbreak on her right-sided chest wall is nearly resolved, and she has new blister formation on her left dorsal hand. RN reports that the patient has pressure wounds on her left-buttocks; wound care nurse was consulted. No additional complaints or concerns at this time. Physical Exam Physical Exam: General: No acute distress, nondiaphoretic, well-developed, well-nourished. Skin: Wound to left-sided neck, no erythema or warmth noted. Wound to right chest wall nearly resolved. Small blisters to left dorsal hand. Cardiac: Regular rate and rhythm without murmurs gallops or rubs. Pulm: Clear to auscultation bilaterally without wheezes, rales or rhonchi. No respiratory distress. 96% on room air. Abdominal: Soft, nontender, nondistended. Bowel sounds present. Neuro: A&O x3. No focal neurological deficits. Results & Data Results & Data Vital Signs (Past 12 Hours) Vital Signs Temp Pulse Resp BP Pulse Ox O2 Del Method 12/04/23 20:01 36.7 C 70 18 126/85 96 Room Air 12/04/23 14:48 36.8 C 80 16 111/71 98 Room Air Laboratory Results Reviewed CBC Reviewed chemistries PG Care Time/CCT Total # of Minutes Spent Total Time Spent with Patient: Total time spent is greater than 50% in coordination of care (as documented) at patient's floor/unit and/or counseling patient: Coding Level of Care Code 29914 SUB INP/OBS CARE 3/50MIN Diagnoses Cellulitis of neck L03.221 Site of cellulitis: neck Skin disease, bullous L13.9 Type 2 diabetes mellitus without complication, without long-term current use of insulin E11.9 Diabetes mellitus complication status: without complication Diabetes mellitus nursing home insulin use: without termite control technician use Dilated cardiomyopathy I42.0 Cardiomyopathy type: dilated 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
[2023-12-05 06:52] LABS: Hematocrit (blood only) 30.2 % (37.0-47.0); Hemoglobin 9.2 g/dl (12.0-16.0); Mean Corpuscular Hemoglobin 24.7 pg (25.0-34.0); Mean Corpuscular Hgb Conc 30.5 g/dL (32.0-36.0); Mean Platelet Volume 10.8 fL (9.4-12.4); Platelet Count 191 K/uL (130-400); RDW Coefficient of Variation 17.2 % (11.5-14.5); RDW Standard Deviation 50.8 fL (36.4-46.3); Red Blood Count 3.73 M/uL (4.20-5.40); White Blood Count 6.58 K/ul (4.8-10.8)
[2023-12-05 06:56] LABS: Calcium 9.2 mg/dl (8.6-10.3); Potassium 4.2 mmol/L (3.5-5.1)
[2023-12-05 07:02] LABS: BUN Creatinine Ratio 30.2 (10-20); Creatinine Clr Calc Pharmacy 91.8 ml/min; Est GFR (African American) 103.9 ml/min; Est GFR (Non-African American) 89.6 ml/min
--- NOTE | 2023-12-05 17:32 | Hospitalist Progress Note ---
Date of Service December 05, 2023 Assessment & Plan (1) Cellulitis: Plan: Patient sent in by PCP for concern of cellulitis - Unclear if she has acute infection on admission, but given recent positive surface culture showing pseudom fluoresc/putida she was admitted - Continue IV Zosyn and reassess for improvement. Consider short course if no signficant change in erythema Wound care nurse consulted for partial-thickness wounds on buttocks - To open areas on right and left buttock cleaned with saline. Cover with Optifoam. Change every 3 days and as needed for drainage. (2) Skin disease, bullous: Plan: Patient appears to have an underlying bilateral bullous disease which appears to be her main problem - Epidermolysis Bullosa Simplex is associated with limb-girdle muscular dystrophy, although this tends to start in infancy - Dermatology consulted, however, they are not inhouse nor on [place]. Attempted to call Dr. Flores's office, but left a voicemail and hopefully will connect tomorrow for possible diagnosis/treatment plan/quick follow-up. - Avoid mupirocin - Avoid friction on easily blistering areas (3) Type 2 diabetes mellitus: Plan: HgbA1c 6.1% this admission - Metformin 1000mg PO BID continue - Linagliptin not on formulary therefore held - Add Novolog for correction only: - Goal BSG Range: Low 110 mg/dL, High 140 mg/dL - Correction Factor: 45mg/dL/unit - No carb ratio - BSGs ACHS if eating, q6h if NPO (4) Cardiomyopathy: Plan: Continue carvedilol and Entresto, currently appears euvolemic (5) Limb-girdle muscular dystrophy: Plan Attempted to connect with Dr. Flores from dermatology, left voicemail with callback number [id number] Prophylaxis - Lovenox 40mg SQ daily CODE STATUS: Full code Admission and Anticipated Discharge Date Admission Date: December 03, 2023 Supervising Physician Co-Signing Physician Notes Attending Attestation - Chart reviewed, care plan d/w PALMER Verdugo. I agree w/ the parker components of her documentation. Suspected bullous disease - still attempting to secure dermatological consultation while admitted to help with diagnosis and Rx. Inpatient derm coverage is lacking at this time; may need to reach out to [facility] to see if they can provide assistance. Consider gen surg or plastic surgery consultation for punch bx. Cont IV zosyn for now to cover pseudomonas that grew on outpatient wound cx dated 11/20/23. Alex Hunter MD Subjective Patient seen and evaluated at bedside. She reports that the stinging/burning sensation of her rashes has improved. She also notes that her and daughter believe the rash is improving. We discussed that I will attempt to connect with Dr. Flores from dermatology today for guidance on a treatment plan moving forward. I do believe that this is more of a bullous disease than acute infection, however given subjective improvement and until discussion with dermatology we will continue with antibiotics at this time. No additional complaints or concerns at this time. Physical Exam Physical Exam: General: No acute distress, nondiaphoretic, well-developed, well-nourished. Skin: Wound to left-sided neck, no erythema or warmth noted. Wound to right chest wall nearly resolved. Small blisters to left dorsal hand. Cardiac: Regular rate and rhythm without murmurs gallops or rubs. Pulm: Clear to auscultation bilaterally without wheezes, rales or rhonchi. No respiratory distress. 96% on room air. Abdominal: Soft, nontender, nondistended. Bowel sounds present. Neuro: A&O x3. No focal neurological deficits. Results & Data Results & Data Vital Signs (Past 12 Hours) Vital Signs Temp Pulse Resp BP Pulse Ox O2 Del Method 12/05/23 15:04 36.6 C 68 16 99/59 L 97 Room Air 12/05/23 07:12 36.5 C 58 L 16 118/75 95 Room Air Laboratory Results Reviewed CBC Reviewed BMP PG Care Time/CCT Total # of Minutes Spent Total Time Spent with Patient: Total time spent is greater than 50% in coordination of care (as documented) at patient's floor/unit and/or counseling patient: Coding Level of Care Code 80007 SUB INP/OBS CARE 235MIN Diagnoses Cellulitis of neck L03.221 Site of cellulitis: neck Skin disease, bullous L13.9 Type 2 diabetes mellitus without complication, without long-term current use of insulin E11.9 Diabetes mellitus complication status: without complication Diabetes mellitus assisted insulin use: without assisted use Dilated cardiomyopathy I42.0 Cardiomyopathy type: dilated 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
[2023-12-05] MEDS: diphenhydrAMINE Capsule 25 MG CAP PO ONE (21:18)
[2023-12-06 06:47] LABS: Hematocrit (blood only) 29.2 % (37.0-47.0); Hemoglobin 8.9 g/dl (12.0-16.0); Mean Corpuscular Hemoglobin 24.4 pg (25.0-34.0); Mean Corpuscular Hgb Conc 30.5 g/dL (32.0-36.0); Mean Platelet Volume 11.2 fL (9.4-12.4); Platelet Count 181 K/uL (130-400); RDW Coefficient of Variation 16.8 % (11.5-14.5); RDW Standard Deviation 48.9 fL (36.4-46.3); Red Blood Count 3.65 M/uL (4.20-5.40); White Blood Count 6.67 K/ul (4.8-10.8)
[2023-12-06] MEDS ORDERED: POLYETHYLENE (MIRALAX) 17 GM PACK PO PRN (13:56)
[2023-12-06] MEDS: POLYETHYLENE (MIRALAX) 17 GM PACK PO ONE (14:37)
[2023-12-06] MEDS: SIMETHICONE 80 MG CHEW PO ONE (14:51)
--- NOTE | 2023-12-06 18:04 | Hospitalist Progress Note ---
Date of Service December 06, 2023 Assessment & Plan (1) Cellulitis: Plan: Patient sent in by PCP for concern of cellulitis - Unclear if she has acute infection on admission, but given recent positive surface culture showing pseudom fluoresc/putida she was admitted - Continue IV Zosyn and reassess for improvement. Consider short course if no signficant change in erythema Wound care nurse consulted for partial-thickness wounds on buttocks - To open areas on right and left buttock cleaned with saline. Cover with Optifoam. Change every 3 days and as needed for drainage. (2) Skin disease, bullous: Plan: Patient appears to have an underlying bilateral bullous disease which appears to be her main problem - Epidermolysis Bullosa Simplex is associated with limb-girdle muscular dystrophy, although this tends to start in infancy - Dermatology consulted, however, they are not inhouse nor on [place]. - Avoid mupirocin - Avoid friction on easily blistering areas - Multiple attempts have been made with various healthcare systems to discuss her case and obtain a timely outpatient follow-up appointment, however this continues to remain quite difficult. - General surgery has agreed to perform a punch biopsy in the outpatient setting. Appointment for outpatient punch biopsy is scheduled for 12/13/23 at 11:[address] Dodd. - [facility] dermatology at [facility] has agreed to schedule a follow-up appointment once they receive a referral. Asked case management to complete this and provided them with fax number. (3) Type 2 diabetes mellitus: Plan: HgbA1c 6.1% this admission - Metformin 1000mg PO BID continue - Linagliptin not on formulary therefore held - Add Novolog for correction only: - Goal BSG Range: Low 110 mg/dL, High 140 mg/dL - Correction Factor: 45mg/dL/unit - No carb ratio - BSGs ACHS if eating, q6h if NPO (4) Cardiomyopathy: Plan: Continue carvedilol and Entresto, currently appears euvolemic (5) Limb-girdle muscular dystrophy: Plan Attempted to connect with [facility] dermatology Discussed case with [facility] dermatology at [facility] Discussed case with plastic surgery Discussed case with general surgery Ordered MiraLAX and Gas-X Updated at bedside VTE Prophylaxis - Lovenox 40mg SQ daily CODE STATUS: Full code Admission and Anticipated Discharge Date Admission Date: December 03, 2023 Supervising Physician Co-Signing Physician Notes Attending Attestation - Chart reviewed, care plan d/w PALMER Verdugo. I agree w/ the parker components of her documentation. Suspected bullous disease - still attempting to secure dermatological consultation while admitted to help with diagnosis and Rx. Cont IV zosyn for now to cover pseudomonas that grew on outpatient wound cx dated 11/20/23. Alex Hunter MD Subjective Patient seen and evaluated at bedside with present. She reports that she had some itchiness last night, was given Benadryl, but did not sleep well. Her neck rash does look improved today compared to yesterday. She notes some constipation and bloating secondary to gas. We discussed giving MiraLAX and Gas-X, she was agreeable. We further discussed that I suspect this is a form of bullous disease, however trying to discuss her case with dermatology or get a timely outpatient dermatology follow-up has been very challenging. No additional complaints or concerns at this time. Physical Exam Physical Exam: General: No acute distress, nondiaphoretic, well-developed, well-nourished. Skin: Wound to left-sided neck improving, no erythema or warmth noted. Wound to right chest wall nearly resolved. Small blister to left dorsal hand. Cardiac: Regular rate and rhythm without murmurs gallops or rubs. Pulm: Clear to auscultation bilaterally without wheezes, rales or rhonchi. No respiratory distress. 93% on room air. Abdominal: Soft, nontender, nondistended. Bowel sounds present. Neuro: A&O x3. No focal neurological deficits. Results & Data Results & Data Vital Signs (Past 12 Hours) Vital Signs Temp Pulse Resp BP Pulse Ox O2 Del Method 12/06/23 15:27 36.5 C 60 18 131/69 93 Room Air 12/06/23 07:55 36.9 C 66 16 90/62 L 98 Room Air Laboratory Results Reviewed CBC PG Care Time/CCT Total # of Minutes Spent Total Time Spent with Patient: Total time spent is greater than 50% in coordination of care (as documented) at patient's floor/unit and/or counseling patient: Coding Level of Care Code 64271 SUB INP/OBS CARE 3/50MIN Diagnoses Cellulitis of neck L03.221 Site of cellulitis: neck Skin disease, bullous L13.9 Type 2 diabetes mellitus without complication, without long-term current use of insulin E11.9 Diabetes mellitus complication status: without complication Diabetes mellitus lead cytogenetic technologist insulin use: without lead cytogenetic technologist use Dilated cardiomyopathy I42.0 Cardiomyopathy type: dilated 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
[2023-12-06] MEDS: ACETAMINOPHEN 325 MG TAB PO PRN (23:01)
[2023-12-07 07:50] VITALS: BP 103/67; PULSE 76; RESP 16; TEMP 98.1; O2SAT 98
--- NOTE | 2023-12-07 16:19 | Discharge Summary ---
Discharge Summary Date of Service December 07, 2023 Principal Dx & Hospital Course #1 = Principal Diagnosis (1) Cellulitis: Patient sent in by PCP for concern of cellulitis - Unclear if she has acute infection on admission, but given recent positive surface culture showing pseudom fluoresc/putida she was admitted -Treated with IV Zosyn while hospitalized. Discharged on Levaquin once daily x 1 week. Wound care nurse consulted for partial-thickness wounds on buttocks - To open areas on right and left buttock cleaned with saline. Cover with Optifoam. Change every 3 days and as needed for drainage. (2) Skin disease, bullous: Patient appears to have an underlying bilateral bullous disease which appears to be her main problem - Epidermolysis Bullosa Simplex is associated with limb-girdle muscular dystrophy, although this tends to start in infancy - Dermatology consulted, however, they are not inhouse nor on [place]. - Avoid mupirocin - Avoid friction on easily blistering areas - Multiple attempts have been made with various healthcare systems to discuss her case and obtain a timely outpatient follow-up appointment. - General surgery has agreed to perform a punch biopsy in the outpatient setting. Appointment for outpatient punch biopsy is scheduled for 12/13/23 at 11:[address] Dodd. - Referral faxed to [facility] dermatology at [facility], their office will call the patient with her appointment date and time. - Follow-up with PCP in 1-2 weeks after discharge. PCP agreed to monitor and manage punch biopsy results. (3) Type 2 diabetes mellitus: HgbA1c 6.1% this admission - Metformin 1000mg PO BID continue - Linagliptin not on formulary therefore held while hospitalized, resumed on discharge - Goal BSG Range: Low 110 mg/dL, High 140 mg/dL (4) Cardiomyopathy: Continue carvedilol and Entresto, currently appears euvolemic (5) Limb-girdle muscular dystrophy: Plan VTE Prophylaxis - Lovenox 40mg SQ daily CODE STATUS: Full code Notes For Next Care Provider Patient was admitted for concern of cellulitis infection. It appears that she has an underlying bullous disease which seems to be her main problem. However with that being said, she did have improvements with IV antibiotics she received while hospitalized, so she was discharged on Levaquin x 1 week. Punch biopsy scheduled with general surgery on 12/12. PCP agreed to monitor and manage those results. Referral was faxed to [facility] dermatology at [facility], their office will call patient with appointment date and time. Medication Changes From Visit Jose Angel x 1 week Admission HPI Per Admitting Provider Judie Calderon is a 73 year old female who presents to the ER from her PCP office due to a skin lesion. She reports on and off worsening of her skin in multiple areas including right chest, left neck right cheek, left hand since June. Prior to this she has never had skin problems like this. The lesions start off as bulla/blisters and open up. Her main current problem area is her left neck which she reports has been this bad before. She was sent in by PCP due to surface wound swab growing pseudom fluoresc/putida although she does not think there was any pus or open lesion that was swabbed on November 19. She is current on Augmentin for this and has been on many different antibiotics however she reports being unclear whether the erythema of the lesion improves with these antibiotics as she is normally on them for a UTI rather than this rash/lesion. She has noticed mupirocin cream makes it worse and has discontinued use of this. She feels this area has looked this bad previously. No fever or chills. Discharge Exam General: No acute distress, nondiaphoretic, well-developed, well-nourished. Skin: Wound to left-sided neck improving, no erythema or warmth noted. Wound to right chest wall nearly resolved. Small blister to left dorsal hand. Cardiac: Regular rate and rhythm without murmurs gallops or rubs. Pulm: Clear to auscultation bilaterally without wheezes, rales or rhonchi. No respiratory distress. 98% on room air. Abdominal: Soft, nontender, nondistended. Bowel sounds present. Neuro: A&O x3. No focal neurological deficits. Discharge Plan Discharge Items Patient Disposition: Home - Home Health Services Reason For Visit: CELLULITIS,HYPOMAGNESEMIA Discharge Diagnosis: Bullous disease Activity: Resume your previous activity Non-emergency contact: Primary Care Provider and Specialist Call non-emergency contact if: you have any medication questions, your symptoms worsen, your wound has increased redness and your wound has increased drainage Follow-up/Referrals: Rochelle Robles CRNP [Primary Care Provider] - 12/18/23 10:30 am (Follow-up in 1-2 weeks) Maikol Dodd, [Physician] - 12/13/23 11:00 am (you have an office appointment with the surgeon for consideration of a punch biopsy next 12/12 at 11:00) Gautam Cervantes MD [Outside Practitioners] - (Faxed referral for Dermatology appointment- Clinic will call the patient.) Diet: Carb Consistent or DM2 Addtl Attending Provider Instructions: Mrs. Calderon, Real were admitted to the hospital due to concern for a cellulitis (skin/soft tissue) infection. It appears that you have an underlying bullous disease, which appears to be the main problem. However with that being said, you did have improvements with the IV antibiotics you received while in the hospital, so you will be discharged with oral antibiotics to complete your course at home. Upon discharge from the hospital: * Take Levaquin (oral antibiotic) 500 mg daily x 1 week. * Follow-up with general surgery outpatient for a punch biopsy. Your appointment is scheduled for 12/12 at 11:[address] Dodd. * Referral has been sent to dermatology at [facility]. Their office will call you sometime next week with an appointment date and time. * Follow-up with your PCP in 1-2 weeks. * Continue your other home medications as prescribed. Please return to the hospital if you experience any of the following: Fever of 100.5 F or higher, worsened pain/redness around your rashes, discharge or pus draining from the area, persistent nausea with vomiting, confusion, lightheadedness, dizziness, passing out, shortness of breath, or chest pain. It was a pleasure taking care of you while you were in the hospital, Nieves Verdugo PA-C Pending Studies at Discharge: No Stand-Alone Forms: [facility] [employer], Smoking Cessation Medications and DC Order Prescriptions: New levofloxacin 500 mg tablet 500 mg PO DAILY 7 Days Qty: 7 0RF Continued (DME) APPM circulating mattress See Rx Instructions .Route .MEDSUPPLY Qty: 1 0RF Rx Instructions: As directed (DME) lancets Misc See Rx Instructions .Route Qty: 100 5RF Rx Instructions: TEST BSG DAILY; DX CODE- E11.9 (DME) OneTouch Ultra Test Strip See Rx Instructions .Route Qty: 100 5RF Rx Instructions: TEST BSG DAILY; DX CODE- E11.9 Entresto 49-51 mg tablet 1 tab PO BID Qty: 180 3RF metformin 1,000 mg tablet 1,000 mg PO BID Qty: 180 3RF Rx Instructions: TAKE 1 TABLET BY MOUTH 2 TIMES DAILY. atorvastatin 40 mg tablet 40 mg PO HS Qty: 90 3RF (DME) underpads Pad See Rx Instructions .ROUTE .MEDSUPPLY Qty: 90 5RF Rx Instructions: Disposable Underpads, Pt. uses 3 per day, Dx: G72.9; R32 (DME) disposable gloves Package See Rx Instructions .Route Qty: 50 5RF Rx Instructions: As directed-SIZE LARGE nystatin 100,000 unit/gram powder 1 applic topical BID PRN (Reason: fungal rash) Qty: 60 2RF Tradjenta 5 mg tablet 5 mg PO DAILY Qty: 30 11RF Women's Daily Formula 27-0.4 mg tablet 1 tab PO DAILY ascorbic acid (vitamin C) 1 tab PO DAILY zinc acetate 1 cap PO DAILY carvedilol 12.5 mg tablet 12.5 mg PO BID Qty: 180 3RF Rx Instructions: TAKE 1 TABLET BY MOUTH TWICE DAILY. MUST ADMINISTER WITH A MEAL/FOOD. nystatin 100,000 unit/gram cream 1 applic topical BID Qty: 30 0RF Rx Instructions: Apply topically to groin folds cranberry 400 mg capsule 400 mg PO BID biotin 2,500 mcg capsule 2,500 mcg PO DAILY (DME) power wheel chair repair See Rx Instructions .Route .MEDSUPPLY Qty: 1 0RF Rx Instructions: As directed ondansetron 4 mg tablet,disintegrating 4 mg PO Q8H PRN (Reason: nausea and vomiting) Qty: 20 1RF (DME) repalcement wheels for powered wheelchair See Rx Instructions .Route .MEDSUPPLY Qty: 1 0RF Rx Instructions: As directed (DME) Power Wheelchair Device See Rx Instructions .ROUTE .MEDSUPPLY Qty: 1 0RF Rx Instructions: PLEASE MAKE NEEDED REPAIRS TO WHEELCHAIR aspirin 81 mg Tablet,Delayed Release (Dr/Ec) 81 mg PO DAILY Ocuvite Eye Health 50 mg-15 unit- 4.5 mg-2.5 mg Tablet,Chewable 2 tab PO DAILY omega-3 fatty acids 1,000 mg Capsule 1,000 mg PO DAILY (DME) Miscellaneous Rx Instructions: Cushion for Power wheelchair DX:G71.00 (DME) Miscellaneous Rx Instructions: Power wheelchair repairs DX:G71.00 Discontinued amoxicillin-pot clavulanate [Augmentin] 500-125 mg tablet 1 tab PO TID Qty: 42 0RF Rx Instructions: for 14 days Discharge Orders: Discharge Order (Routine); Ordered 12/07/23 Ordered By: Nieves Vivas/Other Patient Handouts: Managing Type 2 Diabetes Admission Data Admit Date/Time: 12/03/23 20:01 Attending Provider: Alex Hunter Admit Provider: Alex Kat Primary Care Provider: Rochelle Robles Other Providers: Alex Kat; Carlos Eduardo Flores; [facility] Other Interventions: Discharge Summary Assessment (RN) Last Done: 12/07/23 15:27 Hospital Stay Data Consultations 12/03/23 19:52 ED Decision to Admit Stat 12/04/23 06:27 Consult Dermatology Routine Pending Results Patient Have Any Pending Studies at Discharge: No Discharge Instructions Given to Patient (Per Discharging Provider) Mrs. Calderon, Real were admitted to the hospital due to concern for a cellulitis (skin/soft tissue) infection. It appears that you have an underlying bullous disease, which appears to be the main problem. However with that being said, you did have improvements with the IV antibiotics you received while in the hospital, so you will be discharged with oral antibiotics to complete your course at home. Upon discharge from the hospital: * Take Levaquin (oral antibiotic) 500 mg daily x 1 week. * Follow-up with general surgery outpatient for a punch biopsy. Your appointment is scheduled for 12/12 at 11:[address] Dodd. * Referral has been sent to dermatology at [facility]. Their office will call you sometime next week with an appointment date and time. * Follow-up with your PCP in 1-2 weeks. * Continue your other home medications as prescribed. Please return to the hospital if you experience any of the following: Fever of 100.5 F or higher, worsened pain/redness around your rashes, discharge or pus draining from the area, persistent nausea with vomiting, confusion, lightheadedness, dizziness, passing out, shortness of breath, or chest pain. It was a pleasure taking care of you while you were in the hospital, Nieves Verdugo PA-C Total Time Total Time Spent Total Time Spent (In Minutes): Greater than 30 minutes spent completing this discharge process including direct patient care, medication reconciliation, documentation, review of labs and images, and coordination of care. 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
== END 2023-12-07 17:03 | disposition home health service (06) | DRG 607 ==
LOC: ED 17:48 → 3N 20:01 → SUATTDRO 20:01 → 3N 21:20

== ENCOUNTER 2024-03-26 15:08 | Inpatient (IN) ==
--- OUTSIDE RECORDS SUMMARY | 2024-03-26 15:15 | External Medical Summary | Summary of Care ---
Author Name Unknown Organization [facility] Address [address] [place] [address] Phone [phone] Care Team Providers Care Tube And Rod Straightener Name Role Phone Rochelle Robles Primary Care Provide r Reason for Visit * Reason Comments Rash Generalized. Mostly on check, nest, face, head, and ears. Encounter Details Date Type Department Care Team (Late st Contact Info) Description 03/21/2024 1:00 PM EST Office Visit Dermatology [facility] [address], [place] [id number] Daniel Parry MD [address], [place] [id number] Bullous pemphigoid* Allergies No known active allergiesdocumented as of this encounter (statuses as of 03/22/2024) Medications METFORMIN HCL 1000 MG PO TABS twice a day Ac tive SIMVASTATIN 20 MG PO TABS 1 tab at bedtime Active ONE-A-DAY WOMENS FORMULA PO TABS 1 tab daily Ac tive CRANBERRY 400 MG PO TABS 800 mg daily Active FISH OIL 1200 MG PO CAPS 1 tab daily Active ONETOUCH ULTRA BLUE STRP 7 Active ONETOUCH ULTRASOFT LANCETS MISC 7 Active Lisinopril 40 MG Tablet 7 Active Atorvastatin Calcium 40 MG Oral Tablet (Lipitor) 1 Tablet. 3 Active Biotin 2.5 MG Oral Capsule daily. 3 Active Vitamin C 125 MG OR TABS Take 0.5 Tablets by mouth in the morning. Active Zinc 30 MG Oral Tablet Take by mouth. Active Entresto 49-51 MG Oral Tablet (sacubitril-vals carolina 49-51 mg per tab) Take 1 Tablet by mouth in the morning and 1 Tablet before bedtime. Active Carvedilol 12.5 MG Oral Tablet (Coreg) Take 0.5 Tablets by mouth in the morning and 0.5 Tablets before bedtime. Active linaGLIPtin 5 MG Oral Tablet (Tradjenta) Take 1 Tablet by mouth in the morning. Active Aspirin 81 MG Oral Capsule Take by mouth. Active Calcium Carb-Cholecalcif anisha 600-20 MG-MCG Oral Tablet Take by mouth. Active Magnesium 250 MG Oral Capsule Take by mouth. Active Niacinamide 500 MG Oral Tablet Take 500 mg by mouth 3 times a day. 270 Tablet 1 4 Active Ciprofloxacin HCl 500 MG Oral Tablet (Cipro) 1 Tablet. 4 Active mupirocin 1% 1 % OT SUSP TWICE A DAY 4 Active Clobetasol Propionate 0.05 % External Ointment (Temovate) Apply to affected areas of skin 2x/day for up to 2 weeks. Do not use on skin folds, face, or genitals. 240 g 3 4 Active Doxycycline Monohydrate 100 MG Oral Capsule Take 1 Capsule by mouth in the morning and 1 Capsule before bedtime. Take with meals (avoid taking with dairy products or iron supplements) and a large glass of water. Do not lie flat for 30 min after taking the medication.. 180 Capsule 1 4 Active Nystatin 923322 UNIT/GM External Cream 2 times a day. 4 03/21/20 24 Discontinu ed(Medicat ion List Clean Up) Clobetasol Propionate 0.05 % External Ointment (Temovate) Apply to affected areas of skin 2x/day for up to 2 weeks. Do not use on skin folds, face, or genitals. 240 g 3 4 03/21/20 24 Discontinu ed(Refill) Doxycycline Monohydrate 100 MG Oral Capsule Take 1 Capsule by mouth in the morning and 1 Capsule before bedtime. Take with meals (avoid taking with dairy products or iron supplements) and a large glass of water. Do not lie flat for 30 min after taking the medication.. 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 (Household - for ages [...] ages 0-17 years) Not on file 04/16/2023 Comments No Sex and Gender Information Value Date Recorded Sex Assigned at Not on file Legal Sex Female 7:20 AM EST Gender Identity Not on file Sexual Orientation Not on file documented as of this encounter Patient Instructions * Patient Instructions* Daniel Parry MD - 03/21/2024 1:18 PM EST For moisturizers, soaps, deodorants we recommend gentle, non-comedogenic, hypoallergenic products such as products made by Vanicream, CeraVe, and Vaseline. For detergents, we recommend All Free and Clear. It is important to avoid preservatives and fragrances. - Recommended gentle skin care routine to limit potential allergens: - Detergent: All free and clear, no dryer sheets or scent balls - Soap: vanicream or cerave - Moisturizer: vanicream, cerave, or plain vaseline - Limit all other skin products as able documented in this encounter Progress Notes * Daniel Parry MD - 03/21/2024 1:08 PM EST History of Present Illness Judie Calderon is a 73 year old female that presents for BP follow-up. Subjective Last office visit: 01/29/2024. Initial visit for BP, treated with prednisone, clobetasol, doxycycline, niacinamide Here today for follow-up of BP Patient notes prior lesions have been healing Patient notes she has some itching of her skin and that she finds herself scratching arms and legs and neck "absentmindedly" when watching tv; has developed scattered wounds on skin from scratching No wounds on skin she does not scratch or cannot reach Patient happy with improvement in condition to date Dermatology History Skin cancer: None Skin disorders: BP Review of Systems: General: Overall feels well, no fevers/chills Patient's past history, medications, and allergies were reviewed. Social history: lives with ; daughter Janelle helps take care of her and also has a nurse that helps Physical Exam GENERAL: Healthy and no distress. SKIN: Focused skin exam of face, neck, upper chest, back, bilateral upper extremities, hands, and bilateral lower extremities completed. Normal except: - scattered crusted erosions right neck, bilateral forearms, left anterior thigh - scattered hypopigmented to pink macules on extremities at sites of prior erosions - oval pink to hwang patch right posterior neck Assessment and Plan Bullous pemphigoid - continue niacinamide 500mg tid and doxycycline 100mg bid - continue clobetasol to new/healing lesions - discussed applying moisturizer/emollient regularly and using stress ball or fidget toy to redirect picking behavior - patient mentioned decrease in itching with benadryl; patient may trial daily loratadine, cetirizine, or fexofenadine to see if this decreases itching/picking behavior - plan for f/u 3-4 months, sooner if any new or worsening symptoms - if not well-controlled on current therapy, may consider methotrexate or dupilumab Wrap-Up Follow up 3-4 months. However, the patient should contact dermatology clinic if any suspicious changes develop. Notification preference: Phone. Daniel Parry MD Dermatology Patient was seen and examined with with Dr. Rubén Sadler documented in this encounter Plan of Treatment Upcoming Encounters Date Type Department Care Team (Late st Contact Info) Description 06/23/2024 3:40 PM EDT Office Visit [facility] [address] [place] [address] Daniel Parry MD [address] [place] [address] 07/17/2024 2:00 PM EDT Home Visit Care at Home [address] [place] [address] Kasie Matute PA-C [address] [place] [address] Health Maintenance Due Date Last Done Comments [...] 04/2012, 10/24/2012, Additional history exists COVID-19 Vaccine ( season) 2023 05/21/2023, 05/23/2022, 06/17/2021, Additional history exists Depression Screening 04/16/2024 04/16/2023 Diabetic Eye Exam 10/17/2024 10/18/2023, , 10/18/2023, Additional history exists Pneumococcal Vaccine: 50+ Years Completed 02/17/2019, 02/06/2017, 01/30/2009 Influenza Vaccine (FLU shot) Completed , 12/18/2023, 12/12/2019, Additional history exists HPV (Gardasil) Vaccine Aged Out No lo [...] as of this encounter Visit Diagnoses Diagnosis Bullous pemphigoid- Primary Pemphigoid documented in this encounter Advance Directives * Full Code (Latest Code Status on File) Date Activated Date Inactivated Comments 10/23/2012 10:03 AM 10/28/2012 2:16 PM This order r eflects the patients wishes and were consensually agreed upon. Care Teams Tube And Rod Straightener Relationship Specialty Start Date End Date Rochelle Robles CRNP [address] [place], [place] [address] [id number] PCP - General Nurse Practitioner 11/30/23 documented as of this encounter
--- OUTSIDE RECORDS SUMMARY | 2024-03-26 15:15 | External Medical Summary | Summary of Care ---
Author Name Unknown Organization [facility] Address [address] [place] [address] Phone [phone] Care Team Providers Care Meter Readers Supervisor Name Role Phone Rochelle Robles Primary Care Provide r Reason for Visit * Reason Comments Follow Up Pt states [facility] was the [facility] she was last seen for a staph infection and then she went to [facility] January 28 and was seen [address] dr Parry for auto immune blistering bullous pemphigoid. No new concerns. * Evaluate & Treat - Unlimited Visits (Within 3 days (urgent)) - Authorized Specialty Diagnoses / Procedures Referred By Contbrandie t Referred To Contact Infectious Diseases / Infectious Disease Diagnoses Other bacterial infections of unspecified site Disorder of the skin and subcutaneous tissue, unspecified Rochelle Robles CRNP [address] [place] [address] Phone: tel: fax: Referral ID Status Reason Start Date Expiration Date Visits Requested Visits Authorized [id number] Authorized Specialty Services Required 11/29/[id number] Encounter Details Date Type Department Care Team (Late st Contact Info) Description 02/13/2024 1:20 PM EST Office Visit Infectious Disease [facility] [place] [address] [place] [address] Rebekah Mckinney MD [address] [place] [address] Bullous pemphigoid* Allergies No known active allergiesdocumented as of this encounter (statuses as of 02/13/2024) Medications METFORMIN HCL 1000 MG PO TABS [...] Active Lisinopril 40 MG Tablet 7 Active Nystatin 016278 UNIT/GM External Cream 2 times a day. 4 Active Atorvastatin Calcium 40 MG Oral Tablet [...] MG Oral Capsule Take by mouth. Active Clobetasol Propionate 0.05 % External Ointment (Temovate) Apply to affected areas of skin 2x/day for up to 2 weeks. Do not use on skin folds, face, or genitals. 240 g 3 4 Active Niacinamide 500 MG Oral Tablet Take 500 mg by mouth 3 times a day. 270 Tablet 1 4 Active Doxycycline Monohydrate 100 MG Oral Capsule Take 1 Capsule by mouth in the morning and 1 Capsule before bedtime. Take with meals (avoid taking with dairy products or iron supplements) and a large glass of water. Do not lie flat for 30 min after taking the medication.. 180 Capsule 1 4 05/04/19 25 Active predniSONE 10 MG Oral Tablet (Deltasone) Take 6 Tablets by mouth daily for 7 days, THEN 5 Tablets daily for 7 days, THEN 4 Tablets daily for 7 days, THEN 3 Tablets daily for 7 days, THEN 2 Tablets daily for 7 days, THEN 1 Tablet daily for 7 days. 147 Tablet 4 03/17/20 24 Active documented as of this encounter (statuses as of 02/13/2024) Active Problems Problem Noted Date Diagnosed Date Advance directive discussed with patient 018 Overview (10/10/2012): Pt given advance directive book Anemia 10/10/2012 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, managed as type 2 Endometrial cancer Cancer Staging:Clinical stage from 10/23/2012:FIGO Stage IB(T1b, N0, M0) - Signed by Brian Lezama MD on 08/21/2019 HTN (hypertension) Hyperlipidemia Wheelchair bound documented as of this encounter (statuses as of 02/13/2024) Social History Tobacco Use Types Packs/Day Years [...] No 04/16/2023 Does the household have a [facility] source [facility] income? (Household - for ages [...] on file documented as of this encounter Last Filed Vital Signs Vital Sign Reading Time Taken Comments Blood Pressure 128/78 02/13/2024 1:26 PM EST Pulse 70 02/13/2024 1:26 PM EST Temperature 37.1 C (98.7 F) 02/13/2024 1:26 PM ES T Respiratory Rate - - Oxygen Saturation 94% 02/13/2024 1:26 PM EST Inhaled Oxygen Concentration - - Weight - - Height - - Body Mass Index - - documented in this encounter Progress Notes * Rebekah Mckinney MD - 02/13/2024 1:34 PM EST Images from the original note were not included. INFECTIOUS DISEASE [facility]: Judie Calderon is a 73 year old female.who presents for Bullous pemphigoid Chief Complaint Patient presents with Follow Up Pt states [facility] was the place she was last seen for a staph infection and then she went to [facility] January 28 and was seen by dr Parry for auto immune blistering bullous pemphigoid. No new concerns. HPI: 73 y/o F PMHx muscle dystrophy ,DM,HTN.HLD was in relatively good health until 06/2023 she developed blisters to right side of neck and chest .Patient was seen by her PCP who recommended antibiotics but it did not resolve and she later had a superficial swab which grew MRSA one one occasion and and pseudomonas on another .She received treatment without improvement and was referred to dermatology. On January 28 she was diagnosed by skin biopsy with bullous pemphigoid and has been started on steroids and doxycycline Patient Active Problem List Diagnosis Advance directive discussed with patient Muscular dystrophy (HCC) Diabetes 1.5, managed as type 2 (HCC) Endometrial cancer (HCC) HTN (hypertension) Hyperlipidemia Wheelchair bound Anemia Current Outpatient Medications Medication Sig Dispense Refill METFORMIN HCL 1000 MG PO TABS twice a day SIMVASTATIN 20 MG PO TABS 1 tab at bedtime ONE-A-DAY WOMENS FORMULA PO TABS 1 tab daily CRANBERRY 400 MG PO TABS 800 mg daily FISH OIL 1200 MG PO CAPS 1 tab daily ONETOUCH ULTRA BLUE STRP ONETOUCH ULTRASOFT LANCETS MISC Lisinopril 40 MG Tablet Nystatin 701345 UNIT/GM External Cream 2 times a day. Atorvastatin Calcium 40 MG Oral Tablet (Lipitor) 1 Tablet. Biotin 2.5 MG Oral Capsule daily. Vitamin C 125 MG OR TABS Take 0.5 Tablets by mouth in the morning. Zinc 30 MG Oral Tablet Take by mouth. Entresto 49-51 MG Oral Tablet (sacubitril-valsartan 49-51 mg per tab) Take 1 Tablet by mouth in themorning and 1 Tablet before bedtime. Carvedilol 12.5 MG Oral Tablet (Coreg) Take 0.5 Tablets by mouth in the morning and 0.5 Tablets before bedtime. linaGLIPtin 5 MG Oral Tablet (Tradjenta) Take 1 Tablet by mouth in the morning. Aspirin 81 MG Oral Capsule Take by mouth. Calcium Carb-Cholecalciferol 600-20 MG-MCG Oral Tablet Take by mouth. Magnesium 250 MG Oral Capsule Take by mouth. Clobetasol Propionate 0.05 % External Ointment (Temovate) Apply to affected areas of skin 2x/day for up to 2 weeks. Do not use on skin folds, face, or genitals. 240 g 3 Niacinamide 500 MG Oral Tablet Take 500 mg by mouth 3 times a day. 270 Tablet 1 Doxycycline Monohydrate 100 MG Oral Capsule Take 1 Capsule by mouth in the morning and 1 Capsule before bedtime. Take with meals (avoid taking with dairy products or iron supplements) and a large glass of water. Do not lie flat for 30 min after taking the medication.. 180 Capsule 1 predniSONE 10 MG Oral Tablet (Deltasone) Take 6 Tablets by mouth daily for 7 days, THEN 5 Tablets daily for 7 days, THEN 4 Tablets daily for 7 days, THEN 3 Tablets daily for 7 days, THEN 2 Tablets daily for 7 days, THEN 1 Tablet daily for 7 days. 147 Tablet 0 No current facility-administered medications for this visit. Past Medical History: Diagnosis Date Anemia Diabetes 1.5, managed as type 2 (HCC) Endometrial cancer (HCC) HTN (hypertension) Hyperlipidemia Muscular dystrophy (HCC) Wheelchair bound Past Surgical History: Procedure Laterality Date BIOPSY OF UTERUS LINING 11/09/2006; 2012 Endometrial biopsy FEMUR FX, REPAIR metal plates and screws LAPAROSCOPY TOTAL HYSTX, UTERUS 250GM OR LESS TUBE/OVARY 10/23/2012 LAPAROSCOPIC HYSTERECTOMY REMOVAL TUBES AND OVARIES FOR UTERUS 250GM OR LESS performed by Mary Junior DO at OR [facility] LIGATE/CUT OVIDUCT(S) Review of patient's allergies indicates: No Known Allergies Family History Problem Relation Name Age of Onset Cancer Mother pancreas Glaucoma Father Family Status Relation Status Mo (Not Specified) Fa (Not Specified) Social History Socioeconomic History Marital status: Spouse name: Not on file Number of children: 5 Years of education: Not on file Highest education level: Not on file Occupational History Not on file Tobacco Use Smoking status: Never Smokeless tobacco: Never Vaping Use Vaping status: Never Used Substance and Sexual Activity Alcohol use: No Drug use: No Sexual activity: Not on file Other Topics Concern Not on file Social History Narrative Not on file Social Needs Financial Resource Strain: Low Risk (04/16/2023) Financial Resource Strain Do you have any trouble paying for your medications, or do you think you might in the future? (Adult - for ages 18 years and over): No Does your family have trouble paying for medicine? (Household - for ages 0-17 years): Not on file Food Insecurity: No Food Insecurity (04/16/2023) Food Insecurity Do you need food for this week? (Adult - for ages 18 years and over): No Are you able to get enough food for your family? (Household - for ages 0-17 years): Not on file Does your family need food this week? (Household - for ages 0-17 years): Not on file Do you always have enough food for your family? (Household - for ages 0-17 years): Not on file Transportation Needs: No Transportation Needs (04/16/2023) Transportation Needs Do you have trouble getting a ride to medical visits or work? (Adult - for ages 18 years and over):Never True Does your family have a hard time getting a ride to doctors visits? (Household - for ages 0-17 years): Not on file Has lack of transportation kept you from medical appointments, meetings, work, or from getting things needed for daily living? Check all that apply. (Adult - for ages 18 years and over): Not on file Do you (or your family) have trouble finding or paying for a ride (transportation)? (Household - for ages 0-17 years): Not on file Social Connections: Socially Integrated (04/16/2023) Social Connections How often do you feel lonely or isolated from those around you? (Adult - for ages 18 years and over): Never Housing Stability: Low Risk (04/16/2023) Housing Stability Do you currently live in a jail or have no steady place to sleep at night? (Adult - for ages 18 years and over): No Do you think you are at risk of becoming homeless? (Adult - for ages 18 years and over): No Does your family worry about paying for your home or becoming homeless? (Household - for ages 0-17 years): Not on file Are you homeless or worried that you might be in the future? (Adult - for ages 18 years and over): Not on file Are you (or your family) homeless or worried that you might be in the future? (Household - for ages0-17 years): Not on file Review of Systems: Constitutional ROS: No change in weight and No fevers, sweats, or chills Skin/Integumentary ROS: bullous pemphigoid Rest of ROS negative PHYSICAL EXAM: BP 128/78 (BP Site: Left Arm, BP Position: Sitting, BP Cuff Size: Regular) | Pulse 70 | Temp 37.1 C (98.7 F) (Tympanic) | LMP 08/07/2012 | SpO2 94% General: alert and no distress Head: Normocephalic Eye Exam: PERRLA Heart: regular rate & rhythm Lungs: normal respiratory rate and rhythm Abdomen: abdomen soft Extremities: wheelchair bound Neuro Exam: alert & oriented x 3 with fluent speech Skin: bullous pemphigoid Musculoskeletal: Weakness LABS: Labs reviewed as indicated below:I have reviewed her labs and my personal interpretation is no leukocytosis MICROBIOLOGY DATA: I have reviewed her cultures and my personal interpretation is Hx of MRSA and pseudomonas IMAGING: I have reviewed her imaging and my personal interpretation is bullous pemphigoid ASSESSMENT:Patient who developed blood blisters to her neck and chest which was thought to be infectious and for which she received multiple rounds of antibiotics since June 2023.She was referred todermatology and she had a skin biopsy which revealed bullous pemphigoid and she was treated with steroids and doxycycline. I do not believe we need to add any more medications and she will be managedby dermatology for her bullous pemphigoid PLAN: Continue present medication(s): Patient education: Follow up with dermatology Follow up as needed. Rebekah Mckinney MD Infectious Disease [address] [address] documented in this encounter Nursing Notes * Ángel Zepeda Student - 02/13/2024 1:27 PM EST Patient identified by name and date of . 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 No new concerns. documented in this encounter Plan of Treatment Upcoming Encounters Date Type Department Care Team (Late st Contact Info) Description 07/17/2024 2:00 PM EDT Home Visit Care at Home [address] [place], [place] [id number] Ksaie Matute PA-C [address] [place] [address] Scheduled Referrals Name Type Priority Associated Diagnoses [...] Vaccine: 65+ Years Completed 02/17/2019, 02/06/2017, 01/30/2009 Influenza Vaccine [...] and were consensually agreed upon. Care Teams Meter Readers Supervisor Relationship Specialty Start Date End Date Rochelle Robles CRNP [address] [place] [id number] PCP - General Nurse Practitioner 11/30/23 documented as of this encounter"
--- OUTSIDE RECORDS SUMMARY | 2024-03-26 15:15 | External Medical Summary | Summary of Care ---
Author Name Unknown Organization [facility] Address [address] [place] [address] Phone [phone] Care Team Providers Care Associate Manager Affiliate Marketing Name Role Phone Rochelle Robles Primary Care Provide r Reason for Visit * Reason Comments Rash All over per patient had since about June * Evaluate & Treat - Unlimited Visits (Within 10 days (routine)) - Authorized Specialty Diagnoses / Procedures Referred By Melissa rocha Referred To Contact Dermatology Diagnoses Bullous disorder, unspecified Other injury of unspecified body region, initial encounter Disorder of the skin and subcutaneous tissue, unspecified Personal history of methicillin resistant Staphylococcus aureus Rochelle Robles CRNP [address] [place] [address] Phone: tel: fax: Referral ID Status Reason Start Date Expiration Date Visits Requested Visits Authorized [id number] Authorized Specialty Services Required 12/25/2023 [id number] Encounter Details Date Type Department Care Team (Late st Contact Info) Description 01/29/2024 2:30 PM EST Office Visit Dermatology Romaine Iverson [address] [place] [address] Florentin Parry MD [address] [place] [address] Rash and nonspecific skin eruption*; Skin neoplasm; Bullous pemphigoid Allergies No known active allergiesdocumented as of this encounter (statuses as of 03/10/2024) Medications METFORMIN HCL 1000 MG PO TABS [...] Lisinopril 40 MG Tablet 7 Active Nystatin 109190 UNIT/GM External Cream 2 times a day. 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 (Household - for ages [...] on file documented as of this encounter Progress Notes * Shiela Greco MD - 02/06/2024 10:37 AM EST I have discussed the patient's management with the medical trainee and agree with the note. Please refer to the documented findings and plan of care. This patient's visit today consisted of an evaluation and procedure. I was present and confirmed the findings of the history and exam, and was present for the parker and critical portions of the procedure. Shiela Greco MD * Florentin Parry MD - 01/29/2024 2:30 PM EST History of Present Illness Judie Calderon is a 73 year old female that presents for rash. Subjective Referred by Rochelle SIGALA Here today for rash Rash started around June 2023 Started left upper chest/lateral neck Patient reports rash started as a blister in that region that ruptured and has not healed Patient has developed blisters on upper chest, arms, thighs that also ruptured and have left healing wounds Treated at [facility] for possible cellulitis in November Culture grew pseudomonas Treated with IV zosyn, discharged with prescription for levaquin Patient reports she did have a biopsy of left upper chest/shoulder (12/13/23 at [facility], left neck, punch biopsy: - Inflamed squamous cyst consistent with an epidermal cyst. - Clinical correlation is suggested. Blisters have burning pain when they appear, also can be itchy Patient notes one blister on buccal cheek that ruptured/healed, otherwise no oral lesions or ocularlesions Patient notes one "sore" in genital area about 1 month ago, patient does have a urinary catheter and thinks lesion may be secondary to friction from this PMH: muscular dystrophy (wheelchair bound), DM, endometrial cancer (s/p total hysterectomy) No new meds or dose adjustments in past year; does take lisinopril, linagliptin Dermatology History Skin cancer: None Skin disorders: None Review of Systems: General: no fevers/chills Skin: No other new or changing moles/lesions Patient's past history, medications, and allergies were reviewed. Social history: lives with ; daughter Janelle helps take care of her and also has a nurse that helps Physical Exam GENERAL: Healthy and no distress. SKIN: Focused skin exam of face, neck, upper chest, upper back, bilateral upper extremities, hands,and bilateral lower extremities completed. Normal except: - left supraclavicular skin with pink plaque with scattered hemorrhagic crust and eroded bullae at periphery - scattered crusted erosions anterior neck, left posterolateral neck, bilateral upper arms, right volar wrist, left dorsal hand, bilateral medial thighs - no oral or ocular mucosa lesions Assessment and Plan Rash and nonspecific skin eruption - suspicion for autoimmune bullous disorder - will obtain biopsy today for H&E as well as DIF to aid with diagnosis - betamethasone to left supraclavicular skin lesion covered with duoderm; may leave in place up to 1 week - will prescribe clobetasol 0.05% ointment, may be applied to eroded lesions twice daily - patient due for breast and colon cancer screenings - will call patient with results and discuss treatment/follow-up; if considering oral steroids for treatment of underlying condition, will coordinate with PCP to ensure adequate monitoring/control ofblood glucose 2/2 history of DM - photos added to chart Procedure: A. Left dorsal hand - clear to yellow vesicle, ddx autoimmune bullous, drug reaction, infection B. Left dorsal hand - clear to yellow vesicle with normal appearing adjacent skin, please evaluate with DIF for autoimmune bullous disease - Biopsy by shave (tangential) was recommended which the patient was agreeable to. The risks (including scar and infection), benefits, indications, alternatives, and complications were discussed. If declined, the lesion could not be evaluated microscopically for diagnosis, including cancer. Verbal consent obtained. Patient, procedure, and site(s) verified. Area prepped with alcohol. Anesthesia with 0.5% lidocaine with epinephrine at 1:200,000 concentration administered. Biopsy via horizontal technique with persona blade was performed of intact bulla as well as perilesional skin; specimen was bisected with #15 blade. Hemostasis achieved with 20% AlCl. Petrolatum and bandage were applied. Thepatient tolerated the procedure well without complications. Written wound care instructions were given. Specimen(s) sent to pathology. We will contact patient with biopsy results and arrange appropriate follow up care as indicated. Wrap-Up Return visit recommendation dependent on biopsy result. However, the patient should contact dermatology clinic if any suspicious changes develop. Notification preference: Phone. Florentin Parry MD Dermatology Patient was seen and examined with with Dr. Shiela Greco documented in this encounter Miscellaneous Notes * Result Encounter Note - Florentin Parry MD - 02/04/2024 11:39 AM EST Spoke with patient and daughter (Janelle) regarding results. Biopsy consistent with bullous pemphigoid. Patient notes she did develop some new lesions on right volar wrist (had bullae at this location inclinic); due to new lesions, discussed treatment with oral steroid to help control acute process. Discussed risks of affecting control of blood glucose given history of diabetes, patient understands risks and is interested in treatment with oral steroid to help improve condition. Contacted PCP to notify of plan to treat with oral prednisone; PCP will discuss blood glucose control with patient while on prednisone taper. Will also start doxycycline 100mg bid and nicotinamide 500mg tid. Discussed GI side effects of doxycycline, recommended taking with meals and glass of water and avoiding lying down for at least 30 minutes after taking a dose. May continue to use topical clobetasol to active lesions. Will plan to have patient f/u in approx 6 weeks. No questions or concerns. Encouraged to call if there are any questions/concerns or if there are any new or worsening symptoms. Lab Results Component Value Date FINAL DIAGNOSIS 01/29/2024 A. Skin, left dorsal hand, shave: Subepidermal blister with scant inflammation. (See comment) Comment: Given the direct immunofluorescence pattern and type IV collagen staining (base of the blister), the findings are consistent with bullous pemphigoid. B. Skin, left dorsal hand, biopsy for direct immunofluorescence: IgG: Linear basement membrane fluorescence, n-serrated IgA: Negative C3: Linear basement membrane fluorescence, n-serrated Fibrin: Non-specific vascular fluorescence [FORMATTING REMOVED] * Addendum Note - Florentin Parry MD - 02/04/2024 11:33 AM ESTAddended by: FLORENTIN PARRY on: 02/04/2024 11:33 AM Modules accepted: Orders documented in this encounter Plan of Treatment Upcoming Encounters Date Type Department Care Team (Late st Contact Info) Description 03/21/2024 1:00 PM EST Office Visit Dermatology Romaine Iverson [address] [place] [address] Florentin Parry MD [address] [place] [address] [place] [address] 07/17/2024 2:00 PM EDT Home Visit Care at Home [address] [place] [address] Kasie Matute PA-C [address] [place] [address] Health Maintenance Due Date Last Done Comments [...] Not on filedocumented as of this encounter Procedures Procedure Name Priority Date/Time Associated Diagnosis Comments SURGICAL PATHOLOGY Routine 01/29/2024 3: 22 PM EST Skin neoplasm documented in this encounter Results * SURGICAL PATHOLOGY (01/29/2024 3:22 PM EST) Final Diagnosis A. Skin, left dorsal hand, shave: Subepidermal blister with scant inflammation. (See comment) Comment: Given the direct immunofluorescence pattern and type IV collagen staining (base of the blister), the findings are consistent with bullous pemphigoid. B. Skin, left dorsal hand, biopsy for direct immunofluorescence: IgG: Linear basement membrane fluorescence, n-serrated IgA: Negative C3: Linear basement membrane fluorescence, n-serrated Fibrin: Non-specific vascular fluorescence 02/01/2024 9:32 AM EST LABORATORY [facility] Clinical History See Order Comments 02/01/2024 9:32 AM EST LAB[facility]ATORY [facility] Order Comments A. Left dorsal hand - clear to yellow vesicle, ddx autoimmune bullous, drug reaction, infection B. Left dorsal hand - clear to yellow vesicle with normal appearing adjacent skin, please evaluate with DIF for autoimmune bullous disease 02/01/2024 9:32 AM EST [facility]ATORY [facility] Gross Description A. Skin. Received in formalin with a container labeled with "Judie Calderon", "[id number]", "1950" and " left dorsal hwang". Received is a skin shave measuring 1.2 x 0.8 cm. The skin surface is hwang-white with a raised, soft, dull plaque-like appearance with irregular contours measuring 0.9 x 0.5 cm extending to the nearest margin. The underlying tissue is inked blue. The specimen is serially sectioned into 5 with 2 pieces each submitted in cassettes A1 and A2 in 1 piece submitted in cassette A3. Gross By: ROBE Jung. Skin. Received in Morgan's solution with a container labeled with "Judie Calderon", "[id number]", "1950" and " left dorsal hand". Received is a skin shave measuring 1.1 x 0.4 cm. The skin surface is hwang-yellow to brown slightly wrinkled throughout.The specimen is washed, snap frozen, and slides are cut for immunofluorescence. Gross By: ROBE 02/01/2024 9:32 AM [facility] LABORATORY [facility] Microscopic Description A) Section show a subepidermal blister with scant associated mixed inflammation. An immunohistochemical stain for type IV collagen highlights the base of the blister. A PAS-D stain highlights basement membranes. B) Direct immunofluorescence examination performed. 02/01/2024 9:32 AM EST LABORATORY [facility] Sign Out Location Pathologist sign out performed at [facility] ([facility] [address] [place] [address]. 02/01/2024 9:32 AM [facility] LABORATORY [facility] Photographic images and diagrams represent parker findings in this case; they are not intended to replace a complete review of the final diagnostic report. The following statement applies to Flow Cytometry, Histology, In situ Hybridization Assays and Molecular Genetics. This test was developed and performed at [facility] and its performance characteristics determined by [facility] [employer]. It has not been cleared or approved by the U.S. Food and Drug Administration. The FDA has determined that such clearance or approval is not necessary. This test is used for clinical purposes. It should not be regarded as investigational or for research. Special stains, including histochemical stains, and studies using immunologic and GRIFFIN methodology (where applicable) are performed with appropriate positive and negative control reactions. 02/01/2024 9:32 AM [facility] LABORATORY [facility] Tissue Skin structure / Unknown 01/29/2024 3:22 PM EST 01/29/2024 3:22 PM EST Comment:A. Left dorsal hand - clear to yellow vesicle, ddx autoimmune bullous, drug reaction, infection B. Left dorsal hand - clear to yellow vesicle with normal appearing adjacent skin, please evaluate with DIF for autoimmune bullous disease Specimen from wound (specimen) Skin structure / Unknown 01/29/2024 3:22 PM EST 01/29/2024 3:22 PM EST Comment:A. Left dorsal hand - clear to yellow vesicle, ddx autoimmune bullous, drug reaction, infection B. Left dorsal hand - clear to yellow vesicle with normal appearing adjacent skin, please evaluate with DIF for autoimmune bullous disease Florentin Parry MD LAB PATHOLOGY ORDERABLES Final Result LABORATORY [facility] [address] [place] [address] documented in this encounter Visit Diagnoses Diagnosis Rash and nonspecific skin eruption- Primary Rash and other nonspecific skin eruption Skin neoplasm Neoplasm of unspecified nature of bone, soft tissue, and skin Bullous pemphigoid Pemphigoid documented in this encounter Advance Directives * Full Code (Latest Code Status on File) Date Activated Date Inactivated Comments 10/23/2012 10:03 AM 10/28/2012 2:16 PM This order r eflects the patients wishes and were consensually agreed upon. Care Teams Associate Manager Affiliate Marketing Relationship Specialty Start Date End Date Rochelle Robles CRNP [address] [place] [id number] PCP - General Nurse Practitioner 11/30/23 documented as of this encounter
--- OUTSIDE RECORDS SUMMARY | 2024-03-26 15:15 | External Medical Summary | Summary of Care ---
Author Name Unknown Organization [facility] Address [address] [place] [address] Phone [phone] Care Team Providers Care Women'S Studies Lecturer Name Role Phone TravisRochelle Primary Care Provide r Reason for Visit * Reason Onset Date Comments Advice 11/30/2023 Encounter Details Date Type Department Care Team (Late st Contact Info) Description 11/30/2023 Telephone Access Center, [place] [address] [facility] *DO NOT REMOVE THIS DEPARTMENT* [place], [place] [id number] Services, Scheduling [address] [place] [address] Advice Allergies No known active allergiesdocumented as of this encounter (statuses as of 02/29/2024) Medications METFORMIN HCL 1000 MG PO TABS [...] 05/03/2016 Active Lisinopril 40 MG Tablet 05/03/2016 Active documented as of this encounter (statuses as of 02/29/2024) Active Problems Problem Noted Date Diagnosed Date Advance directive discussed with patient 018 Overview (10/10/2012): Pt given advance directive book Anemia 10/10/2012 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, managed as type 2 Endometrial cancer Cancer Staging:Clinical stage from 10/23/2012:FIGO Stage IB(T1b, N0, M0) - Signed by Brian Lezama MD on 08/21/2019 HTN (hypertension) Hyperlipidemia Wheelchair bound documented as of this encounter (statuses as of 02/29/2024) Social History Tobacco Use Types Packs/Day Years [...] on file documented as of this encounter Miscellaneous Notes * Telephone Encounter - Kathy Velazquez OSA - 12/03/2023 3:00 PM EDT Kathryn scheduled pt and added to fast pass already * Telephone Encounter - Cheli Grimaldo OSA - 12/03/2023 2:[address] Stuart to schedule as routine. If patient wants to be sooner, can be seen at [facility] or [facility] as well * Telephone Encounter - Kasie Thorpe OSA - 11/30/2023 2:24 PM EDT Machinery Engineer - Patient Related Communication Reason for Call: Yessenia ( [place] [place] ) called in Asking for sooner appt for pt . The provider was asking for sooner availability due to the type of organism that was found , Please call to advise ELIAN Remy documented in this encounter Plan of Treatment Upcoming Encounters Date Type Department Care Team (Late st Contact Info) Description 03/21/2024 1:00 PM EST Office Visit Dermatology [place], [facility] [address] Daniel Parry MD [address] [place] [address] 07/17/2024 2:00 PM EDT Home Visit Care at Home [address] [place] [address] Kasie Matute PA-Darleen [address] [place] [address] Health Maintenance Due Date Last Done Comments [...] Not on filedocumented as of this encounter Advance Directives * Full Code (Latest Code Status on File) Date Activated Date Inactivated Comments 10/23/2012 10:03 AM 10/28/2012 2:16 PM This order r eflects the patients wishes and were consensually agreed upon. Care Teams Women'S Studies Lecturer Relationship Specialty Start Date End Date Rochelle Robles CRNP [address] [place] [address] [place] [address] PCP - General Nurse Practitioner 11/30/23 documented as of this encounter
--- OUTSIDE RECORDS SUMMARY | 2024-03-26 15:15 | External Medical Summary | Summary of Care ---
Author Name Unknown Organization [facility] Address [address] [place] [address] Phone [phone] Care Team Providers Care Supervisor Paste Mixing Name Role Phone Rochelle Robles Primary Care Provide r Reason for Visit * Reason Comments Rash Generalized. Mostly on check, nest, face, head, and ears. Encounter Details Date Type Department Care Team (Late st Contact Info) Description 03/21/2024 1:00 PM EST Office Visit Dermatology [place] [facility] [address] [place], [place] [phone] Daniel Parry MD [address] [place], [place] [phone] Bullous pemphigoid* Allergies No known active allergiesdocumented as of this encounter (statuses as of 03/24/2024) Medications METFORMIN HCL 1000 MG PO TABS [...] medication.. 180 Capsule 1 4 Active Nystatin 005390 UNIT/GM External Cream 2 times a day. [...] as of this encounter (statuses as of 03/24/2024) Active Problems Problem Noted Date Diagnosed Date Advance directive discussed with patient 018 Overview (10/10/2012): Pt given advance directive book Anemia 10/10/2012 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, managed as type 2 Endometrial cancer Cancer Staging:Clinical stage from 10/23/2012:FIGO Stage IB(T1b, N0, M0) - Signed by Brian Lezama MD on 08/21/2019 HTN (hypertension) Hyperlipidemia Wheelchair bound documented as of this encounter (statuses as of 03/24/2024) Social History Tobacco Use Types Packs/Day Years [...] documented in this encounter Progress Notes * Rubén Sadler MD - 03/24/2024 1:16 PM EST I have discussed the patient's management with the medical trainee and agree with the note. Please refer to the documented findings and plan of care. This patient's visit today consisted of an evaluation. I was present and confirmed the findings of the history and exam. Rubén Sadler MD * Daniel Parry MD - 03/21/2024 1:08 [...] seen and examined with with Dr. Rubén Sadlre documented in this encounter Plan of Treatment Upcoming Encounters Date Type Department Care Team (Late st Contact Info) Description 06/23/2024 3:40 PM EDT Office Visit Dermatology [facility] [address] Daniel Parry MD [address] [place] [address] 07/17/2024 2:00 PM EDT Home Visit Care at Home [address] [place], [place] [phone] Kasie Matute PA-C [address] [place] [address] Health Maintenance Due Date Last Done Comments [...] and were consensually agreed upon. Care Teams Supervisor Paste Mixing Relationship Specialty Start Date End Date Rochelle Robles CRNP [address] [place] [address] [place] [address] PCP - General Nurse Practitioner 11/30/23 documented as of this encounter
[2024-03-26 15:50] LABS: Hematocrit (blood only) 37.8 % (37.0-47.0); Hemoglobin 10.9 g/dl (12.0-16.0); Mean Corpuscular Hemoglobin 25.7 pg (25.0-34.0); Mean Corpuscular Hgb Conc 28.8 g/dL (32.0-36.0); Mean Corpuscular Volume 89.2 fL (80.0-100.0); Mean Platelet Volume 9.4 fL (9.4-12.4); Platelet Count 263 K/uL (130-400); RDW Coefficient of Variation 17.4 % (11.5-14.5); RDW Standard Deviation 56.9 fL (36.4-46.3); Red Blood Count 4.24 M/uL (4.20-5.40); White Blood Count 14.07 K/ul (4.8-10.8)
[2024-03-26] MEDS: SODIUM CHLORIDE 0.9% 1,000 ML IV ONE ×2 (15:53→22:00)
[2024-03-26 16:09] LABS: Acanthocytes 2+; Basophilic Stippling 1+; Basophils # (auto) 0.06 K/uL (0.00-0.20); Basophils % (auto) 0.4 %; Echinocytes 1+; Immature Granulocytes # (auto) 0.66 K/uL (0.01-0.20); Immature Granulocytes % (auto) 4.7 %; Lymphocytes # (auto) 1.47 K/uL (1.20-3.40); Lymphocytes % (auto) 10.4 %; Monocytes # (auto) 0.17 K/uL (0.11-0.59); Monocytes % (auto) 1.2 %; Neutrophils # (auto) 11.71 K/uL (1.40-6.50); Neutrophils % (auto) 83.3 %; Ovalocytes 1+
[2024-03-26] MEDS: CEFEPIME 2000MG 2,000 MG/20 ML SYR IV STA (16:13)
[2024-03-26 16:23] LABS: BUN Creatinine Ratio 15.7 (10-20); Bilirubin Direct 0.1 mg/dl (0-0.2); Bilirubin,Total 0.3 mg/dl (0.2-1.0); Creatinine Clr Calc Pharmacy 21.2 ml/min; Magnesium 1.9 mg/dl (1.7-2.4); Potassium 6.6 mmol/L (3.5-5.1); Troponin I High Sensitivity 22.3 pg/ml (0-14)
[2024-03-26] MEDS: DEXTROSE 50% 50 ML SYRINGE IV STA (16:27)
[2024-03-26] MEDS: SODIUM CHLORIDE 0.9% 1,000 ML IV SCH (16:30)
--- NOTE | 2024-03-26 16:54 | History & Physical Report ---
Date of Service March 26, 2024 Assessment & Plan (1) Sepsis: Plan: Patient presents to the ED on 03/26 for nausea, vomiting, and diarrhea x 4 days Patient was hypotensive on arrival down to 81/60 Lactate >17.0 on arrival Leukocytosis at 14.07; PCT WNL; afebrile on arrival Blood cultures drawn in the ED POC ABG with pH of 6.9 IVF bolus in the ED given to meet 30 cc/kg for ideal body weight Sodium bicarb 8.4% 150 mEq IV at 150mL/hr Patient demonstrates severe dehydration and sepsis of unclear origin at time of admission; suspect skin/soft tissue v. abdominal source Per review of notes, patient is being seen by dermatology and infectious disease for blistering/superficial rash on her left shoulder H/o [facility] admission for cellulitis 11/2023; (+) surface culture for pseudom fluoresc/putida at the time CXR with nonspecific RUQ calcification, potential gallbladder/kidney stone A/P CT without contrast revealed no obstructing pathology UA ordered, pending MRSA swab ordered, pending Cefepime + daptomycin; hold statin Patient is reportedly on chronic prednisone 10 mg p.o. daily Hydrocortisone 100 mg IV x 1 Hydrocortisone 50 mg IV q6h x 2 days Admit to ICU (2) Nausea, vomiting, and diarrhea: Plan: IV Compazine as needed; will defer Zofran in the setting of QT prolongation Patient also reports BRB in her stool and recent antibiotic use; ?doxycycline PCR stool/C. difficile ordered, pending (3) Acute renal failure: Plan: BUN 43, creatinine 2.74 (baseline 0.6) Avoid nephrotoxic agents for possible Suspect prerenal component in the setting of severe dehydration Nephrology consult appreciated (4) Hyperkalemia: Plan: K 6.6 on arrival Calcium gluconate 1000 mg IV Trend BMP q2h for now (5) Hypothermia: Plan: Hypothermic at 33.4 C on arrival Bear hugger Trend temperature (6) Hypotension: Plan: Hold all antihypertensive medications for now (7) Type 2 diabetes mellitus: Plan: Last A1c at 6.1% on 12/04/2023 Hypoglycemic at 49 on arrival Hold home diabetic medications Hold Lantus in the setting of ARF/hypoglycemia/poor p.o. 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 She presented on 03/26 for nausea/vomiting x 4 days. Patient's (Orion) is present at the bedside and provides additional history. Patient has been unable to keep down solids or fluids over the past several days; her reports that she has not had anything to eat in 3 days. She has been trying to take her medications, but is unable to keep things down. She did not take her medicine this morning. In addition to nausea and vomiting, she has had diarrhea with bright red blood. No dark tarry stools. No history of GI bleeds. No blood in her vomit. reports she was recently on an antibiotic for her skin infection on her left neck/shoulder. Additional symptoms include sore throat, SOB at rest, pleuritic CP, productive cough, and generalized abdominal pain. She reports that her abdominal pain has been constant, but has somewhat resolved in the ED. She is unable to characterize it. She is not taking any pain medicine at home for it. Patient is wheelchair-bound at baseline due to her muscular dystrophy. Her reports she has not been urinating in the past 3 days. She does have a history of kidney stones. Patient denies history of MRSA infection. NKDA. She denies smoking, tobacco use, or recent alcohol use. Patient is hypotensive at 98/48 and hypothermic at 33.4 C at time of admission. ED course: NSS 1000 mL IV Cefepime 2000 mg IV Dextrose 50 mL IV ROS: Patient endorses nausea, vomiting, diarrhea, SOB at rest (which started in the ED), mild pleuritic CP, productive cough (clear sputum production), generalized abdominal pain (resolved in the ED), and bright red blood in her stool. Patient denies fever, chills, night-sweats, dizziness, lightheadedness, VIZCAINO, chest pain, chest palpitations, melena, burning with urination, or blood in the urine. Allergies Allergy/AdvReac Type Severity Reaction Status Date / Time No Known Allergies Allergy Unknown Verified 02/12/24 14:17 Home Medications Medication Instructions Recorded Confirmed Type aspirin 81 mg tablet,delayed 81 mg PO DAILY 07/08/18 02/12/24 History release vit C 50 mg-E 15 unit-zinc cit 4.5 2 tab PO DAILY 07/08/18 02/12/24 History mg-lutein 2.5 mg-zeaxan chew tablet ([employer]) jncgreojtodw-Am-skmc-minerals 27 1 tab PO DAILY 10/07/18 02/12/24 History mg-0.4 mg tablet (Women's Daily Formula) cranberry 400 mg capsule 400 mg PO BID 12/12/19 02/12/24 History omega-3 fatty acids 1,000 mg 1,000 mg PO DAILY 12/01/21 02/12/24 History capsule power wheel chair repair #1 ea 12/13/21 02/12/24 Rx APPM circulating mattress #1 ea 12/15/21 02/12/24 Rx blood sugar diagnostic (OneTouch #100 ea 10/03/22 02/12/24 Rx Ultra Test strips) lancets #100 ea 10/03/22 02/12/24 Rx biotin 2,500 mcg capsule 2,500 mcg PO DAILY 11/21/22 02/12/24 History sacubitril 49 mg-valsartan 51 mg 1 tab PO BID #180 tabs 07/05/23 02/12/24 Rx tablet (Entresto) atorvastatin 40 mg tablet 40 mg PO HS #90 tabs 07/17/23 02/12/24 Rx metformin 1,000 mg tablet 1,000 mg PO BID #180 tabs 07/17/23 02/12/24 Rx disposable gloves #50 ea 07/26/23 02/12/24 Rx underpads #90 ea 07/26/23 02/12/24 Rx nystatin 100,000 unit/gram topical 1 applic topical BID #30 grams 08/02/23 02/12/24 Rx cream ascorbic acid (vitamin C) 1 tab PO DAILY 08/17/23 02/12/24 History carvedilol 12.5 mg tablet 12.5 mg PO BID #180 tabs 08/17/23 02/12/24 Rx zinc acetate 1 cap PO DAILY 08/17/23 02/12/24 History Miscellaneous 09/15/23 02/12/24 History Miscellaneous 09/15/23 02/12/24 History Wheelchair (Powered) (Power #1 ea 09/25/23 02/12/24 Rx Wheelchair) ondansetron 4 mg disintegrating 4 mg PO Q8H PRN nausea and 09/25/23 02/12/24 Rx tablet vomiting #20 tabs repalcement wheels for powered #1 ea 09/25/23 02/12/24 Rx wheelchair nystatin 100,000 unit/gram topical 1 applic topical BID PRN fungal 10/08/23 02/12/24 Rx powder rash #60 grams linagliptin 5 mg tablet (Tradjenta) 5 mg PO DAILY #30 tabs 10/29/23 02/12/24 Rx duoderm #3 ea 12/18/23 02/12/24 Rx magnesium 250 mg tablet 250 mg PO DAILY #30 tabs 12/18/23 02/12/24 Rx seat cushion replacement for #1 ea 12/18/23 02/12/24 Rx electric scooter GD-goanizjfzsu-reqxnb ox-Zn ER 500 tab PO TID 02/12/24 02/12/24 History mcg-750 mg-1.5 mg-25 mg tablet,ER clobetasol 0.05 % topical ointment 1 applic topical DAILY 02/12/24 02/12/24 History doxycycline hyclate 100 mg capsule 100 mg PO BID 02/12/24 02/12/24 History prednisone 10 mg tablet 10 mg PO DAILY 02/12/24 02/12/24 History Past Med/Surg History Problem List (Updated 03/26/24 @ 18:24 by Garth Grimaldo PA-C) Elevated troponin Nausea, vomiting, and diarrhea Acute renal failure Sepsis Hyperkalemia Limb-girdle muscular dystrophy Hypotension Hypothermia Abnormal skin growth Paronychia of finger of right hand Chronic wound (Acute) Skin disease, bullous Non-healing skin lesion History of MRSA infection Muscular dystrophy (Acute) HTN (hypertension) Hyperlipidemia Chronic kidney disease (CKD) Type 2 diabetes mellitus Intertrigo Wheelchair dependent Does not walk Lymph node enlargement Weakness (Acute) LUQ pain Hyponatremia (Acute) Urinary symptom or sign Open wound MRSA (methicillin resistant Staphylococcus aureus) infection Nasal sinus congestion Hypoxia Cardiomyopathy LBBB (left bundle branch block) Urinary incontinence On statin therapy Medical History Limb-girdle muscular dystrophy Morbid obesity Congestive heart failure Uterine cancer Surgical History Hx of biopsy (12/13/23) History of hip surgery H/O right knee surgery History of total abdominal hysterectomy Family History Sister Cancer Myocardial infarction Muscular dystrophy Father Colorectal cancer Myocardial infarction Brother Colorectal cancer Myocardial infarction Muscular dystrophy Other Family history non-contributory Denies family history of Ovarian cancer Prostate cancer Breast cancer Social History Smoking Status: Never smoker Second Hand Exposure: No; Do You Dip or Chew Tobacco: No; Hx Alcohol Use: No Hx Substance Use: No Preferred Language: Maori Communication Ability: Effective Visual Impairment: No Limitations Hearing Ability: Normal Block Sorter Required: No Beliefs That Will Affect Care: None marital status: Current Living Situation: Spouse current occupational status: disabled How many Children do You have: 5 Feels Safe at Home: Yes Childhood Exposure to Second-Hand Smoke: Yes Diet: regular caffeine: Yes during the past year weight has: remained stable Dental Care, Regularly: No Physical Activity Frequency: Daily Seatbelt Use: always Sunscreen Use: Yes Assistive Devices: Hospital Bed, Mechanical Lift, Walker and Wheelchair Review of Systems Review of Systems: See HPI above Physical Exam Physical Exam: General: no acute distress; lethargic; at bedside; non-toxic appearing; cooperative; SpO2 95% on RA HEENT: normocephalic, atraumatic; no scleral icterus; PERRLA; vision and hearing grossly intact Neck: supple; trachea midline Skin: Erythematous, superficial rash on the crease of her anterior left neck/shoulder; superficial crusted erosions/blisters noted on the left shoulder; no signs of purulence or drainage; warm, dry without signs of tenting; no cyanosis CV: chest wall NTP; RRR; S1/S2 normal; no murmurs/rubs/gallops; pulses intact and symmetric at radial, DP, and PT Lungs: no acute respiratory distress; symmetrical chest wall expansion; clear breath sounds across all lung keys w/o adventitious sounds; no wheezing ABD: Soft, NTP in all 4 quadrants; negative suprapubic tenderness BS present; no rebound/guarding; no distention : Gallegos catheter in place without drainage of urine into bag MSK: no tics or fasciculations; edematous lower extremities bilaterally, nonerythematous Neuro: A&Ox3; normal mood and affect; fluent speech; no focal deficits; patient reports that sensation is intact and symmetric in lower EXTR bilaterally Results & Data Results & Data Vital Signs (Past 12 Hours) Vital Signs Temp Pulse Pulse Resp BP BP Pulse Ox 03/26/24 16:30 82 19 98/48 L 95 03/26/24 16:15 79 26 H 97/55 L 96 03/26/24 16:12 33.4 C L 03/26/24 16:02 81 03/26/24 16:00 33.4 C L 74 28 H 81/60 L 96 03/26/24 15:46 82 20 93/56 L 96 03/26/24 15:45 82 20 96 03/26/24 15:31 84 17 93/52 L 96 03/26/24 15:31 95 03/26/24 14:34 88 25 H 97/56 L 96 O2 Del Method 03/26/24 16:30 Room Air 03/26/24 16:15 Room Air 03/26/24 16:12 03/26/24 16:02 03/26/24 16:00 Room Air 03/26/24 15:46 Room Air 03/26/24 15:45 Room Air 03/26/24 15:31 Room Air 03/26/24 15:31 Room Air 03/26/24 14:34 Room Air Laboratory Results Abnormal lab results 03/26/24 Range/Units 15:32 WBC 14.07 H (4.8-10.8) K/ul Hgb 10.9 L (12.0-16.0) g/dl MCHC 28.8 L (32.0-36.0) g/dL RDW Std Deviation 56.9 H (36.4-46.3) fL RDW Coeff of Arely 17.4 H (11.5-14.5) % Neut # (Auto) 11.71 H (1.40-6.50) K/uL Immature Gran # (Auto) 0.66 H (0.01-0.20) K/uL Sodium 133 L (136-145) mmol/L Potassium 6.6 H* (3.5-5.1) mmol/L Chloride 94 L (98-107) mmol/L Carbon Dioxide 5 L* (21-32) mmol/L Anion Gap 34 H (3-11) BUN 43 H (6-23) mg/dl Creatinine 2.74 H (0.6-1.2) mg/dl Glucose 49 L* (70-99(Fasting)) mg/dl Lactate > 17.0 H* (0.4-2.0) mmol/L Troponin I High Sens 22.3 H (0-14) pg/ml Albumin 3.0 L (3.4-5.0) gm/dl Diagnostic Findings Chest X-Ray 03/26/24 15:26 EXAM: Radiograph of the Chest 1 View INDICATION: Pain. TECHNIQUE: Frontal view of the chest. COMPARISON: 01/18/2023 FINDINGS: Lungs and pleural spaces: No consolidation or pulmonary edema. No pleural effusion or pneumothorax. Heart: Shape and configuration within normal limits allowing for technique. Mediastinum: Normal contour. Bones/joints: Degenerative changes noted throughout the spine. No acute osseous abnormality seen. Soft tissues: No abnormality noted. No radiopaque foreign body noted. Vasculature: Shallow inspiration with mild carotid vasculature in the bases. Stable ectatic aorta with calcification of the arch. Upper abdomen: There is a nonspecific calcific density in the right upper quadrant measuring 1 cm. IMPRESSION: Nonspecific right upper quadrant calcification. This could reflect artifact or a gallbladder or kidney stone. ACT 112: Negative or not required by law. Electronically signed by Kaylie Linder 03-26-2024 5:22 PM Abdomen/Pelvis CT 03/26/24 16:30 EXAM: CT Abdomen and Pelvis Without Intravenous Contrast INDICATION: Acute renal failure. TECHNIQUE: Axial computed tomography images of the abdomen and pelvis without intravenous contrast. Sagittal and coronal reformatted images were created and reviewed. This CT exam was performed using one or more of the following dose reduction techniques: automated exposure control, adjustment of the mA and/or kV according to patient size, and/or use of iterative reconstruction technique. COMPARISON: 09/15/2023 FINDINGS: Limitations: None. Lung bases: Airway thickening and mild atelectasis present in the dependent lung bases. Pleural space: Trace bilateral layering pleural effusions present. Heart: Stable large cardiac shadow. Mediastinum: No abnormality noted. ABDOMEN: Liver: Lack of intravenous contrast limits detection of some masses. No abnormality noted. Gallbladder and bile ducts: Multiple gallstones present. No ductal dilatation or stone. Pancreas: No pancreatic mass, calcification, inflammation or ductal dilation noted. Spleen: No significant abnormality noted. Adrenals: No significant abnormality noted. 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 Stable bilateral renal cortical scarring. Stable nonobstructing left kidney stones. No ureteral stone. Stomach and bowel: No distension or mucosal thickening. No inflammation noted. PELVIS: Appendix: No findings to suggest acute appendicitis. Bladder: Urinary bladder is decompressed by catheter. Balloon inflated in the lumen. Reproductive: No abnormalities noted. ABDOMEN and PELVIS: Intraperitoneal space: No free air. No significant fluid collection. Bones/joints: Degenerative changes noted throughout the spine. No acute osseous abnormality seen. Visualized portion of right femoral nail and proximal locking bolt intact and well-seated. Soft tissues: There are small bilateral fat containing inguinal hernias. Diffuse body wall edema noted. Vasculature: Aortobiiliac atherosclerosis. There is moderate to severe coronary calcification. No aneurysm. Lymph nodes: No pathologically enlarged lymph nodes. IMPRESSION: 1. Stable bilateral renal scarring and nonobstructing left kidney stones. 2. Collapsed urinary bladder cannot be optimally assessed. No bladder stones. 3. Extensive cholelithiasis. ACT 112: Negative or not required by law. Electronically signed by Kaylie Linder 03-26-2024 5:05 PM ECG Additional Comments: ECG revealed NSR 87 bpm; QTc 522 (caution use of QT prolonging agents); T wave inversions noted in the lateral leads LBBB (noted on prior EKG) Code Status & VTE Plan Code Status Full code While there is no paperwork in place, patient reports that she would want her (Orion) to be her medical proxy in an emergency situation PG Care Time/CCT Total # of Minutes Spent Total Time Spent with Patient: Total time spent is greater than 50% in coordination of care (as documented) at patient's floor/unit and/or counseling patient: C[place] [address] INT INP/OBS CARE 3/75MIN Patient Type Established History Comprehensive Exam Comprehensive Medical Decision Making High Complexity Diagnoses Sepsis A41.9 Nausea, vomiting, and diarrhea R11.2; R19.7 Acute renal failure N17.9 Hyperkalemia E87.5 Hypothermia T68.XXXA Hypotension I95.9 Type 2 diabetes mellitus without complication, without long-term current use of insulin E11.9 Diabetes mellitus complication status: without complication Diabetes mellitus long-term insulin use: without long-term use Mixed hyperlipidemia E78.2 Hyperlipidemia type: mixed hyperlipidemia LBBB (left bundle branch block) I44.7 Limb-girdle muscular dystrophy G71.039 Elevated troponin R79.89 (7) Type 2 diabetes mellitus Diabetes mellitus complication status: without complication Diabetes mellitus long-term insulin use: without termite control technician use Qualified Code(s): E11.9 - Type 2 diabetes mellitus without complications (8) Hyperlipidemia Hyperlipidemia type: mixed hyperlipidemia Qualified Code(s): E78.2 - Mixed hyperlipidemia
--- NOTE | 2024-03-26 17:06 | CT Scan Report ---
EXAM: CT Abdomen and Pelvis Without Intravenous Contrast INDICATION: Acute renal failure. TECHNIQUE: Axial computed tomography images of the abdomen and pelvis without intravenous contrast. Sagittal and coronal reformatted images were created and reviewed. This CT exam was performed using one or more of the following dose reduction techniques: automated exposure control, adjustment of the mA and/or kV according to patient size, and/or use of iterative reconstruction technique. COMPARISON: 09/15/2023 FINDINGS: Limitations: None. Lung bases: Airway thickening and mild atelectasis present in the dependent lung bases. Pleural space: Trace bilateral layering pleural effusions present. Heart: Stable large cardiac shadow. Mediastinum: No abnormality noted. ABDOMEN: Liver: Lack of intravenous contrast limits detection of some masses. No abnormality noted. Gallbladder and bile ducts: Multiple gallstones present. No ductal dilatation or stone. Pancreas: No pancreatic mass, calcification, inflammation or ductal dilation noted. Spleen: No significant abnormality noted. Adrenals: No significant abnormality noted. 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 Stable bilateral renal cortical scarring. Stable nonobstructing left kidney stones. No ureteral stone. Stomach and bowel: No distension or mucosal thickening. No inflammation noted. PELVIS: Appendix: No findings to suggest acute appendicitis. Bladder: Urinary bladder is decompressed by catheter. Balloon inflated in the lumen. Reproductive: No abnormalities noted. ABDOMEN and PELVIS: Intraperitoneal space: No free air. No significant fluid collection. Bones/joints: Degenerative changes noted throughout the spine. No acute osseous abnormality seen. Visualized portion of right femoral nail and proximal locking bolt intact and well-seated. Soft tissues: There are small bilateral fat containing inguinal hernias. Diffuse body wall edema noted. Vasculature: Aortobiiliac atherosclerosis. There is moderate to severe coronary calcification. No aneurysm. Lymph nodes: No pathologically enlarged lymph nodes. IMPRESSION: 1. Stable bilateral renal scarring and nonobstructing left kidney stones. 2. Collapsed urinary bladder cannot be optimally assessed. No bladder stones. 3. Extensive cholelithiasis. ACT 112: Negative or not required by law. Electronically signed by Kaylie Linder 03-26-2024 5:05 PM
[2024-03-26] MEDS ORDERED: STAT IV/IM STA (17:09)
--- NOTE | 2024-03-26 17:23 | XRay Report ---
EXAM: Radiograph of the Chest 1 View INDICATION: Pain. TECHNIQUE: Frontal view of the chest. COMPARISON: 01/18/2023 FINDINGS: Lungs and pleural spaces: No consolidation or pulmonary edema. No pleural effusion or pneumothorax. Heart: Shape and configuration within normal limits allowing for technique. Mediastinum: Normal contour. Bones/joints: Degenerative changes noted throughout the spine. No acute osseous abnormality seen. Soft tissues: No abnormality noted. No radiopaque foreign body noted. Vasculature: Shallow inspiration with mild carotid vasculature in the bases. Stable ectatic aorta with calcification of the arch. Upper abdomen: There is a nonspecific calcific density in the right upper quadrant measuring 1 cm. IMPRESSION: Nonspecific right upper quadrant calcification. This could reflect artifact or a gallbladder or kidney stone. ACT 112: Negative or not required by law. Electronically signed by Kaylie Linder 03-26-2024 5:22 PM
[2024-03-26] MEDS: CALCIUM GLUCONATE 1,000 MG/60 ML BAG IV STA (17:36)
[2024-03-26] MEDS: PLASMA-LYTE A 1,000 ML IV ONE ×2 (17:47→20:15)
[2024-03-26] MEDS: HYDROCORTISONE SOD SUCCINATE 100 MG/2 ML VIAL IV STA (17:58)
[2024-03-26 17:59] LABS: iSTAT Art Bld Gas pCO2 Correct 18 mmHg (35-46); iSTAT Art Bld Gas pH Corrected 6.917 (7.35-7.45); iSTAT Arterial Blood Gas HCO3 4 meg/L (19-24); iSTAT Arterial Blood Gas pCO2 21 mmHg (35-46); iSTAT Arterial Blood Gas pH 6.88 (7.35-7.45); iSTAT Arterial Blood Gas pO2 61 mmHg (80-95); iSTAT Arterial Blood Gas pO2 C 47; iSTAT Carbon Dioxide < 5 mmol/L (24-31); iSTAT FiO2 21 %; iSTAT Hematocrit 31 % (37-47); iSTAT Hemoglobin 10.5 g/dl (12.0-16.0); iSTAT Sample Type Arterial; iSTAT Sodium 130 mmol/L (135-144)
[2024-03-26] MEDS: SODIUM BICARBONATE 8.4% 150 MEQ in DEXTROSE 5% 1,000 ML IV SCH (17:59)
[2024-03-26] MEDS: DAPTOmycin 425 MG in SYRINGE 0 ML IV SCH (17:59)
[2024-03-26] MEDS: SODIUM BICARB 8.4% INJ 50 MEQ/50 ML SYR IV STA ×7 (18:12→22:55)
[2024-03-26 20:06] LABS: Troponin I High Sensitivity 20.5 pg/ml (0-14)
[2024-03-26] MEDS ORDERED: STAT IV Infusion **Titration per Protocol STA ×3 (20:14→23:13)
[2024-03-26] MEDS: NOREPINEPHRINE/D5W 4 MG/250 ML PLCT IV SCH (20:15)
[2024-03-26 20:16] LABS: Thyroid Stimulating Hormone 0.866 uIu/ml (0.300-4.500)
[2024-03-26] MEDS ORDERED: CARBOHYDRATES FOR HYPOGLYCEMIA PO PRN (20:41)
[2024-03-26] MEDS ORDERED: GLUCOSE 40% GEL 15 GM TUBE PO PRN (20:41)
[2024-03-26] MEDS ORDERED: DEXTROSE 50% 50 ML SYRINGE IV PRN (20:41)
[2024-03-26] MEDS ORDERED: PHARMACY GLYCEMIC MGMT CONSULT PRN (20:41)
[2024-03-26] MEDS ORDERED: GLUCAGON FOR INJ 1 MG VIAL SQ PRN (20:41)
[2024-03-26] MEDS ORDERED: PROCHLORPERAZINE 5 MG in SYRINGE 4 ML IV PRN (20:41)
[2024-03-26] MEDS ORDERED: GLUCOSE 10 TAB/TUBE PO PRN (20:41)
[2024-03-26] MEDS ORDERED: ICU Protocol for HYPERglycemia SCH (21:00)
--- NOTE | 2024-03-26 21:02 | Billing Data ---
Date of Service March 26, 2024 Coding Level of Care Code 49006 CRITICAL CARE 1ST 30-74M Time Spent (min) 90
[2024-03-26 21:04] LABS: BUN Creatinine Ratio 16.4 (10-20); Calcium 9.1 mg/dl (8.6-10.3); Creatinine Clr Calc Pharmacy 22.7 ml/min; Potassium 6.4 mmol/L (3.5-5.1)
--- NOTE | 2024-03-26 21:06 | Discharge Summary ---
Discharge Summary Date of Service March 26, 2024 Principal Dx & Hospital Course #1 = Principal Diagnosis (1) Septic shock: (2) BANDAR (acute kidney injury): (3) Diarrhea: (4) Adrenal insufficiency: (5) Lactic acidosis: (6) Limb-girdle muscular dystrophy: (7) Chronic kidney disease (CKD): (8) Type 2 diabetes mellitus: (9) Morbid obesity: (10) Congestive heart failure: Plan 73-year-old woman with history of diabetes on Trulicity and metformin presented after 6 days of nausea vomiting and diarrhea on exam she is alert and oriented x 4 though a little bit lethargic mucous membranes are very dry lungs are clear to auscultation bilaterally heart is regular no murmur abdomen is soft nontender nondistended with active bowel sounds there is a minimal amount of clear light yellow urine in the Da Silva tubing approximately 10 mL, lower extremities with only mild edema at the ankles and feet. Her extremities are warm and well-perfused she is currently under Bharathi hugger Found to be septic, hypothermic, leukocytosis, BANDAR with severe metabolic acidosis, lactic acidosis. Noncontrast CT abdomen/pelvis unrevealing Afternoon events -IV fluids, 2 amps bicarb, bicarb drip started -broad spectrum antibiotics given: daptomycin, cefepime - empiric for sepsis -hydrocortisone 100 mg IV -discussed with childcare worker, cabin supervisor -delay in being able to obtain repeat labs, 1900 BMP still not resulted. POC repeat sodium 130, potassium 6.0 and lactic acid 17-->16.7 at 1900 -UOP around 10 mL, clear/light yellow in da silva tubing -childcare worker recommended dialysis which is not avaiable at this facility this evening/overnight -progressive hypotension, starting norepinephrine - A/P: Septic shock, antecedent nausea/vomiting/diarrhea for one week -normal LFT, unremarkable noncontrast CT no obstruction or other notable findi ngs, made only a smear of stool which was soft (not liquid) in ED. Consider viral gastroenteritis, C. diff. COVID/flu negative -CXR clear and was not hypoxic, low procalcitonin pneumonia unlikely -consider bowel ischemia though nontender on serial exam and no abdominal pain -no urine for UA yet, blood cultures pending -small red area left neck from recent dermatologic problem (sounds like autoim mune bullous disease) does not appear like cellulitis -fluid resuscitation, continue cefepime and daptomycin -stool studies, C. diff if diarrhea -MRSA nares Picture is consistent with potential euglycemic diabetic ketoacidosis, lactic acidosis could be potentiated by metformin -serum Osm pending BANDAR with severe metabolic acidosis, lactic acidosis, hyperkalemia -entresto held -potassium improved after bicarbonate -anuric -likely needs emergency hemodialysis, not clearing lactate after several hours resuscitation efforts Presumed secondary adrenal insufficiency, was on prednisone >6 weeks recently for dermatologic condition came off pred 2 weeks ago -stress dose hydrocortisone Muscular dystrophy - severe muscle atrophy and Cr is not a good estimate of kidney function because of low muscle mass Congestive heart failure - entresto, carvedilol held Hyponatremia Diabetes type 2 Minimally elevated HS-troponin, picture not consistent with ACS Transferring to [facility] ICU because hemodialysis not available here, discussed with childcare worker at [facility] who accepted for transfer I spent 90 minutes critical care time on evaluating vital signs, history, serial examination and serial labs, reviewing radiology results, discussions with consultants, updating family at bedside, arranging transfer to higher level of care Admission HPI Per Admitting Provider Judie is a 73-year-old female with PMH of cardiomyopathy, LBBB, MRSA infection, wheelchair dependence, T2DM, CKD, HTN, HLD, endometrial cancer s/p total hysterectomy, and muscular dystrophy. She presented on 03/26 for nausea/vomiting x 4 days. Patient's (Orion) is present at the bedside and provides additional history. Patient has been unable to keep down solids or fluids over the past several days; her reports that she has not had anything to eat in 3 days. She has been trying to take her medications, but is unable to keep things down. She did not take her medicine this morning. In addition to nausea and vomiting, she has had diarrhea with bright red blood. No dark tarry stools. No history of GI bleeds. No blood in her vomit. reports she was recently on an antibiotic for her skin infection on her left neck/shoulder. Additional symptoms include sore throat, SOB at rest, pleuritic CP, productive cough, and generalized abdominal pain. She reports that her abdominal pain has been constant, but has somewhat resolved in the ED. She is unable to characterize it. She is not taking any pain medicine at home for it. Patient is wheelchair-bound at baseline due to her muscular dystrophy. Her reports she has not been urinating in the past 3 days. She does have a history of kidney stones. Patient denies history of MRSA infection. NKDA. She denies smoking, tobacco use, or recent alcohol use. Patient is hypotensive at 98/48 and hypothermic at 33.4 C at time of admission. ED course: NSS 1000 mL IV Cefepime 2000 mg IV Dextrose 50 mL IV ROS: Patient endorses nausea, vomiting, diarrhea, SOB at rest (which started in the ED), mild pleuritic CP, productive cough (clear sputum production), generalized abdominal pain (resolved in the ED), and bright red blood in her stool. Patient denies fever, chills, night-sweats, dizziness, lightheadedness, VIZCAINO, chest pain, chest palpitations, melena, burning with urination, or blood in the urine. Discharge Plan Discharge Items Reason For Visit: SEPSIS, NAUSEA/VOMITING Follow-up/Referrals: Rochelle Robles CRNP [Primary Care Provider] - Medications and DC Order Prescriptions: No Action (DME) APPM circulating mattress See Rx Instructions .Route .MEDSUPPLY Qty: 1 0RF Rx Instructions: As directed (DME) lancets Misc See Rx Instructions .Route Qty: 100 5RF Rx Instructions: TEST BSG DAILY; DX CODE- E11.9 (DME) OneTouch Ultra Test Strip See Rx Instructions .Route Qty: 100 5RF Rx Instructions: TEST BSG DAILY; DX CODE- E11.9 Entresto 49-51 mg tablet 1 tab PO BID Qty: 180 3RF metformin 1,000 mg tablet 1,000 mg PO BID Qty: 180 3RF Rx Instructions: TAKE 1 TABLET BY MOUTH 2 TIMES DAILY. atorvastatin 40 mg tablet 40 mg PO HS Qty: 90 3RF (DME) underpads Pad See Rx Instructions .ROUTE .MEDSUPPLY Qty: 90 5RF Rx Instructions: Disposable Underpads, Pt. uses 3 per day, Dx: G72.9; R32 (DME) disposable gloves Package See Rx Instructions .Route Qty: 50 5RF Rx Instructions: As directed-SIZE LARGE nystatin 100,000 unit/gram powder 1 applic topical BID PRN (Reason: fungal rash) Qty: 60 2RF Tradjenta 5 mg tablet 5 mg PO DAILY Qty: 30 11RF Women's Daily Formula 27-0.4 mg tablet 1 tab PO DAILY ascorbic acid (vitamin C) 1 tab PO DAILY zinc acetate 1 cap PO DAILY carvedilol 12.5 mg tablet 12.5 mg PO BID Qty: 180 3RF Rx Instructions: TAKE 1 TABLET BY MOUTH TWICE DAILY. MUST ADMINISTER WITH A MEAL/FOOD. nystatin 100,000 unit/gram cream 1 applic topical BID Qty: 30 0RF Rx Instructions: Apply topically to groin folds cranberry 400 mg capsule 400 mg PO BID biotin 2,500 mcg capsule 2,500 mcg PO DAILY (DME) power wheel chair repair See Rx Instructions .Route .MEDSUPPLY Qty: 1 0RF Rx Instructions: As directed doxycycline hyclate 100 mg capsule 100 mg PO BID prednisone 10 mg tablet 10 mg PO DAILY clobetasol 0.05 % ointment 1 applic topical DAILY YB-yjbinanrdqu-cuokcf ox-zinc 500-750-1.5-25 kdx-fi-oy-mg tablet,ext release multiphase PO TID ondansetron 4 mg tablet,disintegrating 4 mg PO Q8H PRN (Reason: nausea and vomiting) Qty: 20 1RF (DME) repalcement wheels for powered wheelchair See Rx Instructions .Route .MEDSUPPLY Qty: 1 0RF Rx Instructions: As directed (DME) Power Wheelchair Device See Rx Instructions .ROUTE .MEDSUPPLY Qty: 1 0RF Rx Instructions: PLEASE MAKE NEEDED REPAIRS TO WHEELCHAIR (DME) duoderm See Rx Instructions .Route .MEDSUPPLY Qty: 3 3RF Rx Instructions: As directed ([facility] [place]) seat cushion replacement for electric scooter See Rx Instructions .Route .MEDSUPPLY Qty: 1 0RF Rx Instructions: As directed magnesium 250 mg tablet 250 mg PO DAILY Qty: 30 0RF aspirin 81 mg Tablet,Delayed Release (Dr/Ec) 81 mg PO DAILY Ocuvite Eye Health 50 mg-15 unit- 4.5 mg-2.5 mg Tablet,Chewable 2 tab PO DAILY omega-3 fatty acids 1,000 mg Capsule 1,000 mg PO DAILY (DME) Miscellaneous Rx Instructions: Cushion for Power wheelchair DX:G71.00 (DME) Miscellaneous Rx Instructions: Power wheelchair repairs DX:G71.00 Admission Data Admit Date/Time: 03/26/24 17:35 Attending Provider: Nieves Jang Admit Provider: Nieves Jang Primary Care Provider: Rochelle Robles Other Providers: Nieves Jang; Tom Jack; John Higu[facility] Hospital Stay Data Consultations 03/26/24 16:50 ED Decision to Admit Stat 03/26/24 20:41 Consult Firmware Architect Routine Consult Nephrology Routine Diagnostic Imagining Performed 03/26/24 16:30 CT abd pelvis wo con Stat Chest X-Ray 03/26/24 15:26 EXAM: Radiograph of the Chest 1 View INDICATION: Pain. TECHNIQUE: Frontal view of the chest. COMPARISON: 01/18/2023 FINDINGS: Lungs and pleural spaces: No consolidation or pulmonary edema. No pleural effusion or pneumothorax. Heart: Shape and configuration within normal limits allowing for technique. Mediastinum: Normal contour. Bones/joints: Degenerative changes noted throughout the spine. No acute osseous abnormality seen. Soft tissues: No abnormality noted. No radiopaque foreign body noted. Vasculature: Shallow inspiration with mild carotid vasculature in the bases. Stable ectatic aorta with calcification of the arch. Upper abdomen: There is a nonspecific calcific density in the right upper quadrant measuring 1 cm. IMPRESSION: Nonspecific right upper quadrant calcification. This could reflect artifact or a gallbladder or kidney stone. ACT 112: Negative or not required by law. Electronically signed by Kaylie Linder 03-26-2024 5:22 PM Abdomen/Pelvis CT 03/26/24 16:30 EXAM: CT Abdomen and Pelvis Without Intravenous Contrast INDICATION: Acute renal failure. TECHNIQUE: Axial computed tomography images of the abdomen and pelvis without intravenous contrast. Sagittal and coronal reformatted images were created and reviewed. This CT exam was performed using one or more of the following dose reduction techniques: automated exposure control, adjustment of the mA and/or kV according to patient size, and/or use of iterative reconstruction technique. COMPARISON: 09/15/2023 FINDINGS: Limitations: None. Lung bases: Airway thickening and mild atelectasis present in the dependent lung bases. Pleural space: Trace bilateral layering pleural effusions present. Heart: Stable large cardiac shadow. Mediastinum: No abnormality noted. ABDOMEN: Liver: Lack of intravenous contrast limits detection of some masses. No abnormality noted. Gallbladder and bile ducts: Multiple gallstones present. No ductal dilatation or stone. Pancreas: No pancreatic mass, calcification, inflammation or ductal dilation noted. Spleen: No significant abnormality noted. Adrenals: No significant abnormality noted. 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 Stable bilateral renal cortical scarring. Stable nonobstructing left kidney stones. No ureteral stone. Stomach and bowel: No distension or mucosal thickening. No inflammation noted. PELVIS: Appendix: No findings to suggest acute appendicitis. Bladder: Urinary bladder is decompressed by catheter. Balloon inflated in the lumen. Reproductive: No abnormalities noted. ABDOMEN and PELVIS: Intraperitoneal space: No free air. No significant fluid collection. Bones/joints: Degenerative changes noted throughout the spine. No acute osseous abnormality seen. Visualized portion of right femoral nail and proximal locking bolt intact and well-seated. Soft tissues: There are small bilateral fat containing inguinal hernias. Diffuse body wall edema noted. Vasculature: Aortobiiliac atherosclerosis. There is moderate to severe coronary calcification. No aneurysm. Lymph nodes: No pathologically enlarged lymph nodes. IMPRESSION: 1. Stable bilateral renal scarring and nonobstructing left kidney stones. 2. Collapsed urinary bladder cannot be optimally assessed. No bladder stones. 3. Extensive cholelithiasis. ACT 112: Negative or not required by law. Electronically signed by Kaylie Linder 03-26-2024 5:05 PM 03/26/24 03/26/24 03/26/24 Range/Units 19:01 19:00 17:45 WBC (4.8-10.8) K/ul RBC (4.20-5.40) M/uL Hgb (12.0-16.0) g/dl POC Hgb 10.5 L (12.0-16.0) g/dl Hct (37.0-47.0) % POC Hct 31 L (37-47) % MCV (80.0-100.0) fL MCH (25.0-34.0) pg MCHC (32.0-36.0) g/dL RDW Std Deviation (36.4-46.3) fL RDW Coeff of Arely (11.5-14.5) % Plt Count (130-400) K/uL MPV (9.4-12.4) fL Immature Gran % (Auto) % Neut % (Auto) % Lymph % (Auto) % [place] % (Auto) % Eos % (Auto) % Baso % (Auto) % Neut # (Auto) (1.40-6.50) K/uL Lymph # (Auto) (1.20-3.40) K/uL [place] # (Auto) (0.11-0.59) K/uL Eos # (Auto) (0.00-0.50) K/uL Baso # (Auto) (0.00-0.20) K/uL Immature Gran # (Auto) (0.01-0.20) K/uL Basophilic Stippling Ovalocytes Echinocytes Acanthocytes (Spur) Specimen Type Arterial POC pH 6.88 L* (7.35-7.45) POC pCO2 21 L (35-46) mmHg POC pO2 61 L (80-95) mmHg POC HCO3 4 L (19-24) mal/L POC Total CO2 < 5 L* (24-31) mmol/L POC Base Excess -29.0 L (-9-1.8) mal/L ABG pH (Temp Correct) 6.917 L* (7.35-7.45) ABG pCO2 (Temp Corrct 18 L (35-46) mmHg POC ABG pO2 at Pt Temp 47 POC ABG O2 Sat 69.0 L (90-95) % POC FiO2 21 % POC Sodium 130 L (135-144) mmol/L Sodium 134 L (136-145) mmol/L POC Potassium 6.0 H (3.3-5.0) mmol/L Potassium 6.4 H* (3.5-5.1) mmol/L Chloride 98 (98-107) mmol/L Carbon Dioxide 3 L* (21-32) mmol/L Anion Gap 33 H (3-11) BUN 42 H (6-23) mg/dl Creatinine 2.56 H (0.6-1.2) mg/dl Est Cr Clr Drug Dosing 22.7 ml/min eGFR 19.37 BUN/Creatinine Ratio 16.4 (10-20) Glucose 132 H (70-99(Fasting)) mg/dl POC Glucose (70-99) mg/dl Osmolality Lactate 16.7 H* (0.4-2.0) mmol/L Calcium 9.1 (8.6-10.3) mg/dl Magnesium (1.7-2.4) mg/dl Total Bilirubin (0.2-1.0) mg/dl Direct Bilirubin (0-0.2) mg/dl AST (13-39) U/L ALT (7-52) U/L Alkaline Phosphatase (34-104) U/L Troponin I High Sens 20.5 H (0-14) pg/ml Total Protein (6.0-8.3) gm/dl Albumin (3.4-5.0) gm/dl Procalcitonin (0-0.5) ng/ml TSH 0.866 (0.300-4.500) uIu/ml 03/26/24 03/26/24 Range/Units 17:00 15:32 WBC 14.07 H (4.8-10.8) K/ul RBC 4.24 (4.20-5.40) M/uL Hgb 10.9 L (12.0-16.0) g/dl POC Hgb (12.0-16.0) g/dl Hct 37.8 (37.0-47.0) % POC Hct (37-47) % MCV 89.2 (80.0-100.0) fL MCH 25.7 (25.0-34.0) pg MCHC 28.8 L (32.0-36.0) g/dL RDW Std Deviation 56.9 H (36.4-46.3) fL RDW Coeff of Arely 17.4 H (11.5-14.5) % Plt Count 263 (130-400) K/uL MPV 9.4 (9.4-12.4) fL Immature Gran % (Auto) 4.7 % Neut % (Auto) 83.3 % Lymph % (Auto) 10.4 % [place] % (Auto) 1.2 % Eos % (Auto) 0.0 % Baso % (Auto) 0.4 % Neut # (Auto) 11.71 H (1.40-6.50) K/uL Lymph # (Auto) 1.47 (1.20-3.40) K/uL [place] # (Auto) 0.17 (0.11-0.59) K/uL Eos # (Auto) 0.00 (0.00-0.50) K/uL Baso # (Auto) 0.06 (0.00-0.20) K/uL Immature Gran # (Auto) 0.66 H (0.01-0.20) K/uL Basophilic Stippling 1+ Ovalocytes 1+ Echinocytes 1+ Acanthocytes (Spur) 2+ Specimen Type POC pH (7.35-7.45) POC pCO2 (35-46) mmHg POC pO2 (80-95) mmHg POC HCO3 (19-24) mal/L POC Total CO2 (24-31) mmol/L POC Base Excess (-9-1.8) mal/L ABG pH (Temp Correct) (7.35-7.45) ABG pCO2 (Temp Corrct (35-46) mmHg POC ABG pO2 at Pt Temp POC ABG O2 Sat (90-95) % POC FiO2 % POC Sodium (135-144) mmol/L Sodium 133 L (136-145) mmol/L POC Potassium (3.3-5.0) mmol/L Potassium 6.6 H* (3.5-5.1) mmol/L Chloride 94 L (98-107) mmol/L Carbon Dioxide 5 L* (21-32) mmol/L Anion Gap 34 H (3-11) BUN 43 H (6-23) mg/dl Creatinine 2.74 H (0.6-1.2) mg/dl Est Cr Clr Drug Dosing 21.2 ml/min eGFR 17.86 BUN/Creatinine Ratio 15.7 (10-20) Glucose 49 L* (70-99(Fasting)) mg/dl POC Glucose 152 H (70-99) mg/dl Osmolality Pending Lactate > 17.0 H* (0.4-2.0) mmol/L Calcium 10.0 (8.6-10.3) mg/dl Magnesium 1.9 (1.7-2.4) mg/dl Total Bilirubin 0.3 (0.2-1.0) mg/dl Direct Bilirubin 0.1 (0-0.2) mg/dl AST 26 (13-39) U/L ALT 22 (7-52) U/L Alkaline Phosphatase 42 (34-104) U/L Troponin I High Sens 22.3 H (0-14) pg/ml Total Protein 6.0 (6.0-8.3) gm/dl Albumin 3.0 L (3.4-5.0) gm/dl Procalcitonin 0.36 (0-0.5) ng/ml TSH (0.300-4.500) uIu/ml Pending Results Patient Have Any Pending Studies at Discharge: Yes (blood cultures, serum Osm) Total Time Total Time Spent Total Time Spent (In Minutes): 90 Coding Level of Care Code None Diagnoses Septic shock A41.9; R65.21 BANDAR (acute kidney injury) N17.9 Diarrhea R19.7 Adrenal insufficiency E27.40 Lactic acidosis E87.20 Limb-girdle muscular dystrophy G71.039 Chronic kidney disease, unspecified CKD stage N18.9 Chronic kidney disease stage: unspecified stage Type 2 diabetes mellitus without complication, without long-term current use of insulin E11.9 Diabetes mellitus alf insulin use: without termite control servicer use Diabetes mellitus complication status: without complication Morbid obesity E66.01 Congestive heart failure I50.9
[2024-03-26 21:08] LABS: iSTAT Allen Test Pass; iSTAT Art Bld Gas pCO2 Correct 66 mmHg (35-46); iSTAT Art Bld Gas pH Corrected 7.083 (7.35-7.45); iSTAT Arterial Blood Gas HCO3 20 meg/L (19-24); iSTAT Arterial Blood Gas pCO2 66 mmHg (35-46); iSTAT Arterial Blood Gas pH 7.08 (7.35-7.45); iSTAT Arterial Blood Gas pO2 52 mmHg (80-95); iSTAT Arterial Blood Gas pO2 C 52; iSTAT Carbon Dioxide 21 mmol/L (24-31); iSTAT Hematocrit 27 % (37-47); iSTAT Hemoglobin 9.2 g/dl (12.0-16.0); iSTAT Potassium 4.9 mmol/L (3.3-5.0); iSTAT Sample Type Arterial; iSTAT Site R Brachial; iSTAT Sodium 129 mmol/L (135-144); iSTAT SpO2 94
[2024-03-26] MEDS: NOREPINEPHRINE/D5W 4 MG/250 ML IV ONE (21:17)
[2024-03-26 21:43] LABS: Oxygen Saturation VBG 90.7 %; PCO2 VBG 24 mmHg (38-50); PO2 VBG 60 mmHg; pH VBG < 7.00 (7.36-7.41)
--- NOTE | 2024-03-26 21:57 | Procedure Note ---
Procedure Note Date of Service March 26, 2024 FEMORAL CENTRAL LINE PROCEDURE NOTE: Procedure: Femoral Central Line Placement Attending: Dr. Jack Provider: ZAKIYA Caceres Indication: Central Drug Administration, Poor Venous Access, Multiple Lab Draws Necessary, etc. Anesthesia: Lidocaine 1% Consent was signed and placed on the chart prior to procedure. Indication, risks, and benefits were explained at length. A time-out was completed verifying correct patient, procedure, site, positioning, and implants(s) or special equipment if applicable. Patient's Right Groin was cleansed and draped in the typical sterile fashion using Chloraprep. The Femoral Vein and Femoral Artery were identified using ultrasound. The superficial tissue was anesthetized using 3 mL of 1% lidocaine without epinephrine under direct visualization with the ultrasound. After adequate anesthetization was achieved, the Femoral Vein was cannulated under direct ultrasound guidance using an introducer needle on a syringe. Good venous blood return was maintained prior to removal of syringe from introducer needle. Using Seldinger Technique, a guide wire was advanced through the introducer needle without resistance. The introducer needle was removed and ultrasound images were obtained of the guide wire within the Femoral Vein and saved to the patient's medical record. A small incision was made in penetrating fashion at the guide wire insertion site utilizing an 11 blade scalpel. The dilator was advanced to the vessel without resistance. The dilator was exchanged for the triple lumen catheter which was advanced into the vessel without resistance. The guide wire was removed intact from the catheter without issue. Claves were placed on each catheter tip with confirmation of good blood flow from each lumen. Each port was easily flushed with sterile saline. The catheter was placed at the hub and sutured in place. BioPatch was applied to the catheter and a sterile Tegaderm dressing was applied over the catheter with careful attention to sterility. Patient tolerated procedure well. No immediate complications were met. Procedural Ultrasound Guidance: Procedure Date: 03/26/2024 Indication: Central venous catheter insertion Attending: Dr. Jack Provider: ZAKIYA Caceres Artery AND Vein visualized: yes Compressible Vein: yes Guidewire or Short Catheter seen in vein prior to dilation: yes Line confirmed in Vein with ultrasound: yes [facility] Codes (Charges) Tubes, Drains, and Vasc Access Procedure 1: Tubes, Drains, and Vasc Access: [id number] Insertion Of Non-tunneled Catheter Age 6 Yrs> Procedure 2: Tubes, Drains, and Vasc Access: [id number] Ultrasound Guidance For Vascular Coding CPT Codes Tubes, Drains, and Vasc Access - Tubes, Drains, and Vasc Access: [id number] Insertion Of Non-tunneled Catheter Age 6 Yrs> ([id number]) Tubes, Drains, and Vasc Access - Tubes, Drains, and Vasc Access: [id number] Ultrasound Guidance For Vascular ([id number]) Additional Codes Date of Service (PG.[email or web address])
--- NOTE | 2024-03-26 21:58 | Critical Care Consultation ---
Date of Consultation March 26, 2024 Assessment & Plan (1) Shock: Reason Critically Ill: 73-year-old female currently being treated in ICU while awaiting transfer to [facility] for shock with acute renal failure, severe metabolic acidosis, and likely need for CRRT. She is currently on multiple vasopressors and bicarb drip requiring multiple bicarb pushes in addition. Patient also requiring BiPAP for respiratory support. Neuro - [facility] ICU: negative Cardiac - Shockunsure of exact etiology at this time although it is likely multifactoral with sepsis, Severe metabolic acidosis, Severe dehydration - See ID for treatment of sepsis - Patient on prednisone 10 mg daily. Was given hydrocortisone 100 mg in the ED and will continue - Continue bicarb infusion/pushes to optimize pH. Patient will likely need CRRT - Continue with aggressive fluid resuscitation. She is currently on bicarb drip and receiving multiple crystalloid boluses - Continue vasopressin/Levophed drips to maintain MAP greater than 65 - Previous TTE from 2021 with grade 1 diastolic dysfunction and normal systolic function. - Continuous monitor on telemetry Respiratory - No history of pulmonary disease. She was placed on BiPAP for respiratory support as she has severe metabolic acidosis, and requires additional assistance with work of breathing despite bicarb replacement. Hopefully we will be able to avoid intubation. Will trend ABGs routinely while awaiting transfer. Continuous monitoring on pulse ox. GI - N.p.o. RENAL/LYTES - Acute renal failure Likely ATN in the setting of hypotension/dehydration. She has been given multiple liters of crystalloid bolus, and continues to be oliguric with minimal urine output. -CT abdomen and pelvis without hydronephrosis or obstruction - Hyperkalemia likely due to acidosis and renal failure. Improved on most recent BMP. Hopefully patient will be able to receive renal replacement therapy. Continue medical management for now - Avoid nephrotoxins and renally adjust medications - Maintain MAP greater than 65. Currently on multiple vasopressors - Continue with fluid resuscitation - Transfer to tertiary center for CRRT High anion gap metabolic acidosis Likely due to elevated lactate. Unsure of possible metformin overdose may be contributing or this was related to septic shock and profound hypotension - Ethylene glycol pending. Patient was given Fomepizole Empirically - Continue bicarb drip. Give additional bicarb pushes to maintain pH greater than 7.2 - Trend lactate. Repeat showed marginal improvement with lactic acid of 15 - Patient transferring to tertiary center. Would likely benefit CRRT - Foleystrict I's and O's ENDO - DM type IImetformin and Jardiance on hold. Patient initially hypoglycemic and unsure if this is related to possible sepsis shock. Cannot rule out possibility of medication overdose with oral diabetic medications. - She is currently receiving dextrose and bicarb drip with improvement in hypoglycemia HEME - H&H stable, monitor routine CBC ID - Sepsis Likely urinary source given urinalysis. CT abdomen and pelvis did show extensive cholelithiasis, no other acute findings. Although patient has normal LFTs and bilirubin and no evidence of gallbladder distention/acute cholecystitis. - Procalcitonin unremarkable. Patient does have significantly elevated lactate, And leukocytosis with WBC 14. She is hypothermic, Undergoing rewarming with bear hugger - Blood cultures and urine culture pending -BioFire negative - Nasal MRSA pending - Continue cefepime and daptomycin for now LINES/IV ACCESS - Right femoral CVC, left radial A-line. Peripheral IVs DVT PROPHYLAXIS - SCDs CODE STATUS: Full code Disposition: As patient has now been admitted to ICU, will continue medical management while awaiting transfer to tertiary center, as she will need CRRT at this point I have personally spent 85 minutes of critical care time in the direct management of this patient. This is a life/limb threatening event. This includes time spent evaluating patient, direct bedside care, chart review, placing orders, interpretation of diagnostic studies, discussion with consultants, patient, and family members, as well as other required patient management activities. This time is exclusive of all separately billable procedures, and teaching time and separate from and in addition to any other critical care service time. Thank you for allowing us to participate in the care of this patient. Please refer to my attending physician's documentation for any further recommendations. (2) Acidosis, lactic: (3) Acute hyperkalemia: (4) Adrenal insufficiency: (5) Acute renal failure: (6) Type 2 diabetes mellitus: History of Present Illness Attending Physician: Nieves Jang MD History of Present Illness Patient is a 73-year-old female with PMH significant for DM type II (on Trulicity and metformin), diastolic heart failure, LBBB, DM type II, CKD, HTN, HLD, endometrial cancer (s/p hysterectomy), muscular dystrophy, wheelchair dependence, who presented to the emergency department earlier today with 4 days of nausea and vomiting. Initial lab work revealed acute renal failure with severe metabolic acidosis and hyperkalemia. She was admitted to the hospital by primary team, however transfer recommended by critical care services for emergent dialysis or CRRT which we do not have at this facility. Transfer delayed by flight due to weather, and patient was already placed in the ICU. On arrival to the ICU patient became increasingly hypotensive, and A-line and central line were placed and she was started on vasopressor support and bicarb drip, and received multiple bicarb pushes. Patient currently being stabilized in ICU while awaiting transfer to tertiary center. Despite acuity, patient is alert and oriented upon arrival to the ICU. She does report again 4 days of nausea and vomiting and diarrhea. She also reports swelling to left anterior neck, which she states has been ongoing for the past few months. She also reports a sore throat that started yesterday, but denies cough or congestion. She denies headache or dizziness, syncope, fevers, chest pain or palpitations, shortness of breath, abdominal pain, swelling in hands or feet. I did speak with the patient regarding CODE STATUS and she would like to be full code including intubation in the event of cardiac arrest. Allergies Allergy/AdvReac Type Severity Reaction Status Date / Time No Known Allergies Allergy Unknown Verified 02/12/24 14:17 Home Medications Medication Instructions Recorded Confirmed Type aspirin 81 mg tablet,delayed 81 mg PO DAILY 07/08/18 02/12/24 History release vit C 50 mg-E 15 unit-zinc cit 4.5 2 tab PO DAILY 07/08/18 02/12/24 History mg-lutein 2.5 mg-zeaxan chew tablet (BiddingForGood) qsklnfidtltf-Vh-iahh-minerals 27 1 tab PO DAILY 10/07/18 02/12/24 History mg-0.4 mg tablet (Women's Daily Formula) cranberry 400 mg capsule 400 mg PO BID 12/12/19 02/12/24 History omega-3 fatty acids 1,000 mg 1,000 mg PO DAILY 12/01/21 02/12/24 History capsule power wheel chair repair #1 ea 12/13/21 02/12/24 Rx APPM circulating mattress #1 ea 12/15/21 02/12/24 Rx blood sugar diagnostic (OneTouch #100 ea 10/03/22 02/12/24 Rx Ultra Test strips) lancets #100 ea 10/03/22 02/12/24 Rx biotin 2,500 mcg capsule 2,500 mcg PO DAILY 11/21/22 02/12/24 History sacubitril 49 mg-valsartan 51 mg 1 tab PO BID #180 tabs 07/05/23 02/12/24 Rx tablet (Entresto) atorvastatin 40 mg tablet 40 mg PO HS #90 tabs 07/17/23 02/12/24 Rx metformin 1,000 mg tablet 1,000 mg PO BID #180 tabs 07/17/23 02/12/24 Rx disposable gloves #50 ea 07/26/23 02/12/24 Rx underpads #90 ea 07/26/23 02/12/24 Rx nystatin 100,000 unit/gram topical 1 applic topical BID #30 grams 08/02/23 02/12/24 Rx cream ascorbic acid (vitamin C) 1 tab PO DAILY 08/17/23 02/12/24 History carvedilol 12.5 mg tablet 12.5 mg PO BID #180 tabs 08/17/23 02/12/24 Rx zinc acetate 1 cap PO DAILY 08/17/23 02/12/24 History Miscellaneous 09/15/23 02/12/24 History Miscellaneous 09/15/23 02/12/24 History Wheelchair (Powered) (Power #1 ea 09/25/23 02/12/24 Rx Wheelchair) ondansetron 4 mg disintegrating 4 mg PO Q8H PRN nausea and 09/25/23 02/12/24 Rx tablet vomiting #20 tabs repalcement wheels for powered #1 ea 09/25/23 02/12/24 Rx wheelchair nystatin 100,000 unit/gram topical 1 applic topical BID PRN fungal 10/08/23 02/12/24 Rx powder rash #60 grams linagliptin 5 mg tablet (Tradjenta) 5 mg PO DAILY #30 tabs 10/29/23 02/12/24 Rx duoderm #3 ea 12/18/23 02/12/24 Rx magnesium 250 mg tablet 250 mg PO DAILY #30 tabs 12/18/23 02/12/24 Rx seat cushion replacement for #1 ea 12/18/23 02/12/24 Rx electric scooter IJ-gsbhoxvgpom-xzigsu ox-Zn ER 500 tab PO TID 02/12/24 02/12/24 History mcg-750 mg-1.5 mg-25 mg tablet,ER clobetasol 0.05 % topical ointment 1 applic topical DAILY 02/12/24 02/12/24 History doxycycline hyclate 100 mg capsule 100 mg PO BID 02/12/24 02/12/24 History prednisone 10 mg tablet 10 mg PO DAILY 02/12/24 02/12/24 History Patient History Medical History Limb-girdle muscular dystrophy Morbid obesity Congestive heart failure Uterine cancer Surgical History Hx of biopsy (12/13/23) History of hip surgery H/O right knee surgery History of total abdominal hysterectomy Family History Sister Cancer Myocardial infarction Muscular dystrophy Father Colorectal cancer Myocardial infarction Brother Colorectal cancer Myocardial infarction Muscular dystrophy Other Family history non-contributory Denies family history of Ovarian cancer Prostate cancer Breast cancer Social History Smoking Status: Unknown if ever smoked Second Hand Exposure: No; Do You Dip or Chew Tobacco: No; Hx Alcohol Use: No Hx Substance Use: No Preferred Language: Syriac Communication Ability: Effective Visual Impairment: No Limitations Hearing Ability: Normal 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 [employer] Required: No Beliefs That Will Affect Care: None marital status: Current Living Situation: Spouse current occupational status: disabled How many Children do You have: 5 Other Information That Helps Us Care for You: No Feels Safe at Home: Yes Safety Concerns: Feels Safe At This Time Childhood Exposure to Second-Hand Smoke: Yes Diet: regular caffeine: Yes during the past year weight has: remained stable Dental Care, Regularly: No Physical Activity Frequency: Daily Seatbelt Use: always Sunscreen Use: Yes Assistive Devices: Wheelchair Review of Systems Review of Systems: All systems reviewed & are unremarkable except as noted in HPI & below Physical Exam Constitutional: + obese, cooperative and + lethargic Eyes: PERRL, conjunctivae normal, anicteric sclerae ENMT: external ear and nose normal, oropharynx normal Neck: trachea midline, no thyromegaly Respiratory: normal respiratory effort, lungs clear to auscultation Cardiovascular: RRR, no murmur, no edema Heart Sounds: normal S1 and normal S2 Extremities: + edema Gastrointestinal (Abdomen): Abdomen obese, nontender, bowel sounds auscultated all 4 quadrants Musculoskeletal: no cyanosis or clubbing, extremities motor strength 5/5 Skin: Erythema and papular rash to the left anterior and clavicle area Neurologic: PERRL, EOMI, accommodation nl, no face palsy, no dysarthria Psychiatric: A+Ox3, euthymic affect Genitourinary: Indwelling Gallegos catheter. Urine yellow clear. Oliguric Results & Data Results & Data Vital Signs (Past 12 Hours) Vital Signs Temp Pulse Pulse Resp BP BP Pulse Ox 03/26/24 21:05 90 24 94 03/26/24 20:39 91 H 18 69/38 L 96 03/26/24 19:30 93 H 18 78/40 L 94 03/26/24 19:15 92 H 21 79/43 L 95 03/26/24 19:00 88 28 H 77/45 L 95 03/26/24 18:45 86 20 83/43 L 93 03/26/24 18:30 88 20 85/51 L 93 03/26/24 18:15 83 23 95/52 L 94 03/26/24 18:00 84 24 97/57 L 95 03/26/24 17:56 33.4 C L 82 23 102/53 L 94 03/26/24 17:30 85 19 105/56 L 95 03/26/24 17:15 884 H 24 99/60 L 96 03/26/24 17:15 99/60 L 03/26/24 17:15 84 24 96 03/26/24 17:12 82 29 H 96 03/26/24 17:00 82 20 95/61 L 03/26/24 16:30 82 19 98/48 L 95 03/26/24 16:15 79 26 H 97/55 L 96 03/26/24 16:12 33.4 C L 03/26/24 16:02 81 03/26/24 16:00 33.4 C L 74 28 H 81/60 L 96 03/26/24 15:46 82 20 93/56 L 96 03/26/24 15:45 82 20 96 03/26/24 15:31 84 17 93/52 L 96 03/26/24 15:31 95 03/26/24 14:34 88 25 H 97/56 L 96 O2 Del Method FiO2 03/26/24 21:05 21 03/26/24 20:39 Room Air 03/26/24 19:30 Room Air 03/26/24 19:15 Room Air 03/26/24 19:00 Room Air 03/26/24 18:45 Room Air 03/26/24 18:30 Room Air 03/26/24 18:15 Room Air 03/26/24 18:00 Room Air 03/26/24 17:56 Room Air 03/26/24 17:30 Room Air 03/26/24 17:15 03/26/24 17:15 03/26/24 17:15 03/26/24 17:12 03/26/24 17:00 03/26/24 16:30 Room Air 03/26/24 16:15 Room Air 03/26/24 16:12 03/26/24 16:02 03/26/24 16:00 Room Air 03/26/24 15:46 Room Air 03/26/24 15:45 Room Air 03/26/24 15:31 Room Air 03/26/24 15:31 Room Air 03/26/24 14:34 Room Air Coding Level of Care Code 50105 CRITICAL CARE 1ST 30-74M Diagnoses Shock R57.9 Acidosis, lactic E87.20 Acute hyperkalemia E87.5 Adrenal insufficiency E27.40 Acute renal failure N17.9 Type 2 diabetes mellitus without complication, without long-term current use of insulin E11.9 Diabetes mellitus complication status: without complication Diabetes mellitus snf insulin use: without long distance operator use (6) Type 2 diabetes mellitus Diabetes mellitus complication status: without complication Diabetes mellitus long distance operator insulin use: without long distance operator use Qualified Code(s): E11.9 - Type 2 diabetes mellitus without complications
--- NOTE | 2024-03-26 21:58 | Procedure Note ---
Procedure Note Date of Service March 26, 2024 ARTERIAL LINE PROCEDURE NOTE: Procedure: Arterial Line Placement Attending: Dr. Jack Provider: ZAKIYA Caceres Indication: Monitoring on Pressors Anesthesia: Lidocaine 1% Consent was signed and placed on the chart prior to procedure. Indication, risks, and benefits were explained at length. A time-out was completed verifying correct patient, procedure, site, positioning, and implant(s) or special equipment if applicable. Dillan's test was performed to ensure adequate perfusion. Patient's Left wrist was prepped and draped in the usual sterile fashion. Ultrasound guidance was used to aid needle placement. A 20g Arrow arterial line was introduced into the Left radial artery. Catheter was threaded, and the needle was removed with appropriate blood return. Good waveform was observed. The patient tolerated the procedure well. Confirmation of placement with ultrasound. Blood Loss: Minimal Complications: None Procedural Ultrasound Guidance: Procedure Date: 03/26/2024 Indication: Arterial line insertion Attending: Dr. Jack Provider: ZAKIYA Caceres Artery Identified: YES Line confirmed in Artery with ultrasound: yes Complications: NONE Patient tolerated procedure: [place] [facility] [place] Codes (Charges) Tubes, Drains, and Vasc Access Procedure 1: Tubes, Drains, and Vasc Access: [id number] Arterial Cath/Cannulation Sampling/Monitoring/Transfusion Procedure 2: Tubes, Drains, and Vasc Access: [id number] Ultrasound Guidance For Vascular Coding CPT Codes Tubes, Drains, and Vasc Access - Tubes, Drains, and Vasc Access: [id number] Arterial Cath/Cannulation Sampling/Monitoring/Transfusion ([id number]) Tubes, Drains, and Vasc Access - Tubes, Drains, and Vasc Access: [id number] Ultrasound Guidance For Vascular ([id number]) Additional Codes Date of Service (PG.[email or web address])
[2024-03-26 22:03] LABS: Adenovirus PCR Not Detected (NotDetected); Bordetella parapertussis PCR Not Detected (NotDetected); Bordetella pertussis PCR Not Detected (NotDetected); Chlamydia pneumoniae PCR Not Detected (NotDetected); Coronavirus 229E PCR Not Detected (NotDetected); Coronavirus CoV-2 (COVID19)PCR Not Detected (NotDetected); Coronavirus HKU1 PCR Not Detected (NotDetected); Coronavirus NL63 PCR Not Detected (NotDetected); Coronavirus OC43PCR Not Detected (NotDetected); Human Metapneumovirus PCR Not Detected (NotDetected); Influenza A PCR Not Detected (NotDetected); Influenza B PCR Not Detected (NotDetected); Mycoplasma pneumoniae PCR Not Detected (NotDetected); Parainfluenza Virus 1 PCR Not Detected (NotDetected); Parainfluenza Virus 2 PCR Not Detected (NotDetected); Parainfluenza Virus 3 PCR Not Detected (NotDetected); Parainfluenza Virus 4 PCR Not Detected (NotDetected); Respiratory Syncytial VirusPCR Not Detected (NotDetected); Rhinovirus/Enterovirus PCR Not Detected (NotDetected)
[2024-03-26 22:05] LABS: BUN Creatinine Ratio 17.5 (10-20); Calcium 8.8 mg/dl (8.6-10.3); Creatinine Clr Calc Pharmacy 23.1 ml/min; Potassium 5.9 mmol/L (3.5-5.1)
--- NOTE | 2024-03-26 22:15 | Emergency Department Note ---
Impression & Plan Muscular dystrophy, Acidosis, lactic, Acute hypotension, Acute hyperkalemia ED Provider Note CHIEF COMPLAINT: Nausea and vomiting, diarrhea HISTORY OF PRESENT ILLNESS: This 73-year-old female patient past medical history of muscular dystrophy, obesity, hypertension, hyperlipidemia, chronic kidney disease, type 2 diabetes, cardiomyopathy, presents to the emergency department with complaints of nausea and vomiting over the last several days, red blood in the stools and diarrhea. Patient's states she has not been eating much. She has not had a fever that they are aware of. Patient does have a chronic indwelling Gallegos catheter and states she has not been making urine for the last 3 days. REVIEW OF SYSTEMS: A review of systems was performed with positives and pertinent negatives listed in the history of present illness. 10 systems were reviewed and are otherwise negative. ALLERGIES: see below MEDICATIONS: see below PMH: see below SOCIAL HISTORY: see below DDx: Sepsis, UTI, pneumonia, aspiration, GI bleed, renal failure, obstructing uropathy, electrolyte abnormality among others. PHYSICAL EXAM: Vital signs reviewed. Noted to be hypotensive General: Chronically ill-appearing 73-year-old female, in no significant distress. HEENT: No scleral icterus, PERRLA, neck supple. Moist mucous membranes Cardiovascular: Distant heart tones but regular Pulmonary: Clear to auscultation bilaterally, normal work of breathing. Abdomen: Soft, morbidly obese, nontender, nondistended, positive bowel sounds. Musculoskeletal: Atraumatic, moderate peripheral edema. Unable to move the extremities. Neurologic: Patient generally weak appearing, awake and answers questions, but not articulating well. Skin: Warm, dry, no rash EMERGENCY DEPARTMENT COURSE/MDM: This patient was evaluated and appeared to be in no significant distress however she was noted to be hypotensive with normal heart rate. 1 L of normal saline solution was ordered at my initial evaluation. Nursing staff rechecked a rectal temperature and noted that she is hypothermic. She was placed on a Bharathi hugger. Patient was given 2 g of IV cefepime. She is not making significant amount of urine. A bladder scan was performed and is 0. Laboratory work is concerning for leukocytosis, potassium of 6.6, creatinine of 2.52 with a CO2 of 5. Patient is noted to have a glucose in the 40s. She was given 1 amp of IV D50. Lactate is noted to be markedly elevated at greater than 17. Additional IV hydration was initiated with a second 1 L bolus. Patient remained hypotensive and a third liter was initiated. Troponin is slightly elevated. Consultation with the hospitalist service was placed, Dr. Jang. ICU PA was made aware of the pending admission. Patient and her were notified of the findings, her critical state and plans for admission. MONITORING: An order for cardiac monitoring was placed and the patient is noted to be in a normal sinus rhythm at 84 beats per minute. RADIOLOGY: Chest x-ray: To my interpretation reveals no evidence of focal lung consolidation or failure. Please see radiology's over read below. CT imaging of the abdomen pelvis: IMPRESSION: 1. Stable bilateral renal scarring and nonobstructing left kidney stones. 2. Collapsed urinary bladder cannot be optimally assessed. No bladder stones. 3. Extensive cholelithiasis. EKG: To my interpretation reveals normal sinus rhythm 87 bpm, left bundle branch block, QTc of 522. DISPOSITION: Admission I have personally spent greater than 45 minutes of critical care time in the direct management of this patient. This includes bedside care, interpretation of diagnostic studies, and testing, discussion with consultants, patient, and family members, and other required patient management activities. This 45 minutes is in excess of all separately billable procedures. Past Med/Surg History Problem List (Updated 03/26/24 @ 22:30 by Kim Guidry MD) Acute hyperkalemia (Acute) Acute hypotension (Acute) Acidosis, lactic (Acute) Lactic acidosis Adrenal insufficiency Diarrhea BANDAR (acute kidney injury) Septic shock Elevated troponin Nausea, vomiting, and diarrhea Acute renal failure Sepsis Hyperkalemia Limb-girdle muscular dystrophy Hypotension Hypothermia Abnormal skin growth Paronychia of finger of right hand Chronic wound (Acute) Skin disease, bullous Non-healing skin lesion History of MRSA infection Muscular dystrophy (Acute) HTN (hypertension) Hyperlipidemia Chronic kidney disease (CKD) Type 2 diabetes mellitus Intertrigo Wheelchair dependent Does not walk Lymph node enlargement Weakness (Acute) LUQ pain Hyponatremia (Acute) Urinary symptom or sign Open wound MRSA (methicillin resistant Staphylococcus aureus) infection Nasal sinus congestion Hypoxia Cardiomyopathy LBBB (left bundle branch block) Urinary incontinence On statin therapy Medical History Limb-girdle muscular dystrophy Morbid obesity Congestive heart failure Uterine cancer Surgical History Hx of biopsy (12/13/23) History of hip surgery H/O right knee surgery History of total abdominal hysterectomy Family History Sister Cancer Myocardial infarction Muscular dystrophy Father Colorectal cancer Myocardial infarction Brother Colorectal cancer Myocardial infarction Muscular dystrophy Other Family history non-contributory Denies family history of Ovarian cancer Prostate cancer Breast cancer Social History Smoking Status: Unknown if ever smoked Second Hand Exposure: No; Do You Dip or Chew Tobacco: No; Hx Alcohol Use: No Hx Substance Use: No Preferred Language: Pakistani Communication Ability: Effective Visual Impairment: No Limitations Hearing Ability: Normal Entry Table Operator Required: No Beliefs That Will Affect Care: None marital status: Current Living Situation: Spouse current occupational status: disabled How many Children do You have: 5 Other Information That Helps Us Care for You: No Feels Safe at Home: Yes Safety Concerns: Feels Safe At This Time Childhood Exposure to Second-Hand Smoke: Yes Diet: regular caffeine: Yes during the past year weight has: remained stable Dental Care, Regularly: No Physical Activity Frequency: Daily Seatbelt Use: always Sunscreen Use: Yes Assistive Devices: Wheelchair Allergies Allergies Allergy/AdvReac Type Severity Reaction Status Date / Time No Known Allergies Allergy Unknown Verified 02/12/24 14:17 Home Meds Home Medications Medication Instructions Recorded Confirmed aspirin 81 mg tablet,delayed 81 mg PO DAILY 07/08/18 02/12/24 release vit C 50 mg-E 15 unit-zinc cit 4.5 2 tab PO DAILY 07/08/18 02/12/24 mg-lutein 2.5 mg-zeaxan chew tablet ([facility]) snyegwomyjyf-Hu-xagd-minerals 27 1 tab PO DAILY 10/07/18 02/12/24 mg-0.4 mg tablet (Women's Daily Formula) cranberry 400 mg capsule 400 mg PO BID 12/12/19 02/12/24 omega-3 fatty acids 1,000 mg 1,000 mg PO DAILY 12/01/21 02/12/24 capsule biotin 2,500 mcg capsule 2,500 mcg PO DAILY 11/21/22 02/12/24 ascorbic acid (vitamin C) 1 tab PO DAILY 08/17/23 02/12/24 zinc acetate 1 cap PO DAILY 08/17/23 02/12/24 Miscellaneous 09/15/23 02/12/24 Miscellaneous 09/15/23 02/12/24 JF-emiirxqmhvi-ulriol ox-Zn ER 500 tab PO TID 02/12/24 02/12/24 mcg-750 mg-1.5 mg-25 mg tablet,ER clobetasol 0.05 % topical ointment 1 applic topical DAILY 02/12/24 02/12/24 doxycycline hyclate 100 mg capsule 100 mg PO BID 02/12/24 02/12/24 prednisone 10 mg tablet 10 mg PO DAILY 02/12/24 02/12/24 Previous Rx's Medication Instructions Recorded power wheel chair repair #1 ea 12/13/21 APPM circulating mattress #1 ea 12/15/21 blood sugar diagnostic (OneTouch #100 ea 10/03/22 Ultra Test strips) lancets #100 ea 10/03/22 sacubitril 49 mg-valsartan 51 mg 1 tab PO BID #180 tabs 07/05/23 tablet (Entresto) atorvastatin 40 mg tablet 40 mg PO HS #90 tabs 07/17/23 metformin 1,000 mg tablet 1,000 mg PO BID #180 tabs 07/17/23 disposable gloves #50 ea 07/26/23 underpads #90 ea 07/26/23 nystatin 100,000 unit/gram topical 1 applic topical BID #30 grams 08/02/23 cream carvedilol 12.5 mg tablet 12.5 mg PO BID #180 tabs 08/17/23 Wheelchair (Powered) (Power #1 ea 09/25/23 Wheelchair) ondansetron 4 mg disintegrating 4 mg PO Q8H PRN nausea and 09/25/23 tablet vomiting #20 tabs repalcement wheels for powered #1 ea 09/25/23 wheelchair nystatin 100,000 unit/gram topical 1 applic topical BID PRN fungal 10/08/23 powder rash #60 grams linagliptin 5 mg tablet (Tradjenta) 5 mg PO DAILY #30 tabs 10/29/23 duoderm #3 ea 12/18/23 magnesium 250 mg tablet 250 mg PO DAILY #30 tabs 12/18/23 seat cushion replacement for #1 ea 12/18/23 electric scooter Results & Data (ED) Vital Signs Vital Signs - 24 hr 03/26/24 14:34 03/26/24 15:31 03/26/24 15:31 Temperature Temperature Source Pulse Rate 88 Pulse Rate [Apical] 84 Pulse Rate from SpO2 Sensor Respiratory Rate 25 H 17 Respiratory Effort / Characteristics Spontaneous Non-Labored Respiratory Depth Normal Normal Blood Pressure 97/56 L Blood Pressure [Right Arm] 93/52 L Blood Pressure Mean 69 Blood Pressure Mean [Right Arm] 65 Blood Pressure Position Semi-fowlers Blood Pressure Position [Right Arm] Pulse Oximetry 96 95 96 Oxygen Delivery Method Room Air Room Air Room Air Sepsis Recent Fever Within 48 Hours No Sepsis New/Unexplained Change in Mental Status N/A Sepsis Action Taken by Nursing Physician Notified 03/26/24 15:45 03/26/24 15:46 03/26/24 16:00 Temperature 33.4 C L Temperature Source Rectal Pulse Rate 82 Pulse Rate [Apical] 82 74 Pulse Rate from SpO2 Sensor Respiratory Rate 20 20 28 H Respiratory Effort / Characteristics Spontaneous Respiratory Depth Normal Blood Pressure Blood Pressure [Right Arm] 93/56 L 81/60 L Blood Pressure Mean Blood Pressure Mean [Right Arm] 68 67 Blood Pressure Position Blood Pressure Position [Right Arm] Semi-fowlers Pulse Oximetry 96 96 96 Oxygen Delivery Method Room Air Room Air Room Air Sepsis Recent Fever Within 48 Hours Sepsis New/Unexplained Change in Mental Status Sepsis Action Taken by Nursing 03/26/24 16:02 03/26/24 16:12 03/26/24 16:15 Temperature 33.4 C L Temperature Source Rectal Pulse Rate 81 Pulse Rate [Apical] 79 Pulse Rate from SpO2 Sensor Respiratory Rate 26 H Respiratory Effort / Characteristics Spontaneous Respiratory Depth Blood Pressure Blood Pressure [Right Arm] 97/55 L Blood Pressure Mean Blood Pressure Mean [Right Arm] 69 Blood Pressure Position Blood Pressure Position [Right Arm] Semi-fowlers Pulse Oximetry 96 Oxygen Delivery Method Room Air Sepsis Recent Fever Within 48 Hours Sepsis New/Unexplained Change in Mental Status Sepsis Action Taken by Nursing 03/26/24 16:30 03/26/24 17:00 03/26/24 17:12 Temperature Temperature Source Pulse Rate 82 82 Pulse Rate [Apical] 82 Pulse Rate from SpO2 Sensor 82 83 Respiratory Rate 19 20 29 H Respiratory Effort / Characteristics Respiratory Depth Blood Pressure 95/61 L Blood Pressure [Right Arm] 98/48 L Blood Pressure Mean 67 Blood Pressure Mean [Right Arm] 64 Blood Pressure Position Blood Pressure Position [Right Arm] Pulse Oximetry 95 96 Oxygen Delivery Method Room Air Sepsis Recent Fever Within 48 Hours Sepsis New/Unexplained Change in Mental Status Sepsis Action Taken by Nursing 03/26/24 17:15 03/26/24 17:15 03/26/24 17:15 Temperature Temperature Source Pulse Rate 884 H Pulse Rate [Apical] 84 Pulse Rate from SpO2 Sensor Respiratory Rate 24 24 Respiratory Effort / Characteristics Respiratory Depth Blood Pressure 99/60 L 99/60 L Blood Pressure [Right Arm] Blood Pressure Mean 67 67 Blood Pressure Mean [Right Arm] Blood Pressure Position Blood Pressure Position [Right Arm] Pulse Oximetry 96 96 Oxygen Delivery Method Sepsis Recent Fever Within 48 Hours Sepsis New/Unexplained Change in Mental Status Sepsis Action Taken by Nursing 03/26/24 17:30 Temperature Temperature Source Pulse Rate Pulse Rate [Apical] 85 Pulse Rate from SpO2 Sensor Respiratory Rate 19 Respiratory Effort / Characteristics Non-Labored Spontaneous Respiratory Depth Normal Blood Pressure Blood Pressure [Right Arm] 105/56 L Blood Pressure Mean Blood Pressure Mean [Right Arm] 72 Blood Pressure Position Blood Pressure Position [Right Arm] Semi-fowlers Pulse Oximetry 95 Oxygen Delivery Method Room Air Sepsis Recent Fever Within 48 Hours Sepsis New/Unexplained Change in Mental Status Sepsis Action Taken by Residential Medications Current Medication List: was personally reviewed by me Laboratory Data Attestation: I reviewed the patient's lab results. 03/26/24 15:32 03/26/24 21:33 Lab Results 03/26/24 03/26/24 Range/Units 15:32 17:00 WBC 14.07 H (4.8-10.8) K/ul RBC 4.24 (4.20-5.40) M/uL Hgb 10.9 L (12.0-16.0) g/dl Hct 37.8 (37.0-47.0) % MCV 89.2 (80.0-100.0) fL MCH 25.7 (25.0-34.0) pg MCHC 28.8 L (32.0-36.0) g/dL RDW Std Deviation 56.9 H (36.4-46.3) fL RDW Coeff of Arely 17.4 H (11.5-14.5) % Plt Count 263 (130-400) K/uL MPV 9.4 (9.4-12.4) fL Immature Gran % (Auto) 4.7 % Neut % (Auto) 83.3 % Lymph % (Auto) 10.4 % [place]leigh % (Auto) 1.2 % Eos % (Auto) 0.0 % Baso % (Auto) 0.4 % Neut # (Auto) 11.71 H (1.40-6.50) K/uL Lymph # (Auto) 1.47 (1.20-3.40) K/uL [place]leigh # (Auto) 0.17 (0.11-0.59) K/uL Eos # (Auto) 0.00 (0.00-0.50) K/uL Baso # (Auto) 0.06 (0.00-0.20) K/uL Immature Gran # (Auto) 0.66 H (0.01-0.20) K/uL Basophilic Stippling 1+ Ovalocytes 1+ Echinocytes 1+ Acanthocytes (Spur) 2+ Sodium 133 L (136-145) mmol/L Potassium 6.6 H* (3.5-5.1) mmol/L Chloride 94 L (98-107) mmol/L Carbon Dioxide 5 L* (21-32) mmol/L Anion Gap 34 H (3-11) BUN 43 H (6-23) mg/dl Creatinine 2.74 H (0.6-1.2) mg/dl Est Cr Clr Drug Dosing 21.2 ml/min eGFR 17.86 BUN/Creatinine Ratio 15.7 (10-20) Glucose 49 L* (70-99(Fasting)) mg/dl POC Glucose 152 H (70-99) mg/dl Osmolality 308 H (280-300) mOsm/kg Lactate > 17.0 H* (0.4-2.0) mmol/L Calcium 10.0 (8.6-10.3) mg/dl Magnesium 1.9 (1.7-2.4) mg/dl Total Bilirubin 0.3 (0.2-1.0) mg/dl Direct Bilirubin 0.1 (0-0.2) mg/dl AST 26 (13-39) U/L ALT 22 (7-52) U/L Alkaline Phosphatase 42 (34-104) U/L Troponin I High Sens 22.3 H (0-14) pg/ml Total Protein 6.0 (6.0-8.3) gm/dl Albumin 3.0 L (3.4-5.0) gm/dl Procalcitonin 0.36 (0-0.5) ng/ml Administered Medications Daptomycin 425 mg/ Syringe 8.5 mls @ 4.25 mls/min IV Q24H [facility]; Protocol Stop: 03/28/24 17:29 Last Admin: 03/26/24 17:59 Dose: 4.25 mls/min Documented By: MMF Sodium Bicarbonate 150 meq/ (Dextrose) 1,150 mls @ 200 mls/hr IV .Q5H45M LYNNE Stop: 04/25/24 17:29 Last Admin: 03/26/24 17:59 Dose: 150 mls/hr Documented By: MMF Norepinephrine Bitartrate (Levophed/D5w) 4 mg in 250 mls @ 18.6 mls/hr IV .[id number] [facility]; Protocol Stop: 04/25/24 20:14 Last Admin: 03/26/24 20:15 Dose: 0.05 mcg/kg/min, 18.6 mls/hr Documented By: LENNOX Co-signed By: CMP Discontinued Medications Dextrose (Dextrose 50% 50 Ml Syringe) 50 ml IV NOW STA Stop: 03/26/24 16:22 Last Admin: 03/26/24 16:27 Dose: 50 ml Documented By: MMF Hydrocortisone Sodium Succinate (Hydrocortisone Sod Succinate 100 Mg/2 Ml Vial) 100 mg IV NOW STA Stop: 03/26/24 17:50 Last Admin: 03/26/24 17:58 Dose: 100 mg Documented By: MMF Sodium Chloride (Nss) 1,000 mls @ 999 mls/hr IV .Q1H1M ONE Stop: 03/26/24 16:48 Last Infusion: 03/26/24 18:04 Dose: Infused Documented By: Admin: 03/26/24 15:53 Dose: 999 mls/hr Documented By: MMF Cefepime HCl (Maxipime 2000mg) 2,000 mg in 20 mls @ 5 mls/min IV NOW STA; Protocol Stop: 03/26/24 15:52 Last Admin: 03/26/24 16:13 Dose: 5 mls/min Documented By: MMF Sodium Chloride (Nss) 1,000 mls @ 200 mls/hr IV .Q5H LYNNE Stop: 03/27/24 16:29 Last Infusion: 03/26/24 18:04 Dose: Infused Documented By: Admin: 03/26/24 16:30 Dose: 200 mls/hr Documented By: MMF Parenteral Electrolytes (Plasma-Lyte A Ph 7.4) 1,000 mls @ 999 mls/hr IV .Q1H1M ONE Stop: 03/26/24 17:57 Last Admin: 03/26/24 17:47 Dose: Not Given Documented By: MMF Calcium Gluconate () 1,000 mg in 60 mls @ 240 mls/hr IV NOW STA Stop: 03/26/24 17:15 Last Infusion: 03/26/24 18:04 Dose: Infused Documented By: Admin: 03/26/24 17:36 Dose: 240 mls/hr Documented By: MMF Norepinephrine Bitartrate (Norepinephrine/D5w 4 Mg/250 Ml) Confirm Administered Dose 4 mg IV .STK-MED ONE Stop: 03/26/24 20:15 Last Admin: 03/26/24 21:17 Dose: Not Given Documented By: LENNOX Sodium Bicarbonate (Sodium Bicarb 8.4% Inj 50 Meq/50 Ml Syr) 50 meq IV NOW STA Stop: 03/26/24 17:25 Last Admin: 03/26/24 18:12 Dose: 50 meq Documented By: MMF Sodium Bicarbonate (Sodium Bicarb 8.4% Inj 50 Meq/50 Ml Syr) 50 meq IV NOW STA Stop: 03/26/24 18:47 Last Admin: 03/26/24 19:19 Dose: 50 meq Documented By: MMF Sodium Bicarbonate (Sodium Bicarb 8.4% Inj 50 Meq/50 Ml Syr) 50 meq IV NOW STA Stop: 03/26/24 21:00 Last Admin: 03/26/24 21:14 Dose: 50 meq Documented By: LENNOX Imaging Data Radiologist's Impression: Chest X-Ray 03/26/24 15:26 EXAM: Radiograph of the Chest 1 View INDICATION: Pain. TECHNIQUE: Frontal view of the chest. COMPARISON: 01/18/2023 FINDINGS: Lungs and pleural spaces: No consolidation or pulmonary edema. No pleural effusion or pneumothorax. Heart: Shape and configuration within normal limits allowing for technique. Mediastinum: Normal contour. Bones/joints: Degenerative changes noted throughout the spine. No acute osseous abnormality seen. Soft tissues: No abnormality noted. No radiopaque foreign body noted. Vasculature: Shallow inspiration with mild carotid vasculature in the bases. Stable ectatic aorta with calcification of the arch. Upper abdomen: There is a nonspecific calcific density in the right upper quadrant measuring 1 cm. IMPRESSION: Nonspecific right upper quadrant calcification. This could reflect artifact or a gallbladder or kidney stone. ACT 112: Negative or not required by law. Electronically signed by Kaylie Linder 03-26-2024 5:22 PM Abdomen/Pelvis CT 03/26/24 16:30 EXAM: CT Abdomen and Pelvis Without Intravenous Contrast INDICATION: Acute renal failure. TECHNIQUE: Axial computed tomography images of the abdomen and pelvis without intravenous contrast. Sagittal and coronal reformatted images were created and reviewed. This CT exam was performed using one or more of the following dose reduction techniques: automated exposure control, adjustment of the mA and/or kV according to patient size, and/or use of iterative reconstruction technique. COMPARISON: 09/15/2023 FINDINGS: Limitations: None. Lung bases: Airway thickening and mild atelectasis present in the dependent lung bases. Pleural space: Trace bilateral layering pleural effusions present. Heart: Stable large cardiac shadow. Mediastinum: No abnormality noted. ABDOMEN: Liver: Lack of intravenous contrast limits detection of some masses. No abnormality noted. Gallbladder and bile ducts: Multiple gallstones present. No ductal dilatation or stone. Pancreas: No pancreatic mass, calcification, inflammation or ductal dilation noted. Spleen: No significant abnormality noted. Adrenals: No significant abnormality noted. 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 Stable bilateral renal cortical scarring. Stable nonobstructing left kidney stones. No ureteral stone. Stomach and bowel: No distension or mucosal thickening. No inflammation noted. PELVIS: Appendix: No findings to suggest acute appendicitis. Bladder: Urinary bladder is decompressed by catheter. Balloon inflated in the lumen. Reproductive: No abnormalities noted. ABDOMEN and PELVIS: Intraperitoneal space: No free air. No significant fluid collection. Bones/joints: Degenerative changes noted throughout the spine. No acute osseous abnormality seen. Visualized portion of right femoral nail and proximal locking bolt intact and well-seated. Soft tissues: There are small bilateral fat containing inguinal hernias. Diffuse body wall edema noted. Vasculature: Aortobiiliac atherosclerosis. There is moderate to severe coronary calcification. No aneurysm. Lymph nodes: No pathologically enlarged lymph nodes. IMPRESSION: 1. Stable bilateral renal scarring and nonobstructing left kidney stones. 2. Collapsed urinary bladder cannot be optimally assessed. No bladder stones. 3. Extensive cholelithiasis. ACT 112: Negative or not required by law. Electronically signed by Kaylie Linder 03-26-2024 5:05 PM Discharge Plan Visit Data Chief Complaint: Weakness Stated Complaint: WEAKNESS, HYPOTENSION ED Provider: Kim Guidry Discharge Problem: Muscular dystrophy, Acidosis, lactic, Acute hypotension, Acute hyperkalemia Patient Disposition: Admitted As Inpatient Discharge Instructions Interventions: ED Discharge Assessment Last Done: 03/26/24 19:39
[2024-03-26] MEDS ORDERED: FOMEPIZOLE 1,500MG/1.5ML VIAL IV STA (22:16)
[2024-03-26] MEDS: VASOPRESSIN 20 UNITS in SODIUM CHLORIDE 0.9% 100 ML IV SCH (22:19)
[2024-03-26] MEDS: INSULIN ASPART PER UNIT CHARGE SC SCH (22:25)
[2024-03-26 22:55] LABS: iSTAT Art Bld Gas pCO2 Correct 19 mmHg (35-46); iSTAT Art Bld Gas pH Corrected 7.136 (7.35-7.45); iSTAT Arterial Blood Gas HCO3 7 meg/L (19-24); iSTAT Arterial Blood Gas pCO2 22 mmHg (35-46); iSTAT Arterial Blood Gas pH 7.09 (7.35-7.45); iSTAT Arterial Blood Gas pO2 109 mmHg (80-95); iSTAT Arterial Blood Gas pO2 C 90; iSTAT Carbon Dioxide 7 mmol/L (24-31); iSTAT FiO2 21 %; iSTAT Hematocrit 29 % (37-47); iSTAT Hemoglobin 9.9 g/dl (12.0-16.0); iSTAT Potassium 5.4 mmol/L (3.3-5.0); iSTAT Sample Type Arterial; iSTAT Site Art Line; iSTAT Sodium 133 mmol/L (135-144); iSTAT SpO2 97
[2024-03-26] MEDS: FOMEPIZOLE IV STA (22:55)
[2024-03-26] MEDS: DEXTROSE 5% IV STA (22:55)
[2024-03-26] MEDS ORDERED: PHENYLEPHRINE HCL 25 MG/250 ML NSS IV ONE (23:14)
[2024-03-26] MEDS ORDERED: PHENYLEPHRINE/NSS 25 MG/250 ML BAG IV SCH (23:15)
--- NOTE | 2024-03-26 23:20 | Electrocardiogram Report ---
Test Reason : Blood Pressure : */* mmHG Vent. Rate : 87 BPM Atrial Rate : 87 BPM P-R Int : 196 ms QRS Dur : 166 ms QT Int : 434 ms P-R-T Axes : 33 -7 158 degrees QTcB Int : 522 ms Normal sinus rhythm Left bundle branch block Abnormal ECG When compared with ECG of 18-Jan-2023 08:46, Premature ventricular complexes are no longer Present Vent. rate has increased by 32 bpm QRS duration has increased T wave inversion more evident in Lateral leads Confirmed by Steve Valerio ([id number]) on 03/26/2024 11:20:22 PM Referred By: Confirmed By: Steve Valerio
[2024-03-26 23:34] LABS: Appearance Urine Cloudy (Clear); Bacteria Urine Automated 3+ (None Seen); Bilirubin Urine Negative (Negative); Blood Urine 1+ (Negative); Cast Urine Automated 0-2 /lpf (0-2); Color Urine Yellow; Epithelial Cell Urine Auto 0-2 /hpf (0-2); Glucose Urine UA 2+ (Negative); Ketones Urine 1+ (Negative); Leukocyte Esterase Urine 3+ (Negative); Nitrite Urine Negative (Negative); Protein Urine 3+ (Negative); RBC Urine Automated 0-2 /hpf (0-2); Specific Gravity Urine 1.013 (1.000-1.030); Urobilinogen Urine Negative (Negative); WBC Urine Automated >50 /hpf (0-5); pH Urine 5.5 (4.5-7.5)
[2024-03-26 23:35] LABS: Acetaminophen < 3 ug/ml (10-30); Salicylate < 3.0 mg/dl (3.0-30)
[2024-03-26 23:36] VITALS: RESP 22; TEMP 92.5
[2024-03-27] MEDS ORDERED: CEFEPIME 2000MG 2,000 MG/20 ML SYR IV SCH (00:15)
[2024-03-27] MEDS ORDERED: HYDROCORTISONE SOD SUCCINATE 100 MG/2 ML VIAL IV SCH (00:30)
[2024-03-27] MEDS ORDERED: HYDROCORTISONE SOD 50 MG in SYRINGE 0 ML IV SCH (00:30)
[2024-03-27 00:39] LABS: Amphetamines+Metham, Urine Neg (Neg); Barbiturates, Urine Neg (Neg); Benzodiazepine, Urine Neg (Neg); Cocaine, Urine Neg (Neg); Fentanyl, Urine Neg (Neg); MDMA (Ecstacy), Urine Neg (Neg); Marijuana, Urine Neg (Neg); Methadone, Urine Neg (Neg); Opiate, Urine Neg (Neg); Phencyclidine, Urine Neg (Neg)
[2024-03-27] MEDS ORDERED: SODIUM BICARB 8.4% INJ 50 MEQ/50 ML SYR IV STA (00:42)
[2024-03-27 00:44] LABS: iSTAT Art Bld Gas pCO2 Correct 19 mmHg (35-46); iSTAT Art Bld Gas pH Corrected 7.158 (7.35-7.45); iSTAT Arterial Blood Gas HCO3 7 meg/L (19-24); iSTAT Arterial Blood Gas pCO2 22 mmHg (35-46); iSTAT Arterial Blood Gas pH 7.11 (7.35-7.45); iSTAT Arterial Blood Gas pO2 103 mmHg (80-95); iSTAT Arterial Blood Gas pO2 C 85; iSTAT Carbon Dioxide 8 mmol/L (24-31); iSTAT FiO2 21 %; iSTAT Hematocrit 31 % (37-47); iSTAT Hemoglobin 10.5 g/dl (12.0-16.0); iSTAT Potassium 5.2 mmol/L (3.3-5.0); iSTAT Sample Type Arterial; iSTAT Site Art Line; iSTAT Sodium 136 mmol/L (135-144); iSTAT SpO2 94
[2024-03-27 01:23] VITALS: BP 126/70; PULSE 100; O2SAT 100
[2024-03-27] MEDS ORDERED: CEFEPIME 1000MG 1,000 MG/10 ML SYR IV SCH (03:00)
[2024-03-27] MEDS ORDERED: ASPIRIN 81 MG ECTAB PO SCH (09:00)
== END 2024-03-27 01:12 | disposition short-term general hospital (02) | DRG 871 ==
LOC: ED 15:08 → 1E 17:35